=== PATIENT | female | born 1960 ===

== ENCOUNTER 2016-10-02 13:55 | Inpatient (IN) | payer MEDICARE, MEDICAID ==
[2016-10-02 13:55] VITALS: BMI 21.0
[2016-10-02 16:12] LABS: BASO % 1.1 % (0.0-2.0); EOS # 0.1 K/uL (0.0-0.7); EOS % 2.4 % (0.0-4.0); HEMATOCRIT 28.2 % (34.0-47.0); LYMPH # 0.8 K/uL (1.0-4.3); LYMPH % 18.8 % (20.0-40.0); MEAN CORPUSCULAR HEMOGLOBIN 31.6 pg (27.0-31.0); MEAN CORPUSCULAR HGB CONC 33.8 g/dL (33.0-37.0); MEAN PLATELET VOLUME 7.3 fL (7.2-11.7); MONO # 0.7 K/uL (0.0-0.8); RED CELL DISTRIBUTION WIDTH 16.8 % (11.5-14.5); WHITE BLOOD COUNT 4.3 K/uL (4.8-10.8)
[2016-10-02] MEDS ORDERED: Iodixanol 320 MG/ML 100 ML BOTTLE IV ONE (16:17)
[2016-10-02 16:21] LABS: MEAN CELL VOLUME 93.5 fL (81.0-99.0)
--- NOTE | 2016-10-02 16:23 | RAD ---
PROCEDURE: CHEST RADIOGRAPH, 1 VIEW HISTORY: SOB COMPARISON: 12/11/2015 FINDINGS: LUNGS: Hazy opacity in the bilateral lung bases. Scarring noted in both lung bases. Right paratracheal opacity appears more prominent than in the prior radiograph from 12/11/2015. PLEURA: Bilateral effusions. CARDIOVASCULAR: Normal. OSSEOUS STRUCTURES: The osseous structures demonstrate degenerative changes. VISUALIZED UPPER ABDOMEN: Upper abdomen is suboptimally evaluated. OTHER FINDINGS: Midline sternotomy wires noted. Vascular stent seen underneath the projection of the left clavicle. This was not there in the prior radiograph. Vascular calcifications in the left upper arm. IMPRESSION: Bilateral pleural effusions with associated compressive atelectasis and/ pneumonia. Additional pleural scarring noted in both lower lung bases.
[2016-10-02 16:24] LABS: CHLORIDE 95 mmol/L (98-107); POTASSIUM 4.3 mmol/L (3.6-5.2); SODIUM 142 mmol/L (132-148)
[2016-10-02 16:25] LABS: INR 1.5
[2016-10-02 16:26] LABS: GFR AFRICAN-AMERICAN 13
[2016-10-02 16:27] LABS: ALKALINE PHOSPHATASE 82 U/L (38-126); ALT/SGPT 21 U/L (9-52); AST/SGOT 16 U/L (14-36); BILIRUBIN,TOTAL 1.1 mg/dL (0.2-1.3); BLOOD UREA NITROGEN 21 mg/dL (7-17); CARBON DIOXIDE 34 mmol/L (22-30); GLUCOSE,RANDOM 76 mg/dL (65-105); TOTAL PROTEIN 8.1 g/dL (6.3-8.3)
[2016-10-02 16:28] LABS: CALCIUM 8.4 mg/dl (8.6-10.4)
--- NOTE | 2016-10-02 16:29 | C.PDOC ---
History Of Present Illness 56-year-old, PMHx includes Emphysema, Hypertension, double bypass surgery, valve replacement, ESRD on dialysis MWF s/p failed kidney transplants x2, presents to the emergency department with complaints of increasing shortness of breath for the past four days. States she had pneumonia in 06/03 and has not fully recovered since. Patient was seen by Dr Tran, who prescribed a Zpack that she has been taking with no relief, resulting in her coming to the ED for evaluation. Patient is on O2 va NC at home 08/02. Time Seen by Provider: 10/02/16 14:51 Chief Complaint (Nursing): Shortness Of Breath History Per: Patient, Family History/Exam Limitations: no limitations Onset/Duration Of Symptoms: Days Current Symptoms Are (Timing): Still Present Past Medical History Reviewed: Historical Data, Nursing Documentation, Vital Signs Vital Signs: Last Vital Signs Temp 97.4 F L 10/03/16 17:10 Pulse 85 10/03/16 17:10 Resp 20 10/03/16 17:10 BP 152/80 H 10/03/16 17:10 Pulse Ox 97 10/03/16 17:10 - Medical History PMH: CAD (double bypass, replacement valve), HTN, Hypercholesterolemia, Hypothyroidism (thyroid), End Stage Renal Disease - [facility] CORONAR ARTERIOGR-2 CATH (02/20/04) HEMODIALYSIS (07/13/13) INCIS W REM OF FORIEGN BODY OR DEV FROM SKIN & SUBCUT TISSUE (12/24/12) LEFT HEART CARDIAC CATH (02/20/04) LT HEART ANGIOCARDIOGRAM (02/20/04) Family History: States: Unknown Family Hx - Social History Hx Tobacco Use: No Hx Alcohol Use: No Hx Substance Use: No - Immunization History Hx Influenza Vaccination: Yes Review Of Systems Except As Marked, All Systems Reviewed And Found Negative. Constitutional: Positive for: Fever, Chills Cardiovascular: Negative for: Chest Pain, Palpitations Respiratory: Positive for: Shortness of Breath Gastrointestinal: Negative for: Vomiting Genitourinary: Negative for: Dysuria, Frequency Musculoskeletal: Positive for: Back Pain Skin: Negative for: Rash Neurological: Negative for: Weakness, Numbness, Headache, Dizziness Physical Exam - Physical Exam Appears: Non-toxic, No Acute Distress Skin: Warm, No Rash Neck: Normal ROM Chest: Symmetrical, Other (MID LINE SURGICAL SCAR, OLD, HEALED. ) Cardiovascular: Rhythm Regular, Murmur (holosys 3/6) Respiratory: Decreased Breath Sounds, No Rhonchi, No Wheezing, Other (POOR AIR MOVEMENT. ) Gastrointestinal/Abdominal: Soft, No Tenderness Extremity: Pedal Edema, Other (AV FISTULA IN LUE WITH PALPABLE THRILL) Neurological/Psych: Oriented x3, Normal Speech, Normal Cognition ED Course And Treatment - Laboratory Results Result Diagrams: 10/02/16 16:05 10/02/16 16:10 ECG: Interpreted By Al ECG Rhythm: Sinus Rhythm ECG Interpretation: No Acute Changes Rate From EC O2 Sat by Pulse Oximetry: 100 - Radiology CXR: Interpreted by Al CXR Interpretation: Yes: Infiltrates, Other (small bilateral plural effusions) Medical Decision Making Medical Decision Making: Pt remained stable in the ED Pt has been treated for the past several wks with abx and apparently not improving she will need admission for further evaluation and treatment Case discussed with and pt seen by dr Joe in the Ed She arranged for pt to be admitted by dr Pulliam Disposition - Disposition Disposition: HOSPITALIZED Disposition Time: 17:00 Condition: FAIR - Clinical Impression Clinical Impression: ESRD (end stage renal disease) on dialysis, Pneumonia, Dyspnea, Pleural effusion - Scribe Statement The provider has reviewed the documentation as recorded by the Scribe Decision To Admit - Pt Status Changed To: Hospital Disposition Of: Inpatient - Admit Certification Admit to Inpatient:: After my assessment, the patient will require hospitalization for at least two midnights. This is because of the severity of symptoms shown, intensity of services needed, and/or the medical risk in this patient being treated as an outpatient. - InPatient: Physician Admission Certification: I certify that this patient requires 2 or more midnights of care for the following reason:: see note - . Bed Request Type: Regular Admitting Physician: López Millard Patient Diagnosis: ESRD (end stage renal disease) on dialysis, Pneumonia, Dyspnea, Pleural effusion
[2016-10-02] MEDS ORDERED: Albuterol-Ipratrop 3 mg / 0.5 (3 ml) UD ONE (17:28)
[2016-10-02] MEDS: Albuterol-Ipratrop 3 mg / 0.5 (3 ml) UD IH SCH (17:39)
[2016-10-02] MEDS ORDERED: Oxycodone/Acetaminophen 5/325 mg Tab ONE (20:58)
[2016-10-02] MEDS ORDERED: Azithromycin 500mg/250ML NS 250 ML IVPB ONE (22:08)
[2016-10-02] MEDS: Azithromycin 500 MG in Sodium Chloride 0.9% 250 ML IVPB SCH (22:10)
[2016-10-03] MEDS: Albuterol-Ipratrop 3 mg / 0.5 (3 ml) UD INH SCH ×4 (01:48→19:11)
[2016-10-03] MEDS: Levothyroxine 125 MCG TAB PO SCH (05:34)
[2016-10-03] MEDS: Oxycodone/Acetaminophen 5/325 mg Tab PO PRN ×2 (05:34→20:29)
--- NOTE | 2016-10-03 10:52 | CP.PCM.CON ---
History of Present Illness - History of Present Illness History of Present Illness: 56-year-old, PMHx includes Emphysema, Hypertension, double bypass surgery, valve replacement, ESRD on dialysis MWF s/p failed kidney transplants x2, presents to the emergency department with complaints of increasing shortness of breath for the past four days. States she had pneumonia in 06/03 and has not fully recovered since. Patient was seen by Dr Tran, who prescribed a Zpack that she has been taking with no relief, resulting in her coming to the ED for evaluation. Patient is on O2 va NC at home 08/02. Known history of esrd on HD at [facility], received hd m,w,f. Last treatment 10/02, patient reports decresed fluid removal due to muscle cramps CXR notable for effusions and infiltrates Review of Systems - Constitutional Constitutional: Fatigue, Headache, Malaise, Weakness. absent: Chills, Fever - EENT Eyes: absent: Change in Vision, Itchy Eyes Ears: absent: Decreased Hearing, Disequilibrium, Dizziness Nose/Mouth/Throat: absent: Nasal Congestion, Dry Mouth, Dysphagia - Cardiovascular Cardiovascular: Dyspnea, Dyspnea on Exertion. absent: Chest Pain, Chest Pain at Rest, Edema - Respiratory Respiratory: Cough, Dyspnea. absent: Wheezing, Pain on Inspiration, Chest Congestion - Gastrointestinal Gastrointestinal: absent: Abdominal Pain, Constipation, Hematemesis, Nausea - Genitourinary Genitourinary: absent: Hematuria, Pyuria - Musculoskeletal Musculoskeletal: Arthralgias, Muscle Cramps. absent: Joint Swelling, Stiffness - Integumentary Integumentary: absent: Change in Hair, Dry Skin, Skin Ulcer, Sores - Neurological Neurological: absent: Dizziness, Memory Loss, Syncope, Tingling, Tremor - Psychiatric Psychiatric: Depression. absent: Confusion, Memory Loss - Endocrine Endocrine: absent: Cold Intolorance, Heat Intolorance, Polydipsia, Polyphagia - Hematologic/Lymphatic Hematologic: absent: Easy Bleeding, Easy Bruising Past Patient History - Past Medical History & Family History Past Medical History?: Yes - Past Social History Smoking Status: Current Some Days Smoker - CARDIAC Hx Hypercholesterolemia: Yes Hx Hypertension: Yes - PULMONARY Hx Respiratory Disorders: No - NEUROLOGICAL Hx Neurological Disorder: No - HEENT Hx HEENT Problems: No - RENAL Hx Dialysis: Yes Type of Dialysis Access: LORETTA AV fistula Date of Last Dialysis Treatment: 10/02/16 Hx Renal Failure: Yes (Dialysis (M-W-F)) - ENDOCRINE/METABOLIC Hx Hypothyroidism: Yes (thyroidectomy) - HEMATOLOGICAL/ONCOLOGICAL Hx Anemia: Yes Hx Blood Transfusions: Yes Hx Hepatitis C: Yes (inconclusive) - INTEGUMENTARY Hx Dermatological Problems: No - MUSCULOSKELETAL/RHEUMATOLOGICAL Hx Back Pain: Yes Hx Falls: No - GASTROINTESTINAL Hx Gastrointestinal Disorders: Yes Other/Comment: Hiatal Hernia - GENITOURINARY/GYNECOLOGICAL Hx Genitourinary Disorders: No - PSYCHIATRIC Hx Psychophysiologic Disorder: No Hx Substance Use: No - SURGICAL HISTORY Hx Kidney Transplant: Yes (2) Hx Thyroidectomy: Yes (2014) Hx Valve Replacement: Yes (2010) - ANESTHESIA Hx Anesthesia: Yes Hx Anesthesia Reactions: No Hx Malignant Hyperthermia: No Meds Allergies/Adverse Reactions: Allergies Allergy/AdvReac Type Severity Reaction Status Date / Time No Known Allergies Allergy Verified 12/24/12 18:23 - Medications Medications: Current Medications Acetaminophen (Tylenol 325mg Tab) 650 mg PO Q6 PRN PRN Reason: Fever >100.4 F Albuterol/Ipratropium (Duoneb 3 Mg/0.5 Mg (3 Ml) Ud) 3 ml INH RQ6 [facility] Last Admin: 10/03/16 08:53 Dose: 3 ml Aspirin (Aspirin Chewable) 81 mg PO TTS [facility] Last Admin: 10/03/16 10:27 Dose: 81 mg Calcium Acetate (Phoslo) 667 mg PO TIDCC [facility] Last Admin: 10/03/16 09:15 Dose: 667 mg Carvedilol (Coreg) 3.125 mg PO BID [facility] Last Admin: 10/03/16 10:15 Dose: 3.125 mg Heparin Sodium (Porcine) (Heparin) 5,000 units SC Q12 [facility] Last Admin: 10/03/16 10:28 Dose: 5,000 units Azithromycin 500 mg/ Sodium (Chloride) 250 mls @ 250 mls/hr IVPB Q24H [facility] Last Admin: 10/02/16 22:10 Dose: 250 mls/hr Levothyroxine Sodium (Synthroid) 125 mcg PO DAILY@0630 [facility] Last Admin: 10/03/16 05:34 Dose: 125 mcg Oxycodone/Acetaminophen (Percocet 5/325 Mg Tab) 1 tab PO Q8 PRN PRN Reason: Pain, moderate (4-7) Stop: 10/05/16 22:01 Last Admin: 10/03/16 05:34 Dose: 1 tab Pantoprazole Sodium (Protonix Inj) 40 mg IVP DAILY [facility] Last Admin: 10/03/16 10:28 Dose: 40 mg Rosuvastatin Calcium (Crestor) 5 mg PO HS [facility] Last Admin: 10/02/16 23:30 Dose: Not Given Fluticasone/Salmeterol (Advair Diskus 250/50) 1 puff INH RQ12 [facility] Physical Exam - Constitutional Appears: Unkempt, Older Than Stated Age, Chronically Ill - Head Exam Head Exam: ATRAUMATIC, NORMAL INSPECTION - Eye Exam Eye Exam: EOMI, PERRL - ENT Exam ENT Exam: Mucous Membranes Moist, Normal Oropharynx - Neck Exam Neck exam: Negative for: Lymphadenopathy, Thyromegaly - Respiratory Exam Respiratory Exam: Rhonchi, Wheezes, NORMAL BREATHING PATTERN - Cardiovascular Exam Cardiovascular Exam: JVD, +S1, +S2, Systolic Murmur - GI/Abdominal Exam GI & Abdominal Exam: Normal Bowel Sounds, Soft. absent: Tenderness - Extremities Exam Extremities exam: Negative for: joint swelling, pedal edema, tenderness - Back Exam Back exam: absent: muscle spasm, paraspinal tenderness - Neurological Exam Neurological exam: Alert, Oriented x3 - Psychiatric Exam Psychiatric exam: Depressed - Skin Skin Exam: Dry, Intact Results - Vital Signs Recent Vital Signs: Last Vital Signs Temp 98 F 10/03/16 00:00 Pulse 80 10/03/16 00:00 Resp 20 10/03/16 00:00 BP 131/77 10/03/16 00:00 Pulse Ox 96 10/03/16 00:00 - Labs Result Diagrams: 10/02/16 16:05 10/02/16 16:10 Assessment & Plan (1) Pneumonia Status: Acute (2) ESRD (end stage renal disease) on dialysis Status: Acute (3) Dependence on renal dialysis Status: Acute (4) Anemia Status: Acute (5) Pleural effusion Status: Acute (6) Hypertension Status: Acute (7) Failed kidney transplant Status: Acute - Assessment and Plan (Free Text) Plan: Dyspnea likely multifactorial Pleural effusions and infiiltrates - immunocompromised state Conside bronchoscopy for further evaluation, patient recently treated with oral abx without improvement and prior admission for pneumonia Schedule dialysis today for fluid removal ?thoracentesis Continue hmoe bp meds - reduce for hypotension on hd
[2016-10-03] MEDS: Fluticasone-Salmeterol 250-50mcg Diskus INH SCH ×2 (14:10→21:59)
--- NOTE | 2016-10-03 16:50 | CP.PCM.CON ---
History of Present Illness - History of Present Illness History of Present Illness: CHART REVIEWED, PT SEEN AND EXAMINED, 10/02/16-- UNABLE TO ACCESS EHR. 56 YO HISP FEMALE WITH A HX COPD, CHRONIC RESP FAILURE ON HOMEMO2 AT 4L, S/P [place]PSIS [place] [facility] [place], [place], S/P FAILED KIDNEY TRANSPLANT X 2, S/P CABG, AVR AT [facility] IN 2010, HTN, ADVISED TO GO TO ER FROM MY OFFICE YESTERDAY FOR INCREASED SEVERE SOB WITH MIN EXERTION X 1 WK., NO COUGH , +LOW GRADE FEVERS, GENERALIZED MALAISE., POOR APPETITE. NO RELIEF WITH HOME NEB., IN OFFICE O2 SAT 85% ON 3L O2., . NO CP. PT RECENTLY NOTIFIED BY [facility] OF POSSIBLE ATYPICAL MYCOBACTERIAL EXPOSURE RELATED TO PRIOR CARDIAC SURGERY. STARTED ON TRIAL ZMAX OUTPT LAST MONTH. FOB DONE FEW MONTHS AGO NEG FOR [employer]. Review of Systems - Review of Systems Systems not reviewed;Unavailable: Respiratory Distress All systems: reviewed and no additional remarkable complaints except - Constitutional Constitutional: Fatigue, Fever, Malaise - EENT Eyes: Change in Vision, Other Visual Disturbances Nose/Mouth/Throat: Sore Throat. absent: Nasal Congestion - Cardiovascular Cardiovascular: Dyspnea, Dyspnea on Exertion. absent: Chest Pain, Edema - Respiratory Respiratory: Dyspnea, Dyspnea on Exertion. absent: Cough, Chest Congestion, Excessive Mucous Production - Gastrointestinal Gastrointestinal: absent: Abdominal Pain, Nausea, Vomiting - Genitourinary Genitourinary: absent: Dysuria - Musculoskeletal Musculoskeletal: Back Pain - Integumentary Integumentary: absent: Lesions, Jaundice - Neurological Neurological: absent: Confusion, Dizziness, Focal Weakness, Syncope - Psychiatric Psychiatric: absent: Anxiety - Hematologic/Lymphatic Hematologic: absent: Easy Bruising Past Patient History - Past Medical History & Family History Past Medical History?: Yes Past Family History: Reviewed and not pertinent - Past Social History Smoking Status: Current Some Days Smoker Chewing Tobacco Use: No Cigar Use: No Alcohol: None Drugs: Denies - CARDIAC Hx Cardiac Disorders: Yes Hx Hypercholesterolemia: Yes Hx Hypertension: Yes - PULMONARY Hx Respiratory Disorders: Yes Hx Chronic Obstructive Pulmonary Disease (COPD): Yes Hx Pneumonia: Yes Hx Respiratory Tract Infection: Yes Hx Tuberculosis: No - NEUROLOGICAL Hx Neurological Disorder: No - HEENT Hx HEENT Problems: Yes - RENAL Hx Chronic Kidney Disease: Yes Hx Dialysis: Yes Type of Dialysis Access: LORETTA AV fistula Date of Last Dialysis Treatment: 10/02/16 Hx Renal Failure: Yes (Dialysis (M-W-F)) - ENDOCRINE/METABOLIC Hx Endocrine Disorders: Yes Hx Hypothyroidism: Yes (thyroidectomy) - HEMATOLOGICAL/ONCOLOGICAL Hx Anemia: Yes Hx Blood Transfusions: Yes Hx Hepatitis C: Yes (inconclusive) - INTEGUMENTARY Hx Dermatological Problems: No - MUSCULOSKELETAL/RHEUMATOLOGICAL Hx Back Pain: Yes Hx Falls: No - GASTROINTESTINAL Hx Gastrointestinal Disorders: Yes Other/Comment: Hiatal Hernia - GENITOURINARY/GYNECOLOGICAL Hx Genitourinary Disorders: Yes Other/Comment: S/P KIDNEY TRANSPLANT. S/P TRANSPLANT REMOVAL - PSYCHIATRIC Hx Psychophysiologic Disorder: No Hx Substance Use: No - SURGICAL HISTORY Hx Surgeries: Yes Hx Cardiac Catheterization: Yes Hx Coronary Artery Bypass Graft: (S/P AVR) Hx Kidney Transplant: Yes (2) Hx Thyroidectomy: Yes (2014) Hx Valve Replacement: Yes (2010) - ANESTHESIA Hx Anesthesia: Yes Hx Anesthesia Reactions: No Hx Malignant Hyperthermia: No Meds Allergies/Adverse Reactions: Allergies Allergy/AdvReac Type Severity Reaction Status Date / Time No Known Allergies Allergy Verified 12/24/12 18:23 - Medications Medications: Current Medications Acetaminophen (Tylenol 325mg Tab) 650 mg PO Q6 PRN PRN Reason: Fever >100.4 F Albuterol/Ipratropium (Duoneb 3 Mg/0.5 Mg (3 Ml) Ud) 3 ml INH RQ6 [facility] Last Admin: 10/03/16 14:15 Dose: 3 ml Aspirin (Aspirin Chewable) 81 mg PO TTS [facility] Last Admin: 10/03/16 10:27 Dose: 81 mg Calcium Acetate (Phoslo) 667 mg PO TIDCC [facility] Last Admin: 10/03/16 12:37 Dose: 667 mg Carvedilol (Coreg) 3.125 mg PO BID [facility] Last Admin: 10/03/16 10:15 Dose: 3.125 mg Heparin Sodium (Porcine) (Heparin) 5,000 units SC Q12 [facility] Last Admin: 10/03/16 10:28 Dose: 5,000 units Azithromycin 500 mg/ Sodium (Chloride) 250 mls @ 250 mls/hr IVPB Q24H [facility] Last Admin: 10/02/16 22:10 Dose: 250 mls/hr Ceftriaxone Sodium (Rocephin Iv 1 Gm Duplex) 50 mls @ 50 mls/30 min IVPB DAILY@ 1800 [facility] Levothyroxine Sodium (Synthroid) 125 mcg PO DAILY@0630 [facility] Last Admin: 10/03/16 05:34 Dose: 125 mcg Oxycodone/Acetaminophen (Percocet 5/325 Mg Tab) 1 tab PO Q8 PRN PRN Reason: Pain, moderate (4-7) Stop: 10/05/16 22:01 Last Admin: 10/03/16 05:34 Dose: 1 tab Pantoprazole Sodium (Protonix Inj) 40 mg IVP DAILY [facility] Last Admin: 10/03/16 10:28 Dose: 40 mg Rosuvastatin Calcium (Crestor) 5 mg PO HS [facility] Last Admin: 10/02/16 23:30 Dose: Not Given Fluticasone/Salmeterol (Advair Diskus 250/50) 1 puff INH RQ12 [facility] Last Admin: 10/03/16 14:10 Dose: Not Given Physical Exam - Constitutional Appears: Chronically Ill - Head Exam Head Exam: ATRAUMATIC, NORMOCEPHALIC - Eye Exam Eye Exam: EOMI, Normal appearance. absent: Scleral icterus - ENT Exam ENT Exam: Mucous Membranes Dry - Neck Exam Neck exam: Negative for: Tenderness - Respiratory Exam Respiratory Exam: Decreased Breath Sounds, Rhonchi - Cardiovascular Exam Cardiovascular Exam: RRR, +S1, +S2 - GI/Abdominal Exam GI & Abdominal Exam: Soft. absent: Tenderness - Rectal Exam Rectal Exam: Deferred - Extremities Exam Extremities exam: Negative for: calf tenderness, pedal edema - Back Exam Back exam: absent: CVA tenderness (L), CVA tenderness (R) - Neurological Exam Neurological exam: Alert, CN II-XII Intact, Oriented x3 - Psychiatric Exam Psychiatric exam: Normal Affect - Skin Skin Exam: Intact, Rash Results - Vital Signs Recent Vital Signs: Last Vital Signs Temp 98.4 F 10/03/16 14:05 Pulse 72 10/03/16 14:05 Resp 20 10/03/16 14:05 BP 166/84 H 10/03/16 15:35 Pulse Ox 90 L 10/03/16 08:00 - Labs Result Diagrams: 10/02/16 16:05 10/02/16 16:10 Assessment & Plan (1) Dependence on renal dialysis Status: Acute (2) ESRD (end stage renal disease) on dialysis Status: Acute (3) Failed kidney transplant Status: Acute (4) Hypertension Status: Acute (5) Acute respiratory failure with hypoxia Status: Acute (6) Chronic respiratory failure with hypoxia Status: Acute (7) COPD exacerbation Status: Acute - Assessment and Plan (Free Text) Assessment: 56 YO FEMALE WITH A HX MULT MED PROBS, ADM WITH ACUTE ON CHRONIC RESP FAILURE/ COPD EXAC/ R/O SEPSIS. CXR REVIEWED.. FOR HD PER RENAL., CONT NEB BD/. MONITOR O2 SAT,. DVT PROPHYAXIS. EMPIRIC AB, CONT ON ZMAX FOR POSS ATYPICAL MYCOBACTERIA. DISCUSSED WITH ER STAFF AND DR FOY. PROG GUARDED.
--- NOTE | 2016-10-03 17:12 | CP.PCM.PN ---
Subjective - Date & Time of Evaluation Date of Evaluation: 10/03/16 Time of Evaluation: 17:10 - Subjective Subjective: PT ALERT, STILL WEAK., ON HD. ROS: OTHERWISE NEG. Objective - Vital Signs/Intake and Output Vital Signs (last 24 hours): Temp Pulse Resp BP Pulse Ox 98.4 F 72 20 166/84 H 90 L 10/03/16 14:05 10/03/16 14:05 10/03/16 14:05 10/03/16 15:35 10/03/16 08:00 Intake and Output: 10/03/16 10/03/16 06:59 18:59 Intake Total 450 Balance 450 - Medications Medications: Current Medications Acetaminophen (Tylenol 325mg Tab) 650 mg PO Q6 PRN PRN Reason: Fever >100.4 F Albuterol/Ipratropium (Duoneb 3 Mg/0.5 Mg (3 Ml) Ud) 3 ml INH RQ6 [facility] Last Admin: 10/03/16 14:15 Dose: 3 ml Aspirin (Aspirin Chewable) 81 mg PO TTS [facility] Last Admin: 10/03/16 10:27 Dose: 81 mg Calcium Acetate (Phoslo) 667 mg PO TIDCC [facility] Last Admin: 10/03/16 12:37 Dose: 667 mg Carvedilol (Coreg) 3.125 mg PO BID [facility] Last Admin: 10/03/16 10:15 Dose: 3.125 mg Heparin Sodium (Porcine) (Heparin) 5,000 units SC Q12 [facility] Last Admin: 10/03/16 10:28 Dose: 5,000 units Azithromycin 500 mg/ Sodium (Chloride) 250 mls @ 250 mls/hr IVPB Q24H [facility] Last Admin: 10/02/16 22:10 Dose: 250 mls/hr Ceftriaxone Sodium (Rocephin Iv 1 Gm Duplex) 50 mls @ 50 mls/30 min IVPB DAILY@ 1800 [facility] Levothyroxine Sodium (Synthroid) 125 mcg PO DAILY@0630 [facility] Last Admin: 10/03/16 05:34 Dose: 125 mcg Oxycodone/Acetaminophen (Percocet 5/325 Mg Tab) 1 tab PO Q8 PRN PRN Reason: Pain, moderate (4-7) Stop: 10/05/16 22:01 Last Admin: 10/03/16 05:34 Dose: 1 tab Pantoprazole Sodium (Protonix Inj) 40 mg IVP DAILY [facility] Last Admin: 10/03/16 10:28 Dose: 40 mg Rosuvastatin Calcium (Crestor) 5 mg PO HS [facility] Last Admin: 10/02/16 23:30 Dose: Not Given Fluticasone/Salmeterol (Advair Diskus 250/50) 1 puff INH RQ12 [facility] Last Admin: 10/03/16 14:10 Dose: Not Given - Labs Labs: PT 17.5 SECONDS (9.7-12.2) H 10/02/16 16:05 INR 1.5 10/02/16 16:05 APTT 29 SECONDS (21-34) 10/02/16 16:05 - Constitutional Appears: Chronically Ill - Head Exam Head Exam: ATRAUMATIC, NORMOCEPHALIC - Eye Exam Eye Exam: EOMI, Normal appearance - ENT Exam ENT Exam: Mucous Membranes Moist - Neck Exam Neck Exam: absent: Tenderness - Respiratory Exam Respiratory Exam: Decreased Breath Sounds. absent: Wheezes - Cardiovascular Exam Cardiovascular Exam: RRR, +S1, +S2 - GI/Abdominal Exam GI & Abdominal Exam: Soft. absent: Tenderness - Rectal Exam Rectal Exam: Deferred - Extremities Exam Extremities Exam: absent: Calf Tenderness - Back Exam Back Exam: absent: CVA tenderness (L), CVA tenderness (R) - Neurological Exam Neurological Exam: Alert, Awake, CN II-XII Intact, Oriented x3 - Psychiatric Exam Psychiatric exam: Normal Affect - Skin Skin Exam: absent: Rash Assessment and Plan (1) Dependence on renal dialysis Status: Acute (2) ESRD (end stage renal disease) on dialysis Status: Acute (3) Failed kidney transplant Status: Acute (4) Hypertension Status: Acute (5) Acute respiratory failure with hypoxia Status: Acute (6) Chronic respiratory failure with hypoxia Status: Acute (7) COPD exacerbation Status: Acute - Assessment and Plan (Free Text) Assessment: RESP STATUS NO SIG CHANGE., FOR ADDITIONAL HD PER RENAL. CONT EMPIRIC AB., CONT NEB BD., MONITOR O2 SAT. CXR REVIEWED., DISCUSSED WITH STAFF AT LENGTH.
[2016-10-03] MEDS: cefTRIAXone IV 1 gm in Dextros 50 ML IVPB SCH (18:41)
[2016-10-03] MEDS: Azithromycin 500 MG in Sodium Chloride 0.9% 250 ML IVPB SCH (20:26)
[2016-10-04] MEDS: Albuterol-Ipratrop 3 mg / 0.5 (3 ml) UD INH SCH ×4 (01:30→19:31)
[2016-10-04] MEDS: Levothyroxine 125 MCG TAB PO SCH (05:55)
[2016-10-04] MEDS: Oxycodone/Acetaminophen 5/325 mg Tab PO PRN ×2 (05:57→18:58)
[2016-10-04 07:54] LABS: BASO % 0.7 % (0.0-2.0); EOS # 0.1 K/uL (0.0-0.7); EOS % 1.8 % (0.0-4.0); HEMATOCRIT 28.6 % (34.0-47.0); LYMPH # 0.7 K/uL (1.0-4.3); LYMPH % 14.4 % (20.0-40.0); MEAN CELL VOLUME 94.8 fL (81.0-99.0); MEAN CORPUSCULAR HEMOGLOBIN 31.1 pg (27.0-31.0); MEAN CORPUSCULAR HGB CONC 32.8 g/dL (33.0-37.0); MONO # 0.7 K/uL (0.0-0.8); MONO % 14.3 % (0.0-10.0); NRBC % 0.1 % (0.0-2.0); RED CELL DISTRIBUTION WIDTH 16.7 % (11.5-14.5); WHITE BLOOD COUNT 4.7 K/uL (4.8-10.8)
[2016-10-04] MEDS: Fluticasone-Salmeterol 250-50mcg Diskus INH SCH ×2 (08:13→19:31)
--- NOTE | 2016-10-04 08:59 | CP.PCM.PN ---
Subjective - Date & Time of Evaluation Date of Evaluation: 10/04/16 Time of Evaluation: 08:57 - Subjective Subjective: PT ALERT, STILL SOB., SLEPT A LITTLE. ROS; OTHERWISE NEG Objective - Vital Signs/Intake and Output Vital Signs (last 24 hours): Temp Pulse Resp BP Pulse Ox 98.7 F 83 20 115/73 94 L 10/04/16 00:00 10/04/16 00:00 10/04/16 00:00 10/04/16 00:00 10/04/16 00:00 - Medications Medications: Current Medications Acetaminophen (Tylenol 325mg Tab) 650 mg PO Q6 PRN PRN Reason: Fever >100.4 F Last Admin: 10/04/16 03:54 Dose: 650 mg Albuterol/Ipratropium (Duoneb 3 Mg/0.5 Mg (3 Ml) Ud) 3 ml INH RQ6 [facility] Last Admin: 10/04/16 08:13 Dose: 3 ml Aspirin (Aspirin Chewable) 81 mg PO TTS [facility] Last Admin: 10/03/16 10:27 Dose: 81 mg Calcium Acetate (Phoslo) 667 mg PO TIDCC [facility] Last Admin: 10/04/16 08:26 Dose: 667 mg Carvedilol (Coreg) 3.125 mg PO BID [facility] Last Admin: 10/03/16 17:25 Dose: 3.125 mg Heparin Sodium (Porcine) (Heparin) 5,000 units SC Q12 [facility] Last Admin: 10/03/16 21:26 Dose: Not Given Azithromycin 500 mg/ Sodium (Chloride) 250 mls @ 250 mls/hr IVPB Q24H [facility] Last Admin: 10/03/16 20:26 Dose: 250 mls/hr Ceftriaxone Sodium (Rocephin Iv 1 Gm Duplex) 50 mls @ 50 mls/30 min IVPB DAILY@ 1800 [facility] Last Admin: 10/03/16 18:41 Dose: 50 mls/30 min Levothyroxine Sodium (Synthroid) 125 mcg PO DAILY@0630 [facility] Last Admin: 10/04/16 05:55 Dose: 125 mcg Oxycodone/Acetaminophen (Percocet 5/325 Mg Tab) 1 tab PO Q8 PRN PRN Reason: Pain, moderate (4-7) Stop: 10/05/16 22:01 Last Admin: 10/04/16 05:57 Dose: 1 tab Pantoprazole Sodium (Protonix Inj) 40 mg IVP DAILY [facility] Last Admin: 10/03/16 10:28 Dose: 40 mg Rosuvastatin Calcium (Crestor) 5 mg PO HS [facility] Last Admin: 10/03/16 21:59 Dose: 5 mg Fluticasone/Salmeterol (Advair Diskus 250/50) 1 puff INH RQ12 [facility] Last Admin: 10/04/16 08:13 Dose: 1 puff - Labs Labs: 10/04/16 07:46 PT 17.5 SECONDS (9.7-12.2) H 10/02/16 16:05 INR 1.5 10/02/16 16:05 APTT 29 SECONDS (21-34) 10/02/16 16:05 - Constitutional Appears: Chronically Ill - Head Exam Head Exam: ATRAUMATIC, NORMOCEPHALIC - Eye Exam Eye Exam: EOMI, Normal appearance - ENT Exam ENT Exam: Mucous Membranes Moist - Neck Exam Neck Exam: absent: Tenderness - Respiratory Exam Respiratory Exam: Decreased Breath Sounds, Rhonchi. absent: Accessory Muscle Use - Cardiovascular Exam Cardiovascular Exam: RRR, +S1, +S2 - GI/Abdominal Exam GI & Abdominal Exam: Soft. absent: Tenderness - Rectal Exam Rectal Exam: Deferred - Extremities Exam Extremities Exam: absent: Calf Tenderness - Back Exam Back Exam: absent: CVA tenderness (L), CVA tenderness (R) - Neurological Exam Neurological Exam: Alert, Awake, CN II-XII Intact, Oriented x3 - Psychiatric Exam Psychiatric exam: Normal Affect - Skin Skin Exam: absent: Rash Assessment and Plan (1) Dependence on renal dialysis Status: Acute (2) ESRD (end stage renal disease) on dialysis Status: Acute (3) Failed kidney transplant Status: Acute (4) Hypertension Status: Acute (5) Acute respiratory failure with hypoxia Status: Acute (6) Chronic respiratory failure with hypoxia Status: Acute (7) COPD exacerbation Status: Acute - Assessment and Plan (Free Text) Assessment: RESP STATUS MORE COMFORTABLE., O2 SAT 94% ON 4L NOW., CONT NEB BD., ADVAIR., CONT EMPIRIC AB. S/P ADDITIONAL HD YESTERDAY. CXR REVIEWED., DISCUSSED WITH STAFF.
[2016-10-04 09:19] LABS: THYROID STIMULATING HORMONE 11.8 mIU/L (0.46-4.68)
--- NOTE | 2016-10-04 13:19 | RAD ---
HISTORY: pneumonia Pleural efusion COMPARISON: No prior. TECHNIQUE: Chest PA and lateral FINDINGS: LUNGS: Pulmonary vascular congestion with bilateral patchy atelectasis and or infiltrate changes and bilateral effusions left larger than right. PLEURA: No significant pleural effusion identified. No pneumothorax apparent. CARDIOVASCULAR: Sternotomy wires prostatic valve again noted. Cardiomegaly. . OSSEOUS STRUCTURES: No significant abnormalities. VISUALIZED UPPER ABDOMEN: Normal. OTHER FINDINGS: In situ left subclavian metallic mesh vascular stent IMPRESSION: Pulmonary vascular congestion with bilateral lower lobe patchy atelectasis and or infiltrate changes and bilateral effusions. Lower lobe
--- NOTE | 2016-10-04 15:22 | PN ---
DATE: 10/04/2016 SUBJECTIVE: Today, the patient is more alert and awake, well rested, complaining of some generalized weakness and shortness of breath on exertion and congestive cough. No abdominal pain. PHYSICAL EXAMINATION: VITAL SIGNS: The patient has blood pressure of 124/68, pulse 78, respirations 20, temperature 98. NECK: Supple. Positive JVD. LUNGS: There are some rales bilaterally. HEART: Regular rate and rhythm, but there is a murmur, II/ systolic murmur. No S3 asystole. ABDOMEN: Soft and nontender. No palpable mass. EXTREMITIES: There is no edema. There is an AV fistula in the left arm. LABORATORY DATA: Show WBC is 4.7, hemoglobin 9.4, hematocrit 28.6 and platelets 141. PLAN: We are going to continue the respiratory treatments. Also patient's TSH is 11.8. The patient is on Levoxyl. It is questionable if patient was taking this medication at home. We are going to ch kalyan also the free T4. López Millard MD cc: [id number] TT: 10/04/2016 15:21:56 Confirmation # [id number] Dictation # [id number] nehal
[2016-10-04] MEDS: cefTRIAXone IV 1 gm in Dextros 50 ML IVPB SCH (17:42)
[2016-10-04] MEDS: Azithromycin 500 MG in Sodium Chloride 0.9% 250 ML IVPB SCH (18:59)
--- NOTE | 2016-10-04 23:45 | CARD ---
APPROVED REPORT EKG Measurement Heart [id number] <Conclusion> Normal sinus rhythm Prolonged QT Abnormal ECG
[2016-10-05] MEDS: Albuterol-Ipratrop 3 mg / 0.5 (3 ml) UD INH SCH ×4 (01:01→19:23)
[2016-10-05] MEDS: Levothyroxine 125 MCG TAB PO SCH (05:53)
[2016-10-05 07:11] LABS: POTASSIUM 4.2 mmol/L (3.6-5.2)
[2016-10-05 07:13] LABS: BILIRUBIN,TOTAL 0.9 mg/dL (0.2-1.3); TOTAL PROTEIN 7.6 g/dL (6.3-8.3)
[2016-10-05 07:14] LABS: CALCIUM 8.4 mg/dl (8.6-10.4)
[2016-10-05 07:32] LABS: BASO % 0.6 % (0.0-2.0); EOS # 0.1 K/uL (0.0-0.7); EOS % 2.9 % (0.0-4.0); HEMATOCRIT 28.3 % (34.0-47.0); LYMPH # 0.7 K/uL (1.0-4.3); LYMPH % 12.8 % (20.0-40.0); MEAN CELL VOLUME 95.7 fL (81.0-99.0); MEAN CORPUSCULAR HEMOGLOBIN 31.3 pg (27.0-31.0); MEAN CORPUSCULAR HGB CONC 32.7 g/dL (33.0-37.0); MEAN PLATELET VOLUME 7.9 fL (7.2-11.7); MONO # 0.6 K/uL (0.0-0.8); MONO % 11.2 % (0.0-10.0); WHITE BLOOD COUNT 5.2 K/uL (4.8-10.8)
--- NOTE | 2016-10-05 07:34 | HP ---
The patient is a 56-year-old female with pacing wire, hypertension, and double bypass surgery, valve replacement, ESRD disease. The patient has also failed kidney transplant x2. Presented to the Emergency Room complaining of shortness of breath for the past 4 days, and also a productive cough, and having pneumonia, but feels is not fully recovered, and so the patient was evaluated and a dmitted. ALLERGIES: The patient denied any allergy. PAST MEDICAL HISTORY: CAD, and valve replacement, hypertension, hyperlipidemia, hypothyroidism, end- stage renal disease. SOCIAL HISTORY: No smoking or alcohol abuse. FAMILY HISTORY: No inherited disease. REVIEW OF SYSTEMS: RESPIRATORY SYSTEM: Shortness of breath on exertion, and productive cough. CARDIOVASCULAR: The patient denied any chest pain and palpitation. GASTROINTESTINAL: No nausea or vomiting. GENITOURINARY: No dysuria. EXTREMITIES: and some back pain. The patient is . The patient is weak. PHYSICAL EXAMINATION: The patient is alert and awake. As the patient is on dialysis at this present time, the blood pressure was 127/74 earlier, pulse is 8 8, respirations 20, temperature 98.7. HEAD: Normocephalic. NECK: Supple. LUNGS: There are some rales bilaterally and decreased breath sounds at the bases. HEART: Regular rate and rhythm. There is a large adenoma mostly on the left side of the sternum and the upper right side . ABDOMEN: Soft, nontender. EXTREMITIES: There is on the left arm. The patient had some tests done. WBC 4.3, hemoglobin 9.5, hematocrit 28.2, and platelets 135. Chemi stry: Sodium 142, potassium 4.3, chloride 95, bicarb 34, BUN 21, creatinine 4.4. AST 16, ALT 31. T he troponin is less than 0.012. Albumin is 4. Coagulation: PT is 17.5, INR 1.5, and PTT is 29. The patient also had a chest x-ray. The chest x-ray showed bilateral pleural effusions and also hazy opacity to the bilaterally lung base, and right paratracheal opacity, at least more prominent than i n the prior radiograph performed 12/11/2015. So, the patient is admitted with the diagnoses of: 1. Pneumonia. 2. End-stage renal disease. 3. Pleural effusion. 4. Coronary artery disease. 5. Hypertension. 6. ICD placement. So, the patient has a consult with Dr. Harper, renal, and also with Dr. Joe, pulmonary. The case wa s also reviewed with Taniya Westbrook, nurse practitioner. López Millard MD cc: [id number] TT: 10/03/2016 17:35:10 jn 10/05/2016 06:32:55
[2016-10-05] MEDS: Fluticasone-Salmeterol 250-50mcg Diskus INH SCH ×2 (08:14→19:23)
[2016-10-05] MEDS: Oxycodone/Acetaminophen 5/325 mg Tab PO PRN (08:28)
[2016-10-05] MEDS ORDERED: HYDROmorphone 0.5 mg/0.5 ml ISec IVP ONE (10:32)
--- NOTE | 2016-10-05 10:36 | CP.PCM.PN ---
Subjective - Date & Time of Evaluation Date of Evaluation: 10/05/16 Time of Evaluation: 10:34 - Subjective Subjective: PT WITH BACK PAINS, LESS SOB, ON HD NOW., ROS ; OHTERWISE NEG Objective - Vital Signs/Intake and Output Vital Signs (last 24 hours): Temp Pulse Resp BP Pulse Ox 98.3 F 93 H 20 158/86 H 99 10/05/16 08:00 10/05/16 08:00 10/05/16 08:00 10/05/16 08:00 10/05/16 08:00 Intake and Output: 10/05/16 10/05/16 06:59 18:59 Intake Total 500 Balance 500 - Medications Medications: Current Medications Acetaminophen (Tylenol 325mg Tab) 650 mg PO Q6 PRN PRN Reason: Fever >100.4 F Last Admin: 10/04/16 03:54 Dose: 650 mg Albuterol/Ipratropium (Duoneb 3 Mg/0.5 Mg (3 Ml) Ud) 3 ml INH RQ6 [facility] Last Admin: 10/05/16 08:14 Dose: 3 ml Aspirin (Aspirin Chewable) 81 mg PO TTS [facility] Last Admin: 10/03/16 10:27 Dose: 81 mg Calcium Acetate (Phoslo) 667 mg PO TIDCC [facility] Last Admin: 10/04/16 17:41 Dose: 667 mg Carvedilol (Coreg) 3.125 mg PO BID [facility] Last Admin: 10/04/16 17:41 Dose: 3.125 mg Heparin Sodium (Porcine) (Heparin) 5,000 units SC Q12 [facility] Last Admin: 10/04/16 21:09 Dose: Not Given Hydromorphone HCl (Dilaudid) 0.5 mg IVP STAT STA Stop: 10/05/16 10:33 Azithromycin 500 mg/ Sodium (Chloride) 250 mls @ 250 mls/hr IVPB Q24H [facility] Last Admin: 10/04/16 18:59 Dose: 250 mls/hr Ceftriaxone Sodium (Rocephin Iv 1 Gm Duplex) 50 mls @ 50 mls/30 min IVPB DAILY@ 1800 [facility] Last Admin: 10/04/16 17:42 Dose: 50 mls/30 min Levothyroxine Sodium (Synthroid) 125 mcg PO DAILY@0630 [facility] Last Admin: 10/05/16 05:53 Dose: 125 mcg Oxycodone/Acetaminophen (Percocet 5/325 Mg Tab) 1 tab PO Q8 PRN PRN Reason: Pain, moderate (4-7) Stop: 10/05/16 22:01 Last Admin: 10/05/16 08:28 Dose: 1 tab Pantoprazole Sodium (Protonix Inj) 40 mg IVP DAILY [facility] Last Admin: 10/04/16 09:41 Dose: 40 mg Rosuvastatin Calcium (Crestor) 5 mg PO HS [facility] Last Admin: 10/04/16 21:13 Dose: 5 mg Fluticasone/Salmeterol (Advair Diskus 250/50) 1 puff INH RQ12 [facility] Last Admin: 10/05/16 08:14 Dose: 1 puff - Labs Labs: 10/05/16 06:54 10/05/16 06:54 PT 17.5 SECONDS (9.7-12.2) H 10/02/16 16:05 INR 1.5 10/02/16 16:05 APTT 29 SECONDS (21-34) 10/02/16 16:05 - Constitutional Appears: Chronically Ill - Head Exam Head Exam: ATRAUMATIC, NORMOCEPHALIC - Eye Exam Eye Exam: EOMI, Normal appearance. absent: Scleral icterus - ENT Exam ENT Exam: Mucous Membranes Moist - Neck Exam Neck Exam: absent: Lymphadenopathy, Tenderness - Respiratory Exam Respiratory Exam: Decreased Breath Sounds, Rales. absent: Accessory Muscle Use , Wheezes - Cardiovascular Exam Cardiovascular Exam: RRR, +S1, +S2 - GI/Abdominal Exam GI & Abdominal Exam: Soft. absent: Tenderness - Rectal Exam Rectal Exam: Deferred - Extremities Exam Extremities Exam: absent: Calf Tenderness - Back Exam Back Exam: absent: CVA tenderness (L), CVA tenderness (R) - Neurological Exam Neurological Exam: Alert, Awake, CN II-XII Intact, Oriented x3 - Psychiatric Exam Psychiatric exam: Depressed - Skin Skin Exam: absent: Rash Assessment and Plan (1) Dependence on renal dialysis Status: Acute (2) ESRD (end stage renal disease) on dialysis Status: Acute (3) Failed kidney transplant Status: Acute (4) Hypertension Status: Acute (5) Acute respiratory failure with hypoxia Status: Acute (6) Chronic respiratory failure with hypoxia Status: Acute (7) COPD exacerbation Status: Acute - Assessment and Plan (Free Text) Assessment: RESP STATUS LESS DYSPNEIC AT REST. CONT EMPIRIC AB., CONT NEB BD., ADVAIR. MONITOR O2 SAT. CXR REVIEWED., FOR INCREASED FLUID REMOVAL PER RENAL. ANALGESIA. PT EVAL. DISCUSSED WITH STAFF.
[2016-10-05] MEDS: Oxycodone/Acetaminophen 5/325 mg Tab PO SCH ×2 (11:29→18:06)
--- NOTE | 2016-10-05 12:15 | CP.PCM.PN ---
Subjective - Date & Time of Evaluation Date of Evaluation: 10/05/16 Time of Evaluation: 12:13 - Subjective Subjective: 56-year-old, PMHx includes Emphysema, Hypertension, double bypass surgery, valve replacement, ESRD on dialysis MWF s/p failed kidney transplants x2, presents to the emergency department with complaints of increasing shortness of breath for the past four days. States she had pneumonia in 06/03 and has not fully recovered since. Patient was seen by Dr Tran, who prescribed a Zpack that she has been taking with no relief, resulting in her coming to the ED for evaluation. Patient is on O2 va [place] at home 08/02. Known history of esrd on HD at [facility], received hd m,w,. Last treatment 10/02, patient reports decresed fluid removal due to muscle cramps CXR notable for effusions and infiltrates On dialysis now; will try to remove 3000ml fluid. patient complaining about cramps CXR has shown CHF Will add EPO for anemia Objective - Vital Signs/Intake and Output Vital Signs (last 24 hours): Temp Pulse Resp BP Pulse Ox 98.1 F 80 18 169/93 H 91 L 10/05/16 10:00 10/05/16 10:00 10/05/16 10:00 10/05/16 11:30 10/05/16 10:00 Intake and Output: 10/05/16 10/05/16 06:59 18:59 Intake Total 500 Balance 500 - Medications Medications: Current Medications Acetaminophen (Tylenol 325mg Tab) 650 mg PO Q6 PRN PRN Reason: Fever >100.4 F Last Admin: 10/04/16 03:54 Dose: 650 mg Albuterol/Ipratropium (Duoneb 3 Mg/0.5 Mg (3 Ml) Ud) 3 ml INH RQ6 [facility] Last Admin: 10/05/16 08:14 Dose: 3 ml Aspirin (Aspirin Chewable) 81 mg PO TTS [facility] Last Admin: 10/03/16 10:27 Dose: 81 mg Calcium Acetate (Phoslo) 667 mg PO TIDCC [facility] Last Admin: 10/04/16 17:41 Dose: 667 mg Carvedilol (Coreg) 3.125 mg PO BID [facility] Last Admin: 10/05/16 12:12 Dose: Not Given Heparin Sodium (Porcine) (Heparin) 5,000 units SC Q12 [facility] Last Admin: 10/05/16 12:12 Dose: Not Given Azithromycin 500 mg/ Sodium (Chloride) 250 mls @ 250 mls/hr IVPB Q24H [facility] Last Admin: 10/04/16 18:59 Dose: 250 mls/hr Ceftriaxone Sodium (Rocephin Iv 1 Gm Duplex) 50 mls @ 50 mls/30 min IVPB DAILY@ 1800 [facility] Last Admin: 10/04/16 17:42 Dose: 50 mls/30 min Levothyroxine Sodium (Levothroid) 137 mcg PO DAILY@0630 [facility] Oxycodone/Acetaminophen (Percocet 5/325 Mg Tab) 1 tab PO Q6 [facility] Stop: 10/08/16 12:01 Last Admin: 10/05/16 11:29 Dose: 1 tab Pantoprazole Sodium (Protonix Inj) 40 mg IVP DAILY [facility] Last Admin: 10/04/16 09:41 Dose: 40 mg Rosuvastatin Calcium (Crestor) 5 mg PO HS [facility] Last Admin: 10/04/16 21:13 Dose: 5 mg Fluticasone/Salmeterol (Advair Diskus 250/50) 1 puff INH RQ12 [facility] Last Admin: 10/05/16 08:14 Dose: 1 puff - Labs Labs: 10/05/16 06:54 10/05/16 06:54 PT 17.5 SECONDS (9.7-12.2) H 10/02/16 16:05 INR 1.5 10/02/16 16:05 APTT 29 SECONDS (21-34) 10/02/16 16:05
[2016-10-05] MEDS: cefTRIAXone IV 1 gm in Dextros 50 ML IVPB SCH (18:43)
--- NOTE | 2016-10-05 19:53 | PN ---
DATE: 10/05/2016 SUBJECTIVE: Today, the patient is alert and awake, but complaining of shortness of breath on exertio n. No chest pain. The patient is weak. PHYSICAL EXAMINATION: VITAL SIGNS: Blood pressure 148/74, pulse is 94, respirations 18, temperature 98.4. NECK: Supple. No JVD. LUNGS: There are some rales at the bases. HEART: Irregular rate and rhythm. ABDOMEN: Soft and nontender. Positive bowel sounds. EXTREMITIES: There is no edema. PLAN: We are going to continue the current medications. Dr. Joe's note appreciated. López Millard MD cc: [phone] TT: 10/05/2016 19:52:59 Confirmation # [id number] Dictation # [id number] nehal
[2016-10-05] MEDS: Azithromycin 500 MG in Sodium Chloride 0.9% 250 ML IVPB SCH (21:31)
[2016-10-06] MEDS: Oxycodone/Acetaminophen 5/325 mg Tab PO SCH ×4 (00:10→17:49)
[2016-10-06] MEDS: Albuterol-Ipratrop 3 mg / 0.5 (3 ml) UD INH SCH ×4 (01:13→19:58)
[2016-10-06 08:02] LABS: BILIRUBIN,TOTAL 0.9 mg/dL (0.2-1.3); PHOSPHOROUS 3.3 mg/dL (2.5-4.5); TOTAL PROTEIN 7.7 g/dL (6.3-8.3)
[2016-10-06 08:03] LABS: CALCIUM 8.4 mg/dl (8.6-10.4)
[2016-10-06] MEDS: Fluticasone-Salmeterol 250-50mcg Diskus INH SCH (08:17)
--- NOTE | 2016-10-06 11:19 | CP.PCM.PN ---
Subjective - Date & Time of Evaluation Date of Evaluation: 10/06/16 Time of Evaluation: 11:24 - Subjective Subjective: PT ALERT, FEELS BETTER,. STILL ++RENTERIA., ROS; OTHERWISE NEG Objective - Vital Signs/Intake and Output Vital Signs (last 24 hours): Temp Pulse Resp BP Pulse Ox 98.5 F 75 20 138/76 100 10/06/16 08:55 10/06/16 11:05 10/06/16 08:55 10/06/16 08:55 10/06/16 08:55 Intake and Output: 10/06/16 10/06/16 06:59 18:59 Intake Total 200 300 Balance 200 300 - Medications Medications: Current Medications Acetaminophen (Tylenol 325mg Tab) 650 mg PO Q6 PRN PRN Reason: Fever >100.4 F Last Admin: 10/04/16 03:54 Dose: 650 mg Albuterol/Ipratropium (Duoneb 3 Mg/0.5 Mg (3 Ml) Ud) 3 ml INH RQ6 [facility] Last Admin: 10/06/16 08:18 Dose: 3 ml Aspirin (Aspirin Chewable) 81 mg PO TTS [facility] Last Admin: 10/06/16 09:20 Dose: 81 mg Calcium Acetate (Phoslo) 667 mg PO TIDCC [facility] Last Admin: 10/06/16 09:20 Dose: 667 mg Carvedilol (Coreg) 3.125 mg PO BID [facility] Last Admin: 10/06/16 09:20 Dose: 3.125 mg Epoetin Ramesh (Procrit) 10,000 unit IV MWF [facility] Heparin Sodium (Porcine) (Heparin) 5,000 units SC Q12 [facility] Last Admin: 10/06/16 09:21 Dose: 5,000 units Azithromycin 500 mg/ Sodium (Chloride) 250 mls @ 250 mls/hr IVPB Q24H [facility] Last Admin: 10/05/16 21:31 Dose: 250 mls/hr Ceftriaxone Sodium (Rocephin Iv 1 Gm Duplex) 50 mls @ 50 mls/30 min IVPB DAILY@ 1800 [facility] Last Admin: 10/05/16 18:43 Dose: 50 mls/30 min Levothyroxine Sodium (Levothroid) 137 mcg PO DAILY@0630 [facility] Last Admin: 10/06/16 05:45 Dose: 137 mcg Oxycodone/Acetaminophen (Percocet 5/325 Mg Tab) 1 tab PO Q6 [facility] Stop: 10/08/16 12:01 Last Admin: 10/06/16 05:40 Dose: 1 tab Pantoprazole Sodium (Protonix Inj) 40 mg IVP DAILY [facility] Last Admin: 10/06/16 09:20 Dose: 40 mg Rosuvastatin Calcium (Crestor) 5 mg PO HS [facility] Last Admin: 10/05/16 21:30 Dose: 5 mg Fluticasone/Salmeterol (Advair Diskus 250/50) 1 puff INH RQ12 [facility] Last Admin: 10/06/16 08:17 Dose: 1 puff - Labs Labs: 10/05/16 06:54 10/06/16 07:04 PT 17.5 SECONDS (9.7-12.2) H 10/02/16 16:05 INR 1.5 10/02/16 16:05 APTT 29 SECONDS (21-34) 10/02/16 16:05 - Constitutional Appears: No Acute Distress, Chronically Ill - Head Exam Head Exam: ATRAUMATIC, NORMOCEPHALIC - Eye Exam Eye Exam: EOMI, Normal appearance. absent: Scleral icterus - ENT Exam ENT Exam: Mucous Membranes Moist - Neck Exam Neck Exam: absent: Tenderness - Respiratory Exam Respiratory Exam: Decreased Breath Sounds, Rales, Rhonchi. absent: Accessory Muscle Use, Wheezes - Cardiovascular Exam Cardiovascular Exam: RRR, +S1, +S2 - GI/Abdominal Exam GI & Abdominal Exam: Soft. absent: Tenderness - Rectal Exam Rectal Exam: Deferred - Extremities Exam Extremities Exam: absent: Calf Tenderness - Back Exam Back Exam: absent: CVA tenderness (L), CVA tenderness (R) - Neurological Exam Neurological Exam: Alert, Awake, CN II-XII Intact, Oriented x3 - Psychiatric Exam Psychiatric exam: Normal Affect - Skin Skin Exam: absent: Rash Assessment and Plan (1) Dependence on renal dialysis Status: Acute (2) ESRD (end stage renal disease) on dialysis Status: Acute (3) Failed kidney transplant Status: Acute (4) Hypertension Status: Acute (5) Acute respiratory failure with hypoxia Status: Acute (6) Chronic respiratory failure with hypoxia Status: Acute (7) COPD exacerbation Status: Acute - Assessment and Plan (Free Text) Assessment: RESP STATUS IMPROVING, S/P INCREASED FLUID REMOVAL YESTERDAY. AFEBRILE ON AB., CONT NEB BD. BETTER OXYGENATION, MONITOR O2 SAT. CXR REVIEWED., FOR HD IN AM., PROG GUARDED., DISCUSSED WITH STAFF AND RENAL AND DR FOY.
--- NOTE | 2016-10-06 11:58 | CP.PCM.PN ---
Subjective - Date & Time of Evaluation Date of Evaluation: 10/06/16 Time of Evaluation: 11:56 - Subjective Subjective: improved breathing walking in hallway w/ pt on home o2 4L/day hd yesterdy 3L removed w/o any cramping Objective - Vital Signs/Intake and Output Vital Signs (last 24 hours): Temp Pulse Resp BP Pulse Ox 98.5 F 75 20 138/76 100 10/06/16 08:55 10/06/16 11:05 10/06/16 08:55 10/06/16 08:55 10/06/16 08:55 Intake and Output: 10/06/16 10/06/16 06:59 18:59 Intake Total 200 300 Balance 200 300 - Medications Medications: Current Medications Acetaminophen (Tylenol 325mg Tab) 650 mg PO Q6 PRN PRN Reason: Fever >100.4 F Last Admin: 10/04/16 03:54 Dose: 650 mg Albuterol/Ipratropium (Duoneb 3 Mg/0.5 Mg (3 Ml) Ud) 3 ml INH RQ6 [facility] Last Admin: 10/06/16 08:18 Dose: 3 ml Aspirin (Aspirin Chewable) 81 mg PO TTS [facility] Last Admin: 10/06/16 09:20 Dose: 81 mg Calcium Acetate (Phoslo) 667 mg PO TIDCC [facility] Last Admin: 10/06/16 09:20 Dose: 667 mg Carvedilol (Coreg) 3.125 mg PO BID [facility] Last Admin: 10/06/16 09:20 Dose: 3.125 mg Epoetin Ramesh (Procrit) 10,000 unit IV MWF [facility] Heparin Sodium (Porcine) (Heparin) 5,000 units SC Q12 [facility] Last Admin: 10/06/16 09:21 Dose: 5,000 units Azithromycin 500 mg/ Sodium (Chloride) 250 mls @ 250 mls/hr IVPB Q24H [facility] Last Admin: 10/05/16 21:31 Dose: 250 mls/hr Ceftriaxone Sodium (Rocephin Iv 1 Gm Duplex) 50 mls @ 50 mls/30 min IVPB DAILY@ 1800 [facility] Last Admin: 10/05/16 18:43 Dose: 50 mls/30 min Levothyroxine Sodium (Levothroid) 137 mcg PO DAILY@0630 [facility] Last Admin: 10/06/16 05:45 Dose: 137 mcg Oxycodone/Acetaminophen (Percocet 5/325 Mg Tab) 1 tab PO Q6 [facility] Stop: 10/08/16 12:01 Last Admin: 10/06/16 05:40 Dose: 1 tab Pantoprazole Sodium (Protonix Inj) 40 mg IVP DAILY [facility] Last Admin: 10/06/16 09:20 Dose: 40 mg Rosuvastatin Calcium (Crestor) 5 mg PO HS [facility] Last Admin: 10/05/16 21:30 Dose: 5 mg Fluticasone/Salmeterol (Advair Diskus 250/50) 1 puff INH RQ12 [facility] Last Admin: 10/06/16 08:17 Dose: 1 puff - Labs Labs: 10/05/16 06:54 10/06/16 07:04 PT 17.5 SECONDS (9.7-12.2) H 10/02/16 16:05 INR 1.5 10/02/16 16:05 APTT 29 SECONDS (21-34) 10/02/16 16:05 - Constitutional Appears: No Acute Distress, Older Than Stated Age, Cachectic, Chronically Ill - Head Exam Head Exam: NORMAL INSPECTION - Eye Exam Eye Exam: Normal appearance - ENT Exam ENT Exam: Mucous Membranes Moist, Normal Exam - Neck Exam Neck Exam: Normal Inspection - Respiratory Exam Respiratory Exam: Decreased Breath Sounds, Rhonchi, NORMAL BREATHING PATTERN - Cardiovascular Exam Cardiovascular Exam: REGULAR RHYTHM, RRR - GI/Abdominal Exam GI & Abdominal Exam: Soft, Normal Bowel Sounds - Extremities Exam Extremities Exam: Normal Inspection (lue avf) Assessment and Plan (1) Acute respiratory failure with hypoxia Status: Acute (2) Anemia Status: Acute (3) COPD exacerbation Status: Acute (4) Chronic respiratory failure with hypoxia Status: Acute (5) Dependence on renal dialysis Status: Acute (6) Failed kidney transplant Status: Acute - Assessment and Plan (Free Text) Assessment: -improved w/ aggressive uf -change dry weight in hd center, increase fluid removal if tolerated by pt -dietary fluid restriction advised
[2016-10-06] MEDS: cefTRIAXone IV 1 gm in Dextros 50 ML IVPB SCH (17:51)
--- NOTE | 2016-10-06 19:47 | PN ---
DATE: 10/06/2016 The patient today is a 56-year-old. The patient is complaining of shortness of breath with mild effo rt ____ and also complaining of some cough. The patient has no chest pain or palpitations. PHYSICAL EXAMINATION: VITAL SIGNS: The patient has a blood pressure of 145/77, the pulse is 79, respirations 20, temperatu re is 98.1. HEENT: Head is normocephalic. NECK: Supple. No JVD. LUNGS: Some rales at the bases and also some wheezing. HEART: Regular rate and rhythm. ABDOMEN: Soft and nontender. EXTREMITIES: There is no edema. LABORATORY DATA: The patient had some tests done on 10/05, showed WBC 6.2, hemoglobin 9.2, hematocrit 28.3 and platelet is 145. PLAN: We are going to continue antibiotic therapy. Continue nebulizer treatment and ____. The case was discussed ____ Dr. Joe, pulmonary, and also with ____ . López Millard MD cc: [id number] TT: 10/06/2016 19:46:32 Confirmation # [id number] Dictation # [id number]
[2016-10-06] MEDS: Azithromycin 500 MG in Sodium Chloride 0.9% 250 ML IVPB SCH (19:50)
[2016-10-07] MEDS: Oxycodone/Acetaminophen 5/325 mg Tab PO SCH ×4 (00:15→17:19)
[2016-10-07] MEDS: Albuterol-Ipratrop 3 mg / 0.5 (3 ml) UD INH SCH ×3 (01:29→13:31)
[2016-10-07 07:45] LABS: BASO % 0.7 % (0.0-2.0); EOS # 0.2 K/uL (0.0-0.7); HEMATOCRIT 27.4 % (34.0-47.0); LYMPH # 0.8 K/uL (1.0-4.3); LYMPH % 19.7 % (20.0-40.0); MEAN CELL VOLUME 94.9 fL (81.0-99.0); MEAN CORPUSCULAR HEMOGLOBIN 31.3 pg (27.0-31.0); MEAN PLATELET VOLUME 7.7 fL (7.2-11.7); MONO # 0.7 K/uL (0.0-0.8); MONO % 15.5 % (0.0-10.0); RED CELL DISTRIBUTION WIDTH 17.2 % (11.5-14.5); WHITE BLOOD COUNT 4.2 K/uL (4.8-10.8)
[2016-10-07] MEDS: Fluticasone-Salmeterol 250-50mcg Diskus INH SCH (07:58)
--- NOTE | 2016-10-07 10:02 | CP.PCM.PN ---
Subjective - Date & Time of Evaluation Date of Evaluation: 10/07/16 Time of Evaluation: 09:57 - Subjective Subjective: PT ALERT, REGAINED 3KG SINCE LAST HD, ++RENTERIA. NO COUGH. ROS;OTHERWISE NEG Objective - Vital Signs/Intake and Output Vital Signs (last 24 hours): Temp Pulse Resp BP Pulse Ox 98.4 F 80 20 144/81 97 10/07/16 07:46 10/07/16 07:46 10/07/16 07:46 10/07/16 07:46 10/07/16 07:46 Intake and Output: 10/07/16 10/07/16 06:59 18:59 Intake Total 120 Balance 120 - Medications Medications: Current Medications Acetaminophen (Tylenol 325mg Tab) 650 mg PO Q6 PRN PRN Reason: Fever >100.4 F Last Admin: 10/04/16 03:54 Dose: 650 mg Albuterol/Ipratropium (Duoneb 3 Mg/0.5 Mg (3 Ml) Ud) 3 ml INH RQ6 [facility] Last Admin: 10/07/16 07:58 Dose: 3 ml Aspirin (Aspirin Chewable) 81 mg PO TTS [facility] Last Admin: 10/06/16 09:20 Dose: 81 mg Calcium Acetate (Phoslo) 667 mg PO TIDCC [facility] Last Admin: 10/07/16 08:57 Dose: 667 mg Carvedilol (Coreg) 3.125 mg PO BID [facility] Last Admin: 10/06/16 17:51 Dose: 3.125 mg Epoetin Ramesh (Procrit) 10,000 unit IV MWF [facility] Heparin Sodium (Porcine) (Heparin) 5,000 units SC Q12 [facility] Last Admin: 10/06/16 21:36 Dose: Not Given Azithromycin 500 mg/ Sodium (Chloride) 250 mls @ 250 mls/hr IVPB Q24H [facility] Last Admin: 10/06/16 19:50 Dose: 250 mls/hr Ceftriaxone Sodium (Rocephin Iv 1 Gm Duplex) 50 mls @ 50 mls/30 min IVPB DAILY@ 1800 [facility] Last Admin: 10/06/16 17:51 Dose: 50 mls/30 min Levothyroxine Sodium (Levothroid) 137 mcg PO DAILY@0630 [facility] Last Admin: 10/07/16 06:24 Dose: 137 mcg Oxycodone/Acetaminophen (Percocet 5/325 Mg Tab) 1 tab PO Q6 [facility] Stop: 10/08/16 12:01 Last Admin: 10/07/16 06:24 Dose: 1 tab Pantoprazole Sodium (Protonix Inj) 40 mg IVP DAILY [facility] Last Admin: 10/06/16 09:20 Dose: 40 mg Rosuvastatin Calcium (Crestor) 5 mg PO HS [facility] Last Admin: 10/06/16 21:37 Dose: 5 mg Fluticasone/Salmeterol (Advair Diskus 250/50) 1 puff INH RQ12 [facility] Last Admin: 10/07/16 07:58 Dose: 1 puff - Labs Labs: 10/07/16 07:10 10/06/16 07:04 PT 17.5 SECONDS (9.7-12.2) H 10/02/16 16:05 INR 1.5 10/02/16 16:05 APTT 29 SECONDS (21-34) 10/02/16 16:05 - Constitutional Appears: Chronically Ill - Head Exam Head Exam: ATRAUMATIC, NORMOCEPHALIC - Eye Exam Eye Exam: EOMI, Normal appearance - ENT Exam ENT Exam: Mucous Membranes Moist - Neck Exam Neck Exam: absent: Tenderness - Respiratory Exam Respiratory Exam: Decreased Breath Sounds, Rales, Rhonchi. absent: Wheezes - Cardiovascular Exam Cardiovascular Exam: RRR, +S1, +S2 - GI/Abdominal Exam GI & Abdominal Exam: Soft. absent: Tenderness - Rectal Exam Rectal Exam: Deferred - Extremities Exam Extremities Exam: absent: Calf Tenderness, Pedal Edema - Back Exam Back Exam: absent: CVA tenderness (L), CVA tenderness (R) - Neurological Exam Neurological Exam: Alert, Awake, CN II-XII Intact, Oriented x3 - Psychiatric Exam Psychiatric exam: Normal Affect - Skin Skin Exam: absent: Rash Assessment and Plan (1) Dependence on renal dialysis Status: Acute (2) ESRD (end stage renal disease) on dialysis Status: Acute (3) Failed kidney transplant Status: Acute (4) Hypertension Status: Acute (5) Acute respiratory failure with hypoxia Status: Acute (6) Chronic respiratory failure with hypoxia Status: Acute (7) COPD exacerbation Status: Acute - Assessment and Plan (Free Text) Assessment: RESP STATUS REMAINS DYSPNEIC, HD IN PROGRESS NOW. STILL FLUID OVERLOADED, CHANGE ZMAX TO PO., CXR REVIEWED. CHECK ECHO TO EVAL CARDIAC STATUS. CONT NEB BD , ADVAIR., MONITOR O2 SAT. PROG GUARDED. DISCUSSED WTIH STAFF.
[2016-10-07] MEDS: Epoetin Alfa 10,000 unit/ml Dialysis IV SCH (10:35)
--- NOTE | 2016-10-07 13:36 | CP.PCM.PN ---
Subjective - Date & Time of Evaluation Date of Evaluation: 10/07/16 Time of Evaluation: 13:34 - Subjective Subjective: s/p dialysis now UF 3000ml Feels better overall- still rather dyspneic with exertion On EPO for anemia Presently with O2; receives respiratory treatments Objective - Vital Signs/Intake and Output Vital Signs (last 24 hours): Temp Pulse Resp BP Pulse Ox 97.4 F L 76 18 133/82 97 10/07/16 09:15 10/07/16 09:15 10/07/16 09:15 10/07/16 09:15 10/07/16 07:46 Intake and Output: 10/07/16 10/07/16 06:59 18:59 Intake Total 120 Balance 120 - Medications Medications: Current Medications Acetaminophen (Tylenol 325mg Tab) 650 mg PO Q6 PRN PRN Reason: Fever >100.4 F Last Admin: 10/04/16 03:54 Dose: 650 mg Albuterol/Ipratropium (Duoneb 3 Mg/0.5 Mg (3 Ml) Ud) 3 ml INH RQ6 [facility] Last Admin: 10/07/16 13:31 Dose: 3 ml Aspirin (Aspirin Chewable) 81 mg PO TTS [facility] Last Admin: 10/06/16 09:20 Dose: 81 mg Calcium Acetate (Phoslo) 667 mg PO TIDCC [facility] Last Admin: 10/07/16 08:57 Dose: 667 mg Carvedilol (Coreg) 3.125 mg PO BID [facility] Last Admin: 10/07/16 10:58 Dose: Not Given Epoetin Ramesh (Procrit) 10,000 unit IV MWF [facility] Last Admin: 10/07/16 10:35 Dose: 10,000 unit Heparin Sodium (Porcine) (Heparin) 5,000 units SC Q12 [facility] Last Admin: 10/07/16 10:59 Dose: Not Given Azithromycin 500 mg/ Sodium (Chloride) 250 mls @ 250 mls/hr IVPB Q24H [facility] Last Admin: 10/06/16 19:50 Dose: 250 mls/hr Ceftriaxone Sodium (Rocephin Iv 1 Gm Duplex) 50 mls @ 50 mls/30 min IVPB DAILY@ 1800 [facility] Last Admin: 10/06/16 17:51 Dose: 50 mls/30 min Levothyroxine Sodium (Levothroid) 137 mcg PO DAILY@0630 [facility] Last Admin: 10/07/16 06:24 Dose: 137 mcg Oxycodone/Acetaminophen (Percocet 5/325 Mg Tab) 1 tab PO Q6 [facility] Stop: 10/08/16 12:01 Last Admin: 10/07/16 06:24 Dose: 1 tab Pantoprazole Sodium (Protonix Inj) 40 mg IVP DAILY [facility] Last Admin: 10/07/16 10:59 Dose: Not Given Rosuvastatin Calcium (Crestor) 5 mg PO HS [facility] Last Admin: 10/06/16 21:37 Dose: 5 mg Fluticasone/Salmeterol (Advair Diskus 250/50) 1 puff INH RQ12 [facility] Last Admin: 10/07/16 07:58 Dose: 1 puff - Labs Labs: 10/07/16 07:10 10/06/16 07:04 PT 17.5 SECONDS (9.7-12.2) H 10/02/16 16:05 INR 1.5 10/02/16 16:05 APTT 29 SECONDS (21-34) 10/02/16 16:05 - Constitutional Appears: Cachectic, Chronically Ill - Head Exam Head Exam: ATRAUMATIC, NORMAL INSPECTION - Eye Exam Eye Exam: EOMI, Normal appearance - Neck Exam Neck Exam: Tenderness. absent: Normal Inspection - Respiratory Exam Respiratory Exam: Rhonchi, Respiratory Distress - Cardiovascular Exam Cardiovascular Exam: REGULAR RHYTHM, +S1 - GI/Abdominal Exam GI & Abdominal Exam: Soft. absent: Tenderness - Extremities Exam Extremities Exam: Normal Inspection, Tenderness - Neurological Exam Neurological Exam: Awake, CN II-XII Intact - Skin Skin Exam: Dry, Warm Assessment and Plan (1) Acute respiratory failure with hypoxia Status: Acute (2) COPD exacerbation Status: Acute (3) ESRD (end stage renal disease) on dialysis Status: Acute (4) Failed kidney transplant Status: Acute (5) Hypertension Status: Acute (6) Pulmonary HTN Status: Acute - Assessment and Plan (Free Text) Plan: Dialysis MWF Needs adequate UF If necessary will repeat HD in AM Meds per pulmonary
[2016-10-07 16:42] VITALS: RESP 20
[2016-10-07] MEDS: cefTRIAXone IV 1 gm in Dextros 50 ML IVPB SCH (17:20)
[2016-10-07] MEDS: Azithromycin 500 MG in Sodium Chloride 0.9% 250 ML IVPB SCH (19:03)
--- NOTE | 2016-10-07 21:01 | PN ---
DATE: 10/07/2016 Today, the patient is getting hemodialysis. The patient denies any chest pain, but has been having s ome shortness of breath with minor effort and persistent congestive cough. The patient also feels ve ry weak. PHYSICAL EXAMINATION: VITAL SIGNS: The blood pressure is 122/70, pulse is 90, respirations 20, temperature 98.2. NECK: Supple. LUNGS: There are some rhonchi noted and some rales at the bases. HEART: Regular rate and rhythm. Positive extrasystole and positive murmur. ABDOMEN: Soft and nontender. No palpable mass. EXTREMITIES: There is no edema noted. LABORATORY DATA: The patient had blood tests show that the WBC is 4.2, hemoglobin 9, hematocrit 27. 4, and platelet is 154. Coagulation is PT 17.5, INR 1.5. Chemistry: Sodium 141, potassium is 4, bi carbonate is 30, BUN 20, creatinine is 5.2. PLAN: We are going to continue the patient on steroid and also continue nebulizer treatment. We are going to ____ put this patient on ____ nasal cannula for a trial in order to consider discharge whe n patient is able to tolerate it well ____ nasal oxygen at ____ nasal cannula. The case was discusse d with Taniya Westbrook, the nurse practitioner. López Millard MD cc: [id number] TT: 10/07/2016 21:01:02 Confirmation # [id number] Dictation # [id number] mn
[2016-10-08] MEDS: Oxycodone/Acetaminophen 5/325 mg Tab PO SCH ×3 (00:30→12:22)
[2016-10-08] MEDS: Albuterol-Ipratrop 3 mg / 0.5 (3 ml) UD INH SCH ×4 (01:13→19:39)
[2016-10-08] MEDS: Fluticasone-Salmeterol 250-50mcg Diskus INH SCH ×2 (07:55→19:40)
--- NOTE | 2016-10-08 10:14 | CP.PCM.PN ---
Subjective - Date & Time of Evaluation Date of Evaluation: 10/08/16 Time of Evaluation: 10:12 - Subjective Subjective: Alert; much less dyspneic overall Dialysis done 10/07 with adequate UF Hg stable at 9.0- with EPO BP stable Afebrile; no n,v, diarrhea,CPs, HAs Objective - Vital Signs/Intake and Output Vital Signs (last 24 hours): Temp Pulse Resp BP Pulse Ox 98.1 F 83 20 148/85 94 L 10/08/16 08:13 10/08/16 08:13 10/08/16 08:13 10/08/16 08:13 10/08/16 08:13 Intake and Output: 10/08/16 10/08/16 06:59 18:59 Intake Total 600 200 Balance 600 200 - Medications Medications: Current Medications Acetaminophen (Tylenol 325mg Tab) 650 mg PO Q6 PRN PRN Reason: Fever >100.4 F Last Admin: 10/04/16 03:54 Dose: 650 mg Albuterol/Ipratropium (Duoneb 3 Mg/0.5 Mg (3 Ml) Ud) 3 ml INH RQ6 [facility] Last Admin: 10/08/16 01:13 Dose: 3 ml Aspirin (Aspirin Chewable) 81 mg PO TTS [facility] Last Admin: 10/06/16 09:20 Dose: 81 mg Calcium Acetate (Phoslo) 667 mg PO TIDCC [facility] Last Admin: 10/08/16 08:37 Dose: 667 mg Carvedilol (Coreg) 3.125 mg PO BID [facility] Last Admin: 10/07/16 17:18 Dose: 3.125 mg Epoetin Ramesh (Procrit) 10,000 unit IV MWF [facility] Last Admin: 10/07/16 10:35 Dose: 10,000 unit Heparin Sodium (Porcine) (Heparin) 5,000 units SC Q12 [facility] Last Admin: 10/07/16 21:33 Dose: Not Given Azithromycin 500 mg/ Sodium (Chloride) 250 mls @ 250 mls/hr IVPB Q24H [facility] Last Admin: 10/07/16 19:03 Dose: 250 mls/hr Ceftriaxone Sodium (Rocephin Iv 1 Gm Duplex) 50 mls @ 50 mls/30 min IVPB DAILY@ 1800 [facility] Last Admin: 10/07/16 17:20 Dose: 50 mls/30 min Levothyroxine Sodium (Levothroid) 137 mcg PO DAILY@0630 [facility] Last Admin: 10/08/16 06:04 Dose: 137 mcg Oxycodone/Acetaminophen (Percocet 5/325 Mg Tab) 1 tab PO Q6 [facility] Stop: 10/08/16 12:01 Last Admin: 10/08/16 06:04 Dose: 1 tab Pantoprazole Sodium (Protonix Inj) 40 mg IVP DAILY [facility] Last Admin: 10/07/16 14:14 Dose: 40 mg Rosuvastatin Calcium (Crestor) 5 mg PO HS [facility] Last Admin: 10/07/16 21:33 Dose: 5 mg Fluticasone/Salmeterol (Advair Diskus 250/50) 1 puff INH RQ12 [facility] Last Admin: 10/07/16 07:58 Dose: 1 puff - Labs Labs: 10/07/16 07:10 10/06/16 07:04 PT 17.5 SECONDS (9.7-12.2) H 10/02/16 16:05 INR 1.5 10/02/16 16:05 APTT 29 SECONDS (21-34) 10/02/16 16:05 - Constitutional Appears: No Acute Distress, Older Than Stated Age, Chronically Ill - Head Exam Head Exam: ATRAUMATIC, NORMAL INSPECTION - Eye Exam Eye Exam: EOMI, Normal appearance - Neck Exam Neck Exam: Normal Inspection. absent: Tenderness - Respiratory Exam Respiratory Exam: Rhonchi, NORMAL BREATHING PATTERN - Cardiovascular Exam Cardiovascular Exam: REGULAR RHYTHM, Murmur - GI/Abdominal Exam GI & Abdominal Exam: Soft. absent: Tenderness - Extremities Exam Extremities Exam: Normal Inspection, Tenderness - Neurological Exam Neurological Exam: Alert, CN II-XII Intact - Skin Skin Exam: Dry, Warm Assessment and Plan (1) Acute respiratory failure with hypoxia Status: Chronic (2) COPD exacerbation Status: Acute (3) ESRD (end stage renal disease) on dialysis Status: Acute (4) Failed kidney transplant Status: Chronic (5) Hypertension Status: Acute (6) Pulmonary HTN Status: Acute - Assessment and Plan (Free Text) Plan: Continue aggressive UF with HD- MWF f/u Hg; continue ESAs pulmonary meds as per pulmonary monitor BP
--- NOTE | 2016-10-08 10:25 | CP.PCM.PN ---
Subjective - Date & Time of Evaluation Date of Evaluation: 10/08/16 Time of Evaluation: 10:22 - Subjective Subjective: PT ALERT, LESS SOB AT REST., STILL ++RENTERIA. ROS ; OTHERWISE NEG. Objective - Vital Signs/Intake and Output Vital Signs (last 24 hours): Temp Pulse Resp BP Pulse Ox 98.1 F 83 20 148/85 94 L 10/08/16 08:13 10/08/16 08:13 10/08/16 08:13 10/08/16 08:13 10/08/16 08:13 Intake and Output: 10/08/16 10/08/16 06:59 18:59 Intake Total 600 200 Balance 600 200 - Medications Medications: Current Medications Acetaminophen (Tylenol 325mg Tab) 650 mg PO Q6 PRN PRN Reason: Fever >100.4 F Last Admin: 10/04/16 03:54 Dose: 650 mg Albuterol/Ipratropium (Duoneb 3 Mg/0.5 Mg (3 Ml) Ud) 3 ml INH RQ6 [facility] Last Admin: 10/08/16 01:13 Dose: 3 ml Aspirin (Aspirin Chewable) 81 mg PO TTS [facility] Last Admin: 10/06/16 09:20 Dose: 81 mg Calcium Acetate (Phoslo) 667 mg PO TIDCC [facility] Last Admin: 10/08/16 08:37 Dose: 667 mg Carvedilol (Coreg) 3.125 mg PO BID [facility] Last Admin: 10/07/16 17:18 Dose: 3.125 mg Epoetin Ramesh (Procrit) 10,000 unit IV MWF [facility] Last Admin: 10/07/16 10:35 Dose: 10,000 unit Heparin Sodium (Porcine) (Heparin) 5,000 units SC Q12 [facility] Last Admin: 10/07/16 21:33 Dose: Not Given Azithromycin 500 mg/ Sodium (Chloride) 250 mls @ 250 mls/hr IVPB Q24H [facility] Last Admin: 10/07/16 19:03 Dose: 250 mls/hr Ceftriaxone Sodium (Rocephin Iv 1 Gm Duplex) 50 mls @ 50 mls/30 min IVPB DAILY@ 1800 [facility] Last Admin: 10/07/16 17:20 Dose: 50 mls/30 min Levothyroxine Sodium (Levothroid) 137 mcg PO DAILY@0630 [facility] Last Admin: 10/08/16 06:04 Dose: 137 mcg Oxycodone/Acetaminophen (Percocet 5/325 Mg Tab) 1 tab PO Q6 [facility] Stop: 10/08/16 12:01 Last Admin: 10/08/16 06:04 Dose: 1 tab Pantoprazole Sodium (Protonix Inj) 40 mg IVP DAILY [facility] Last Admin: 10/07/16 14:14 Dose: 40 mg Rosuvastatin Calcium (Crestor) 5 mg PO HS [facility] Last Admin: 10/07/16 21:33 Dose: 5 mg Fluticasone/Salmeterol (Advair Diskus 250/50) 1 puff INH RQ12 [facility] Last Admin: 10/07/16 07:58 Dose: 1 puff - Labs Labs: 10/07/16 07:10 10/06/16 07:04 PT 17.5 SECONDS (9.7-12.2) H 10/02/16 16:05 INR 1.5 10/02/16 16:05 APTT 29 SECONDS (21-34) 10/02/16 16:05 - Constitutional Appears: Chronically Ill - Head Exam Head Exam: ATRAUMATIC, NORMOCEPHALIC - Eye Exam Eye Exam: EOMI, Normal appearance - ENT Exam ENT Exam: Mucous Membranes Moist - Neck Exam Neck Exam: absent: Tenderness - Respiratory Exam Respiratory Exam: Decreased Breath Sounds, Prolonged Expiratory Phase, Rhonchi - Cardiovascular Exam Cardiovascular Exam: RRR, +S1, +S2 - GI/Abdominal Exam GI & Abdominal Exam: Soft. absent: Tenderness - Rectal Exam Rectal Exam: Deferred - Extremities Exam Extremities Exam: absent: Calf Tenderness, Pedal Edema - Back Exam Back Exam: absent: CVA tenderness (L), CVA tenderness (R) - Neurological Exam Neurological Exam: Alert, Awake, CN II-XII Intact, Oriented x3 - Psychiatric Exam Psychiatric exam: Normal Affect - Skin Skin Exam: absent: Rash Assessment and Plan (1) Dependence on renal dialysis Status: Acute (2) ESRD (end stage renal disease) on dialysis Status: Acute (3) Failed kidney transplant Status: Chronic (4) Hypertension Status: Acute (5) Acute respiratory failure with hypoxia Status: Chronic (6) Chronic respiratory failure with hypoxia Status: Acute (7) COPD exacerbation Status: Acute - Assessment and Plan (Free Text) Assessment: RESP STATUS SL. LESS DYSPNEIC NOW., FOR POSS ADDITIONAL HD PER RENAL. CONT NEB BD., ADVAIR. ,CXR REVIEWED. F/U ECHO . PROG GUARDED. DISCUSSED WITH STAFF.
--- NOTE | 2016-10-08 15:57 | CARD ---
APPROVED REPORT EXAM: Two-dimensional and M-mode echocardiogram with Doppler and color Doppler. Other Information Quality : GoodRhythm : NSR INDICATION Aortic Valve Disease Dyspnea COPD Surgery/Intervention Status/Post Aortic Valve Replacement: RISK FACTORS Hypertension 2D DIMENSIONS LVOT Diameter1.3 (1.8-2.4cm) M-Mode DIMENSIONS RVDd2.07 (2.1-3.2cm)Left Atrium (MM)3.08 (2.5-4.0cm) IVSd1.21 (0.7-1.1cm)Aortic Root2.42 (2.2-3.7cm) LVDd4.88 (4.0-5.6cm)PWd1.29 (0.7-1.1cm) FS (%) 26 %LVDs3.63 (2.0-3.8cm) LVEF (%)50 (>50%) Aortic Valve AoV Peak Jphgkenr474.6cm/sAoV VTI73.2cmAO Peak GR.57mmHg LVOT Peak Vokvqwrg970.1cm/sLVOT VTI26.93cmAO Mean GR.31mmHg JOSE (VMAX)0.38dn2VPR (VTI)0.49cm2 Mitral Valve MV E Rpkamlsn306.9cm/sMV A Ruyequwy03.6cm/sE/A ratio1.4 TDI E/Lateral E'0.0E/Medial E'0.0 Tricuspid Valve TR Peak Wedrxhpa948vj/sTR Peak Gr.[id number] LEFT VENTRICLE The left ventricle is normal size. There is borderline concentric left ventricular hypertrophy. Left ventricle systolic function is normal. The Ejection Fraction is 60-65%. Septal motion consistent with post-operative state. The left ventricular diastolic function is normal. There is no ventricular septal defect visualized. RIGHT VENTRICLE The right ventricle is normal size. The right ventricular systolic function is normal. ATRIA The left atrium is mildly dilated. The right atrium size is normal. AORTIC VALVE No prostatic Bryson the aortic position, cusps are not well visualized. The above appear to be stable in place with sclerosis No aortic regurgitation is present. There is severe valvular aortic stenosis. Calculated aortic valve area is 0.5 cm2 with maximum pressure gradient of 60 mmHg MITRAL VALVE Mitral annular calcification is borderline. There is no evidence of mitral valve prolapse. Mitral regurgitation is trace. TRICUSPID VALVE The tricuspid valve is normal in structure. There is mild to moderate tricuspid regurgitation. Right ventricular systolic pressure is estimated at greater than 60 mmHg. There is severe pulmonary hypertension. PULMONIC VALVE The pulmonic valve is not well visualized. There is mild to moderate pulmonic valvular regurgitation. GREAT VESSELS The IVC is dilated. PERICARDIAL EFFUSION There is no pericardial effusion. <Conclusion> There is borderline concentric left ventricular hypertrophy. Left ventricle systolic function is normal. The Ejection Fraction is 60-65%. The left ventricular diastolic function is normal. There is severe valvular aortic stenosis. There is severe pulmonary hypertension.
[2016-10-08] MEDS: Oxycodone/Acetaminophen 5/325 mg Tab PO PRN (17:57)
[2016-10-08] MEDS: cefTRIAXone IV 1 gm in Dextros 50 ML IVPB SCH (17:59)
[2016-10-08] MEDS: Azithromycin 500 MG in Sodium Chloride 0.9% 250 ML IVPB SCH (19:00)
--- NOTE | 2016-10-08 21:34 | PN ---
DATE: 10/08/2016 The patient is today is more alert and awake. No shortness of breath, but feels a little weak, and n o dizziness. PHYSICAL EXAMINATION: VITAL SIGNS: The patient has a blood pressure of 111/70, pulse 80, respiration 20, temperature 98.8 and O2 saturation 97% on 2 liters nasal cannula. NECK: Supple. LUNGS: There are some rales bilaterally. HEART: Regular rate and rhythm. Positive murmur. ABDOMEN: Soft. EXTREMITIES: There is no edema. There is an AV fistula on the left arm. LABORATORY DATA: WBC 4.2, hemoglobin 9, hematocrit 27.4 and platelet is 154. PLAN: We are going to continue the current medications. The patient will have evaluation in the [facility] ____ and we are going to continue current medications. López Millard MD cc: [id number] TT: 10/08/2016 21:33:31 Confirmation # [id number] Dictation # [id number]
[2016-10-09] MEDS: Oxycodone/Acetaminophen 5/325 mg Tab PO PRN ×2 (00:20→17:49)
[2016-10-09] MEDS: Fluticasone-Salmeterol 250-50mcg Diskus INH SCH (08:01)
[2016-10-09] MEDS: Albuterol-Ipratrop 3 mg / 0.5 (3 ml) UD INH SCH ×2 (08:01→13:59)
[2016-10-09] MEDS: Epoetin Alfa 10,000 unit/ml Dialysis IV SCH (10:00)
--- NOTE | 2016-10-09 13:59 | CP.PCM.PN ---
Subjective - Date & Time of Evaluation Date of Evaluation: 10/09/16 Time of Evaluation: 13:56 - Subjective Subjective: Finishing dialysis now- c/o severe leg cramps UF around 3000ml BP stable with HD Labs reviewed- acceptable Much less dyspneic No CPs, n, v, chill, HAs, dizziness Objective - Vital Signs/Intake and Output Vital Signs (last 24 hours): Temp Pulse Resp BP Pulse Ox 98 F 77 20 144/75 99 10/09/16 09:40 10/09/16 09:35 10/09/16 09:40 10/09/16 12:50 10/09/16 09:40 Intake and Output: 10/09/16 10/09/16 06:59 18:59 Intake Total 850 300 Balance 850 300 - Medications Medications: Current Medications Acetaminophen (Tylenol 325mg Tab) 650 mg PO Q6 PRN PRN Reason: Fever >100.4 F Last Admin: 10/04/16 03:54 Dose: 650 mg Albuterol/Ipratropium (Duoneb 3 Mg/0.5 Mg (3 Ml) Ud) 3 ml INH RQ6 [facility] Last Admin: 10/09/16 08:01 Dose: 3 ml Aspirin (Aspirin Chewable) 81 mg PO TTS [facility] Last Admin: 10/08/16 10:50 Dose: 81 mg Calcium Acetate (Phoslo) 667 mg PO TIDCC [facility] Last Admin: 10/09/16 08:46 Dose: 667 mg Carvedilol (Coreg) 3.125 mg PO BID [facility] Last Admin: 10/09/16 10:41 Dose: Not Given Epoetin Ramesh (Procrit) 10,000 unit IV MWF [facility] Last Admin: 10/09/16 10:00 Dose: 10,000 unit Azithromycin 500 mg/ Sodium (Chloride) 250 mls @ 250 mls/hr IVPB Q24H [facility] Last Admin: 10/08/16 19:00 Dose: 250 mls/hr Ceftriaxone Sodium (Rocephin Iv 1 Gm Duplex) 50 mls @ 50 mls/30 min IVPB DAILY@ 1800 [facility] Last Admin: 10/08/16 17:59 Dose: 50 mls/30 min Levothyroxine Sodium (Levothroid) 137 mcg PO DAILY@0630 [facility] Last Admin: 10/09/16 05:31 Dose: 137 mcg Oxycodone/Acetaminophen (Percocet 5/325 Mg Tab) 1 tab PO Q6H PRN PRN Reason: Pain, severe (8-10) Stop: 10/11/16 17:30 Last Admin: 10/09/16 00:20 Dose: 1 tab Pantoprazole Sodium (Protonix Inj) 40 mg IVP DAILY [facility] Last Admin: 10/08/16 10:50 Dose: 40 mg Rosuvastatin Calcium (Crestor) 5 mg PO HS [facility] Last Admin: 10/08/16 21:36 Dose: 5 mg Fluticasone/Salmeterol (Advair Diskus 250/50) 1 puff INH RQ12 [facility] Last Admin: 10/09/16 08:01 Dose: 1 puff - Labs Labs: 10/07/16 07:10 10/06/16 07:04 PT 17.5 SECONDS (9.7-12.2) H 10/02/16 16:05 INR 1.5 10/02/16 16:05 APTT 29 SECONDS (21-34) 10/02/16 16:05 - Constitutional Appears: No Acute Distress, Chronically Ill - Head Exam Head Exam: ATRAUMATIC, NORMAL INSPECTION - Eye Exam Eye Exam: EOMI, Normal appearance - Neck Exam Neck Exam: Normal Inspection. absent: Tenderness - Respiratory Exam Respiratory Exam: Rhonchi, NORMAL BREATHING PATTERN - Cardiovascular Exam Cardiovascular Exam: REGULAR RHYTHM, +S1 - GI/Abdominal Exam GI & Abdominal Exam: Soft. absent: Tenderness - Extremities Exam Extremities Exam: Normal Inspection. absent: Tenderness - Neurological Exam Neurological Exam: Alert, CN II-XII Intact - Skin Skin Exam: Dry, Warm Assessment and Plan (1) Acute respiratory failure with hypoxia Status: Chronic (2) COPD exacerbation Status: Acute (3) ESRD (end stage renal disease) on dialysis Status: Acute (4) Failed kidney transplant Status: Chronic (5) Hypertension Status: Acute (6) Pulmonary HTN Status: Acute - Assessment and Plan (Free Text) Plan: Same aggressive dialysis measures - adequate UF, renal meds Same pulmonary treatments Upon discharge will need to set lower dry weight at outpatient dialysis unit
--- NOTE | 2016-10-09 14:49 | CP.PCM.PN ---
Subjective - Date & Time of Evaluation Date of Evaluation: 10/09/16 Time of Evaluation: 14:30 - Subjective Subjective: [employer] TECHNICAL DEVELOPER at 1430 House resident paged for [employer]ACLE TECHNICAL DEVELOPER at 1430. [employer]LE TECHNICAL DEVELOPER called due to blood loss after HD today. Patient reports she has bleed before like this after HD. Denies SOB, CP , palpitations, dizziness, headache, N/V/F/C. Objective - Vital Signs/Intake and Output Vital Signs (last 24 hours): Temp Pulse Resp BP Pulse Ox 98 F 77 20 144/75 99 10/09/16 09:40 10/09/16 09:35 10/09/16 09:40 10/09/16 12:50 10/09/16 09:40 Intake and Output: 10/09/16 10/09/16 06:59 18:59 Intake Total 850 300 Balance 850 300 - Medications Medications: Current Medications Acetaminophen (Tylenol 325mg Tab) 650 mg PO Q6 PRN PRN Reason: Fever >100.4 F Last Admin: 10/04/16 03:54 Dose: 650 mg Albuterol/Ipratropium (Duoneb 3 Mg/0.5 Mg (3 Ml) Ud) 3 ml INH RQ6 [facility] Last Admin: 10/09/16 13:59 Dose: Not Given Aspirin (Aspirin Chewable) 81 mg PO TTS [facility] Last Admin: 10/08/16 10:50 Dose: 81 mg Calcium Acetate (Phoslo) 667 mg PO TIDCC [facility] Last Admin: 10/09/16 08:46 Dose: 667 mg Carvedilol (Coreg) 3.125 mg PO BID [facility] Last Admin: 10/09/16 10:41 Dose: Not Given Epoetin Ramesh (Procrit) 10,000 unit IV MWF [facility] Last Admin: 10/09/16 10:00 Dose: 10,000 unit Azithromycin 500 mg/ Sodium (Chloride) 250 mls @ 250 mls/hr IVPB Q24H [facility] Last Admin: 10/08/16 19:00 Dose: 250 mls/hr Ceftriaxone Sodium (Rocephin Iv 1 Gm Duplex) 50 mls @ 50 mls/30 min IVPB DAILY@ 1800 [facility] Last Admin: 10/08/16 17:59 Dose: 50 mls/30 min Levothyroxine Sodium (Levothroid) 137 mcg PO DAILY@0630 [facility] Last Admin: 10/09/16 05:31 Dose: 137 mcg Oxycodone/Acetaminophen (Percocet 5/325 Mg Tab) 1 tab PO Q6H PRN PRN Reason: Pain, severe (8-10) Stop: 10/11/16 17:30 Last Admin: 10/09/16 00:20 Dose: 1 tab Pantoprazole Sodium (Protonix Inj) 40 mg IVP DAILY [facility] Last Admin: 10/08/16 10:50 Dose: 40 mg Rosuvastatin Calcium (Crestor) 5 mg PO HS [facility] Last Admin: 10/08/16 21:36 Dose: 5 mg Fluticasone/Salmeterol (Advair Diskus 250/50) 1 puff INH RQ12 [facility] Last Admin: 10/09/16 08:01 Dose: 1 puff - Labs Labs: 10/07/16 07:10 10/06/16 07:04 PT 17.5 SECONDS (9.7-12.2) H 10/02/16 16:05 INR 1.5 10/02/16 16:05 APTT 29 SECONDS (21-34) 10/02/16 16:05 - Constitutional Appears: Non-toxic, No Acute Distress - Head Exam Head Exam: ATRAUMATIC, NORMAL INSPECTION, NORMOCEPHALIC - Eye Exam Eye Exam: EOMI, Normal appearance - ENT Exam ENT Exam: Mucous Membranes Moist, Normal Exam - Neck Exam Neck Exam: Full ROM, Normal Inspection - Respiratory Exam Respiratory Exam: Clear to Ausculation Bilateral, NORMAL BREATHING PATTERN. absent: Rales, Rhonchi, Wheezes - Cardiovascular Exam Cardiovascular Exam: Murmur - GI/Abdominal Exam GI & Abdominal Exam: Soft, Normal Bowel Sounds. absent: Tenderness - Extremities Exam Additional comments: Left upper extremity with large, pronounced vasculature at HD sites, palpable thrill, HD dressing w/antonia sanguinous saturation, some continued sanguinous output from HD sites. Pressure applied - Back Exam Back Exam: Full ROM, NORMAL INSPECTION - Neurological Exam Neurological Exam: Alert, Awake, CN II-XII Intact, Oriented x3 - Psychiatric Exam Psychiatric exam: Normal Affect, Normal Mood - Skin Skin Exam: Dry, Intact, Normal Color, Warm. absent: Pallor Assessment and Plan - Assessment and Plan (Free Text) Assessment: Minimal blood loss s/p HD BP 155/72 HD sites dressings w/antonia sanguinous saturation Dressing changed by HD nurse Pressure applied to HD sites x 10 minutes HD sites re-assessed for hemostasis No longer bleeding Dressing changed Pt stable.
--- NOTE | 2016-10-09 14:51 | CP.PCM.PN ---
Subjective - Date & Time of Evaluation Date of Evaluation: 10/09/16 Time of Evaluation: 14:48 - Subjective Subjective: PT FEELS BETTER, NO COUGH. ROS;OTHERWISE NEG Objective - Vital Signs/Intake and Output Vital Signs (last 24 hours): Temp Pulse Resp BP Pulse Ox 98 F 77 20 144/75 99 10/09/16 09:40 10/09/16 09:35 10/09/16 09:40 10/09/16 12:50 10/09/16 09:40 Intake and Output: 10/09/16 10/09/16 06:59 18:59 Intake Total 850 300 Balance 850 300 - Medications Medications: Current Medications Acetaminophen (Tylenol 325mg Tab) 650 mg PO Q6 PRN PRN Reason: Fever >100.4 F Last Admin: 10/04/16 03:54 Dose: 650 mg Albuterol/Ipratropium (Duoneb 3 Mg/0.5 Mg (3 Ml) Ud) 3 ml INH RQ6 [facility] Last Admin: 10/09/16 13:59 Dose: Not Given Aspirin (Aspirin Chewable) 81 mg PO TTS [facility] Last Admin: 10/08/16 10:50 Dose: 81 mg Calcium Acetate (Phoslo) 667 mg PO TIDCC [facility] Last Admin: 10/09/16 08:46 Dose: 667 mg Carvedilol (Coreg) 3.125 mg PO BID [facility] Last Admin: 10/09/16 10:41 Dose: Not Given Epoetin Ramesh (Procrit) 10,000 unit IV MWF [facility] Last Admin: 10/09/16 10:00 Dose: 10,000 unit Azithromycin 500 mg/ Sodium (Chloride) 250 mls @ 250 mls/hr IVPB Q24H [facility] Last Admin: 10/08/16 19:00 Dose: 250 mls/hr Ceftriaxone Sodium (Rocephin Iv 1 Gm Duplex) 50 mls @ 50 mls/30 min IVPB DAILY@ 1800 [facility] Last Admin: 10/08/16 17:59 Dose: 50 mls/30 min Levothyroxine Sodium (Levothroid) 137 mcg PO DAILY@0630 [facility] Last Admin: 10/09/16 05:31 Dose: 137 mcg Oxycodone/Acetaminophen (Percocet 5/325 Mg Tab) 1 tab PO Q6H PRN PRN Reason: Pain, severe (8-10) Stop: 10/11/16 17:30 Last Admin: 10/09/16 00:20 Dose: 1 tab Pantoprazole Sodium (Protonix Inj) 40 mg IVP DAILY [facility] Last Admin: 10/08/16 10:50 Dose: 40 mg Rosuvastatin Calcium (Crestor) 5 mg PO HS [facility] Last Admin: 10/08/16 21:36 Dose: 5 mg Fluticasone/Salmeterol (Advair Diskus 250/50) 1 puff INH RQ12 [facility] Last Admin: 10/09/16 08:01 Dose: 1 puff - Labs Labs: 10/07/16 07:10 10/06/16 07:04 PT 17.5 SECONDS (9.7-12.2) H 10/02/16 16:05 INR 1.5 10/02/16 16:05 APTT 29 SECONDS (21-34) 10/02/16 16:05 - Constitutional Appears: Chronically Ill - Head Exam Head Exam: ATRAUMATIC, NORMOCEPHALIC - Eye Exam Eye Exam: EOMI, Normal appearance - ENT Exam ENT Exam: Mucous Membranes Moist - Neck Exam Neck Exam: absent: Tenderness - Respiratory Exam Respiratory Exam: Decreased Breath Sounds, Rhonchi Additional comments: BETTER AIR MOVEMENT - Cardiovascular Exam Cardiovascular Exam: RRR, +S1, +S2 - GI/Abdominal Exam GI & Abdominal Exam: Soft. absent: Tenderness - Rectal Exam Rectal Exam: Deferred - Extremities Exam Extremities Exam: absent: Calf Tenderness, Pedal Edema - Back Exam Back Exam: absent: CVA tenderness (L), CVA tenderness (R) - Neurological Exam Neurological Exam: Alert, Awake, CN II-XII Intact, Oriented x3 - Psychiatric Exam Psychiatric exam: Normal Affect, Normal Mood - Skin Skin Exam: Dry. absent: Rash Assessment and Plan (1) Dependence on renal dialysis Status: Acute (2) ESRD (end stage renal disease) on dialysis Status: Acute (3) Failed kidney transplant Status: Chronic (4) Hypertension Status: Acute (5) Acute respiratory failure with hypoxia Status: Chronic (6) Chronic respiratory failure with hypoxia Status: Acute (7) COPD exacerbation Status: Acute - Assessment and Plan (Free Text) Assessment: RESP STATUS IMPROVED., CONT NEB BD., ADVAIR., AFEBRILE ON AB. CXR REVIEWED. HD IN PROGRESS. CONT HOME O2 4L. DISCUSSED WITH STAFF.
[2016-10-09 16:57] VITALS: BP 121/70; PULSE 86; TEMP 98.8; O2SAT 93
--- NOTE | 2016-10-09 17:10 | CP.PCM.PN ---
Subjective - Date & Time of Evaluation Date of Evaluation: 10/09/16 Time of Evaluation: 10:20 - Subjective Subjective: Pt seen today with Davie Broderick SOB, CP, palpitations, dizziness, headache, N/V/F/C. Objective - Vital Signs/Intake and Output Vital Signs (last 24 hours): Temp Pulse Resp BP Pulse Ox 98.8 F 86 20 121/70 93 L 10/09/16 15:00 10/09/16 15:00 10/09/16 15:00 10/09/16 15:00 10/09/16 15:00 Intake and Output: 10/09/16 10/09/16 06:59 18:59 Intake Total 850 300 Balance 850 300 - Medications Medications: Current Medications Acetaminophen (Tylenol 325mg Tab) 650 mg PO Q6 PRN PRN Reason: Fever >100.4 F Last Admin: 10/04/16 03:54 Dose: 650 mg Albuterol/Ipratropium (Duoneb 3 Mg/0.5 Mg (3 Ml) Ud) 3 ml INH RQ6 [facility] Last Admin: 10/09/16 13:59 Dose: Not Given Aspirin (Aspirin Chewable) 81 mg PO TTS [facility] Last Admin: 10/08/16 10:50 Dose: 81 mg Calcium Acetate (Phoslo) 667 mg PO TIDCC [facility] Last Admin: 10/09/16 14:56 Dose: 667 mg Carvedilol (Coreg) 3.125 mg PO BID [facility] Last Admin: 10/09/16 10:41 Dose: Not Given Epoetin Ramesh (Procrit) 10,000 unit IV MWF [facility] Last Admin: 10/09/16 10:00 Dose: 10,000 unit Azithromycin 500 mg/ Sodium (Chloride) 250 mls @ 250 mls/hr IVPB Q24H [facility] Last Admin: 10/08/16 19:00 Dose: 250 mls/hr Ceftriaxone Sodium (Rocephin Iv 1 Gm Duplex) 50 mls @ 50 mls/30 min IVPB DAILY@ 1800 [facility] Last Admin: 10/08/16 17:59 Dose: 50 mls/30 min Levothyroxine Sodium (Levothroid) 137 mcg PO DAILY@0630 [facility] Last Admin: 10/09/16 05:31 Dose: 137 mcg Oxycodone/Acetaminophen (Percocet 5/325 Mg Tab) 1 tab PO Q6H PRN PRN Reason: Pain, severe (8-10) Stop: 10/11/16 17:30 Last Admin: 10/09/16 00:20 Dose: 1 tab Pantoprazole Sodium (Protonix Inj) 40 mg IVP DAILY [facility] Last Admin: 10/09/16 14:56 Dose: 40 mg Rosuvastatin Calcium (Crestor) 5 mg PO HS [facility] Last Admin: 10/08/16 21:36 Dose: 5 mg Fluticasone/Salmeterol (Advair Diskus 250/50) 1 puff INH RQ12 [facility] Last Admin: 10/09/16 08:01 Dose: 1 puff - Labs Labs: 10/07/16 07:10 10/06/16 07:04 PT 17.5 SECONDS (9.7-12.2) H 10/02/16 16:05 INR 1.5 10/02/16 16:05 APTT 29 SECONDS (21-34) 10/02/16 16:05 Assessment and Plan - Assessment and Plan (Free Text) Assessment: A/P 56 yr old female admitted for pneumonia pt improved after antibiotics s/p BINDER CHAINSTITCH fro bleeding from the fistula site , no furtehr bleeding noted seen by Dr. Acuna, cleared for discharge home today an df/u with her office on next wednesday
--- NOTE | 2016-10-09 17:45 | PN ---
DATE: 10/09/2016 Today the patient is much alert and awake. Must less shortness of breath on exertion. No chest pain or palpitation. The patient still feels some weakness. PHYSICAL EXAMINATION: VITAL SIGNS: The patient has a blood pressure of 121/70, pulse rate is 86, respirations 20, and temp erature 98.8. NECK: Supple. No JVD. LUNGS: There are some rales at the bases. HEART: Regular rate and rhythm. Positive murmur. Positive extrasystole. ABDOMEN: Soft, nontender. No palpable mass. EXTREMITIES: There is no edema. PLAN: The patient today had diuresis done. Now the plan is that we are going to discontinue the Yudi u-Medrol and give the patient prednisone p.o., and consider discharging the patient today. The case is discussed with Taniya Westbrook. López Millard MD cc: [id number] TT: 10/09/2016 17:45:12 Confirmation # [id number] Dictation # [id number] mn
== END 2016-10-09 19:05 | disposition home or self-care (01) | DRG 193 ==
LOC: C.ER 13:55 → C.9E 17:19 → C.3T 21:41
PROVIDERS: ADMIT Specialist; ATTEND Specialist
DX: J18.9 Pneumonia, unspecified organism (principal); N18.6 End stage renal disease; J96.21 Acute and chronic respiratory failure with hypoxia; T86.12 Kidney transplant failure; I12.0 Hypertensive chronic kidney disease with stage 5 chronic kidney disease or end stage renal disease; J44.0 Chronic obstructive pulmonary disease with (acute) lower respiratory infection; I27.2 Other secondary pulmonary hypertension; J44.1 Chronic obstructive pulmonary disease with (acute) exacerbation; I50.9 Heart failure, unspecified; I25.10 Atherosclerotic heart disease of native coronary artery without angina pectoris; E78.5 Hyperlipidemia, unspecified; E89.0 Postprocedural hypothyroidism; B19.20 Unspecified viral hepatitis C without hepatic coma; Y83.0 Surgical operation with transplant of whole organ as the cause of abnormal reaction of the patient, or of later complication, without mention of misadventure at the time of the procedure; D63.1 Anemia in chronic kidney disease; R25.2 Cramp and spasm; Z87.01 Personal history of pneumonia (recurrent); Z99.2 Dependence on renal dialysis; Z95.2 Presence of prosthetic heart valve; Z79.01 Long term (current) use of anticoagulants; Z95.1 Presence of aortocoronary bypass graft; Z99.81 Dependence on supplemental oxygen

== ENCOUNTER 2018-07-08 17:23 | Inpatient (IN) | payer MEDICARE, MEDICAID ==
[2018-07-08 17:23] VITALS: BMI 21.0
--- NOTE | 2018-07-08 17:44 | C.PDOC ---
History Of Present Illness 57 y/o F c PMHx ESRD on HD, last session today, CHF p/w shortness of breath which became acutely worse today. Patient also noticed engorged neck veins. She reports feeling more short of breath laying down. States her abdomen also feels distended and she feels a pressure like sensation from the abdomen up to her neck. Denies fever, vomiting, chills. Time Seen by Provider: 07/08/18 17:34 Past Medical History - Medical History PMH: Anemia, CAD (double bypass, replacement valve), COPD, HTN, Hypercholesterolemia, Hypothyroidism (thyroidectomy), Pneumonia, End Stage Renal Disease, Chronic Kidney Disease Denies: Sleep Apnea Surgical History: CABG (S/P AVR) - [facility] Procedures CORONAR ARTERIOGR-2 CATH (02/20/04) HEMODIALYSIS (07/13/13) INCIS W REM OF FORIEGN BODY OR DEV FROM SKIN & SUBCUT TISSUE (12/24/12) LEFT HEART CARDIAC CATH (02/20/04) LT HEART ANGIOCARDIOGRAM (02/20/04) Family History: States: Unknown Family Hx - Social History Hx Tobacco Use: No Hx Alcohol Use: No Hx Substance Use: No - Immunization History Hx Tetanus Toxoid Vaccination: No Hx Influenza Vaccination: Yes Hx Pneumococcal Vaccination: No Review Of Systems Except As Marked, All Systems Reviewed And Found Negative. Constitutional: Negative for: Fever Cardiovascular: Negative for: Chest Pain Physical Exam - Physical Exam Additional Physical Exam Comments: Gen: Appears short of breath Head: NC Eyes: PERRL ENT: MMM Neck: +JVD Chest: No tenderness CV: Regular rate. +Murmur Lungs: Crackles bilaterally. Hypoxic. Abd: Distended, nontender Extremities: FROM x 4 Skin: No rash Neuro: Alert, no focal deficit ED Course And Treatment - Laboratory Results Result Diagrams: 07/08/18 17:56 07/08/18 17:56 Medical Decision Making Medical Decision Making: Placed on oxygen via NC 3L, O2 sat now 99%. Patient will require further dialysis, does not make any urine. Dr. Brian Lyn recommends patient admission to his service. CXR Results Date of service: 07/08/2018 HISTORY: dyspnea COMPARISON: Comparison made with prior chest radiograph 10/04/2016. FINDINGS: LUNGS: Chronic pleural thickening is both lung bases left greater than right. Concomitant small effusions may be present as well. Patchy lower lobe atelect asis and/or infiltrates bilaterally with increased pulmonary vascularity consistent with mild chronic compensated pulmonary edema/CHF. PLEURA: No significant pleural effusion identified, no pneumothorax apparent. CARDIOVASCULAR: Heart is enlarged. Mild of aortic atherosclerotic calcification present. OSSEOUS STRUCTURES: No significant abnormalities. VISUALIZED UPPER ABDOMEN: Normal. OTHER FINDINGS: None. IMPRESSION: Chronic pleural thickening is both lung bases left greater than right. Con comitant small effusions may be present as well. Patchy lower lobe atelectasis and/or infiltrates bilaterally with increased pulmonary vascularity consistent with mild chronic compensated pulmonary edema/CHF. Disposition Discussed With : Brian Lyn Doctor Will See Patient In The: Hospital - Disposition Disposition: HOSPITALIZED Disposition Time: 18:53 Condition: GUARDED - Clinical Impression Clinical Impression: CHF exacerbation
[2018-07-08 17:59] LABS: BASO % 1.3 % (0.0-2.0); EOS # 0.1 K/uL (0.0-0.7); EOS % 2.6 % (0.0-4.0); LYMPH # 0.7 K/uL (1.0-4.3); LYMPH % 19.3 % (20.0-40.0); MEAN CORPUSCULAR HEMOGLOBIN 33.6 pg (27.0-31.0); MEAN CORPUSCULAR HGB CONC 32.9 g/dL (33.0-37.0); MEAN PLATELET VOLUME 8.8 fL (7.2-11.7); MONO # 0.5 K/uL (0.0-0.8); MONO % 14.2 % (0.0-10.0); NEUT # 2.3 K/uL (1.8-7.0); NEUT % 62.6 % (50.0-75.0); NRBC % 0.4 % (0.0-2.0); RBC 3.35 Mil/uL (3.80-5.20); RED CELL DISTRIBUTION WIDTH 15.2 % (11.5-14.5); WHITE BLOOD COUNT 3.6 K/uL (4.8-10.8)
[2018-07-08 18:03] LABS: HEMOGLOBIN 11.3 g/dL (11.0-16.0); MEAN CELL VOLUME 102.3 fL (81.0-99.0)
[2018-07-08 18:11] LABS: INR 1.3; PROTHROMBIN TIME 14.5 SECONDS (9.7-12.2)
[2018-07-08 18:16] LABS: BLOOD UREA NITROGEN 13 mg/dL (7-17); CALCIUM 8.4 mg/dl (8.6-10.4); GFR NON-AFRICAN AMERICAN 12
--- NOTE | 2018-07-08 18:20 | RAD ---
Date of service: 07/08/2018 HISTORY: dyspnea COMPARISON: Comparison made with prior chest radiograph 10/04/2016. FINDINGS: LUNGS: Chronic pleural thickening is both lung bases left greater than right. Concomitant small effusions may be present as well. Patchy lower lobe atelectasis and/or infiltrates bilaterally with increased pulmonary vascularity consistent with mild chronic compensated pulmonary edema/CHF. PLEURA: No significant pleural effusion identified, no pneumothorax apparent. CARDIOVASCULAR: Heart is enlarged. Mild of aortic atherosclerotic calcification present. OSSEOUS STRUCTURES: No significant abnormalities. VISUALIZED UPPER ABDOMEN: Normal. OTHER FINDINGS: None. IMPRESSION: Chronic pleural thickening is both lung bases left greater than right. Concomitant small effusions may be present as well. Patchy lower lobe atelectasis and/or infiltrates bilaterally with increased pulmonary vascularity consistent with mild chronic compensated pulmonary edema/CHF.
[2018-07-08 18:21] LABS: ALB/GLOB RATIO 1.3 (1.0-2.1); ALBUMIN 4.4 g/dL (3.5-5.0); ALT/SGPT < 6 U/L (9-52); AST/SGOT 36 U/L (14-36)
[2018-07-08 18:50] LABS: B-TYPE NATRIURETIC PEPTIDE 80100 pg/mL (0-900)
[2018-07-08] MEDS ORDERED: Albuterol HFA 90 mcg/actuation (8 g) IH PRN (21:02)
[2018-07-09] MEDS: Albuterol-Ipratrop 3 mg / 0.5 (3 ml) UD INH SCH ×4 (01:00→19:12)
--- NOTE | 2018-07-09 04:55 | HP ---
HISTORY OF PRESENT ILLNESS: This is a 57-year-old female with a history of known CAD, hypertension, CKD, on hemodialysis for past many years, previous renal transplant, CABG and aortic valve replacement, came into the office with shortness of breath, increasing ascites, increasing neck vein distention, and shortness of breath. She was found to be in congestive heart failure. She was sent to the emergency room and was subsequently admitted. She sleeps on one pillow, but has PND. She is able to walk few steps with shortness of breath. Mild edema, she has noticed. PERSONAL HISTORY: Does not smoke. Does not drink. REVIEW OF SYSTEMS: CONSTITUTIONAL: Marked weakness, but no fever, no chills. Leg fatigue. EYES: She wears glasses, but otherwise unremarkable. EARS: Negative for hearing loss. NECK: No swollen glands. No neck pain. Neck vein distention is noted. PULMONARY: Shortness of breath, but no wheeze, no hemoptysis. CARDIAC: Positive for orthopnea, PND, increasing edema, increasing ascites, dizziness, able to walk less than a block, edema, hypertension, occasional palpitations. Denies any chest pains. GASTROINTESTINAL: Negative for hematemesis or melena. NEUROLOGICAL: Occasional headaches. No syncope. No TIAs. MUSCULOSKELETAL: Back pains and knees. GENITOURINARY: On hemodialysis three times a week. 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 Previous renal transplant. PSYCHIATRIC: She is mildly depressed. EXTREMITIES: Positive for mild edema. PAST MEDICAL HISTORY: History of CABG on 07/07/2018, aortic valve replacement in . Repeat cardiac cath done two years ago by Dr. Gilmore, had shown patent EDWARDS and normal aortic valve. Her echocardiogram had shown normal LV systolic function, dilated LV diastolic dysfunction, mild pulmonary hypertension, and mild MR. Admitted in the past for mild CHF, and subsequently, had a cardiac cath done, renal transplant, CKD on renal dialysis. CURRENT MEDICATIONS: At home include: Calcium acetate; Coreg 6.25 twice a day, but she has been off that, vitamin B6; multivitamin; Nexium; Renvela; and Synthroid 125 mcg one a day. ALLERGIES: DENIED. FAMILY HISTORY: Negative. PHYSICAL EXAMINATION: GENERAL: Shows middle-aged female, appears chronically sick, in mild respiratory distress. VITAL SIGNS: She is 5 feet and weighs 119 pounds. Blood pressure is 122/70, heart rate of 66, pulse rate of 96 and regular, respiratory rate of 24, and temperature of 97.4. HEENT: Shows upper dentures. NECK: No thyroid enlargement. Neck veins are distended up to 10 cm above the clavicle. Bilateral soft carotid bruits are noted. RESPIRATORY: Bibasilar rales are noted. CARDIAC: PMI is normal. S1, S2 are normal. Prominent JVD. Heart sounds appears normal. Systolic ejection murmur grade 3/6 in the aortic area. ABDOMEN: Soft and nontender. EXTREMITIES: No cyanosis or clubbing. Trace edema is noted. MUSCULOSKELETAL: Arthritis in the knees. NEUROLOGICAL: Awake, alert, and oriented x3. SKIN: Scar of CABG, renal transplant in the abdomen, shunt in the left arm, and scar of thyroid surgery in the neck. LABORATORY DATA: EKG done in the office showed sinus tachycardia and nonspecific ST changes. ASSESSMENT: A 57-year-old female with history of hypertension, chronic kidney disease, hypothyroidism, with the worsening of the congestive heart failure. PLAN: To obtain echocardiogram, bed rest, oxygen, and may need intensive dialysis. Nephrology consultation. Care of plan was explained to the patient and her sister who is at the bedside. Brian Lyn MD
[2018-07-09] MEDS: Levothyroxine 125 MCG TAB PO SCH (05:53)
--- NOTE | 2018-07-09 09:58 | CP.PCM.CON ---
History of Present Illness - History of Present Illness History of Present Illness: 57 y/o F c PMHx ESRD on HD, last session 07/08,chronic CHF p/w shortness of breath which became acutely worse today. Patient also noticed engorged neck veins. She reports feeling more short of breath laying down. States her abdomen also feels distended and she feels a pressure like sensation from the abdomen up to her neck. Denies fever, vomiting, chills. Admitted for treatment, evaluation CHF Past Medical History - Medical History PMH: Anemia, CAD (double bypass,aortic replacement valve),severe pulmonary HTN, COPD, HTN, Hypercholesterolemia, Secondary hyperparathyroidism, Pneumonia, End Stage Renal Disease, failed renal transplant, hypothyroidism Denies: Sleep Apnea Surgical History: CABG (S/P AVR), lap choley, AV graft placement, rernal transpalnt 1991- lasted about 15 years - [facility] Procedures CORONAR ARTERIOGR-2 CATH (02/20/04) HEMODIALYSIS (07/13/13) INCIS W REM OF FORIEGN BODY OR DEV FROM SKIN & SUBCUT TISSUE (12/24/12) LEFT HEART CARDIAC CATH (02/20/04) LT HEART ANGIOCARDIOGRAM (02/20/04) FH- sister with CKD Review of Systems - Constitutional Constitutional: Fatigue, Weakness - EENT Eyes: absent: As Per HPI, Blind Spots, Blurred Vision, Change in Vision, Decreased Night Vision, Diplopia, Discharge, Dry Eye, Exophthalmos, Floaters, Irritation, Itchy Eyes, Loss of Peripheral Vision, Pain, Photophobia, Requires Corrective Lenses, Sees Flashes, Spots in Vision, Tunnel Vision, Other Visual Disturbances, Loss of Vision, Other Ears: absent: As Per HPI, Decreased Hearing, Ear Discharge, Ear Pain, Tinnitus, Abnormal Hearing, Disequilibrium, Dizziness, Other Nose/Mouth/Throat: absent: As Per HPI, Epistaxis, Nasal Congestion, Nasal Discharge, Nasal Obstruction, Nasal Trauma, Nose Pain, Post Nasal Drip, Sinus Pain, Sinus Pressure, Bleeding Gums, Change in Voice, Dental Pain, Dry Mouth, Dysphagia, Halitosis, Hoarsness, Lip Swelling, Mouth Lesions, Mouth Pain, Odynophagia, Sore Throat, Throat Swelling, Tongue Swelling, Facial Pain, Neck Pain, Neck Mass, Other - Cardiovascular Cardiovascular: Dyspnea on Exertion, Lightheadedness, Palpitations - Respiratory Respiratory: Cough, Dyspnea on Exertion - Gastrointestinal Gastrointestinal: Constipation - Genitourinary Genitourinary: As Per HPI - Musculoskeletal Musculoskeletal: Muscle Cramps, Muscle Weakness, Myalgias Past Patient History - Past Medical History & Family History Past Medical History?: Yes Past Family History: Reviewed and not pertinent - Past Social History Smoking Status: Former Smoker Chewing Tobacco Use: No Cigar Use: No Alcohol: None Drugs: Denies Home Situation {Lives}: Alone - CARDIAC Hx Cardiac Disorders: Yes Hx Hypercholesterolemia: Yes Hx Hypertension: Yes - PULMONARY Hx Respiratory Disorders: Yes Hx Chronic Obstructive Pulmonary Disease (COPD): Yes Hx Pneumonia: Yes - NEUROLOGICAL Hx Neurological Disorder: No - HEENT Hx HEENT Problems: Yes - RENAL Hx Chronic Kidney Disease: Yes Date of Last Dialysis Treatment: 07/08/18 - ENDOCRINE/METABOLIC Hx Endocrine Disorders: Yes Hx Hypothyroidism: Yes (thyroidectomy) - HEMATOLOGICAL/ONCOLOGICAL Hx Blood Disorders: Yes Hx Anemia: Yes - INTEGUMENTARY Hx Dermatological Problems: No - MUSCULOSKELETAL/RHEUMATOLOGICAL Hx Musculoskeletal Disorders: Yes Hx Back Pain: Yes Hx Falls: Yes (years ago) - GASTROINTESTINAL Hx Gastrointestinal Disorders: Yes Other/Comment: Hiatal Hernia - GENITOURINARY/GYNECOLOGICAL Hx Genitourinary Disorders: Yes Other/Comment: S/P KIDNEY TRANSPLANT. S/P TRANSPLANT REMOVAL - PSYCHIATRIC Hx Psychophysiologic Disorder: No Hx Substance Use: No - SURGICAL HISTORY Hx Surgeries: Yes Hx Coronary Artery Bypass Graft: Yes (S/P AVR) - ANESTHESIA Hx Anesthesia: Yes Hx Anesthesia Reactions: No Hx Malignant Hyperthermia: No Has any member of the family had a problem w/ anesthesia?: No Meds Allergies/Adverse Reactions: Allergies Allergy/AdvReac Type Severity Reaction Status Date / Time No Known Allergies Allergy Verified 07/08/18 17:53 - Medications Medications: Current Medications Albuterol (Ventolin Hfa 90 Mcg/Actuation (8 G)) 1 puff IH Q6 PRN PRN Reason: Shortness of Breath Albuterol/Ipratropium (Duoneb 3 Mg/0.5 Mg (3 Ml) Ud) 3 ml INH RQ6 [facility] Last Admin: 07/09/18 07:14 Dose: Not Given Amitriptyline HCl (Elavil) 25 mg PO HS [facility] Last Admin: 07/08/18 21:41 Dose: 25 mg Aspirin (Aspirin Chewable) 81 mg PO TTS [facility] Calcium Acetate (Phoslo) 667 mg PO TID [facility] Heparin Sodium (Porcine) (Heparin) 5,000 units SC Q12H [facility] Last Admin: 07/08/18 21:42 Dose: Not Given Levothyroxine Sodium (Synthroid) 125 mcg PO DAILY@0630 [facility] Last Admin: 07/09/18 05:53 Dose: 125 mcg Pantoprazole Sodium (Protonix Ec Tab) 40 mg PO DAILY [facility] Rosuvastatin Calcium (Crestor) 5 mg PO HS [facility] Last Admin: 07/08/18 21:41 Dose: 5 mg Sevelamer Carbonate (Renvela) 2,400 mg PO TID [facility] Sucralfate (Carafate Tab) 1 gm PO Q6 [facility] Last Admin: 07/09/18 05:53 Dose: 1 gm Physical Exam - Constitutional Appears: Non-toxic, No Acute Distress, Chronically Ill - Head Exam Head Exam: ATRAUMATIC, NORMAL INSPECTION - Eye Exam Eye Exam: EOMI, Normal appearance - Neck Exam Neck exam: Positive for: Normal Inspection. Negative for: Tenderness - Respiratory Exam Respiratory Exam: Rhonchi, Respiratory Distress - Cardiovascular Exam Cardiovascular Exam: REGULAR RHYTHM, +S1 - GI/Abdominal Exam GI & Abdominal Exam: Firm. absent: Soft - Extremities Exam Extremities exam: Positive for: normal inspection. Negative for: tenderness - Neurological Exam Neurological exam: CN II-XII Intact, Oriented x3 - Skin Skin Exam: Dry, Warm Results - Vital Signs Recent Vital Signs: Last Vital Signs Temp 98.2 F 07/09/18 08:22 Pulse 81 07/09/18 08:22 Resp 18 07/09/18 08:22 BP 131/82 07/09/18 08:22 Pulse Ox 95 07/09/18 08:22 - Labs Result Diagrams: 07/08/18 17:56 07/08/18 17:56 Labs: Laboratory Results - last 24 hr 07/08/18 07/08/18 07/08/18 17:56 17:56 17:56 WBC 3.6 L RBC 3.35 L Hgb 11.3 D Hct 34.3 MCV 102.3 H D MCH 33.6 H MCHC 32.9 L RDW 15.2 H Plt Count 179 MPV 8.8 Neut % (Auto) 62.6 Lymph % (Auto) 19.3 L [place] % (Auto) 14.2 H Eos % (Auto) 2.6 Baso % (Auto) 1.3 Neut # (Auto) 2.3 Lymph # (Auto) 0.7 L [place] # (Auto) 0.5 Eos # (Auto) 0.1 Baso # (Auto) 0.0 PT 14.5 H INR 1.3 APTT 27 Sodium 136 Potassium 4.3 Chloride 95 L Carbon Dioxide 32 H Anion Gap 14 BUN 13 Creatinine 3.8 H Est GFR ( Amer) 15 Est GFR (Non-Af Amer) 12 Random Glucose 94 Calcium 8.4 L Total Bilirubin 1.5 H AST 36 ALT < 6 L Alkaline Phosphatase 83 Troponin I 0.0500 NT-Pro-B Natriuret Pep 10002 H Total Protein 7.8 Albumin 4.4 Globulin 3.4 Albumin/Globulin Ratio 1.3 Assessment & Plan (1) CAD (coronary artery disease) Status: Acute (2) Secondary hyperparathyroidism Status: Acute (3) COPD (chronic obstructive pulmonary disease) Status: Acute (4) CHF exacerbation Status: Acute (5) ESRD (end stage renal disease) on dialysis Status: Acute (6) Pulmonary HTN Status: Acute (7) Failed kidney transplant Status: Chronic - Assessment and Plan (Free Text) Plan: Dialysis now then MWF Cardiac workup including echo this AM
[2018-07-09] MEDS: Pantoprazole 40 mg EC Tab PO SCH (10:40)
--- NOTE | 2018-07-09 14:16 | CP.PCM.PN ---
Subjective - Date & Time of Evaluation Date of Evaluation: 07/09/18 Time of Evaluation: 14:14 - Subjective Subjective: weak,sob +.echo done.seen by dr santos. Objective - Vital Signs/Intake and Output Vital Signs (last 24 hours): Temp Pulse Resp BP Pulse Ox 97.9 F 80 20 121/83 97 07/09/18 13:00 07/09/18 13:00 07/09/18 13:00 07/09/18 13:15 07/09/18 13:00 Intake and Output: 07/09/18 07/09/18 06:59 18:59 Intake Total 240 Balance 240 - Medications Medications: Current Medications Albuterol (Ventolin Hfa 90 Mcg/Actuation (8 G)) 1 puff IH Q6 PRN PRN Reason: Shortness of Breath Albuterol/Ipratropium (Duoneb 3 Mg/0.5 Mg (3 Ml) Ud) 3 ml INH RQ6 [facility] Last Admin: 07/09/18 13:33 Dose: Not Given Amitriptyline HCl (Elavil) 25 mg PO HS [facility] Last Admin: 07/08/18 21:41 Dose: 25 mg Aspirin (Aspirin Chewable) 81 mg PO TTS [facility] Last Admin: 07/09/18 10:43 Dose: Not Given Calcium Acetate (Phoslo) 667 mg PO TID [facility] Last Admin: 07/09/18 13:10 Dose: Not Given Heparin Sodium (Porcine) (Heparin) 5,000 units SC Q12H [facility] Last Admin: 07/09/18 10:43 Dose: Not Given Levothyroxine Sodium (Synthroid) 125 mcg PO DAILY@0630 [facility] Last Admin: 07/09/18 05:53 Dose: 125 mcg Pantoprazole Sodium (Protonix Ec Tab) 40 mg PO DAILY [facility] Last Admin: 07/09/18 10:40 Dose: 40 mg Rosuvastatin Calcium (Crestor) 5 mg PO HS [facility] Last Admin: 07/08/18 21:41 Dose: 5 mg Sevelamer Carbonate (Renvela) 2,400 mg PO TID [facility] Last Admin: 07/09/18 13:10 Dose: Not Given Sucralfate (Carafate Tab) 1 gm PO Q6 [facility] Last Admin: 07/09/18 12:06 Dose: 1 gm - Labs Labs: 07/08/18 17:56 07/08/18 17:56 PT 14.5 SECONDS (9.7-12.2) H 07/08/18 17:56 INR 1.3 07/08/18 17:56 APTT 27 SECONDS (21-34) 07/08/18 17:56 - Constitutional Appears: No Acute Distress, Chronically Ill - Head Exam Head Exam: NORMOCEPHALIC - Eye Exam Eye Exam: Normal appearance - Respiratory Exam Respiratory Exam: Rales - Cardiovascular Exam Cardiovascular Exam: REGULAR RHYTHM, Murmur - GI/Abdominal Exam GI & Abdominal Exam: Distended, Soft - Extremities Exam Extremities Exam: absent: Pedal Edema - Neurological Exam Neurological Exam: Alert, Oriented x3 Assessment and Plan - Assessment and Plan (Free Text) Plan: chf,check echo,probably diastolic,?restritive.ct hemo dialysis.
[2018-07-10] MEDS: Albuterol-Ipratrop 3 mg / 0.5 (3 ml) UD INH SCH ×4 (01:24→20:12)
[2018-07-10] MEDS: Levothyroxine 125 MCG TAB PO SCH (05:54)
[2018-07-10] MEDS: Pantoprazole 40 mg EC Tab PO SCH (10:02)
[2018-07-11] MEDS: Albuterol-Ipratrop 3 mg / 0.5 (3 ml) UD INH SCH ×4 (01:05→19:41)
[2018-07-11] MEDS: Levothyroxine 125 MCG TAB PO SCH (05:43)
[2018-07-11] MEDS: Pantoprazole 40 mg EC Tab PO SCH (09:08)
--- NOTE | 2018-07-11 09:24 | CARD ---
APPROVED REPORT Date of service: 07/09/2018 EXAM: Two-dimensional and M-mode echocardiogram with Doppler and color Doppler. INDICATION Pericardial Effusion Dyspnea Pulmonary Hypertention Congestive Heart Failure Surgery/Intervention CABD DIMENSIONS IVSd0.8 (0.7-1.1cm)Aortic Root (2D)2.8 (2.0-3.7cm) LVDd4.3 (3.9-5.9cm)LVOT Diameter1.8 (1.8-2.4cm) PWd1.2 (0.7-1.1cm)LA Ecrppq46 (18-58mL) LVDs2.8 (2.5-4.0cm)FS (%) 35.3 % LVEF (%)65.0 (>50%)LVEF (Zacarias's)65.20 % M-Mode DIMENSIONS RVDd2.21 (2.1-3.2cm)Left Atrium (MM)4.57 (2.5-4.0cm) IVSd0.78 (0.7-1.1cm)Aortic Root2.69 (2.2-3.7cm) LVDd4.82 (4.0-5.6cm)Aortic Cusp Exc.1.02 (1.5-2.0cm) PWd0.75 (0.7-1.1cm)FS (%) 32 % LVDs3.25 (2.0-3.8cm)TAPSE9.96 cm LVEF (%)61 (>50%) Aortic Valve AoV Peak Snjjugpo129.1cm/sAoV VTI68.1cmAO Peak GR.39mmHg LVOT Peak Leuaafwo424.5cm/sLVOT VTI53.15cmAO Mean GR.19mmHg JOSE (VMAX)2.02op6NFF (VTI)2.01cm2 Mitral Valve MV E Gxbsjeca804.1cm/sMV A Nzcwjcyf49.0cm/sE/A ratio1.3 TDI Lateral E' Peak V13.19cm/sMedial E' Peak V11.77cm/sE/Lateral E'8.7 E/Medial E'9.7 Tricuspid Valve TR Peak Irgrjuzr279jk/sTR Peak Gr.02szSeHSNP39jlVz <Conclusion> Left ventricle: thickness: normal; size: normal; overall ejection fraction: 55%: diastolic filling pressures: normal Mitral valve: annulus: normal: leaflets: normal: excursion: normal; no significant trans-mitral gradient:ild to moderate incompetence: left atrium: dilated Aortic valve: suboptimally visualized; leaflets:calcific thickening: excursion: indeterminate; indeterminate trans-aortic gradient: No significant incompetence: aortic root: normal Right sided Structures: Pulmonary valve: normal; no significant incompetence; Tricuspid valve: normal;moderate incompetence: Decreased TAPSE Intra-cardiac hemodynamics: pulmonary systolic pressures:70mmHg; central venous pressures: normal Trace pericardial effusion Suggest LEEANN for aortic and subaortic hemodynamics
--- NOTE | 2018-07-11 09:30 | CARD ---
APPROVED REPORT Date of service: 07/08/2018 EKG Measurement Heart [id number] <Conclusion> Sinus rhythm with occasional premature ventricular complexes Nonspecific T wave abnormality Abnormal ECG
--- NOTE | 2018-07-11 12:02 | CP.PCM.PN ---
Subjective - Date & Time of Evaluation Date of Evaluation: 07/11/18 Time of Evaluation: 12:00 - Subjective Subjective: s/p dialysis 07/09 Feels sl better; less dyspneic, no cough echo done for maintenance HD today Objective - Vital Signs/Intake and Output Vital Signs (last 24 hours): Temp Pulse Resp BP Pulse Ox 98.0 F 84 18 146/91 H 95 07/11/18 07:30 07/11/18 08:05 07/11/18 07:30 07/11/18 07:30 07/11/18 07:30 Intake and Output: 07/11/18 07/11/18 06:59 18:59 Intake Total 500 Balance 500 - Medications Medications: Current Medications Albuterol (Ventolin Hfa 90 Mcg/Actuation (8 G)) 1 puff IH Q6 PRN PRN Reason: Shortness of Breath Albuterol/Ipratropium (Duoneb 3 Mg/0.5 Mg (3 Ml) Ud) 3 ml INH RQ6 [facility] Last Admin: 07/11/18 08:05 Dose: 3 ml Amitriptyline HCl (Elavil) 25 mg PO HS [facility] Last Admin: 07/10/18 22:05 Dose: 25 mg Aspirin (Aspirin Chewable) 81 mg PO TTS [facility] Last Admin: 07/09/18 10:43 Dose: Not Given Calcium Acetate (Phoslo) 667 mg PO TID [facility] Last Admin: 07/11/18 09:08 Dose: 667 mg Heparin Sodium (Porcine) (Heparin) 5,000 units SC Q12H [facility] Last Admin: 07/11/18 09:14 Dose: Not Given Levothyroxine Sodium (Synthroid) 125 mcg PO DAILY@0630 [facility] Last Admin: 07/11/18 05:43 Dose: 125 mcg Pantoprazole Sodium (Protonix Ec Tab) 40 mg PO DAILY [facility] Last Admin: 07/11/18 09:08 Dose: 40 mg Rosuvastatin Calcium (Crestor) 5 mg PO HS [facility] Last Admin: 07/10/18 22:05 Dose: 5 mg Sevelamer Carbonate (Renvela) 2,400 mg PO TID [facility] Last Admin: 07/11/18 09:08 Dose: 2,400 mg Sucralfate (Carafate Tab) 1 gm PO Q6 [facility] Last Admin: 07/11/18 11:52 Dose: 1 gm - Labs Labs: 07/08/18 17:56 07/08/18 17:56 PT 14.5 SECONDS (9.7-12.2) H 07/08/18 17:56 INR 1.3 07/08/18 17:56 APTT 27 SECONDS (21-34) 07/08/18 17:56 - Constitutional Appears: No Acute Distress, Chronically Ill - Head Exam Head Exam: ATRAUMATIC, NORMAL INSPECTION - Eye Exam Eye Exam: EOMI, Normal appearance - Neck Exam Neck Exam: Normal Inspection. absent: Tenderness - Respiratory Exam Respiratory Exam: Clear to Ausculation Bilateral, NORMAL BREATHING PATTERN - Cardiovascular Exam Cardiovascular Exam: REGULAR RHYTHM, +S1 - GI/Abdominal Exam GI & Abdominal Exam: Soft. absent: Tenderness - Extremities Exam Extremities Exam: Normal Inspection. absent: Tenderness - Neurological Exam Neurological Exam: Awake, CN II-XII Intact - Skin Skin Exam: Dry, Warm Assessment and Plan (1) CAD (coronary artery disease) Status: Acute (2) Secondary hyperparathyroidism Status: Acute (3) COPD (chronic obstructive pulmonary disease) Status: Acute (4) CHF exacerbation Status: Acute (5) ESRD (end stage renal disease) on dialysis Status: Acute (6) Pulmonary HTN Status: Acute (7) Failed kidney transplant Status: Chronic - Assessment and Plan (Free Text) Plan: Dialysis now, MWF Might need extra dialysis weekly check echo, cardiac workup monitor BP
--- NOTE | 2018-07-11 14:14 | CP.PCM.PN ---
Subjective - Date & Time of Evaluation Date of Evaluation: 07/11/18 Time of Evaluation: 14:12 - Subjective Subjective: sob is less.jvd ++.echo noted. Objective - Vital Signs/Intake and Output Vital Signs (last 24 hours): Temp Pulse Resp BP Pulse Ox 98.0 F 84 18 146/91 H 95 07/11/18 07:30 07/11/18 08:05 07/11/18 07:30 07/11/18 07:30 07/11/18 07:30 Intake and Output: 07/11/18 07/11/18 06:59 18:59 Intake Total 500 Balance 500 - Medications Medications: Current Medications Albuterol (Ventolin Hfa 90 Mcg/Actuation (8 G)) 1 puff IH Q6 PRN PRN Reason: Shortness of Breath Albuterol/Ipratropium (Duoneb 3 Mg/0.5 Mg (3 Ml) Ud) 3 ml INH RQ6 [facility] Last Admin: 07/11/18 13:39 Dose: Not Given Amitriptyline HCl (Elavil) 25 mg PO HS [facility] Last Admin: 07/10/18 22:05 Dose: 25 mg Aspirin (Aspirin Chewable) 81 mg PO TTS [facility] Last Admin: 07/09/18 10:43 Dose: Not Given Calcium Acetate (Phoslo) 667 mg PO TID [facility] Last Admin: 07/11/18 13:35 Dose: Not Given Heparin Sodium (Porcine) (Heparin) 5,000 units SC Q12H [facility] Last Admin: 07/11/18 09:14 Dose: Not Given Levothyroxine Sodium (Synthroid) 125 mcg PO DAILY@0630 [facility] Last Admin: 07/11/18 05:43 Dose: 125 mcg Pantoprazole Sodium (Protonix Ec Tab) 40 mg PO DAILY [facility] Last Admin: 07/11/18 09:08 Dose: 40 mg Rosuvastatin Calcium (Crestor) 5 mg PO HS [facility] Last Admin: 07/10/18 22:05 Dose: 5 mg Sevelamer Carbonate (Renvela) 2,400 mg PO TID [facility] Last Admin: 07/11/18 13:35 Dose: Not Given Sucralfate (Carafate Tab) 1 gm PO Q6 [facility] Last Admin: 07/11/18 11:52 Dose: 1 gm - Labs Labs: 07/08/18 17:56 07/08/18 17:56 PT 14.5 SECONDS (9.7-12.2) H 07/08/18 17:56 INR 1.3 07/08/18 17:56 APTT 27 SECONDS (21-34) 07/08/18 17:56 - Constitutional Appears: No Acute Distress, Chronically Ill - Eye Exam Eye Exam: Normal appearance - Respiratory Exam Respiratory Exam: Rhonchi - Cardiovascular Exam Cardiovascular Exam: REGULAR RHYTHM, Murmur - GI/Abdominal Exam GI & Abdominal Exam: Soft - Extremities Exam Extremities Exam: absent: Pedal Edema - Neurological Exam Neurological Exam: Alert, Oriented x3 Assessment and Plan - Assessment and Plan (Free Text) Plan: chf,better,more rt sided.severe pul htn.mr,tr.recent cath & nino showed normal av funcitoin,bioprosthetic.no need for nino.cpm.
[2018-07-11 20:02] LABS: CALCIUM 8.6 mg/dl (8.6-10.4)
[2018-07-11] MEDS ORDERED: Potassium Chloride 20 mEq ER Tab PO ONE (21:00)
[2018-07-12] MEDS: Albuterol-Ipratrop 3 mg / 0.5 (3 ml) UD INH SCH ×2 (01:10→20:00)
[2018-07-12] MEDS: Levothyroxine 125 MCG TAB PO SCH (05:59)
--- NOTE | 2018-07-12 09:29 | CP.PCM.PN ---
Subjective - Date & Time of Evaluation Date of Evaluation: 07/12/18 Time of Evaluation: 09:26 - Subjective Subjective: feels better s/p dialysis 07/11- tolerated well K repleted 07/11 echo consistent with severe pulm HTN, right sided CHF HTN controlled Objective - Vital Signs/Intake and Output Vital Signs (last 24 hours): Temp Pulse Resp BP Pulse Ox 98 F 105 H 20 133/80 95 07/12/18 00:00 07/12/18 08:47 07/12/18 00:00 07/12/18 00:00 07/12/18 00:00 - Medications Medications: Current Medications Albuterol (Ventolin Hfa 90 Mcg/Actuation (8 G)) 1 puff IH Q6 PRN PRN Reason: Shortness of Breath Albuterol/Ipratropium (Duoneb 3 Mg/0.5 Mg (3 Ml) Ud) 3 ml INH RQ6 [facility] Last Admin: 07/12/18 01:10 Dose: 3 ml Amitriptyline HCl (Elavil) 25 mg PO HS [facility] Last Admin: 07/11/18 21:28 Dose: 25 mg Aspirin (Aspirin Chewable) 81 mg PO TTS [facility] Last Admin: 07/09/18 10:43 Dose: Not Given Calcium Acetate (Phoslo) 667 mg PO TID [facility] Last Admin: 07/11/18 17:25 Dose: 667 mg Heparin Sodium (Porcine) (Heparin) 5,000 units SC Q12H [facility] Last Admin: 07/11/18 21:08 Dose: Not Given Levothyroxine Sodium (Synthroid) 125 mcg PO DAILY@0630 [facility] Last Admin: 07/12/18 05:59 Dose: 125 mcg Pantoprazole Sodium (Protonix Ec Tab) 40 mg PO DAILY [facility] Last Admin: 07/11/18 09:08 Dose: 40 mg Rosuvastatin Calcium (Crestor) 5 mg PO HS [facility] Last Admin: 07/11/18 21:05 Dose: 5 mg Sevelamer Carbonate (Renvela) 2,400 mg PO TID [facility] Last Admin: 07/11/18 17:24 Dose: 2,400 mg Sucralfate (Carafate Tab) 1 gm PO Q6 [facility] Last Admin: 07/12/18 05:59 Dose: 1 gm - Labs Labs: 07/08/18 17:56 07/11/18 19:33 PT 14.5 SECONDS (9.7-12.2) H 07/08/18 17:56 INR 1.3 07/08/18 17:56 APTT 27 SECONDS (21-34) 07/08/18 17:56 - Constitutional Appears: No Acute Distress, Chronically Ill - Head Exam Head Exam: ATRAUMATIC, NORMAL INSPECTION - Eye Exam Eye Exam: EOMI, Normal appearance - Neck Exam Neck Exam: Normal Inspection. absent: Tenderness - Respiratory Exam Respiratory Exam: Clear to Ausculation Bilateral, NORMAL BREATHING PATTERN - Cardiovascular Exam Cardiovascular Exam: REGULAR RHYTHM, +S1 - GI/Abdominal Exam GI & Abdominal Exam: Soft. absent: Tenderness - Extremities Exam Extremities Exam: Normal Inspection. absent: Tenderness - Neurological Exam Neurological Exam: Awake, CN II-XII Intact - Skin Skin Exam: Warm Assessment and Plan (1) CAD (coronary artery disease) Status: Acute (2) Secondary hyperparathyroidism Status: Acute (3) COPD (chronic obstructive pulmonary disease) Status: Acute (4) CHF exacerbation Status: Acute (5) ESRD (end stage renal disease) on dialysis Status: Acute (6) Pulmonary HTN Status: Acute (7) Failed kidney transplant Status: Chronic - Assessment and Plan (Free Text) Plan: Same meds Dialysis MWF use 3K bath
[2018-07-12] MEDS: Pantoprazole 40 mg EC Tab PO SCH (09:56)
[2018-07-13] MEDS: Albuterol-Ipratrop 3 mg / 0.5 (3 ml) UD INH SCH ×4 (01:35→19:49)
[2018-07-13] MEDS: Levothyroxine 125 MCG TAB PO SCH (06:42)
--- NOTE | 2018-07-13 11:00 | CP.PCM.PN ---
Subjective - Date & Time of Evaluation Date of Evaluation: 07/13/18 Time of Evaluation: 10:58 - Subjective Subjective: weak.on hd. Objective - Vital Signs/Intake and Output Vital Signs (last 24 hours): Temp Pulse Resp BP Pulse Ox 97.9 F 96 H 16 137/85 100 07/13/18 10:15 07/13/18 10:15 07/13/18 10:15 07/13/18 10:30 07/13/18 10:15 Intake and Output: 07/13/18 07/13/18 06:59 18:59 Intake Total 240 Balance 240 - Medications Medications: Current Medications Albuterol (Ventolin Hfa 90 Mcg/Actuation (8 G)) 1 puff IH Q6 PRN PRN Reason: Shortness of Breath Albuterol/Ipratropium (Duoneb 3 Mg/0.5 Mg (3 Ml) Ud) 3 ml INH RQ6 [facility] Last Admin: 07/13/18 07:45 Dose: 3 ml Amitriptyline HCl (Elavil) 25 mg PO HS [facility] Last Admin: 07/12/18 21:32 Dose: 25 mg Aspirin (Aspirin Chewable) 81 mg PO TTS [facility] Last Admin: 07/12/18 09:56 Dose: 81 mg Calcium Acetate (Phoslo) 667 mg PO TID [facility] Last Admin: 07/12/18 17:33 Dose: 667 mg Heparin Sodium (Porcine) (Heparin) 5,000 units SC Q12H [facility] Last Admin: 07/12/18 21:32 Dose: Not Given Levothyroxine Sodium (Synthroid) 125 mcg PO DAILY@0630 [facility] Last Admin: 07/13/18 06:42 Dose: 125 mcg Pantoprazole Sodium (Protonix Ec Tab) 40 mg PO DAILY [facility] Last Admin: 07/12/18 09:56 Dose: 40 mg Rosuvastatin Calcium (Crestor) 5 mg PO HS [facility] Last Admin: 07/12/18 21:32 Dose: 5 mg Sevelamer Carbonate (Renvela) 2,400 mg PO TID [facility] Last Admin: 07/12/18 17:33 Dose: 2,400 mg Sucralfate (Carafate Tab) 1 gm PO Q6 [facility] Last Admin: 07/13/18 06:42 Dose: 1 gm - Labs Labs: 07/08/18 17:56 07/11/18 19:33 PT 14.5 SECONDS (9.7-12.2) H 07/08/18 17:56 INR 1.3 07/08/18 17:56 APTT 27 SECONDS (21-34) 07/08/18 17:56 - Constitutional Appears: No Acute Distress, Chronically Ill - Head Exam Head Exam: NORMOCEPHALIC - Respiratory Exam Respiratory Exam: Clear to Ausculation Bilateral - GI/Abdominal Exam GI & Abdominal Exam: Distended, Soft - Extremities Exam Extremities Exam: absent: Pedal Edema - Neurological Exam Neurological Exam: Alert, Oriented x3 Assessment and Plan - Assessment and Plan (Free Text) Plan: chf,getting better.neck veins still up.check labs & x ray.
--- NOTE | 2018-07-13 13:23 | CP.PCM.PN ---
Subjective - Date & Time of Evaluation Date of Evaluation: 07/13/18 Time of Evaluation: 13:21 - Subjective Subjective: Seen at dialysis To UF 2000ml Feels better; less dyspnea Low K likely due to obtaining labs post HD HTN well controlled Objective - Vital Signs/Intake and Output Vital Signs (last 24 hours): Temp Pulse Resp BP Pulse Ox 97.9 F 96 H 16 126/78 100 07/13/18 10:15 07/13/18 10:15 07/13/18 10:15 07/13/18 11:35 07/13/18 10:15 Intake and Output: 07/13/18 07/13/18 06:59 18:59 Intake Total 240 Balance 240 - Medications Medications: Current Medications Albuterol (Ventolin Hfa 90 Mcg/Actuation (8 G)) 1 puff IH Q6 PRN PRN Reason: Shortness of Breath Albuterol/Ipratropium (Duoneb 3 Mg/0.5 Mg (3 Ml) Ud) 3 ml INH RQ6 [facility] Last Admin: 07/13/18 13:12 Dose: Not Given Amitriptyline HCl (Elavil) 25 mg PO HS [facility] Last Admin: 07/12/18 21:32 Dose: 25 mg Aspirin (Aspirin Chewable) 81 mg PO TTS [facility] Last Admin: 07/12/18 09:56 Dose: 81 mg Calcium Acetate (Phoslo) 667 mg PO TID [facility] Last Admin: 07/12/18 17:33 Dose: 667 mg Heparin Sodium (Porcine) (Heparin) 5,000 units SC Q12H [facility] Last Admin: 07/12/18 21:32 Dose: Not Given Levothyroxine Sodium (Synthroid) 125 mcg PO DAILY@0630 [facility] Last Admin: 07/13/18 06:42 Dose: 125 mcg Pantoprazole Sodium (Protonix Ec Tab) 40 mg PO DAILY [facility] Last Admin: 07/12/18 09:56 Dose: 40 mg Rosuvastatin Calcium (Crestor) 5 mg PO HS [facility] Last Admin: 07/12/18 21:32 Dose: 5 mg Sevelamer Carbonate (Renvela) 2,400 mg PO TID [facility] Last Admin: 07/12/18 17:33 Dose: 2,400 mg Sucralfate (Carafate Tab) 1 gm PO Q6 [facility] Last Admin: 07/13/18 06:42 Dose: 1 gm - Labs Labs: 07/08/18 17:56 07/11/18 19:33 PT 14.5 SECONDS (9.7-12.2) H 07/08/18 17:56 INR 1.3 07/08/18 17:56 APTT 27 SECONDS (21-34) 07/08/18 17:56 - Constitutional Appears: No Acute Distress, Chronically Ill - Head Exam Head Exam: ATRAUMATIC, NORMAL INSPECTION - Eye Exam Eye Exam: EOMI, Normal appearance - Neck Exam Neck Exam: Normal Inspection. absent: Tenderness - Respiratory Exam Respiratory Exam: Clear to Ausculation Bilateral, NORMAL BREATHING PATTERN - Cardiovascular Exam Cardiovascular Exam: REGULAR RHYTHM, +S1 - GI/Abdominal Exam GI & Abdominal Exam: Soft. absent: Tenderness - Extremities Exam Extremities Exam: Normal Inspection. absent: Tenderness - Neurological Exam Neurological Exam: Awake, CN II-XII Intact - Skin Skin Exam: Dry, Warm Assessment and Plan (1) CAD (coronary artery disease) Status: Acute (2) Secondary hyperparathyroidism Status: Acute (3) COPD (chronic obstructive pulmonary disease) Status: Acute (4) CHF exacerbation Status: Acute (5) ESRD (end stage renal disease) on dialysis Status: Acute (6) Pulmonary HTN Status: Acute (7) Failed kidney transplant Status: Chronic - Assessment and Plan (Free Text) Plan: Same aggressive UF goals Cardiology follow up p[lans Same meds for now
[2018-07-13 13:43] LABS: BASO % 0.9 % (0.0-2.0); EOS # 0.1 K/uL (0.0-0.7); EOS % 3.4 % (0.0-4.0); HEMOGLOBIN 10.9 g/dL (11.0-16.0); LYMPH # 0.6 K/uL (1.0-4.3); MEAN CELL VOLUME 101.2 fL (81.0-99.0); MEAN CORPUSCULAR HEMOGLOBIN 33.7 pg (27.0-31.0); MEAN CORPUSCULAR HGB CONC 33.3 g/dL (33.0-37.0); MEAN PLATELET VOLUME 7.7 fL (7.2-11.7); MONO # 0.5 K/uL (0.0-0.8); MONO % 11.8 % (0.0-10.0); NEUT # 2.8 K/uL (1.8-7.0); NEUT % 69.9 % (50.0-75.0); RBC 3.22 Mil/uL (3.80-5.20); RED CELL DISTRIBUTION WIDTH 14.7 % (11.5-14.5)
[2018-07-13] MEDS: Pantoprazole 40 mg EC Tab PO SCH (14:32)
[2018-07-14] MEDS: Albuterol-Ipratrop 3 mg / 0.5 (3 ml) UD INH SCH (01:28)
[2018-07-14] MEDS: Levothyroxine 125 MCG TAB PO SCH (05:39)
[2018-07-14 07:59] LABS: ALB/GLOB RATIO 1.4 (1.0-2.1); CALCIUM 8.5 mg/dl (8.6-10.4)
--- NOTE | 2018-07-14 08:42 | CP.PCM.PN ---
Subjective - Date & Time of Evaluation Date of Evaluation: 07/14/18 Time of Evaluation: 08:40 - Subjective Subjective: Stable dialysis 07/13 Less dyspneic Abdomen distended- likely ascites Labs acceptable no new complaint Objective - Vital Signs/Intake and Output Vital Signs (last 24 hours): Temp Pulse Resp BP Pulse Ox 97.9 F 78 20 115/74 99 07/14/18 07:16 07/14/18 07:16 07/14/18 07:16 07/14/18 07:16 07/14/18 07:16 Intake and Output: 07/14/18 07/14/18 06:59 18:59 Intake Total 300 Balance 300 - Medications Medications: Current Medications Albuterol (Ventolin Hfa 90 Mcg/Actuation (8 G)) 1 puff IH Q6 PRN PRN Reason: Shortness of Breath Amitriptyline HCl (Elavil) 25 mg PO HS [facility] Last Admin: 07/13/18 22:07 Dose: 25 mg Aspirin (Aspirin Chewable) 81 mg PO TTS [facility] Last Admin: 07/12/18 09:56 Dose: 81 mg Calcium Acetate (Phoslo) 667 mg PO TID [facility] Last Admin: 07/13/18 17:08 Dose: 667 mg Docusate Sodium (Colace) 100 mg PO TID [facility] Last Admin: 07/13/18 17:09 Dose: 100 mg Heparin Sodium (Porcine) (Heparin) 5,000 units SC Q12H [facility] Last Admin: 07/14/18 08:06 Dose: Not Given Levothyroxine Sodium (Synthroid) 125 mcg PO DAILY@0630 [facility] Last Admin: 07/14/18 05:39 Dose: 125 mcg Pantoprazole Sodium (Protonix Ec Tab) 40 mg PO DAILY [facility] Last Admin: 07/13/18 14:32 Dose: 40 mg Rosuvastatin Calcium (Crestor) 5 mg PO HS [facility] Last Admin: 07/13/18 22:07 Dose: 5 mg Sevelamer Carbonate (Renvela) 2,400 mg PO TID [facility] Last Admin: 07/13/18 17:09 Dose: 2,400 mg Sucralfate (Carafate Tab) 1 gm PO Q6 [facility] Last Admin: 07/14/18 05:38 Dose: 1 gm - Labs Labs: 07/13/18 13:39 07/14/18 07:25 PT 14.5 SECONDS (9.7-12.2) H 07/08/18 17:56 INR 1.3 07/08/18 17:56 APTT 27 SECONDS (21-34) 07/08/18 17:56 - Constitutional Appears: No Acute Distress, Chronically Ill - Head Exam Head Exam: ATRAUMATIC, NORMAL INSPECTION - Eye Exam Eye Exam: EOMI, Normal appearance - Neck Exam Neck Exam: Normal Inspection. absent: Tenderness - Respiratory Exam Respiratory Exam: Clear to Ausculation Bilateral, NORMAL BREATHING PATTERN - Cardiovascular Exam Cardiovascular Exam: REGULAR RHYTHM, +S1, Murmur - GI/Abdominal Exam GI & Abdominal Exam: Distended, Soft. absent: Tenderness - Extremities Exam Extremities Exam: Normal Inspection. absent: Tenderness - Neurological Exam Neurological Exam: Awake, CN II-XII Intact Assessment and Plan (1) CAD (coronary artery disease) Status: Acute (2) Secondary hyperparathyroidism Status: Acute (3) COPD (chronic obstructive pulmonary disease) Status: Acute (4) CHF exacerbation Status: Acute (5) ESRD (end stage renal disease) on dialysis Status: Acute (6) Pulmonary HTN Status: Acute (7) Failed kidney transplant Status: Chronic - Assessment and Plan (Free Text) Plan: Dialysis MWF UF as tolerated If worsens will increase HD to 4X weekly
--- NOTE | 2018-07-14 08:49 | RAD ---
Date of service: 07/13/2018 HISTORY: chf COMPARISON: 07/08/2018 and 12/11/2015 TECHNIQUE: Chest PA and lateral FINDINGS: LUNGS: Bilateral hyperaeration-similar Bibasilar chronic appearing linear fibrotic strands bases and blending bilateral inferolateral pleural thickening reaction. Concomitant chronic appearing small bilateral pleural effusions not excluded. No interval worsening consolidation seen. Right infrahilar nodular opacity-similar with 2016 study. PLEURA: Pleural changes as above chronic a both bases. No pneumothorax seen CARDIOVASCULAR: There is presence of aortic atherosclerotic calcification on x-ray. Mild cardiomegaly-similar. Overall interstitial lung markings appear slightly increased-this is not a new finding-an element of concomitant minimal pulmonary venous congestion cannot be excluded. No worrisome changes regarding this appearance with prior studies appreciated. Left subclavian vascular stent similar to 07/08/2018 Midline sternotomy and valvular prosthesis in place OSSEOUS STRUCTURES: No significant abnormalities. VISUALIZED UPPER ABDOMEN: Surgical changes OTHER FINDINGS: None. IMPRESSION: No interval pathology appreciated. Chronic changes are listed below Chronic changes: Bilateral hyperaeration. Bibasilar linear fibrotic changes. Bilateral inferolateral pleural thickening without without chronic appearing small pleural effusions No interval consolidation seen. Mild cardiomegaly. Chronic appearing abnormally prominent interstitial lung markings as discussed above.
[2018-07-14] MEDS: Pantoprazole 40 mg EC Tab PO SCH (09:39)
--- NOTE | 2018-07-14 12:51 | CP.PCM.PN ---
Subjective - Date & Time of Evaluation Date of Evaluation: 07/14/18 Time of Evaluation: 12:50 - Subjective Subjective: sob is better Objective - Vital Signs/Intake and Output Vital Signs (last 24 hours): Temp Pulse Resp BP Pulse Ox 97.9 F 78 20 115/74 99 07/14/18 07:16 07/14/18 07:16 07/14/18 07:16 07/14/18 07:16 07/14/18 07:16 Intake and Output: 07/14/18 07/14/18 06:59 18:59 Intake Total 300 Balance 300 - Medications Medications: Current Medications Albuterol (Ventolin Hfa 90 Mcg/Actuation (8 G)) 1 puff IH Q6 PRN PRN Reason: Shortness of Breath Amitriptyline HCl (Elavil) 25 mg PO HS [facility] Last Admin: 07/13/18 22:07 Dose: 25 mg Aspirin (Aspirin Chewable) 81 mg PO TTS [facility] Last Admin: 07/14/18 09:39 Dose: 81 mg Calcium Acetate (Phoslo) 667 mg PO TID [facility] Last Admin: 07/14/18 09:39 Dose: 667 mg Docusate Sodium (Colace) 100 mg PO TID [facility] Last Admin: 07/14/18 09:39 Dose: 100 mg Heparin Sodium (Porcine) (Heparin) 5,000 units SC Q12H [facility] Last Admin: 07/14/18 08:06 Dose: Not Given Levothyroxine Sodium (Synthroid) 125 mcg PO DAILY@0630 [facility] Last Admin: 07/14/18 05:39 Dose: 125 mcg Pantoprazole Sodium (Protonix Ec Tab) 40 mg PO DAILY [facility] Last Admin: 07/14/18 09:39 Dose: 40 mg Rosuvastatin Calcium (Crestor) 5 mg PO HS [facility] Last Admin: 07/13/18 22:07 Dose: 5 mg Sevelamer Carbonate (Renvela) 2,400 mg PO TID [facility] Last Admin: 07/14/18 09:39 Dose: 2,400 mg Sucralfate (Carafate Tab) 1 gm PO Q6 [facility] Last Admin: 07/14/18 12:26 Dose: 1 gm - Labs Labs: 07/13/18 13:39 07/14/18 07:25 PT 14.5 SECONDS (9.7-12.2) H 07/08/18 17:56 INR 1.3 07/08/18 17:56 APTT 27 SECONDS (21-34) 07/08/18 17:56 - Constitutional Appears: No Acute Distress, Chronically Ill - Head Exam Head Exam: NORMOCEPHALIC - Respiratory Exam Respiratory Exam: Clear to Ausculation Bilateral - Cardiovascular Exam Cardiovascular Exam: REGULAR RHYTHM, Murmur - GI/Abdominal Exam GI & Abdominal Exam: Soft - Extremities Exam Extremities Exam: absent: Pedal Edema - Neurological Exam Neurological Exam: Alert, Oriented x3 Assessment and Plan - Assessment and Plan (Free Text) Plan: cpm.will d/c home after dialysis tomorrow.labs noted.
[2018-07-15] MEDS: Levothyroxine 125 MCG TAB PO SCH (05:54)
[2018-07-15] MEDS: Pantoprazole 40 mg EC Tab PO SCH (09:34)
--- NOTE | 2018-07-15 14:25 | CP.PCM.PN ---
Subjective - Date & Time of Evaluation Date of Evaluation: 07/15/18 Time of Evaluation: 14:25 - Subjective Subjective: PATIENT SEEN AND EXAMINED AT THE BEDSIDE Objective - Vital Signs/Intake and Output Vital Signs (last 24 hours): Temp Pulse Resp BP Pulse Ox 98.2 F 95 H 20 100/67 96 07/15/18 13:45 07/15/18 13:45 07/15/18 13:45 07/15/18 13:45 07/15/18 13:45 Intake and Output: 07/15/18 07/15/18 06:59 18:59 Intake Total 350 Balance 350 - Medications Medications: Current Medications Albuterol (Ventolin Hfa 90 Mcg/Actuation (8 G)) 1 puff IH Q6 PRN PRN Reason: Shortness of Breath Amitriptyline HCl (Elavil) 25 mg PO HS [facility] Last Admin: 07/14/18 21:03 Dose: 25 mg Aspirin (Aspirin Chewable) 81 mg PO TTS [facility] Last Admin: 07/14/18 09:39 Dose: 81 mg Calcium Acetate (Phoslo) 667 mg PO TID [facility] Last Admin: 07/15/18 14:20 Dose: 667 mg Docusate Sodium (Colace) 100 mg PO TID [facility] Last Admin: 07/15/18 14:20 Dose: 100 mg Heparin Sodium (Porcine) (Heparin) 5,000 units SC Q12H [facility] Last Admin: 07/15/18 07:46 Dose: Not Given Levothyroxine Sodium (Synthroid) 125 mcg PO DAILY@0630 [facility] Last Admin: 07/15/18 05:54 Dose: 125 mcg Pantoprazole Sodium (Protonix Ec Tab) 40 mg PO DAILY [facility] Last Admin: 07/15/18 09:34 Dose: Not Given Rosuvastatin Calcium (Crestor) 5 mg PO HS [facility] Last Admin: 07/14/18 21:03 Dose: 5 mg Sevelamer Carbonate (Renvela) 2,400 mg PO TID [facility] Last Admin: 07/15/18 14:20 Dose: 2,400 mg Sucralfate (Carafate Tab) 1 gm PO Q6 [facility] Last Admin: 07/15/18 12:00 Dose: Not Given - Labs Labs: 07/13/18 13:39 07/14/18 07:25 PT 14.5 SECONDS (9.7-12.2) H 07/08/18 17:56 INR 1.3 07/08/18 17:56 APTT 27 SECONDS (21-34) 07/08/18 17:56 Assessment and Plan - Assessment and Plan (Free Text) Assessment: FOLLOW UP WITH DR MARTE IN HIS OFFICE ------CALL FOR APPOINTMENT FOLLOW UP WITH DR ORTIZ IN HIS OFFICE -----CALL FOR APPOINTMENT CONTINUE HOME MEDICATION PRESCRIBE CONTINUE HEMODIALYSIS ORDER ACTIVITY TOLERATED CALL DR MARTE OR DR ORTIZ OR GO TO THE EMERGENCY ROOM IF SYMPTOM RETURN OR WORSENING
--- NOTE | 2018-07-15 14:34 | CP.PCM.PN ---
Subjective - Date & Time of Evaluation Date of Evaluation: 07/15/18 Time of Evaluation: 14:31 - Subjective Subjective: Stable dialysis now- UF 2700ml Weight decreased to 47.5kg Cardiac status optimized Likely discharge soon Objective - Vital Signs/Intake and Output Vital Signs (last 24 hours): Temp Pulse Resp BP Pulse Ox 98.2 F 95 H 20 100/67 96 07/15/18 13:45 07/15/18 13:45 07/15/18 13:45 07/15/18 13:45 07/15/18 13:45 Intake and Output: 07/15/18 07/15/18 06:59 18:59 Intake Total 350 Balance 350 - Medications Medications: Current Medications Albuterol (Ventolin Hfa 90 Mcg/Actuation (8 G)) 1 puff IH Q6 PRN PRN Reason: Shortness of Breath Amitriptyline HCl (Elavil) 25 mg PO HS [facility] Last Admin: 07/14/18 21:03 Dose: 25 mg Aspirin (Aspirin Chewable) 81 mg PO TTS [facility] Last Admin: 07/14/18 09:39 Dose: 81 mg Calcium Acetate (Phoslo) 667 mg PO TID [facility] Last Admin: 07/15/18 14:20 Dose: 667 mg Docusate Sodium (Colace) 100 mg PO TID [facility] Last Admin: 07/15/18 14:20 Dose: 100 mg Heparin Sodium (Porcine) (Heparin) 5,000 units SC Q12H [facility] Last Admin: 07/15/18 07:46 Dose: Not Given Levothyroxine Sodium (Synthroid) 125 mcg PO DAILY@0630 [facility] Last Admin: 07/15/18 05:54 Dose: 125 mcg Pantoprazole Sodium (Protonix Ec Tab) 40 mg PO DAILY [facility] Last Admin: 07/15/18 09:34 Dose: Not Given Rosuvastatin Calcium (Crestor) 5 mg PO HS [facility] Last Admin: 07/14/18 21:03 Dose: 5 mg Sevelamer Carbonate (Renvela) 2,400 mg PO TID [facility] Last Admin: 07/15/18 14:20 Dose: 2,400 mg Sucralfate (Carafate Tab) 1 gm PO Q6 [facility] Last Admin: 07/15/18 12:00 Dose: Not Given - Labs Labs: 07/13/18 13:39 07/14/18 07:25 PT 14.5 SECONDS (9.7-12.2) H 07/08/18 17:56 INR 1.3 07/08/18 17:56 APTT 27 SECONDS (21-34) 07/08/18 17:56 - Constitutional Appears: No Acute Distress, Chronically Ill - Head Exam Head Exam: ATRAUMATIC, NORMAL INSPECTION - Eye Exam Eye Exam: EOMI, Normal appearance - Neck Exam Neck Exam: Normal Inspection. absent: Tenderness - Respiratory Exam Respiratory Exam: Clear to Ausculation Bilateral, NORMAL BREATHING PATTERN - Cardiovascular Exam Cardiovascular Exam: REGULAR RHYTHM, +S1 - GI/Abdominal Exam GI & Abdominal Exam: Soft. absent: Tenderness - Extremities Exam Extremities Exam: Normal Inspection. absent: Tenderness - Neurological Exam Neurological Exam: Awake, CN II-XII Intact - Skin Skin Exam: Dry, Warm Assessment and Plan (1) CAD (coronary artery disease) Status: Acute (2) Secondary hyperparathyroidism Status: Acute (3) COPD (chronic obstructive pulmonary disease) Status: Acute (4) CHF exacerbation Status: Acute (5) ESRD (end stage renal disease) on dialysis Status: Acute (6) Pulmonary HTN Status: Acute (7) Failed kidney transplant Status: Chronic - Assessment and Plan (Free Text) Plan: Same dialysis schedule possible discharge soon new EDW- 47.5 kg
[2018-07-15 15:31] VITALS: BP 120/75; PULSE 99; RESP 18; TEMP 98.4; O2SAT 97
--- NOTE | 2018-07-16 03:35 | DS ---
HISTORY OF PRESENT ILLNESS: A 57-year-old female with history of previous bioprosthetic aortic valve replacement, CABG with EDWARDS to LAD, chronic kidney disease, on hemodialysis, being followed by Dr. Harper who was brought in with increasing neck vein distention, ascites, shortness of breath. She was found to be fluid overload. Echocardiogram confirmed severe pulmonary hypertension with a pulmonary artery systolic pressure in the range of 70s, normal LV systolic function overall, RV systolic dysfunction and moderate degree of MR. Aortic valve was not visualized but there was no significant aortic stenosis by gradient. Dialysis was intensified. The patient has done well. She ____ at this point. She recently had a cardiac cath done also about a year ago and a LEEANN in the past, and there is no need to repeat one. She will be discharged to be followed up as an outpatient by Dr. Harper and continue hemodialysis. She will continue with all her medications at home which includes baby aspirin one a day, Carafate, Colace, Crestor 5 mg, Protonix, Renvela, Synthroid 125 mcg. I will see her back in two weeks time. FINAL DIAGNOSES: Acute on chronic worsening of the biventricular congestive heart failure, systolic and diastolic; history of hypertension; status post aortic valve replacement; status post coronary artery bypass graft; chronic kidney disease, on hemodialysis. Brian Lyn MD
== END 2018-07-15 16:06 | disposition home or self-care (01) | DRG 291 ==
LOC: C.ER 17:23 → C.5S 18:52
PROVIDERS: ADMIT Internal Medicine Cardiovascular Disease; ATTEND Internal Medicine Cardiovascular Disease
PROC: 5A1D70Z Performance of Urinary Filtration, Intermittent, Less than 6 Hours Per Day (ICD-10-PCS; principal; 2018-07-13)
DX: I13.2 Hypertensive heart and chronic kidney disease with heart failure and with stage 5 chronic kidney disease, or end stage renal disease (principal); N18.6 End stage renal disease; I50.43 Acute on chronic combined systolic (congestive) and diastolic (congestive) heart failure; N25.81 Secondary hyperparathyroidism of renal origin; T86.12 Kidney transplant failure; R18.8 Other ascites; I27.20 Pulmonary hypertension, unspecified; J44.9 Chronic obstructive pulmonary disease, unspecified; E78.00 Pure hypercholesterolemia, unspecified; I25.10 Atherosclerotic heart disease of native coronary artery without angina pectoris; Y83.0 Surgical operation with transplant of whole organ as the cause of abnormal reaction of the patient, or of later complication, without mention of misadventure at the time of the procedure; Z99.2 Dependence on renal dialysis; Z95.1 Presence of aortocoronary bypass graft; Z95.2 Presence of prosthetic heart valve; Z87.891 Personal history of nicotine dependence; E03.9 Hypothyroidism, unspecified; I87.8 Other specified disorders of veins

== ENCOUNTER 2018-09-01 17:30 | Inpatient (IN) | payer MEDICARE, MEDICAID ==
[2018-09-01 17:49] VITALS: BMI 20.9
[2018-09-01] MEDS ORDERED: MethylPREDNISolone 40 mg Vial IVP STA (18:04)
[2018-09-01] MEDS ORDERED: Albuterol-Ipratrop 3 mg / 0.5 (3 ml) UD IH SCH (18:15)
--- NOTE | 2018-09-01 18:19 | C.PDOC ---
History Of Present Illness 57 y/o F c PMHx COPD on home O2 3L p/w cough x 4 days. Productive of yellow sputum. Reports body aches as well. Reports headache and thoracic pain worse when coughing. Denies recent travel or sick contacts. Reports temperatures at ho me of 99 or 100. Denies vomiting, dysuria. Time Seen by Provider: 09/01/18 17:51 Chief Complaint (Nursing): Cough, Cold, Congestion Past Medical History Vital Signs: Last Vital Signs Temp 99.6 F 09/01/18 17:39 Pulse 115 H 09/01/18 17:39 Resp 22 09/01/18 17:39 BP 132/87 09/01/18 17:39 Pulse Ox 93 L 09/01/18 17:39 - Medical History PMH: Anemia, CAD (double bypass, replacement valve), CHF, COPD, HTN, Hypercholesterolemia, Hypothyroidism (thyroidectomy), Pneumonia, End Stage Renal Disease, Chronic Kidney Disease Denies: Sleep Apnea Surgical History: CABG (S/P AVR) - [facility] (07/08/18) CORONAR ARTERIOGR-2 CATH (02/20/04) HEMODIALYSIS (07/13/13) INCIS W REM OF FORIEGN BODY OR DEV FROM SKIN & SUBCUT TISSUE (12/24/12) LEFT HEART CARDIAC CATH (02/20/04) LT HEART ANGIOCARDIOGRAM (02/20/04) Family History: States: Unknown Family Hx - Social History Hx Tobacco Use: No Hx Alcohol Use: No Hx Substance Use: No - Immunization History Hx Tetanus Toxoid Vaccination: Yes Hx Influenza Vaccination: Yes Hx Pneumococcal Vaccination: Yes Review Of Systems Except As Marked, All Systems Reviewed And Found Negative. Gastrointestinal: Negative for: Vomiting Genitourinary: Negative for: Dysuria Physical Exam - Physical Exam Additional Physical Exam Comments: Constitutional: No acute distress. Head: Normocephalic. Atraumatic. Eyes: PERRL. ENT: Moist mucous membranes. Neck: Supple. Cardiovascular: Regular rate. Radial pulse 2+ bilaterally. Chest: No tenderness. Respiratory: Diffuse wheezing. GI: Soft. Nontender. Nondistended. Back: No CVA tenderness. Musculoskeletal: No tenderness or swelling of extremities. Skin: No rash. Neurologic: Alert, no focal deficit. ED Course And Treatment - Laboratory Results Result Diagrams: 09/01/18 18:09/01/18 18:24 O2 Sat by Pulse Oximetry: 93 Medical Decision Making Medical Decision Making: EKG: Sinus rhythm [address]/T wave changes. Disposition - Disposition Disposition: HOSPITALIZED Disposition Time: 20:30 Condition: FAIR - Clinical Impression Clinical Impression: COPD exacerbation
[2018-09-01] MEDS ORDERED: Albuterol-Ipratrop 3 mg / 0.5 (3 ml) UD ONE (18:29)
[2018-09-01 18:30] LABS: BASO # 0.1 K/uL (0.0-0.2); BASO % 1.3 % (0.0-2.0); EOS % 0.5 % (0.0-4.0); HEMOGLOBIN 11.8 g/dL (11.0-16.0); LYMPH # 0.6 K/uL (1.0-4.3); LYMPH % 10.6 % (20.0-40.0); MEAN CELL VOLUME 99.9 fL (81.0-99.0); MEAN PLATELET VOLUME 7.5 fL (7.2-11.7); MONO # 0.8 K/uL (0.0-0.8); MONO % 14.6 % (0.0-10.0); NRBC % 0.1 % (0.0-2.0); RBC 3.69 Mil/uL (3.80-5.20); RED CELL DISTRIBUTION WIDTH 15.9 % (11.5-14.5); WHITE BLOOD COUNT 5.4 K/uL (4.8-10.8)
[2018-09-01 18:56] LABS: ALB/GLOB RATIO 1.3 (1.0-2.1); ALBUMIN 4.4 g/dL (3.5-5.0); CALCIUM 8.1 mg/dl (8.6-10.4)
[2018-09-02] MEDS: Levothyroxine 125 MCG TAB PO SCH (07:01)
[2018-09-02] MEDS: Fluticasone-Vilanterol 200/25mcg Diskus INH SCH (08:48)
[2018-09-02] MEDS: Albuterol-Ipratrop 3 mg / 0.5 (3 ml) UD INH SCH ×3 (08:48→21:07)
--- NOTE | 2018-09-02 09:43 | RAD ---
HISTORY: r/o PNA COMPARISON: Chest x-ray performed 07/13/18 TECHNIQUE: Chest, one view. FINDINGS: LUNGS: Mild to moderate pulmonary venous congestion. Small bilateral pleural effusions. Bibasilar atelectasis/infiltrates. Right hilar prominence. No definite pneumothorax. Please note that chest x-ray has limited sensitivity for the detection of pulmonary masses. CARDIOVASCULAR: Median sternotomy wires. Cardiomegaly. Atherosclerotic calcifications of the aorta. OSSEOUS STRUCTURES: Osseous demineralization. Degenerative changes. Left subclavian vascular stent re-identified. VISUALIZED UPPER ABDOMEN: Unremarkable. OTHER FINDINGS: None. IMPRESSION: Mild to moderate pulmonary venous congestion. Small bilateral pleural effusions. Bibasilar atelectasis/infiltrates. Right hilar prominence. Cardiomegaly. Left subclavian vascular stent re-identified.
--- NOTE | 2018-09-02 11:04 | CARD ---
APPROVED REPORT Date of service: 09/01/2018 EKG Measurement Heart [id number] <Conclusion> Sinus tachycardia Otherwise normal ECG
--- NOTE | 2018-09-02 14:23 | CP.PCM.CON ---
History of Present Illness - History of Present Illness History of Present Illness: CHART REVIEWED. PT SEEN AND EXAMINED. 57 YO HISP FEMALE WITH A HX COPD, CHRONIC RESP FAILURE ON HOME O2 2L., ESRD ON HD, S/P FAILED KIDNEY TRANSPLANT X 2, S/P AVR., ADM WTIH INCREASING MOD SOB AT REST X 1 WK. +COUGH +YELLOW SPUTUM., NO FEVER. NO RELIEF WITH HOME NEB ., NO CHANGE APPETITE. NO N/V NO DIARRHEA. Review of Systems - Review of Systems All systems: reviewed and no additional remarkable complaints except - Constitutional Constitutional: Weakness. absent: Chills, Fever - EENT Eyes: absent: Change in Vision Ears: absent: Decreased Hearing Nose/Mouth/Throat: absent: Nasal Congestion - Cardiovascular Cardiovascular: absent: Chest Pain - Respiratory Respiratory: Cough, Dyspnea, Dyspnea on Exertion, Wheezing, Excessive Mucous Production. absent: Hemoptysis - Gastrointestinal Gastrointestinal: absent: Nausea, Vomiting - Genitourinary Genitourinary: absent: Dysuria - Musculoskeletal Musculoskeletal: absent: Limited Range of Motion - Integumentary Integumentary: absent: New Lesions - Neurological Neurological: absent: Confusion, Focal Weakness - Psychiatric Psychiatric: absent: Change in Appetite - Endocrine Endocrine: absent: Change in Body Appearance - Hematologic/Lymphatic Hematologic: absent: Easy Bruising Past Patient History - Past Medical History & Family History Past Medical History?: Yes Past Family History: Reviewed and not pertinent - Past Social History Smoking Status: Former Smoker Chewing Tobacco Use: No Cigar Use: No Alcohol: None - CARDIAC Hx Congestive Heart Failure: Yes Hx Hypercholesterolemia: Yes Hx Hypertension: Yes - PULMONARY Hx Chronic Obstructive Pulmonary Disease (COPD): Yes Hx Pneumonia: Yes Hx Sleep Apnea: No - NEUROLOGICAL Hx Neurological Disorder: No - HEENT Hx HEENT Problems: No - RENAL Hx Chronic Kidney Disease: Yes Hx Dialysis: Yes Hx Renal Failure: Yes - ENDOCRINE/METABOLIC Hx Hypothyroidism: Yes (thyroidectomy) - HEMATOLOGICAL/ONCOLOGICAL Hx Anemia: Yes - INTEGUMENTARY Hx Dermatological Problems: No - MUSCULOSKELETAL/RHEUMATOLOGICAL Hx Musculoskeletal Disorders: Yes Hx Back Pain: Yes Hx Falls: Yes (years ago) - GASTROINTESTINAL Hx Gastrointestinal Disorders: Yes Other/Comment: Hiatal Hernia - GENITOURINARY/GYNECOLOGICAL Hx Genitourinary Disorders: Yes Other/Comment: S/P KIDNEY TRANSPLANT. S/P TRANSPLANT REMOVAL - PSYCHIATRIC Hx Psychophysiologic Disorder: No Hx Substance Use: No - SURGICAL HISTORY Hx Surgeries: Yes Hx Coronary Artery Bypass Graft: Yes (S/P AVR) Hx Kidney Transplant: Yes (X2) Hx Valve Replacement: Yes - ANESTHESIA Hx Anesthesia: Yes Hx Anesthesia Reactions: No Hx Malignant Hyperthermia: No Meds Allergies/Adverse Reactions: Allergies Allergy/AdvReac Type Severity Reaction Status Date / Time No Known Allergies Allergy Verified 09/01/18 17:49 - Medications Medications: Current Medications Albuterol/Ipratropium (Duoneb 3 Mg/0.5 Mg (3 Ml) Ud) 3 ml IH Q15MIN [facility] Stop: 09/03/18 18:16 Albuterol/Ipratropium (Duoneb 3 Mg/0.5 Mg (3 Ml) Ud) 3 ml INH RQ6 [facility] Last Admin: 09/02/18 08:48 Dose: 3 ml Amitriptyline HCl (Elavil) 25 mg PO DAILY [facility] Aspirin (Aspirin Chewable) 81 mg PO DAILY [facility] Last Admin: 09/02/18 10:55 Dose: Not Given Calcium Acetate (Phoslo) 667 mg PO BIDCC [facility] Last Admin: 09/02/18 09:34 Dose: 667 mg Fluticasone/Vilanterol (Breo Ellipta 200-25 Mcg Inh) 1 puff INH RQD [facility] Last Admin: 09/02/18 08:48 Dose: Not Given Heparin Sodium (Porcine) (Heparin) 5,000 units SC Q12 [facility] Last Admin: 09/02/18 10:55 Dose: Not Given Ceftriaxone Sodium 1 gm/ (Sodium Chloride) 100 mls @ 100 mls/hr IVPB DAILY [facility]; Protocol Last Admin: 09/02/18 10:21 Dose: 100 mls/hr Levothyroxine Sodium (Synthroid) 125 mcg PO DAILY@0630 [facility] Last Admin: 09/02/18 07:01 Dose: 125 mcg Sevelamer Carbonate (Renvela) 800 mg PO TIDCC [facility] Last Admin: 09/02/18 12:51 Dose: 800 mg Sucralfate (Carafate Tab) 1 gm PO Q6 [facility] Last Admin: 09/02/18 12:47 Dose: 1 gm Physical Exam - Constitutional Appears: Chronically Ill - Head Exam Head Exam: ATRAUMATIC, NORMOCEPHALIC - Eye Exam Eye Exam: EOMI, Normal appearance - ENT Exam ENT Exam: Mucous Membranes Moist - Neck Exam Neck exam: Positive for: Normal Inspection - Respiratory Exam Respiratory Exam: Wheezes. absent: Accessory Muscle Use - Cardiovascular Exam Cardiovascular Exam: RRR, +S1, +S2 - GI/Abdominal Exam GI & Abdominal Exam: Soft. absent: Tenderness - Rectal Exam Rectal Exam: Deferred - Extremities Exam Extremities exam: Negative for: calf tenderness, pedal edema - Back Exam Back exam: absent: CVA tenderness (L), CVA tenderness (R) - Neurological Exam Neurological exam: Alert, CN II-XII Intact, Oriented x3 - Psychiatric Exam Psychiatric exam: Normal Mood Results - Vital Signs Recent Vital Signs: Last Vital Signs Temp 97.7 F 09/02/18 07:47 Pulse 83 09/02/18 08:48 Resp 20 09/02/18 07:47 BP 94/76 L 09/02/18 07:47 Pulse Ox 97 09/02/18 07:47 - Labs Result Diagrams: 09/01/18 18:24 09/01/18 18:24 Labs: Laboratory Results - last 24 hr 09/01/18 09/01/18 09/01/18 18:24 18:24 18:24 WBC 5.4 RBC 3.69 L Hgb 11.8 Hct 36.8 MCV 99.9 H MCH 32.0 H MCHC 32.0 L RDW 15.9 H Plt Count 131 MPV 7.5 Neut % (Auto) 73.0 Lymph % (Auto) 10.6 L Stafford % (Auto) 14.6 H Eos % (Auto) 0.5 Baso % (Auto) 1.3 Neut # (Auto) 4.0 Lymph # (Auto) 0.6 L Stafford # (Auto) 0.8 Eos # (Auto) 0.0 Baso # (Auto) 0.1 Sodium 136 Potassium 4.8 Chloride 95 L Carbon Dioxide 27 Anion Gap 19 BUN 36 H Creatinine 7.8 H* D Est GFR ( Amer) 6 Est GFR (Non-Af Amer) 5 Random Glucose 97 Calcium 8.1 L Phosphorus 4.8 H Magnesium 2.2 Total Bilirubin 0.7 AST 15 ALT 8 L D Alkaline Phosphatase 108 Total Protein 7.8 Albumin 4.4 Globulin 3.4 Albumin/Globulin Ratio 1.3 Influenza Typ A,B (EIA) Negative for flu a/b Assessment & Plan (1) COPD exacerbation Status: Acute (2) Anemia Status: Acute (3) CAD (coronary artery disease) Status: Acute (4) CHF exacerbation Status: Acute (5) Chronic respiratory failure with hypoxia Status: Acute (6) ESRD (end stage renal disease) on dialysis Status: Acute (7) Hypertension Status: Acute (8) Pleural effusion Status: Acute (9) Pneumonia Status: Acute (10) Failed kidney transplant Status: Chronic - Assessment and Plan (Free Text) Assessment: 57 YO FEMALE WITH A HX MULT MED PROBS ADM WITH ACUTE EXAC COPD +BIBASILAR INFILT +PVC NOTED ON CXR. CONT EMPIRIC AB. CONT IV STEROIDS, NEB BD., ADVAIR AND SINGULAIR. MONITOR O2 SAT ON 2L. CXR REVIEWED. FOR HD PER RENAL. GI/ DVT PROPHYLAXIS. PROG GUARDED. DISCUSSED WITH STAFF AT LENGTH.
--- NOTE | 2018-09-02 15:04 | CP.PCM.CON ---
History of Present Illness - History of Present Illness History of Present Illness: 57 y/o F c PMHx COPD on home O2 3L p/w cough x 4 days. Productive of yellow sputum. Reports body aches as well. Reports headache and thoracic pain worse when coughing. Denies recent travel or sick contacts. Reports temperatures at home of 99 or 100. Denies vomiting, dysuria. other medical history include ESRD on HD, CAD, failed kidney transplant , DL usual HD days are MWF, last HD was yesterday, EDW 48.5 PMHx- CAD,CHF, ESRD on HD, COPD, Failed kidney transplant, DL PSHx- av fistula, open heart surgery Social- ex smoker, no recent smoking, alcohol or drug use Family- no family history of kidney disease Review of Systems - Constitutional Constitutional: Chills, Fever, Malaise, Weakness - EENT Eyes: absent: Blurred Vision, Change in Vision Ears: absent: Decreased Hearing, Ear Discharge - Cardiovascular Cardiovascular: Chest Pain, Dyspnea on Exertion. absent: Edema - Respiratory Respiratory: Cough, Wheezing. absent: Dyspnea, Hemoptysis - Gastrointestinal Gastrointestinal: absent: Abdominal Pain, Vomiting - Musculoskeletal Musculoskeletal: Myalgias. absent: Muscle Weakness - Integumentary Integumentary: absent: Pruritus, Rash - Neurological Neurological: Headaches. absent: Dizziness - Psychiatric Psychiatric: As Per HPI Past Patient History - Past Medical History & Family History Past Medical History?: Yes Past Family History: Reviewed and not pertinent - Past Social History Smoking Status: Former Smoker Chewing Tobacco Use: No Cigar Use: No Alcohol: None - CARDIAC Hx Congestive Heart Failure: Yes Hx Hypercholesterolemia: Yes Hx Hypertension: Yes - PULMONARY Hx Chronic Obstructive Pulmonary Disease (COPD): Yes Hx Pneumonia: Yes Hx Sleep Apnea: No - NEUROLOGICAL Hx Neurological Disorder: No - HEENT Hx HEENT Problems: No - RENAL Hx Chronic Kidney Disease: Yes Hx Dialysis: Yes Hx Renal Failure: Yes - ENDOCRINE/METABOLIC Hx Hypothyroidism: Yes (thyroidectomy) - HEMATOLOGICAL/ONCOLOGICAL Hx Anemia: Yes - INTEGUMENTARY Hx Dermatological Problems: No - MUSCULOSKELETAL/RHEUMATOLOGICAL Hx Musculoskeletal Disorders: Yes Hx Back Pain: Yes Hx Falls: Yes (years ago) - GASTROINTESTINAL Hx Gastrointestinal Disorders: Yes Other/Comment: Hiatal Hernia - GENITOURINARY/GYNECOLOGICAL Hx Genitourinary Disorders: Yes Other/Comment: S/P KIDNEY TRANSPLANT. S/P TRANSPLANT REMOVAL - PSYCHIATRIC Hx Psychophysiologic Disorder: No Hx Substance Use: No - SURGICAL HISTORY Hx Surgeries: Yes Hx Coronary Artery Bypass Graft: Yes (S/P AVR) Hx Kidney Transplant: Yes (X2) Hx Valve Replacement: Yes - ANESTHESIA Hx Anesthesia: Yes Hx Anesthesia Reactions: No Hx Malignant Hyperthermia: No Meds Allergies/Adverse Reactions: Allergies Allergy/AdvReac Type Severity Reaction Status Date / Time No Known Allergies Allergy Verified 09/01/18 17:49 - Medications Medications: Current Medications Albuterol/Ipratropium (Duoneb 3 Mg/0.5 Mg (3 Ml) Ud) 3 ml IH Q15MIN [facility] Stop: 09/03/18 18:16 Albuterol/Ipratropium (Duoneb 3 Mg/0.5 Mg (3 Ml) Ud) 3 ml INH RQ6 [facility] Last Admin: 09/02/18 14:44 Dose: 3 ml Amitriptyline HCl (Elavil) 25 mg PO DAILY [facility] Aspirin (Aspirin Chewable) 81 mg PO DAILY [facility] Last Admin: 09/02/18 10:55 Dose: Not Given Calcium Acetate (Phoslo) 667 mg PO BIDCC [facility] Last Admin: 09/02/18 09:34 Dose: 667 mg Fluticasone/Vilanterol (Breo Ellipta 200-25 Mcg Inh) 1 puff INH RQD [facility] Last Admin: 09/02/18 08:48 Dose: Not Given Heparin Sodium (Porcine) (Heparin) 5,000 units SC Q12 [facility] Last Admin: 09/02/18 10:55 Dose: Not Given Ceftriaxone Sodium 1 gm/ (Sodium Chloride) 100 mls @ 100 mls/hr IVPB DAILY [facility]; Protocol Last Admin: 09/02/18 10:21 Dose: 100 mls/hr Levothyroxine Sodium (Synthroid) 125 mcg PO DAILY@0630 [facility] Last Admin: 09/02/18 07:01 Dose: 125 mcg Methylprednisolone (Solu-Medrol) 40 mg IVP Q6H [facility] Montelukast Sodium (Singulair) 10 mg PO HS [facility] Sevelamer Carbonate (Renvela) 800 mg PO TIDCC [facility] Last Admin: 09/02/18 12:51 Dose: 800 mg Sucralfate (Carafate Tab) 1 gm PO Q6 [facility] Last Admin: 09/02/18 12:47 Dose: 1 gm Physical Exam - Constitutional Appears: Non-toxic, No Acute Distress - Head Exam Head Exam: ATRAUMATIC, NORMOCEPHALIC - Eye Exam Eye Exam: EOMI, PERRL - ENT Exam ENT Exam: Mucous Membranes Moist - Neck Exam Neck exam: Negative for: Lymphadenopathy - Respiratory Exam Respiratory Exam: Rhonchi, Wheezes - Cardiovascular Exam Cardiovascular Exam: REGULAR RHYTHM, +S1, +S2 - GI/Abdominal Exam GI & Abdominal Exam: Normal Bowel Sounds, Soft. absent: Tenderness - Extremities Exam Extremities exam: Positive for: full ROM. Negative for: pedal edema - Neurological Exam Neurological exam: Alert, Oriented x3 - Psychiatric Exam Psychiatric exam: Normal Affect, Normal Mood - Skin Skin Exam: Dry, Intact, Normal Color Results - Vital Signs Recent Vital Signs: Last Vital Signs Temp 97.7 F 09/02/18 07:47 Pulse 83 09/02/18 08:48 Resp 20 09/02/18 07:47 BP 94/76 L 09/02/18 07:47 Pulse Ox 97 09/02/18 07:47 - Labs Result Diagrams: 09/01/18 18:24 09/01/18 18:24 Labs: Laboratory Results - last 24 hr 09/01/18 09/01/18 09/01/18 18:24 18:24 18:24 WBC 5.4 RBC 3.69 L Hgb 11.8 Hct 36.8 MCV 99.9 H MCH 32.0 H MCHC 32.0 L RDW 15.9 H Plt Count 131 MPV 7.5 Neut % (Auto) 73.0 Lymph % (Auto) 10.6 L Power % (Auto) 14.6 H Eos % (Auto) 0.5 Baso % (Auto) 1.3 Neut # (Auto) 4.0 Lymph # (Auto) 0.6 L Power # (Auto) 0.8 Eos # (Auto) 0.0 Baso # (Auto) 0.1 Sodium 136 Potassium 4.8 Chloride 95 L Carbon Dioxide 27 Anion Gap 19 BUN 36 H Creatinine 7.8 H* D Est GFR ( Amer) 6 Est GFR (Non-Af Amer) 5 Random Glucose 97 Calcium 8.1 L Phosphorus 4.8 H Magnesium 2.2 Total Bilirubin 0.7 AST 15 ALT 8 L D Alkaline Phosphatase 108 Total Protein 7.8 Albumin 4.4 Globulin 3.4 Albumin/Globulin Ratio 1.3 Influenza Typ A,B (EIA) Negative for flu a/b Assessment & Plan (1) COPD exacerbation Status: Acute (2) Anemia Status: Acute (3) CAD (coronary artery disease) Status: Acute (4) Dependence on renal dialysis Status: Acute (5) Hypertension Status: Acute (6) Failed kidney transplant Status: Chronic - Assessment and Plan (Free Text) Plan: maintain HD MWF, HD today bronchodilators/ nebulizers ? need for systemic steroids- as per pulmonary resume home BP meds
[2018-09-02] MEDS: MethylPREDNISolone 40 mg Vial IVP SCH ×2 (16:25→21:09)
[2018-09-03] MEDS: Albuterol-Ipratrop 3 mg / 0.5 (3 ml) UD INH SCH ×4 (01:52→19:26)
[2018-09-03] MEDS: MethylPREDNISolone 40 mg Vial IVP SCH ×5 (02:55→21:30)
[2018-09-03] MEDS: Levothyroxine 125 MCG TAB PO SCH (05:38)
[2018-09-03] MEDS: Fluticasone-Vilanterol 200/25mcg Diskus INH SCH (07:37)
--- NOTE | 2018-09-03 08:14 | CP.PCM.PN ---
Subjective - Date & Time of Evaluation Date of Evaluation: 09/03/18 Time of Evaluation: 08:12 - Subjective Subjective: feels a lot better still with cough some abdominal pain with coughing no fevers had HD yesterday ROS- as per HPI, other than that 10 point ROS negative Objective - Vital Signs/Intake and Output Vital Signs (last 24 hours): Temp Pulse Resp BP Pulse Ox 97.8 F 84 18 113/75 97 09/03/18 07:00 09/03/18 07:00 09/03/18 07:00 09/03/18 07:00 09/03/18 07:00 - Medications Medications: Current Medications Albuterol/Ipratropium (Duoneb 3 Mg/0.5 Mg (3 Ml) Ud) 3 ml IH Q15MIN [facility] Stop: 09/03/18 18:16 Albuterol/Ipratropium (Duoneb 3 Mg/0.5 Mg (3 Ml) Ud) 3 ml INH RQ6 [facility] Last Admin: 09/03/18 01:52 Dose: 3 ml Amitriptyline HCl (Elavil) 25 mg PO DAILY [facility] Last Admin: 09/02/18 11:00 Dose: Not Given Aspirin (Aspirin Chewable) 81 mg PO DAILY [facility] Last Admin: 09/02/18 10:55 Dose: Not Given Calcium Acetate (Phoslo) 667 mg PO BIDCC [facility] Last Admin: 09/03/18 08:06 Dose: 667 mg Fluticasone/Vilanterol (Breo Ellipta 200-25 Mcg Inh) 1 puff INH RQD [facility] Last Admin: 09/02/18 08:48 Dose: Not Given Heparin Sodium (Porcine) (Heparin) 5,000 units SC Q12 [facility] Last Admin: 09/02/18 21:09 Dose: Not Given Ceftriaxone Sodium 1 gm/ (Sodium Chloride) 100 mls @ 100 mls/hr IVPB DAILY [facility]; Protocol Last Admin: 09/02/18 10:21 Dose: 100 mls/hr Levothyroxine Sodium (Synthroid) 125 mcg PO DAILY@0630 [facility] Last Admin: 09/03/18 05:38 Dose: 125 mcg Methylprednisolone (Solu-Medrol) 40 mg IVP Q6H [facility] Last Admin: 09/03/18 02:55 Dose: 40 mg Montelukast Sodium (Singulair) 10 mg PO HS [facility] Last Admin: 09/02/18 21:11 Dose: 10 mg Sevelamer Carbonate (Renvela) 800 mg PO TIDCC [facility] Last Admin: 09/03/18 08:05 Dose: 800 mg Sucralfate (Carafate Tab) 1 gm PO Q6 [facility] Last Admin: 09/03/18 05:37 Dose: 1 gm - Labs Labs: 09/01/18 18:24 09/01/18 18:24 - Constitutional Appears: Well, Non-toxic - Head Exam Head Exam: ATRAUMATIC, NORMOCEPHALIC - Eye Exam Eye Exam: EOMI, PERRL Pupil Exam: NORMAL ACCOMODATION - ENT Exam ENT Exam: Mucous Membranes Moist - Neck Exam Neck Exam: Full ROM - Respiratory Exam Respiratory Exam: Rhonchi. absent: Rales, Wheezes - Cardiovascular Exam Cardiovascular Exam: REGULAR RHYTHM, +S1, +S2 - GI/Abdominal Exam GI & Abdominal Exam: Soft. absent: Distended, Tenderness - Extremities Exam Extremities Exam: Full ROM. absent: Pedal Edema - Neurological Exam Neurological Exam: Alert, Awake, Oriented x3 - Psychiatric Exam Psychiatric exam: Normal Affect, Normal Mood - Skin Skin Exam: Normal Color, Warm Assessment and Plan (1) COPD exacerbation Status: Acute (2) Anemia Status: Acute (3) CAD (coronary artery disease) Status: Acute (4) Dependence on renal dialysis Status: Acute (5) Hypertension Status: Acute (6) Failed kidney transplant Status: Chronic - Assessment and Plan (Free Text) Plan: clinically improving maintain HD MWF chronic hypotension continue Abx and bronchodilators for COPD next HD wednesday
--- NOTE | 2018-09-03 10:20 | CP.PCM.PN ---
Subjective - Date & Time of Evaluation Date of Evaluation: 09/03/18 Time of Evaluation: 10:19 - Subjective Subjective: cough,better Objective - Vital Signs/Intake and Output Vital Signs (last 24 hours): Temp Pulse Resp BP Pulse Ox 97.8 F 84 18 113/75 97 09/03/18 07:00 09/03/18 07:00 09/03/18 07:00 09/03/18 07:00 09/03/18 07:00 - Medications Medications: Current Medications Acetaminophen (Tylenol 325mg Tab) 650 mg PO Q6 PRN PRN Reason: Pain, moderate (4-7) Albuterol/Ipratropium (Duoneb 3 Mg/0.5 Mg (3 Ml) Ud) 3 ml IH Q15MIN [facility] Stop: 09/03/18 18:16 Albuterol/Ipratropium (Duoneb 3 Mg/0.5 Mg (3 Ml) Ud) 3 ml INH RQ6 [facility] Last Admin: 09/03/18 01:52 Dose: 3 ml Amitriptyline HCl (Elavil) 25 mg PO DAILY [facility] Last Admin: 09/02/18 11:00 Dose: Not Given Aspirin (Aspirin Chewable) 81 mg PO DAILY [facility] Last Admin: 09/03/18 09:14 Dose: 81 mg Calcium Acetate (Phoslo) 667 mg PO BIDCC [facility] Last Admin: 09/03/18 08:06 Dose: 667 mg Fluticasone/Vilanterol (Breo Ellipta 200-25 Mcg Inh) 1 puff INH RQD [facility] Last Admin: 09/02/18 08:48 Dose: Not Given Heparin Sodium (Porcine) (Heparin) 5,000 units SC Q12 [facility] Last Admin: 09/03/18 09:17 Dose: Not Given Levothyroxine Sodium (Synthroid) 125 mcg PO DAILY@0630 [facility] Last Admin: 09/03/18 05:38 Dose: 125 mcg Methylprednisolone (Solu-Medrol) 40 mg IVP Q6H [facility] Last Admin: 09/03/18 09:14 Dose: 40 mg Montelukast Sodium (Singulair) 10 mg PO HS [facility] Last Admin: 09/02/18 21:11 Dose: 10 mg Sevelamer Carbonate (Renvela) 800 mg PO TIDCC [facility] Last Admin: 09/03/18 08:05 Dose: 800 mg Sucralfate (Carafate Tab) 1 gm PO Q6 [facility] Last Admin: 09/03/18 05:37 Dose: 1 gm - Labs Labs: 09/01/18 18:24 09/01/18 18:24 - Constitutional Appears: No Acute Distress - Head Exam Head Exam: NORMOCEPHALIC - Neck Exam Neck Exam: Normal Inspection - Respiratory Exam Respiratory Exam: Rhonchi - Cardiovascular Exam Cardiovascular Exam: REGULAR RHYTHM, Murmur - GI/Abdominal Exam GI & Abdominal Exam: Soft - Extremities Exam Extremities Exam: absent: Pedal Edema - Neurological Exam Neurological Exam: Alert, Oriented x3 Assessment and Plan - Assessment and Plan (Free Text) Plan: copd,s/p avr.better.
--- NOTE | 2018-09-03 16:04 | CP.PCM.PN ---
Subjective - Date & Time of Evaluation Date of Evaluation: 09/03/18 Time of Evaluation: 16:01 - Subjective Subjective: PT ALERT, FEELS BETTER., LESS SOB., LESS COUGH.,WANTS TO WALK. ROS; OTHERWISE NEG Objective - Vital Signs/Intake and Output Vital Signs (last 24 hours): Temp Pulse Resp BP Pulse Ox 97.8 F 84 18 113/75 97 09/03/18 07:00 09/03/18 07:00 09/03/18 07:00 09/03/18 07:00 09/03/18 07:00 Intake and Output: 09/03/18 09/03/18 06:59 18:59 Intake Total 480 Balance 480 - Medications Medications: Current Medications Acetaminophen (Tylenol 325mg Tab) 650 mg PO Q6 PRN PRN Reason: Pain, moderate (4-7) Last Admin: 09/03/18 10:25 Dose: 650 mg Albuterol/Ipratropium (Duoneb 3 Mg/0.5 Mg (3 Ml) Ud) 3 ml IH Q15MIN [facility] Stop: 09/03/18 18:16 Albuterol/Ipratropium (Duoneb 3 Mg/0.5 Mg (3 Ml) Ud) 3 ml INH RQ6 [facility] Last Admin: 09/03/18 13:36 Dose: Not Given Amitriptyline HCl (Elavil) 25 mg PO DAILY [facility] Last Admin: 09/03/18 10:49 Dose: 25 mg Aspirin (Aspirin Chewable) 81 mg PO DAILY [facility] Last Admin: 09/03/18 09:14 Dose: 81 mg Calcium Acetate (Phoslo) 667 mg PO BIDCC [facility] Last Admin: 09/03/18 08:06 Dose: 667 mg Docusate Sodium (Colace) 100 mg PO TID [facility] Fluticasone/Vilanterol (Breo Ellipta 200-25 Mcg Inh) 1 puff INH RQD [facility] Last Admin: 09/03/18 07:37 Dose: Not Given Heparin Sodium (Porcine) (Heparin) 5,000 units SC Q12 [facility] Last Admin: 09/03/18 09:17 Dose: Not Given Levothyroxine Sodium (Synthroid) 125 mcg PO DAILY@0630 [facility] Last Admin: 09/03/18 05:38 Dose: 125 mcg Methylprednisolone (Solu-Medrol) 40 mg IVP Q6H [facility] Last Admin: 09/03/18 14:06 Dose: 40 mg Montelukast Sodium (Singulair) 10 mg PO HS [facility] Last Admin: 09/02/18 21:11 Dose: 10 mg Sevelamer Carbonate (Renvela) 800 mg PO TIDCC [facility] Last Admin: 09/03/18 11:56 Dose: 800 mg Sucralfate (Carafate Tab) 1 gm PO Q6 [facility] Last Admin: 09/03/18 11:56 Dose: 1 gm - Labs Labs: 09/01/18 18:24 09/01/18 18:24 - Constitutional Appears: No Acute Distress, Chronically Ill - Head Exam Head Exam: ATRAUMATIC, NORMOCEPHALIC - Eye Exam Eye Exam: EOMI, Normal appearance - ENT Exam ENT Exam: Mucous Membranes Moist - Respiratory Exam Respiratory Exam: Decreased Breath Sounds, Rhonchi. absent: Accessory Muscle Use, Respiratory Distress - Cardiovascular Exam Cardiovascular Exam: RRR, +S1, +S2 - GI/Abdominal Exam GI & Abdominal Exam: Soft. absent: Tenderness - Rectal Exam Rectal Exam: Deferred - Extremities Exam Extremities Exam: absent: Calf Tenderness, Pedal Edema - Back Exam Back Exam: absent: CVA tenderness (L), CVA tenderness (R) - Neurological Exam Neurological Exam: Alert, Awake, CN II-XII Intact, Normal Gait, Oriented x3 - Psychiatric Exam Psychiatric exam: Normal Mood - Skin Skin Exam: absent: Rash Assessment and Plan (1) COPD exacerbation Status: Acute (2) Anemia Status: Acute (3) CAD (coronary artery disease) Status: Acute (4) CHF exacerbation Status: Acute (5) Chronic respiratory failure with hypoxia Status: Acute (6) ESRD (end stage renal disease) on dialysis Status: Acute (7) Hypertension Status: Acute (8) Pleural effusion Status: Acute (9) Pneumonia Status: Acute (10) Failed kidney transplant Status: Chronic - Assessment and Plan (Free Text) Assessment: RESP STATUS LESS DYSPNEIC., CONT NEB BD., TAPER STEROIDS., MONITOR O2 SAT. ON 2L NOW. AFEBRILE ON AB. HD PER RENAL. CXR REVIEWED. DISCUSSED WITH STAFF AT LENGTH.
[2018-09-04] MEDS: MethylPREDNISolone 40 mg Vial IVP SCH ×3 (06:13→21:46)
[2018-09-04] MEDS: Levothyroxine 125 MCG TAB PO SCH (06:14)
[2018-09-04] MEDS: Fluticasone-Vilanterol 200/25mcg Diskus INH SCH (07:32)
[2018-09-04] MEDS: Albuterol-Ipratrop 3 mg / 0.5 (3 ml) UD INH SCH ×3 (08:35→19:25)
--- NOTE | 2018-09-04 12:50 | CP.PCM.PN ---
Subjective - Date & Time of Evaluation Date of Evaluation: 09/04/18 Time of Evaluation: 12:47 - Subjective Subjective: PT ALERT, EATING WELL. STILL ++COUGH ROS; OTHERWISE NEG Objective - Vital Signs/Intake and Output Vital Signs (last 24 hours): Temp Pulse Resp BP Pulse Ox 98.1 F 92 H 20 125/72 97 09/04/18 07:30 09/04/18 07:32 09/04/18 07:30 09/04/18 07:30 09/04/18 07:30 - Medications Medications: Current Medications Acetaminophen (Tylenol 325mg Tab) 650 mg PO Q6 PRN PRN Reason: Pain, moderate (4-7) Last Admin: 09/03/18 21:40 Dose: 650 mg Albuterol/Ipratropium (Duoneb 3 Mg/0.5 Mg (3 Ml) Ud) 3 ml INH RQ6 [facility] Last Admin: 09/03/18 19:26 Dose: 3 ml Amitriptyline HCl (Elavil) 25 mg PO DAILY [facility] Last Admin: 09/04/18 09:52 Dose: 25 mg Aspirin (Aspirin Chewable) 81 mg PO DAILY [facility] Last Admin: 09/04/18 09:52 Dose: 81 mg Calcium Acetate (Phoslo) 667 mg PO BIDCC [facility] Last Admin: 09/04/18 08:30 Dose: 667 mg Docusate Sodium (Colace) 100 mg PO TID [facility] Last Admin: 09/04/18 09:52 Dose: 100 mg Fluticasone/Vilanterol (Breo Ellipta 200-25 Mcg Inh) 1 puff INH RQD [facility] Last Admin: 09/03/18 07:37 Dose: Not Given Heparin Sodium (Porcine) (Heparin) 5,000 units SC Q12 [facility] Last Admin: 09/04/18 09:53 Dose: Not Given Levothyroxine Sodium (Synthroid) 125 mcg PO DAILY@0630 [facility] Last Admin: 09/04/18 06:14 Dose: 125 mcg Methylprednisolone (Solu-Medrol) 40 mg IVP Q8 [facility] Last Admin: 09/04/18 06:13 Dose: 40 mg Montelukast Sodium (Singulair) 10 mg PO HS [facility] Last Admin: 09/03/18 21:31 Dose: 10 mg Sevelamer Carbonate (Renvela) 800 mg PO TIDCC [facility] Last Admin: 09/04/18 08:30 Dose: 800 mg Sucralfate (Carafate Tab) 1 gm PO Q6 [facility] Last Admin: 09/04/18 06:13 Dose: 1 gm - Labs Labs: 09/01/18 18:24 09/01/18 18:24 - Constitutional Appears: No Acute Distress, Chronically Ill - Head Exam Head Exam: ATRAUMATIC, NORMOCEPHALIC - Eye Exam Eye Exam: EOMI, Normal appearance - ENT Exam ENT Exam: Mucous Membranes Moist - Neck Exam Neck Exam: Normal Inspection - Respiratory Exam Respiratory Exam: Decreased Breath Sounds, Rhonchi. absent: Accessory Muscle Use, Respiratory Distress - Cardiovascular Exam Cardiovascular Exam: RRR, +S1, +S2 - GI/Abdominal Exam GI & Abdominal Exam: Soft. absent: Tenderness - Rectal Exam Rectal Exam: Deferred - Extremities Exam Extremities Exam: absent: Calf Tenderness, Pedal Edema - Back Exam Back Exam: absent: CVA tenderness (L), CVA tenderness (R) - Neurological Exam Neurological Exam: Alert, Awake, CN II-XII Intact, Normal Gait, Oriented x3 - Psychiatric Exam Psychiatric exam: Normal Mood - Skin Skin Exam: absent: Rash Assessment and Plan (1) COPD exacerbation Status: Acute (2) Anemia Status: Acute (3) CAD (coronary artery disease) Status: Acute (4) CHF exacerbation Status: Acute (5) Chronic respiratory failure with hypoxia Status: Acute (6) ESRD (end stage renal disease) on dialysis Status: Acute (7) Hypertension Status: Acute (8) Pleural effusion Status: Acute (9) Pneumonia Status: Acute (10) Failed kidney transplant Status: Chronic - Assessment and Plan (Free Text) Assessment: RESP STATUS IMPROVING., CONT STEROIDS, ON TAPER TOLERATED. CONT NEB BD. TOLERATING O2 AT 2L. CONT BREO AND SINGULAIR. CXR REVIEWED. CONT AB. ADD PHENERGAN WITH CODEINE. FOR HD IN AM. DISCUSSED WITH STAFF AND FAMILY AT BEDSIDE.
[2018-09-04] MEDS: Promethazine/Cod 6.25mg-10mg/5ml Syr UD PO PRN (13:45)
[2018-09-05] MEDS: Albuterol-Ipratrop 3 mg / 0.5 (3 ml) UD INH SCH ×4 (01:54→19:56)
[2018-09-05] MEDS: MethylPREDNISolone 40 mg Vial IVP SCH ×3 (05:43→21:02)
[2018-09-05] MEDS: Levothyroxine 125 MCG TAB PO SCH (05:44)
--- NOTE | 2018-09-05 07:26 | HP ---
HISTORY OF PRESENT ILLNESS: The patient is a 57-year-old female with a history of COPD, on home oxygen; history of CAD; previous CABG with EDWARDS to LAD; status post aortic valve replacement, bioprosthetic; chronic kidney disease, on hemodialysis; was brought in with a fever and cough with yellowish phlegm going on for three days. She was given nebulizer treatment and supportive care, however, did not better and subsequently was admitted with exacerbation of COPD. She has been under care of Dr. Joe and Dr. Harper. Echocardiogram has been done in the past had shown normal LV systolic function and normal function of the aortic valve. She also had a repeat CAT at [place] to my recollection, which again confirmed the same findings. PERSONAL HISTORY: Does not smoke, does not drink. ALLERGIES: DENIED. PAST MEDICAL HISTORY: Admitted on the multiple occasions for COPD, also had a CABG in 2007 and aortic valve replacement in 2007 probably. Repeat CAT done by Dr. Gilmore had shown patent EDWARDS and normal prosthetic valve. She has a history of mild pulmonary hypertension and CHF in the past. She had a renal transplant, which failed and currently on hemodialysis. COPD, under the care of Dr. Joe. MEDICATIONS AT HOME: Include calcium acetate, Coreg, multivitamins, Nexium, Renvela, and Synthroid 125 mcg. FAMILY HISTORY: Negative. SOCIAL HISTORY: She lives with her sister. REVIEW OF SYSTEMS: CONSTITUTIONAL: Generalized weakness is noted. Recently admitted with mild CHF, subsequently got better after hemodialysis and an infusing edema all over body had gotten better. Fever for the last couple of days. HEENT: Eyes, no pallor and no icterus. Ears, negative for hearing loss. NECK: No swollen glands. PULMONARY: Cough, shortness of breath, yellowish phlegm. CARDIOPULMONARY: Sleeps on two pillows, edema at times. Able to walk about a block. History of hypertension. No palpitations. GASTROINTESTINAL: Negative for hematemesis or melena. Poor appetite for the last couple of days, otherwise unremarkable. NEUROLOGICALLY: No TIAs. No CVAs. MUSCULOSKELETAL: Osteoarthritis of the knees and back pains. GENITOURINARY: On hemodialysis three times a week. Previous kidney transplant. PSYCHIATRIC: Mild depression. EXTREMITIES: Arthritis and edema. PHYSICAL EXAMINATION: GENERAL: Shows a middle-aged female, chronically sick looking, but in no acute distress. VITAL SIGNS: Her blood pressure is 132/87, heart rate of 106 and regular, respiratory rate of 24, temperature of 99.6, O2 sat was 96%. HEENT: Head is normocephalic. Eyes, no pallor and no icterus. Mouth shows upper dentures. NECK: Supple. Enlarged veins. RESPIRATORY: Mild inspiratory and expiratory wheeze. CARDIAC: PMI is normal. S1 and S2 is normal, grade 3/6 systolic ejection murmur in aortic area. There are no gallops. ABDOMEN: Soft, nontender. EXTREMITIES: No cyanosis, clubbing, or edema. MUSCULOSKELETAL: Myositis. NEUROLOGICALLY: Awake, alert and oriented x3. SKIN: Scar of CABG, renal transplant, shunt in the left arm, scar of thyroid surgery in the neck. LABORATORY DATA: Hemoglobin of 11.8, platelets counts are normal, creatinine is 7.8, potassium is 4.8. Chest x-ray, chronic changes. EKG, sinus rhythm and nonspecific ST-T changes as per ER. ASSESSMENT: The patient is a 57-year-old female with a history of hypertension, chronic kidney disease, coronary artery disease, previous aortic valve replacement, has presented with worsening of the chronic obstructive pulmonary disease related to upper respiratory infection. PLAN: IV antibiotic and nebulizer treatment. Pulmonary followup with Dr. Joe. Care of plan was explain to the patient. Brian Lyn MD
[2018-09-05] MEDS: Fluticasone-Vilanterol 200/25mcg Diskus INH SCH (08:13)
--- NOTE | 2018-09-05 08:40 | CP.PCM.PN ---
Subjective - Date & Time of Evaluation Date of Evaluation: 09/05/18 Time of Evaluation: 08:38 - Subjective Subjective: PT ALERT, SL BETTER, STILL +COUGH. ROS; OTHERWISE NEG Objective - Vital Signs/Intake and Output Vital Signs (last 24 hours): Temp Pulse Resp BP Pulse Ox 97.2 F L 99 H 20 110/69 98 09/04/18 23:25 09/05/18 07:01 09/04/18 23:25 09/04/18 23:25 09/04/18 23:25 - Medications Medications: Current Medications Acetaminophen (Tylenol 325mg Tab) 650 mg PO Q6 PRN PRN Reason: Pain, moderate (4-7) Last Admin: 09/04/18 23:34 Dose: 650 mg Albuterol/Ipratropium (Duoneb 3 Mg/0.5 Mg (3 Ml) Ud) 3 ml INH RQ6 [facility] Last Admin: 09/05/18 01:54 Dose: Not Given Amitriptyline HCl (Elavil) 25 mg PO DAILY [facility] Last Admin: 09/04/18 09:52 Dose: 25 mg Aspirin (Aspirin Chewable) 81 mg PO DAILY [facility] Last Admin: 09/04/18 09:52 Dose: 81 mg Calcium Acetate (Phoslo) 667 mg PO BIDCC [facility] Last Admin: 09/05/18 08:01 Dose: 667 mg Docusate Sodium (Colace) 100 mg PO TID [facility] Last Admin: 09/04/18 17:18 Dose: 100 mg Fluticasone/Vilanterol (Breo Ellipta 200-25 Mcg Inh) 1 puff INH RQD [facility] Last Admin: 09/04/18 07:32 Dose: Not Given Heparin Sodium (Porcine) (Heparin) 5,000 units SC Q12 [facility] Last Admin: 09/04/18 21:47 Dose: Not Given Levothyroxine Sodium (Synthroid) 125 mcg PO DAILY@0630 [facility] Last Admin: 09/05/18 05:44 Dose: 125 mcg Methylprednisolone (Solu-Medrol) 40 mg IVP Q8 [facility] Last Admin: 09/05/18 05:43 Dose: 40 mg Montelukast Sodium (Singulair) 10 mg PO HS [facility] Last Admin: 09/04/18 21:46 Dose: 10 mg Promethazine HCl/Codeine (Phenergan/Codeine Oral Syrup) 5 ml PO Q4 PRN PRN Reason: Cough Last Admin: 09/04/18 13:45 Dose: 5 ml Sevelamer Carbonate (Renvela) 800 mg PO TIDCC [facility] Last Admin: 09/05/18 08:01 Dose: 800 mg Sucralfate (Carafate Tab) 1 gm PO Q6 [facility] Last Admin: 09/05/18 05:43 Dose: 1 gm - Labs Labs: 09/01/18 18:24 09/01/18 18:24 - Constitutional Appears: Chronically Ill - Head Exam Head Exam: ATRAUMATIC, NORMOCEPHALIC - Eye Exam Eye Exam: EOMI, Normal appearance - ENT Exam ENT Exam: Mucous Membranes Moist - Neck Exam Neck Exam: Normal Inspection - Respiratory Exam Respiratory Exam: Decreased Breath Sounds, Rhonchi Additional comments: BETTER AIR MOVEMENT. - Cardiovascular Exam Cardiovascular Exam: RRR, +S1, +S2 - GI/Abdominal Exam GI & Abdominal Exam: Soft. absent: Tenderness - Rectal Exam Rectal Exam: Deferred - Extremities Exam Extremities Exam: absent: Calf Tenderness, Pedal Edema - Back Exam Back Exam: absent: CVA tenderness (L), CVA tenderness (R) - Neurological Exam Neurological Exam: Alert, Awake, CN II-XII Intact, Normal Gait, Oriented x3 - Psychiatric Exam Psychiatric exam: Normal Mood - Skin Skin Exam: absent: Rash Assessment and Plan (1) COPD exacerbation Status: Acute (2) Anemia Status: Acute (3) CAD (coronary artery disease) Status: Acute (4) CHF exacerbation Status: Acute (5) Chronic respiratory failure with hypoxia Status: Acute (6) ESRD (end stage renal disease) on dialysis Status: Acute (7) Hypertension Status: Acute (8) Pleural effusion Status: Acute (9) Pneumonia Status: Acute (10) Failed kidney transplant Status: Chronic - Assessment and Plan (Free Text) Assessment: RESP STATUS SLOW IMPROVEMENT., CONT NEB BD., ADVAIR, SINGULAIR. MONITOR O2 SAT. AFEBRILE ON AB. CXR REVIEWED. FOR HD TODAY. DISCUSSED WITH STAFF AT LENGTH.
[2018-09-05] MEDS: Promethazine/Cod 6.25mg-10mg/5ml Syr UD PO PRN ×2 (09:18→19:39)
[2018-09-05] MEDS ORDERED: Heparin 0 ML IV ONE (09:23)
[2018-09-05] MEDS ORDERED: Iodixanol 320 MG/ML 100 ML BOTTLE IV ONE (09:23)
[2018-09-05] MEDS ORDERED: Midazolam 2 MG/2 ML VIAL ONE (09:23)
--- NOTE | 2018-09-05 10:00 | CP.PCM.PN ---
Subjective - Date & Time of Evaluation Date of Evaluation: 09/05/18 Time of Evaluation: 09:57 - Subjective Subjective: pt seen and examined feels a lot better no SOB cough persist some abdominal pain with cough no fevers ROS- as per HPI, other than that 10 point ROS negative Objective - Vital Signs/Intake and Output Vital Signs (last 24 hours): Temp Pulse Resp BP Pulse Ox 97.2 F L 99 H 20 110/69 98 09/04/18 23:25 09/05/18 07:01 09/04/18 23:25 09/04/18 23:25 09/04/18 23:25 - Medications Medications: Current Medications Acetaminophen (Tylenol 325mg Tab) 650 mg PO Q6 PRN PRN Reason: Pain, moderate (4-7) Last Admin: 09/04/18 23:34 Dose: 650 mg Albuterol/Ipratropium (Duoneb 3 Mg/0.5 Mg (3 Ml) Ud) 3 ml INH RQ6 [facility] Last Admin: 09/05/18 01:54 Dose: Not Given Amitriptyline HCl (Elavil) 25 mg PO DAILY [facility] Last Admin: 09/04/18 09:52 Dose: 25 mg Aspirin (Aspirin Chewable) 81 mg PO DAILY [facility] Last Admin: 09/04/18 09:52 Dose: 81 mg Calcium Acetate (Phoslo) 667 mg PO BIDCC [facility] Last Admin: 09/05/18 08:01 Dose: 667 mg Docusate Sodium (Colace) 100 mg PO TID [facility] Last Admin: 09/04/18 17:18 Dose: 100 mg Fluticasone/Vilanterol (Breo Ellipta 200-25 Mcg Inh) 1 puff INH RQD [facility] Last Admin: 09/04/18 07:32 Dose: Not Given Heparin Sodium (Porcine) (Heparin) 5,000 units SC Q12 [facility] Last Admin: 09/04/18 21:47 Dose: Not Given Levothyroxine Sodium (Synthroid) 125 mcg PO DAILY@0630 [facility] Last Admin: 09/05/18 05:44 Dose: 125 mcg Methylprednisolone (Solu-Medrol) 40 mg IVP Q8 [facility] Last Admin: 09/05/18 05:43 Dose: 40 mg Montelukast Sodium (Singulair) 10 mg PO HS [facility] Last Admin: 09/04/18 21:46 Dose: 10 mg Promethazine HCl/Codeine (Phenergan/Codeine Oral Syrup) 5 ml PO Q4 PRN PRN Reason: Cough Last Admin: 09/05/18 09:18 Dose: 5 ml Sevelamer Carbonate (Renvela) 800 mg PO TIDCC [facility] Last Admin: 09/05/18 08:01 Dose: 800 mg Sucralfate (Carafate Tab) 1 gm PO Q6 [facility] Last Admin: 09/05/18 05:43 Dose: 1 gm - Labs Labs: 09/01/18 18:24 09/01/18 18:24 - Constitutional Appears: Non-toxic, No Acute Distress - Head Exam Head Exam: ATRAUMATIC, NORMOCEPHALIC - Eye Exam Eye Exam: EOMI, PERRL - ENT Exam ENT Exam: Mucous Membranes Moist - Neck Exam Neck Exam: Full ROM - Respiratory Exam Respiratory Exam: Rhonchi. absent: Rales, Wheezes - Cardiovascular Exam Cardiovascular Exam: REGULAR RHYTHM, +S1, +S2 - GI/Abdominal Exam GI & Abdominal Exam: Soft. absent: Distended, Tenderness - Extremities Exam Extremities Exam: Full ROM. absent: Pedal Edema - Neurological Exam Neurological Exam: Alert, Awake, CN II-XII Intact, Oriented x3 - Psychiatric Exam Psychiatric exam: Normal Affect, Normal Mood - Skin Skin Exam: Normal Color, Warm Assessment and Plan (1) COPD exacerbation Status: Acute (2) Anemia Status: Acute (3) CAD (coronary artery disease) Status: Acute (4) Dependence on renal dialysis Status: Acute (5) Hypertension Status: Acute (6) Failed kidney transplant Status: Chronic - Assessment and Plan (Free Text) Plan: HD today clinically improving on iv steroids and bronchodilators BP stable on Abx for COPD exacerbation analgesics for abdominal pain
--- NOTE | 2018-09-05 10:30 | CP.PCM.PN ---
Subjective - Date & Time of Evaluation Date of Evaluation: 09/05/18 Time of Evaluation: 10:29 - Subjective Subjective: cough better.still wheeze.x ray congestion.constipation. Objective - Vital Signs/Intake and Output Vital Signs (last 24 hours): Temp Pulse Resp BP Pulse Ox 97.2 F L 99 H 20 110/69 98 09/04/18 23:25 09/05/18 07:01 09/04/18 23:25 09/04/18 23:25 09/04/18 23:25 - Medications Medications: Current Medications Acetaminophen (Tylenol 325mg Tab) 650 mg PO Q6 PRN PRN Reason: Pain, moderate (4-7) Last Admin: 09/04/18 23:34 Dose: 650 mg Albuterol/Ipratropium (Duoneb 3 Mg/0.5 Mg (3 Ml) Ud) 3 ml INH RQ6 [facility] Last Admin: 09/05/18 08:14 Dose: 3 ml Amitriptyline HCl (Elavil) 25 mg PO DAILY [facility] Last Admin: 09/04/18 09:52 Dose: 25 mg Aspirin (Aspirin Chewable) 81 mg PO DAILY [facility] Last Admin: 09/04/18 09:52 Dose: 81 mg Calcium Acetate (Phoslo) 667 mg PO BIDCC [facility] Last Admin: 09/05/18 08:01 Dose: 667 mg Docusate Sodium (Colace) 100 mg PO TID [facility] Last Admin: 09/04/18 17:18 Dose: 100 mg Fluticasone/Vilanterol (Breo Ellipta 200-25 Mcg Inh) 1 puff INH RQD [facility] Last Admin: 09/05/18 08:13 Dose: 1 puff Levothyroxine Sodium (Synthroid) 125 mcg PO DAILY@0630 [facility] Last Admin: 09/05/18 05:44 Dose: 125 mcg Methylprednisolone (Solu-Medrol) 40 mg IVP Q8 [facility] Last Admin: 09/05/18 05:43 Dose: 40 mg Montelukast Sodium (Singulair) 10 mg PO HS [facility] Last Admin: 09/04/18 21:46 Dose: 10 mg Promethazine HCl/Codeine (Phenergan/Codeine Oral Syrup) 5 ml PO Q4 PRN PRN Reason: Cough Last Admin: 09/05/18 09:18 Dose: 5 ml Sevelamer Carbonate (Renvela) 800 mg PO TIDCC [facility] Last Admin: 09/05/18 08:01 Dose: 800 mg Sucralfate (Carafate Tab) 1 gm PO Q6 [facility] Last Admin: 09/05/18 05:43 Dose: 1 gm - Labs Labs: 09/01/18 18:24 09/01/18 18:24 - Constitutional Appears: No Acute Distress, Chronically Ill - Head Exam Head Exam: NORMOCEPHALIC - Respiratory Exam Respiratory Exam: Rhonchi, Wheezes - Cardiovascular Exam Cardiovascular Exam: REGULAR RHYTHM, Murmur - GI/Abdominal Exam GI & Abdominal Exam: Soft - Extremities Exam Extremities Exam: absent: Pedal Edema - Neurological Exam Neurological Exam: Alert, Oriented x3 Assessment and Plan - Assessment and Plan (Free Text) Plan: cpm.
[2018-09-05] MEDS ORDERED: Magnesium Hydroxide Susp 30 ml UD PO ONE (11:00)
[2018-09-06] MEDS: Albuterol-Ipratrop 3 mg / 0.5 (3 ml) UD INH SCH ×4 (01:40→20:43)
[2018-09-06] MEDS: Levothyroxine 125 MCG TAB PO SCH (05:49)
[2018-09-06] MEDS: MethylPREDNISolone 40 mg Vial IVP SCH ×3 (05:49→18:17)
[2018-09-06] MEDS: Promethazine/Cod 6.25mg-10mg/5ml Syr UD PO PRN ×3 (05:54→21:23)
--- NOTE | 2018-09-06 08:13 | CP.PCM.PN ---
Subjective - Date & Time of Evaluation Date of Evaluation: 09/06/18 Time of Evaluation: 08:10 - Subjective Subjective: Notes reviewed Comfortable sitting up in bed No new complaints + cough on fever or chills overnight No pain Tolerated dialysis schedule well ROS : 10 point ros negative other than stated above Objective - Vital Signs/Intake and Output Vital Signs (last 24 hours): Temp Pulse Resp BP Pulse Ox 97.9 F 84 20 108/70 98 09/06/18 07:00 09/06/18 07:00 09/06/18 07:00 09/06/18 07:00 09/06/18 07:00 Intake and Output: 09/06/18 09/06/18 06:59 18:59 Intake Total 200 Balance 200 - Medications Medications: Current Medications Acetaminophen (Tylenol 325mg Tab) 650 mg PO Q6 PRN PRN Reason: Pain, moderate (4-7) Last Admin: 09/04/18 23:34 Dose: 650 mg Albuterol/Ipratropium (Duoneb 3 Mg/0.5 Mg (3 Ml) Ud) 3 ml INH RQ6 [facility] Last Admin: 09/06/18 01:40 Dose: 3 ml Amitriptyline HCl (Elavil) 25 mg PO DAILY [facility] Last Admin: 09/05/18 11:17 Dose: Not Given Aspirin (Aspirin Chewable) 81 mg PO DAILY [facility] Last Admin: 09/05/18 11:14 Dose: Not Given Calcium Acetate (Phoslo) 667 mg PO BIDCC [facility] Last Admin: 09/06/18 07:47 Dose: 667 mg Docusate Sodium (Colace) 100 mg PO TID [facility] Last Admin: 09/05/18 19:34 Dose: 100 mg Fluticasone/Vilanterol (Breo Ellipta 200-25 Mcg Inh) 1 puff INH RQD [facility] Last Admin: 09/05/18 08:13 Dose: 1 puff Levothyroxine Sodium (Synthroid) 125 mcg PO DAILY@0630 [facility] Last Admin: 09/06/18 05:49 Dose: 125 mcg Methylprednisolone (Solu-Medrol) 40 mg IVP Q8 [facility] Last Admin: 09/06/18 05:49 Dose: 40 mg Montelukast Sodium (Singulair) 10 mg PO HS [facility] Last Admin: 09/05/18 21:02 Dose: 10 mg Promethazine HCl/Codeine (Phenergan/Codeine Oral Syrup) 5 ml PO Q4 PRN PRN Reason: Cough Last Admin: 09/06/18 05:54 Dose: 5 ml Sevelamer Carbonate (Renvela) 800 mg PO TIDCC [facility] Last Admin: 09/06/18 07:46 Dose: 800 mg Sucralfate (Carafate Tab) 1 gm PO Q6 [facility] Last Admin: 09/06/18 05:50 Dose: 1 gm Tramadol HCl (Ultram) 50 mg PO ONCE PRN PRN Reason: Pain, moderate (4-7) Last Admin: 09/05/18 19:35 Dose: 50 mg - Labs Labs: 09/01/18 18:24 09/01/18 18:24 - Constitutional Appears: Non-toxic, Chronically Ill - Head Exam Head Exam: ATRAUMATIC, NORMAL INSPECTION - Eye Exam Eye Exam: EOMI, Normal appearance - ENT Exam ENT Exam: Mucous Membranes Moist, Normal Oropharynx - Neck Exam Neck Exam: absent: Lymphadenopathy, Thyromegaly - Respiratory Exam Respiratory Exam: Rhonchi. absent: Rales - Cardiovascular Exam Cardiovascular Exam: +S1, +S2. absent: Rubs - GI/Abdominal Exam GI & Abdominal Exam: Soft, Normal Bowel Sounds - Extremities Exam Extremities Exam: absent: Pedal Edema, Tenderness - Neurological Exam Neurological Exam: Alert, Awake - Skin Skin Exam: Dry, Intact Assessment and Plan (1) COPD exacerbation Status: Acute (2) Anemia Status: Acute (3) CAD (coronary artery disease) Status: Acute (4) ESRD (end stage renal disease) on dialysis Status: Acute (5) Hypertension Status: Acute (6) Failed kidney transplant Status: Chronic - Assessment and Plan (Free Text) Assessment: HD 09/07 next clinically stable on iv steroids and bronchodilators BP acceptable on Abx for COPD exacerbation Encourage diet
--- NOTE | 2018-09-06 09:14 | CP.PCM.PN ---
Subjective - Date & Time of Evaluation Date of Evaluation: 09/06/18 Time of Evaluation: 09:11 - Subjective Subjective: PT ALERT, FEELS BETTER, SOME DECREASE IN COUGH., LESS SOB. ROS; OTHERWISE NEG Objective - Vital Signs/Intake and Output Vital Signs (last 24 hours): Temp Pulse Resp BP Pulse Ox 97.9 F 84 20 108/70 98 09/06/18 07:00 09/06/18 07:00 09/06/18 07:00 09/06/18 07:00 09/06/18 07:00 Intake and Output: 09/06/18 09/06/18 06:59 18:59 Intake Total 200 Balance 200 - Medications Medications: Current Medications Acetaminophen (Tylenol 325mg Tab) 650 mg PO Q6 PRN PRN Reason: Pain, moderate (4-7) Last Admin: 09/04/18 23:34 Dose: 650 mg Albuterol/Ipratropium (Duoneb 3 Mg/0.5 Mg (3 Ml) Ud) 3 ml INH RQ6 [facility] Last Admin: 09/06/18 01:40 Dose: 3 ml Amitriptyline HCl (Elavil) 25 mg PO DAILY [facility] Last Admin: 09/05/18 11:17 Dose: Not Given Aspirin (Aspirin Chewable) 81 mg PO DAILY [facility] Last Admin: 09/05/18 11:14 Dose: Not Given Calcium Acetate (Phoslo) 667 mg PO BIDCC [facility] Last Admin: 09/06/18 07:47 Dose: 667 mg Docusate Sodium (Colace) 100 mg PO TID [facility] Last Admin: 09/05/18 19:34 Dose: 100 mg Fluticasone/Vilanterol (Breo Ellipta 200-25 Mcg Inh) 1 puff INH RQD [facility] Last Admin: 09/05/18 08:13 Dose: 1 puff Levothyroxine Sodium (Synthroid) 125 mcg PO DAILY@0630 [facility] Last Admin: 09/06/18 05:49 Dose: 125 mcg Methylprednisolone (Solu-Medrol) 40 mg IVP Q8 [facility] Last Admin: 09/06/18 05:49 Dose: 40 mg Montelukast Sodium (Singulair) 10 mg PO HS [facility] Last Admin: 09/05/18 21:02 Dose: 10 mg Promethazine HCl/Codeine (Phenergan/Codeine Oral Syrup) 5 ml PO Q4 PRN PRN Reason: Cough Last Admin: 09/06/18 05:54 Dose: 5 ml Sevelamer Carbonate (Renvela) 800 mg PO TIDCC [facility] Last Admin: 09/06/18 07:46 Dose: 800 mg Sucralfate (Carafate Tab) 1 gm PO Q6 [facility] Last Admin: 09/06/18 05:50 Dose: 1 gm Tramadol HCl (Ultram) 50 mg PO ONCE PRN PRN Reason: Pain, moderate (4-7) Last Admin: 09/05/18 19:35 Dose: 50 mg - Labs Labs: 09/01/18 18:24 09/01/18 18:24 - Constitutional Appears: Chronically Ill - Head Exam Head Exam: ATRAUMATIC, NORMOCEPHALIC - Eye Exam Eye Exam: EOMI, Normal appearance - ENT Exam ENT Exam: Mucous Membranes Moist - Respiratory Exam Respiratory Exam: Decreased Breath Sounds, Rhonchi. absent: Accessory Muscle Use Additional comments: BETTER AIR MOVEMENT. - Cardiovascular Exam Cardiovascular Exam: RRR, +S1, +S2 - GI/Abdominal Exam GI & Abdominal Exam: Soft. absent: Tenderness - Rectal Exam Rectal Exam: Deferred - Extremities Exam Extremities Exam: absent: Calf Tenderness, Pedal Edema - Back Exam Back Exam: absent: CVA tenderness (L), CVA tenderness (R) - Neurological Exam Neurological Exam: Alert, Awake, CN II-XII Intact, Normal Gait, Oriented x3 - Psychiatric Exam Psychiatric exam: Normal Mood - Skin Skin Exam: absent: Rash Assessment and Plan (1) COPD exacerbation Status: Acute (2) Anemia Status: Acute (3) CAD (coronary artery disease) Status: Acute (4) CHF exacerbation Status: Acute (5) Chronic respiratory failure with hypoxia Status: Acute (6) ESRD (end stage renal disease) on dialysis Status: Acute (7) Hypertension Status: Acute (8) Pleural effusion Status: Acute (9) Pneumonia Status: Acute (10) Failed kidney transplant Status: Chronic - Assessment and Plan (Free Text) Assessment: RESP STATUS IMPROVING., TOLERATING STEROID TAPER, CONT NEB BD., ADVAIR AND SINGULAIR. CXR REVIEWED. AFEBRILE CONT ON AB. S/P HD YESTERDAY. INCREASE OOB. CONT O2 2L. DISCUSSED WITH STAFF AT LENGTH.
[2018-09-06] MEDS: Fluticasone-Vilanterol 200/25mcg Diskus INH SCH (09:19)
--- NOTE | 2018-09-06 13:17 | CP.PCM.PN ---
Subjective - Date & Time of Evaluation Date of Evaluation: 09/06/18 Time of Evaluation: 13:16 - Subjective Subjective: sob & wheeze + but better. Objective - Vital Signs/Intake and Output Vital Signs (last 24 hours): Temp Pulse Resp BP Pulse Ox 97.9 F 84 20 108/70 98 09/06/18 07:00 09/06/18 07:00 09/06/18 07:00 09/06/18 07:00 09/06/18 07:00 Intake and Output: 09/06/18 09/06/18 06:59 18:59 Intake Total 200 Balance 200 - Medications Medications: Current Medications Acetaminophen (Tylenol 325mg Tab) 650 mg PO Q6 PRN PRN Reason: Pain, moderate (4-7) Last Admin: 09/04/18 23:34 Dose: 650 mg Albuterol/Ipratropium (Duoneb 3 Mg/0.5 Mg (3 Ml) Ud) 3 ml INH RQ6 [facility] Last Admin: 09/06/18 09:19 Dose: 3 ml Amitriptyline HCl (Elavil) 25 mg PO DAILY [facility] Last Admin: 09/06/18 10:31 Dose: 25 mg Aspirin (Aspirin Chewable) 81 mg PO DAILY [facility] Last Admin: 09/06/18 10:31 Dose: 81 mg Azithromycin (Zithromax) 250 mg PO DAILY [facility]; Protocol Last Admin: 09/06/18 10:32 Dose: 250 mg Calcium Acetate (Phoslo) 667 mg PO BIDCC [facility] Last Admin: 09/06/18 07:47 Dose: 667 mg Docusate Sodium (Colace) 100 mg PO TID [facility] Last Admin: 09/06/18 13:14 Dose: 100 mg Fluticasone/Vilanterol (Breo Ellipta 200-25 Mcg Inh) 1 puff INH RQD [facility] Last Admin: 09/06/18 09:19 Dose: 1 puff Ceftriaxone Sodium 1 gm/ (Sodium Chloride) 100 mls @ 100 mls/hr IVPB DAILY [facility]; Protocol Last Admin: 09/06/18 11:09 Dose: 100 mls/hr Levothyroxine Sodium (Synthroid) 125 mcg PO DAILY@0630 [facility] Last Admin: 09/06/18 05:49 Dose: 125 mcg Methylprednisolone (Solu-Medrol) 30 mg IVP Q8H [facility] Last Admin: 09/06/18 10:32 Dose: 30 mg Montelukast Sodium (Singulair) 10 mg PO HS [facility] Last Admin: 09/05/18 21:02 Dose: 10 mg Promethazine HCl/Codeine (Phenergan/Codeine Oral Syrup) 5 ml PO Q4 PRN PRN Reason: Cough Last Admin: 09/06/18 10:31 Dose: 5 ml Sevelamer Carbonate (Renvela) 800 mg PO TIDCC [facility] Last Admin: 09/06/18 07:46 Dose: 800 mg Sucralfate (Carafate Tab) 1 gm PO Q6 [facility] Last Admin: 09/06/18 05:50 Dose: 1 gm Tramadol HCl (Ultram) 50 mg PO ONCE PRN PRN Reason: Pain, moderate (4-7) Last Admin: 09/05/18 19:35 Dose: 50 mg - Labs Labs: 09/01/18 18:24 09/01/18 18:24 - Constitutional Appears: No Acute Distress, Chronically Ill - Head Exam Head Exam: NORMOCEPHALIC - Respiratory Exam Respiratory Exam: Rhonchi, Wheezes - Cardiovascular Exam Cardiovascular Exam: REGULAR RHYTHM, Murmur - GI/Abdominal Exam GI & Abdominal Exam: Soft - Extremities Exam Extremities Exam: absent: Pedal Edema - Neurological Exam Neurological Exam: Alert, Oriented x3 Assessment and Plan - Assessment and Plan (Free Text) Plan: ct pul rx.extra dyalysis may help.
[2018-09-07] MEDS: Albuterol-Ipratrop 3 mg / 0.5 (3 ml) UD INH SCH ×4 (02:17→19:58)
[2018-09-07] MEDS: MethylPREDNISolone 40 mg Vial IVP SCH ×3 (02:49→17:31)
[2018-09-07] MEDS: Levothyroxine 125 MCG TAB PO SCH (05:44)
--- NOTE | 2018-09-07 07:13 | CP.PCM.PN ---
Subjective - Date & Time of Evaluation Date of Evaluation: 09/07/18 Time of Evaluation: 07:10 - Subjective Subjective: tolerated HD yesterday no acute complaints repeat HD today pain upon coughing chronic dyspnea +cough no n/v/diarrhea decreased u/o no rash no headache no joint pain no change in vision no sore throat Objective - Vital Signs/Intake and Output Vital Signs (last 24 hours): Temp Pulse Resp BP Pulse Ox 98 F 88 20 96/55 L 99 09/06/18 23:30 09/06/18 23:30 09/06/18 23:30 09/06/18 23:30 09/06/18 23:30 Intake and Output: 09/07/18 09/07/18 06:59 18:59 Intake Total 300 Balance 300 - Medications Medications: Current Medications Acetaminophen (Tylenol 325mg Tab) 650 mg PO Q6 PRN PRN Reason: Pain, moderate (4-7) Last Admin: 09/04/18 23:34 Dose: 650 mg Albuterol/Ipratropium (Duoneb 3 Mg/0.5 Mg (3 Ml) Ud) 3 ml INH RQ6 [facility] Last Admin: 09/07/18 02:17 Dose: Not Given Amitriptyline HCl (Elavil) 25 mg PO DAILY [facility] Last Admin: 09/06/18 10:31 Dose: 25 mg Aspirin (Aspirin Chewable) 81 mg PO DAILY [facility] Last Admin: 09/06/18 10:31 Dose: 81 mg Azithromycin (Zithromax) 250 mg PO DAILY [facility]; Protocol Last Admin: 09/06/18 10:32 Dose: 250 mg Calcium Acetate (Phoslo) 667 mg PO BIDCC [facility] Last Admin: 09/06/18 17:19 Dose: Not Given Docusate Sodium (Colace) 100 mg PO TID [facility] Last Admin: 09/06/18 18:17 Dose: 100 mg Fluticasone/Vilanterol (Breo Ellipta 200-25 Mcg Inh) 1 puff INH RQD [facility] Last Admin: 09/06/18 09:19 Dose: 1 puff Ceftriaxone Sodium 1 gm/ (Sodium Chloride) 100 mls @ 100 mls/hr IVPB DAILY [facility]; Protocol Last Admin: 09/06/18 11:09 Dose: 100 mls/hr Levothyroxine Sodium (Synthroid) 125 mcg PO DAILY@0630 [facility] Last Admin: 09/07/18 05:44 Dose: 125 mcg Methylprednisolone (Solu-Medrol) 30 mg IVP Q8H [facility] Last Admin: 09/07/18 02:49 Dose: 30 mg Montelukast Sodium (Singulair) 10 mg PO HS [facility] Last Admin: 09/06/18 21:22 Dose: 10 mg Oxycodone/Acetaminophen (Percocet 5/325 Mg Tab) 1 tab PO Q6H PRN PRN Reason: Pain, moderate (4-7) Stop: 09/10/18 07:10 Promethazine HCl/Codeine (Phenergan/Codeine Oral Syrup) 5 ml PO Q4 PRN PRN Reason: Cough Last Admin: 09/06/18 21:23 Dose: 5 ml Sevelamer Carbonate (Renvela) 800 mg PO TIDCC [facility] Last Admin: 09/06/18 17:19 Dose: Not Given Sucralfate (Carafate Tab) 1 gm PO Q6 [facility] Last Admin: 09/07/18 05:44 Dose: 1 gm Tramadol HCl (Ultram) 50 mg PO ONCE PRN PRN Reason: Pain, moderate (4-7) Last Admin: 09/05/18 19:35 Dose: 50 mg - Labs Labs: 09/01/18 18:24 09/01/18 18:24 - Constitutional Appears: No Acute Distress, Chronically Ill - Head Exam Head Exam: ATRAUMATIC, NORMAL INSPECTION - Eye Exam Eye Exam: EOMI, Normal appearance - ENT Exam ENT Exam: Mucous Membranes Moist - Neck Exam Neck Exam: Full ROM. absent: Lymphadenopathy - Respiratory Exam Respiratory Exam: Rhonchi, Wheezes - Cardiovascular Exam Cardiovascular Exam: REGULAR RHYTHM. absent: Rubs - GI/Abdominal Exam GI & Abdominal Exam: Distended, Soft. absent: Tenderness - Extremities Exam Extremities Exam: absent: Pedal Edema Assessment and Plan - Assessment and Plan (Free Text) Plan: copd exacerbation, on steroids HD with fluid overload, extra treatment yesterday percozet for musculoskeletal pain from coughing
--- NOTE | 2018-09-07 08:20 | CP.PCM.PN ---
Subjective - Date & Time of Evaluation Date of Evaluation: 09/07/18 Time of Evaluation: 08:17 - Subjective Subjective: PT ALERT, OOB, FEELS BETTER NOW. LESS COUGH., LESS SOB. ROS; OTHERWISE NEG. Objective - Vital Signs/Intake and Output Vital Signs (last 24 hours): Temp Pulse Resp BP Pulse Ox 98.0 F 83 20 120/75 97 09/07/18 07:00 09/07/18 07:00 09/07/18 07:00 09/07/18 07:00 09/07/18 07:00 Intake and Output: 09/07/18 09/07/18 06:59 18:59 Intake Total 300 Balance 300 - Medications Medications: Current Medications Acetaminophen (Tylenol 325mg Tab) 650 mg PO Q6 PRN PRN Reason: Pain, moderate (4-7) Last Admin: 09/04/18 23:34 Dose: 650 mg Albuterol/Ipratropium (Duoneb 3 Mg/0.5 Mg (3 Ml) Ud) 3 ml INH RQ6 [facility] Last Admin: 09/07/18 02:17 Dose: Not Given Amitriptyline HCl (Elavil) 25 mg PO DAILY [facility] Last Admin: 09/06/18 10:31 Dose: 25 mg Aspirin (Aspirin Chewable) 81 mg PO DAILY [facility] Last Admin: 09/06/18 10:31 Dose: 81 mg Azithromycin (Zithromax) 250 mg PO DAILY [facility]; Protocol Last Admin: 09/06/18 10:32 Dose: 250 mg Calcium Acetate (Phoslo) 667 mg PO BIDCC [facility] Last Admin: 09/07/18 08:02 Dose: 667 mg Docusate Sodium (Colace) 100 mg PO TID [facility] Last Admin: 09/06/18 18:17 Dose: 100 mg Fluticasone/Vilanterol (Breo Ellipta 200-25 Mcg Inh) 1 puff INH RQD [facility] Last Admin: 09/06/18 09:19 Dose: 1 puff Ceftriaxone Sodium 1 gm/ (Sodium Chloride) 100 mls @ 100 mls/hr IVPB DAILY [facility]; Protocol Last Admin: 09/06/18 11:09 Dose: 100 mls/hr Levothyroxine Sodium (Synthroid) 125 mcg PO DAILY@0630 [facility] Last Admin: 09/07/18 05:44 Dose: 125 mcg Methylprednisolone (Solu-Medrol) 30 mg IVP Q8H [facility] Last Admin: 09/07/18 02:49 Dose: 30 mg Montelukast Sodium (Singulair) 10 mg PO HS [facility] Last Admin: 09/06/18 21:22 Dose: 10 mg Oxycodone/Acetaminophen (Percocet 5/325 Mg Tab) 1 tab PO Q6H PRN PRN Reason: Pain, severe (8-10) Stop: 09/10/18 07:10 Promethazine HCl/Codeine (Phenergan/Codeine Oral Syrup) 5 ml PO Q4 PRN PRN Reason: Cough Last Admin: 09/06/18 21:23 Dose: 5 ml Sevelamer Carbonate (Renvela) 800 mg PO TIDCC [facility] Last Admin: 09/07/18 08:02 Dose: 800 mg Sucralfate (Carafate Tab) 1 gm PO Q6 [facility] Last Admin: 09/07/18 05:44 Dose: 1 gm Tramadol HCl (Ultram) 50 mg PO ONCE PRN PRN Reason: Pain, moderate (4-7) Last Admin: 09/05/18 19:35 Dose: 50 mg - Labs Labs: 09/01/18 18:24 09/01/18 18:24 - Constitutional Appears: Chronically Ill - Head Exam Head Exam: ATRAUMATIC, NORMOCEPHALIC - Eye Exam Eye Exam: EOMI, Normal appearance - ENT Exam ENT Exam: Mucous Membranes Moist - Neck Exam Neck Exam: Normal Inspection - Respiratory Exam Respiratory Exam: Decreased Breath Sounds Additional comments: FEW RHONCHI , BETTER AIR MOVEMENT. BILAT - Cardiovascular Exam Cardiovascular Exam: RRR, +S1, +S2 - GI/Abdominal Exam GI & Abdominal Exam: Soft. absent: Tenderness - Rectal Exam Rectal Exam: Deferred - Extremities Exam Extremities Exam: absent: Calf Tenderness, Pedal Edema - Back Exam Back Exam: absent: CVA tenderness (L), CVA tenderness (R) - Neurological Exam Neurological Exam: Alert, Awake, CN II-XII Intact, Normal Gait, Oriented x3 - Psychiatric Exam Psychiatric exam: Normal Mood - Skin Skin Exam: absent: Rash Assessment and Plan (1) COPD exacerbation Status: Acute (2) Anemia Status: Acute (3) CAD (coronary artery disease) Status: Acute (4) CHF exacerbation Status: Acute (5) Chronic respiratory failure with hypoxia Status: Acute (6) ESRD (end stage renal disease) on dialysis Status: Acute (7) Hypertension Status: Acute (8) Pleural effusion Status: Acute (9) Pneumonia Status: Acute (10) Failed kidney transplant Status: Chronic - Assessment and Plan (Free Text) Assessment: RESP STATUS IMPROVING., CONT NEB BD., JESSIKA NEWTONIR. ON STEROID TAPER., CXR REVIEWED. AFEBRILE ON AB. ADDITIONAL HD PER RENAL. MONITOR O2 SAT. DISCUSSED WITH STAFF AND RT AT LENGTH.
[2018-09-07] MEDS: Fluticasone-Vilanterol 200/25mcg Diskus INH SCH (08:31)
--- NOTE | 2018-09-07 11:38 | CP.PCM.PN ---
Subjective - Date & Time of Evaluation Date of Evaluation: 09/07/18 Time of Evaluation: 11:37 - Subjective Subjective: cough & sob is better. Objective - Vital Signs/Intake and Output Vital Signs (last 24 hours): Temp Pulse Resp BP Pulse Ox 97.4 F L 81 16 96/68 L 98 09/07/18 09:10 09/07/18 09:10 09/07/18 09:10 09/07/18 10:30 09/07/18 09:10 Intake and Output: 09/07/18 09/07/18 06:59 18:59 Intake Total 300 Balance 300 - Medications Medications: Current Medications Acetaminophen (Tylenol 325mg Tab) 650 mg PO Q6 PRN PRN Reason: Pain, moderate (4-7) Last Admin: 09/04/18 23:34 Dose: 650 mg Albuterol/Ipratropium (Duoneb 3 Mg/0.5 Mg (3 Ml) Ud) 3 ml INH RQ6 [facility] Last Admin: 09/07/18 08:30 Dose: 3 ml Amitriptyline HCl (Elavil) 25 mg PO DAILY [facility] Last Admin: 09/06/18 10:31 Dose: 25 mg Aspirin (Aspirin Chewable) 81 mg PO DAILY [facility] Last Admin: 09/06/18 10:31 Dose: 81 mg Azithromycin (Zithromax) 250 mg PO DAILY [facility]; Protocol Last Admin: 09/06/18 10:32 Dose: 250 mg Calcium Acetate (Phoslo) 667 mg PO BIDCC [facility] Last Admin: 09/07/18 08:02 Dose: 667 mg Docusate Sodium (Colace) 100 mg PO TID [facility] Last Admin: 09/06/18 18:17 Dose: 100 mg Fluticasone/Vilanterol (Breo Ellipta 200-25 Mcg Inh) 1 puff INH RQD [facility] Last Admin: 09/07/18 08:31 Dose: 1 puff Ceftriaxone Sodium 1 gm/ (Sodium Chloride) 100 mls @ 100 mls/hr IVPB DAILY [facility]; Protocol Last Admin: 09/06/18 11:09 Dose: 100 mls/hr Levothyroxine Sodium (Synthroid) 125 mcg PO DAILY@0630 [facility] Last Admin: 09/07/18 05:44 Dose: 125 mcg Methylprednisolone (Solu-Medrol) 30 mg IVP Q8H [facility] Last Admin: 09/07/18 02:49 Dose: 30 mg Montelukast Sodium (Singulair) 10 mg PO HS [facility] Last Admin: 09/06/18 21:22 Dose: 10 mg Oxycodone/Acetaminophen (Percocet 5/325 Mg Tab) 1 tab PO Q6H PRN PRN Reason: Pain, severe (8-10) Stop: 09/10/18 07:10 Promethazine HCl/Codeine (Phenergan/Codeine Oral Syrup) 5 ml PO Q4 PRN PRN Reason: Cough Last Admin: 09/06/18 21:23 Dose: 5 ml Sevelamer Carbonate (Renvela) 800 mg PO TIDCC [facility] Last Admin: 09/07/18 08:02 Dose: 800 mg Sucralfate (Carafate Tab) 1 gm PO Q6 [facility] Last Admin: 09/07/18 05:44 Dose: 1 gm Tramadol HCl (Ultram) 50 mg PO ONCE PRN PRN Reason: Pain, moderate (4-7) Last Admin: 09/05/18 19:35 Dose: 50 mg - Labs Labs: 09/01/18 18:24 09/01/18 18:24 - Constitutional Appears: No Acute Distress, Chronically Ill - Head Exam Head Exam: NORMOCEPHALIC - Respiratory Exam Respiratory Exam: Rhonchi - Cardiovascular Exam Cardiovascular Exam: REGULAR RHYTHM, Murmur - GI/Abdominal Exam GI & Abdominal Exam: Soft - Extremities Exam Extremities Exam: absent: Pedal Edema - Neurological Exam Neurological Exam: Alert, Oriented x3 Assessment and Plan - Assessment and Plan (Free Text) Plan: copd,chf.better.to gerson off steroids.,
[2018-09-07] MEDS: Promethazine/Cod 6.25mg-10mg/5ml Syr UD PO PRN ×2 (12:47→21:45)
--- NOTE | 2018-09-07 16:20 | RAD ---
Date of service: 09/07/2018 HISTORY: COPD, CHF COMPARISON: 09/01/2018. TECHNIQUE: Chest PA and lateral FINDINGS: LINES AND TUBES: None. LUNG AND PLEURA: The lungs are hyperinflated and there is peribronchial thickening with chronic changes in both lungs. There is moderate pulmonary venous congestion. There is multifocal subsegmental atelectasis in the lower lobes. Small effusions. No pneumothorax. HEART AND MEDIASTINUM: Mild cardiomegaly. Status post CABG. There are aortic atherosclerotic calcifications present. The hilar and mediastinal contours are within normal limits. SKELETAL STRUCTURES: The bony structures are within normal limits for the patient's age. VISUALIZED UPPER ABDOMEN: Normal. OTHER FINDINGS: None. IMPRESSION: Multifocal subsegmental atelectasis in the lower lobes. COPD. Mild congestive heart failure.
[2018-09-07] MEDS: Oxycodone/Acetaminophen 5/325 mg Tab PO PRN (21:44)
[2018-09-08] MEDS: Albuterol-Ipratrop 3 mg / 0.5 (3 ml) UD INH SCH ×4 (01:14→19:20)
[2018-09-08] MEDS: MethylPREDNISolone 40 mg Vial IVP SCH ×2 (01:27→13:05)
[2018-09-08] MEDS: Levothyroxine 125 MCG TAB PO SCH (06:01)
[2018-09-08] MEDS: Fluticasone-Vilanterol 200/25mcg Diskus INH SCH (07:41)
--- NOTE | 2018-09-08 08:19 | CP.PCM.PN ---
Subjective - Date & Time of Evaluation Date of Evaluation: 09/08/18 Time of Evaluation: 08:15 - Subjective Subjective: PT ALERT., STILL ++COUGH, NO SPUTUM., LESS SOB. ROS; OTHERWISE NEG Objective - Vital Signs/Intake and Output Vital Signs (last 24 hours): Temp Pulse Resp BP Pulse Ox 98.3 F 87 20 92/60 L 98 09/07/18 23:00 09/07/18 23:00 09/07/18 23:00 09/07/18 23:00 09/07/18 23:00 - Medications Medications: Current Medications Acetaminophen (Tylenol 325mg Tab) 650 mg PO Q6 PRN PRN Reason: Pain, moderate (4-7) Last Admin: 09/04/18 23:34 Dose: 650 mg Albuterol/Ipratropium (Duoneb 3 Mg/0.5 Mg (3 Ml) Ud) [address] [facility] Last Admin: 09/08/18 07:42 Dose: 3 ml Amitriptyline HCl (Elavil) [address] [facility] Last Admin: 09/07/18 11:00 Dose: Not Given Aspirin (Aspirin Chewable) [address] [facility] Last Admin: 09/07/18 12:45 Dose: 81 mg Azithromycin (Zithromax) [address] [facility]; Protocol Last Admin: 09/07/18 11:00 Dose: Not Given Calcium Acetate (Phoslo) [address] [facility] Last Admin: 09/07/18 17:30 Dose: 667 mg Docusate Sodium (Colace) [address] [facility] Last Admin: 09/07/18 17:33 Dose: 100 mg Fluticasone/Vilanterol (Breo Ellipta 200-25 Mcg Inh) [address] [facility] Last Admin: 09/08/18 07:41 Dose: 1 puff Ceftriaxone Sodium 1 gm/ (Sodium Chloride) 100 mls @ 100 mls/hr IVPB DAILY [facility]; Protocol Last Admin: 09/07/18 12:45 Dose: 100 mls/hr Levothyroxine Sodium (Synthroid) 125 mcg PO DAILY@0630 [facility] Last Admin: 09/08/18 06:01 Dose: 125 mcg Methylprednisolone (Solu-Medrol) [address] [facility] Last Admin: 09/08/18 01:27 Dose: 30 mg Montelukast Sodium (Singulair) [address] [facility] Last Admin: 09/07/18 21:41 Dose: 10 mg Oxycodone/Acetaminophen (Percocet 5/325 Mg Tab) 1 tab PO Q6H PRN PRN Reason: Pain, severe (8-10) Stop: 09/10/18 07:10 Last Admin: 09/07/18 21:44 Dose: 1 tab Promethazine HCl/Codeine (Phenergan/Codeine Oral Syrup) 5 ml PO Q4 PRN PRN Reason: Cough Last Admin: 09/07/18 21:45 Dose: 5 ml Sevelamer Carbonate (Renvela) [address] [facility] Last Admin: 09/07/18 17:30 Dose: 800 mg Sucralfate (Carafate Tab) [address] [facility] Last Admin: 09/08/18 06:01 Dose: 1 gm Tramadol HCl (Ultram) 50 mg PO ONCE PRN PRN Reason: Pain, moderate (4-7) Last Admin: 09/05/18 19:35 Dose: 50 mg - Labs Labs: 09/01/18 18:24 09/01/18 18:24 - Constitutional Appears: Chronically Ill - Head Exam Head Exam: ATRAUMATIC, NORMOCEPHALIC - Eye Exam Eye Exam: EOMI, Normal appearance - ENT Exam ENT Exam: Mucous Membranes Moist - Neck Exam Neck Exam: Normal Inspection - Respiratory Exam Respiratory Exam: Decreased Breath Sounds, Rhonchi. absent: Accessory Muscle Use - Cardiovascular Exam Cardiovascular Exam: RRR, +S1, +S2 - GI/Abdominal Exam GI & Abdominal Exam: Soft. absent: Tenderness - Rectal Exam Rectal Exam: Deferred - Extremities Exam Extremities Exam: absent: Calf Tenderness, Pedal Edema - Back Exam Back Exam: absent: CVA tenderness (L), CVA tenderness (R) - Neurological Exam Neurological Exam: Alert, Awake, CN II-XII Intact, Normal Gait, Oriented x3 - Psychiatric Exam Psychiatric exam: Normal Mood - Skin Skin Exam: absent: Rash Assessment and Plan (1) COPD exacerbation Status: Acute (2) Anemia Status: Acute (3) CAD (coronary artery disease) Status: Acute (4) CHF exacerbation Status: Acute (5) Chronic respiratory failure with hypoxia Status: Acute (6) ESRD (end stage renal disease) on dialysis Status: Acute (7) Hypertension Status: Acute (8) Pleural effusion Status: Acute (9) Pneumonia Status: Acute (10) Failed kidney transplant Status: Chronic - Assessment and Plan (Free Text) Assessment: RESP STATUS IMPROVING SLOWLY ON STEROID TAPER, ZEINA BD., MARICARMEN NEWTON. CONT AB. CXR REVIEWED, STILL +FLUID OVERLOAD. FOR HD PER RENAL. MONITOR O2 SAT. DISCUSSED WITH STAFF AND RT AT LENGTH.
--- NOTE | 2018-09-08 11:39 | CP.PCM.PN ---
Subjective - Date & Time of Evaluation Date of Evaluation: 09/08/18 Time of Evaluation: 11:37 - Subjective Subjective: sob & cough better. Objective - Vital Signs/Intake and Output Vital Signs (last 24 hours): Temp Pulse Resp BP Pulse Ox 98.3 F 76 20 108/68 20 L 09/08/18 07:30 09/08/18 07:30 09/08/18 07:30 09/08/18 07:30 09/08/18 07:30 - Medications Medications: Current Medications Acetaminophen (Tylenol 325mg Tab) 650 mg PO Q6 PRN PRN Reason: Pain, moderate (4-7) Last Admin: 09/04/18 23:34 Dose: 650 mg Albuterol/Ipratropium (Duoneb 3 Mg/0.5 Mg (3 Ml) Ud) 3 ml INH RQ6 [facility] Last Admin: 09/08/18 07:42 Dose: 3 ml Amitriptyline HCl (Elavil) 25 mg PO DAILY [facility] Last Admin: 09/08/18 09:53 Dose: 25 mg Aspirin (Aspirin Chewable) 81 mg PO DAILY [facility] Last Admin: 09/08/18 09:52 Dose: 81 mg Azithromycin (Zithromax) 250 mg PO DAILY [facility]; Protocol Last Admin: 09/07/18 11:00 Dose: Not Given Calcium Acetate (Phoslo) 667 mg PO BIDCC [facility] Last Admin: 09/08/18 08:19 Dose: 667 mg Docusate Sodium (Colace) 100 mg PO TID [facility] Last Admin: 09/08/18 09:52 Dose: 100 mg Fluticasone/Vilanterol (Breo Ellipta 200-25 Mcg Inh) 1 puff INH RQD [facility] Last Admin: 09/08/18 07:41 Dose: 1 puff Ceftriaxone Sodium 1 gm/ (Sodium Chloride) 100 mls @ 100 mls/hr IVPB DAILY [facility]; Protocol Last Admin: 09/08/18 11:12 Dose: 100 mls/hr Levothyroxine Sodium (Synthroid) 125 mcg PO DAILY@0630 [facility] Last Admin: 09/08/18 06:01 Dose: 125 mcg Methylprednisolone (Solu-Medrol) 30 mg IVP Q12H [facility] Montelukast Sodium (Singulair) 10 mg PO HS [facility] Last Admin: 09/07/18 21:41 Dose: 10 mg Oxycodone/Acetaminophen (Percocet 5/325 Mg Tab) 1 tab PO Q6H PRN PRN Reason: Pain, severe (8-10) Stop: 09/10/18 07:10 Last Admin: 09/07/18 21:44 Dose: 1 tab Promethazine HCl/Codeine (Phenergan/Codeine Oral Syrup) 5 ml PO Q4 PRN PRN Reason: Cough Last Admin: 09/07/18 21:45 Dose: 5 ml Sevelamer Carbonate (Renvela) 800 mg PO TIDCC [facility] Last Admin: 09/08/18 08:19 Dose: 800 mg Sucralfate (Carafate Tab) 1 gm PO Q6 [facility] Last Admin: 09/08/18 06:01 Dose: 1 gm Tramadol HCl (Ultram) 50 mg PO ONCE PRN PRN Reason: Pain, moderate (4-7) Last Admin: 09/05/18 19:35 Dose: 50 mg - Labs Labs: 09/01/18 18:24 09/01/18 18:24 - Constitutional Appears: No Acute Distress, Chronically Ill - Eye Exam Eye Exam: Normal appearance - Respiratory Exam Respiratory Exam: Rhonchi - Cardiovascular Exam Cardiovascular Exam: REGULAR RHYTHM, Murmur - GI/Abdominal Exam GI & Abdominal Exam: Soft - Neurological Exam Neurological Exam: Alert, Oriented x3 Assessment and Plan - Assessment and Plan (Free Text) Plan: copd.chf both bertter.will switch to po steroids & d/c home in am after dialysis.x ray is better.
--- NOTE | 2018-09-08 12:36 | CP.PCM.PN ---
Subjective - Date & Time of Evaluation Date of Evaluation: 09/08/18 Time of Evaluation: 12:33 - Subjective Subjective: pt seen and examined resting in bed afebrile SOB much better cough improved as well had HD yesterday no other complaints ROS- as per HPI, other than that 10 point ROS negative Objective - Vital Signs/Intake and Output Vital Signs (last 24 hours): Temp Pulse Resp BP Pulse Ox 98.3 F 76 20 108/68 20 L 09/08/18 07:30 09/08/18 07:30 09/08/18 07:30 09/08/18 07:30 09/08/18 07:30 - Medications Medications: Current Medications Acetaminophen (Tylenol 325mg Tab) 650 mg PO Q6 PRN PRN Reason: Pain, moderate (4-7) Last Admin: 09/04/18 23:34 Dose: 650 mg Albuterol/Ipratropium (Duoneb 3 Mg/0.5 Mg (3 Ml) Ud) 3 ml INH RQ6 [facility] Last Admin: 09/08/18 07:42 Dose: 3 ml Amitriptyline HCl (Elavil) 25 mg PO DAILY [facility] Last Admin: 09/08/18 09:53 Dose: 25 mg Aspirin (Aspirin Chewable) 81 mg PO DAILY [facility] Last Admin: 09/08/18 09:52 Dose: 81 mg Azithromycin (Zithromax) 250 mg PO DAILY [facility]; Protocol Last Admin: 09/07/18 11:00 Dose: Not Given Calcium Acetate (Phoslo) 667 mg PO BIDCC [facility] Last Admin: 09/08/18 08:19 Dose: 667 mg Docusate Sodium (Colace) 100 mg PO TID [facility] Last Admin: 09/08/18 09:52 Dose: 100 mg Fluticasone/Vilanterol (Breo Ellipta 200-25 Mcg Inh) 1 puff INH RQD [facility] Last Admin: 09/08/18 07:41 Dose: 1 puff Ceftriaxone Sodium 1 gm/ (Sodium Chloride) 100 mls @ 100 mls/hr IVPB DAILY [facility]; Protocol Last Admin: 09/08/18 11:12 Dose: 100 mls/hr Levothyroxine Sodium (Synthroid) 125 mcg PO DAILY@0630 [facility] Last Admin: 09/08/18 06:01 Dose: 125 mcg Methylprednisolone (Solu-Medrol) 30 mg IVP Q12H [facility] Montelukast Sodium (Singulair) 10 mg PO HS [facility] Last Admin: 09/07/18 21:41 Dose: 10 mg Oxycodone/Acetaminophen (Percocet 5/325 Mg Tab) 1 tab PO Q6H PRN PRN Reason: Pain, severe (8-10) Stop: 09/10/18 07:10 Last Admin: 09/07/18 21:44 Dose: 1 tab Promethazine HCl/Codeine (Phenergan/Codeine Oral Syrup) 5 ml PO Q4 PRN PRN Reason: Cough Last Admin: 09/07/18 21:45 Dose: 5 ml Sevelamer Carbonate (Renvela) 800 mg PO TIDCC [facility] Last Admin: 09/08/18 08:19 Dose: 800 mg Sucralfate (Carafate Tab) 1 gm PO Q6 [facility] Last Admin: 09/08/18 06:01 Dose: 1 gm Tramadol HCl (Ultram) 50 mg PO ONCE PRN PRN Reason: Pain, moderate (4-7) Last Admin: 09/05/18 19:35 Dose: 50 mg - Labs Labs: 09/01/18 18:24 09/01/18 18:24 - Constitutional Appears: Well, Non-toxic - Head Exam Head Exam: ATRAUMATIC, NORMOCEPHALIC - Eye Exam Eye Exam: EOMI, PERRL - ENT Exam ENT Exam: Mucous Membranes Moist - Neck Exam Neck Exam: Full ROM - Respiratory Exam Respiratory Exam: Clear to Ausculation Bilateral. absent: Rhonchi, Wheezes - Cardiovascular Exam Cardiovascular Exam: REGULAR RHYTHM, +S1, +S2, Murmur - GI/Abdominal Exam GI & Abdominal Exam: Soft. absent: Distended, Tenderness - Extremities Exam Extremities Exam: Full ROM. absent: Pedal Edema - Neurological Exam Neurological Exam: Alert, Awake, Oriented x3 - Psychiatric Exam Psychiatric exam: Normal Affect, Normal Mood - Skin Skin Exam: Normal Color, Warm Assessment and Plan (1) COPD exacerbation Status: Acute (2) Anemia Status: Acute (3) CAD (coronary artery disease) Status: Acute (4) Dependence on renal dialysis Status: Acute (5) Hypertension Status: Acute (6) Failed kidney transplant Status: Chronic - Assessment and Plan (Free Text) Plan: clinically much improved SOB and cough better HD in am EDW lowered to 47.5 BP stable
[2018-09-08] MEDS: Oxycodone/Acetaminophen 5/325 mg Tab PO PRN ×2 (16:12→21:17)
[2018-09-08] MEDS: Promethazine/Cod 6.25mg-10mg/5ml Syr UD PO PRN (21:16)
[2018-09-09] MEDS: Albuterol-Ipratrop 3 mg / 0.5 (3 ml) UD INH SCH ×3 (01:22→14:31)
[2018-09-09] MEDS: MethylPREDNISolone 40 mg Vial IVP SCH ×2 (02:26→14:27)
[2018-09-09] MEDS: Levothyroxine 125 MCG TAB PO SCH (06:06)
[2018-09-09] MEDS: Fluticasone-Vilanterol 200/25mcg Diskus INH SCH (08:37)
[2018-09-09 11:52] VITALS: BP 77/54; PULSE 83; RESP 16; TEMP 97.8; O2SAT 98
[2018-09-09] MEDS: Promethazine/Cod 6.25mg-10mg/5ml Syr UD PO PRN (12:06)
--- NOTE | 2018-09-09 13:35 | CP.PCM.PN ---
Subjective - Date & Time of Evaluation Date of Evaluation: 09/09/18 Time of Evaluation: 13:33 - Subjective Subjective: Had HD earlier no cramps No SOB or wheezing afebrile no chest pain Rest 10 point ROS negative Objective - Vital Signs/Intake and Output Vital Signs (last 24 hours): Temp Pulse Resp BP Pulse Ox 97.8 F 83 16 77/54 L 98 09/09/18 11:35 09/09/18 11:35 09/09/18 11:35 09/09/18 11:35 09/09/18 11:35 Intake and Output: 09/09/18 09/09/18 06:59 18:59 Intake Total 480 Balance 480 - Medications Medications: Current Medications Acetaminophen (Tylenol 325mg Tab) 650 mg PO Q6 PRN PRN Reason: Pain, moderate (4-7) Last Admin: 09/04/18 23:34 Dose: 650 mg Albuterol/Ipratropium (Duoneb 3 Mg/0.5 Mg (3 Ml) Ud) 3 ml INH RQ6 [facility] Last Admin: 09/09/18 08:37 Dose: 3 ml Amitriptyline HCl (Elavil) 25 mg PO DAILY [facility] Last Admin: 09/09/18 12:11 Dose: Not Given Aspirin (Aspirin Chewable) 81 mg PO DAILY [facility] Last Admin: 09/09/18 12:06 Dose: 81 mg Azithromycin (Zithromax) 250 mg PO DAILY [facility] [place]; Protocol Last Admin: 09/09/18 12:06 Dose: 250 mg Calcium Acetate (Phoslo) 667 mg PO BIDCC [facility] [place] Last Admin: 09/09/18 07:51 Dose: 667 mg Docusate Sodium (Colace) 100 mg PO TID [facility] [place] Last Admin: 09/09/18 09:02 Dose: Not Given Fluticasone/Vilanterol (Breo Ellipta 200-25 Mcg Inh) 1 puff INH RQD [facility] [place] Last Admin: 09/09/18 08:37 Dose: 1 puff Ceftriaxone Sodium 1 gm/ (Sodium Chloride) 100 mls @ 100 mls/hr IVPB DAILY [facility]; Protocol Last Admin: 09/09/18 12:06 Dose: 100 mls/hr Levothyroxine Sodium (Synthroid) 125 mcg PO DAILY@0630 [facility] [place] Last Admin: 09/09/18 06:06 Dose: 125 mcg Methylprednisolone (Solu-Medrol) 30 mg IVP Q12H [facility] [place] Last Admin: 09/09/18 02:26 Dose: 30 mg Montelukast Sodium (Singulair) 10 mg PO HS [facility] Last Admin: 09/08/18 21:16 Dose: 10 mg Oxycodone/Acetaminophen (Percocet 5/325 Mg Tab) 1 tab PO Q6H PRN PRN Reason: Pain, severe (8-10) Stop: 09/10/18 07:10 Last Admin: 09/08/18 21:17 Dose: 1 tab Promethazine HCl/Codeine (Phenergan/Codeine Oral Syrup) 5 ml PO Q4 PRN PRN Reason: Cough Last Admin: 09/09/18 12:06 Dose: 5 ml Sevelamer Carbonate (Renvela) 800 mg PO TIDCC [facility] [place] Last Admin: 09/09/18 12:10 Dose: 800 mg Sucralfate (Carafate Tab) 1 gm PO Q6 [facility] Last Admin: 09/09/18 12:06 Dose: 1 gm Tramadol HCl (Ultram) 50 mg PO ONCE PRN PRN Reason: Pain, moderate (4-7) Last Admin: 09/05/18 19:35 Dose: 50 mg - Labs Labs: 09/01/18 18:24 09/01/18 18:24 - Constitutional Appears: Well, Non-toxic - Head Exam Head Exam: ATRAUMATIC, NORMOCEPHALIC - Eye Exam Eye Exam: EOMI, PERRL - ENT Exam ENT Exam: Mucous Membranes Moist - Neck Exam Neck Exam: Full ROM - Respiratory Exam Respiratory Exam: Clear to Ausculation Bilateral. absent: Rhonchi, Wheezes - Cardiovascular Exam Cardiovascular Exam: REGULAR RHYTHM, +S1, +S2, Murmur - GI/Abdominal Exam GI & Abdominal Exam: Soft, Normal Bowel Sounds. absent: Tenderness - Extremities Exam Extremities Exam: Full ROM. absent: Pedal Edema - Neurological Exam Neurological Exam: Alert, Awake, Oriented x3 - Psychiatric Exam Psychiatric exam: Normal Affect, Normal Mood - Skin Skin Exam: Normal Color, Warm Assessment and Plan (1) COPD exacerbation Status: Acute (2) Anemia Status: Acute (3) CAD (coronary artery disease) Status: Acute (4) Dependence on renal dialysis Status: Acute (5) Hypertension Status: Acute (6) Failed kidney transplant Status: Chronic - Assessment and Plan (Free Text) Plan: HD today Clinically better COPD better fluid status much improved stable renal yates for discharge
--- NOTE | 2018-09-09 15:06 | CP.PCM.PN ---
Subjective - Date & Time of Evaluation Date of Evaluation: 09/09/18 Time of Evaluation: 15:03 - Subjective Subjective: PT ALERT, FEELS BETTER. LESS SOB, LESS COUGH ROS; OTHERWISE NEG. Objective - Vital Signs/Intake and Output Vital Signs (last 24 hours): Temp Pulse Resp BP Pulse Ox 97.8 F 83 16 77/54 L 98 09/09/18 11:35 09/09/18 11:35 09/09/18 11:35 09/09/18 11:35 09/09/18 11:35 Intake and Output: 09/09/18 09/09/18 06:59 18:59 Intake Total 480 250 Balance 480 250 - Medications Medications: Current Medications Acetaminophen (Tylenol 325mg Tab) 650 mg PO Q6 PRN PRN Reason: Pain, moderate (4-7) Last Admin: 09/04/18 23:34 Dose: 650 mg Albuterol/Ipratropium (Duoneb 3 Mg/0.5 Mg (3 Ml) Ud) 3 ml INH RQ6 [facility] Last Admin: 09/09/18 14:31 Dose: 3 ml Amitriptyline HCl (Elavil) 25 mg PO DAILY [facility] Last Admin: 09/09/18 12:11 Dose: Not Given Aspirin (Aspirin Chewable) 81 mg PO DAILY [facility] Last Admin: 09/09/18 12:06 Dose: 81 mg Azithromycin (Zithromax) 250 mg PO DAILY [facility]; Protocol Last Admin: 09/09/18 12:06 Dose: 250 mg Calcium Acetate (Phoslo) 667 mg PO BIDCC [facility] Last Admin: 09/09/18 07:51 Dose: 667 mg Docusate Sodium (Colace) 100 mg PO TID [facility] Last Admin: 09/09/18 14:27 Dose: 100 mg Fluticasone/Vilanterol (Breo Ellipta 200-25 Mcg Inh) 1 puff INH RQD [facility] Last Admin: 09/09/18 08:37 Dose: 1 puff Ceftriaxone Sodium 1 gm/ (Sodium Chloride) 100 mls @ 100 mls/hr IVPB DAILY [facility]; Protocol Last Admin: 09/09/18 12:06 Dose: 100 mls/hr Levothyroxine Sodium (Synthroid) 125 mcg PO DAILY@0630 [facility] Last Admin: 09/09/18 06:06 Dose: 125 mcg Methylprednisolone (Solu-Medrol) 30 mg IVP Q12H [facility] Last Admin: 09/09/18 14:27 Dose: 30 mg Montelukast Sodium (Singulair) 10 mg PO HS [facility] Last Admin: 09/08/18 21:16 Dose: 10 mg Oxycodone/Acetaminophen (Percocet 5/325 Mg Tab) 1 tab PO Q6H PRN PRN Reason: Pain, severe (8-10) Stop: 09/10/18 07:10 Last Admin: 09/08/18 21:17 Dose: 1 tab Promethazine HCl/Codeine (Phenergan/Codeine Oral Syrup) 5 ml PO Q4 PRN PRN Reason: Cough Last Admin: 09/09/18 12:06 Dose: 5 ml Sevelamer Carbonate (Renvela) 800 mg PO TIDCC [facility] Last Admin: 09/09/18 12:10 Dose: 800 mg Sucralfate (Carafate Tab) 1 gm PO Q6 [facility] Last Admin: 09/09/18 12:06 Dose: 1 gm Tramadol HCl (Ultram) 50 mg PO ONCE PRN PRN Reason: Pain, moderate (4-7) Last Admin: 09/05/18 19:35 Dose: 50 mg - Labs Labs: 09/01/18 18:24 09/01/18 18:24 - Constitutional Appears: No Acute Distress, Chronically Ill - Head Exam Head Exam: ATRAUMATIC, NORMOCEPHALIC - Eye Exam Eye Exam: EOMI, Normal appearance - ENT Exam ENT Exam: Mucous Membranes Moist - Neck Exam Neck Exam: Normal Inspection - Respiratory Exam Respiratory Exam: absent: Accessory Muscle Use, Wheezes, Respiratory Distress - Cardiovascular Exam Cardiovascular Exam: RRR, +S1, +S2 - GI/Abdominal Exam GI & Abdominal Exam: Soft. absent: Tenderness - Rectal Exam Rectal Exam: Deferred - Extremities Exam Extremities Exam: absent: Calf Tenderness, Pedal Edema - Back Exam Back Exam: absent: CVA tenderness (L), CVA tenderness (R) - Neurological Exam Neurological Exam: Alert, Awake, CN II-XII Intact, Normal Gait, Oriented x3 - Psychiatric Exam Psychiatric exam: Normal Mood - Skin Skin Exam: absent: Rash Assessment and Plan (1) COPD exacerbation Status: Acute (2) Anemia Status: Acute (3) CAD (coronary artery disease) Status: Acute (4) CHF exacerbation Status: Acute (5) Chronic respiratory failure with hypoxia Status: Acute (6) ESRD (end stage renal disease) on dialysis Status: Acute (7) Hypertension Status: Acute (8) Pleural effusion Status: Acute (9) Pneumonia Status: Acute (10) Failed kidney transplant Status: Chronic - Assessment and Plan (Free Text) Assessment: RESP STATUS COMFORTABLE AT REST. TOLERATING STEROID TAPER, CHANGE PO PRED. CONT NEB BD, ADVAIR AND SINGULAIR., CXR REVIEWED. AFEBRILE ON AB. HD TODAY. DISCUSSED WITH STAFF AT LENGTH.
--- NOTE | 2018-09-10 05:03 | DS ---
HOSPITAL COURSE: A 57-year-old female with a history of previous aortic valve replacement, CABG, chronic kidney disease on hemodialysis, previous renal transplant failure, COPD, was brought in with exacerbation of COPD and mild CHF. She had more intensive dialysis done. IV antibiotics given. Nebulizer treatment and antibiotic. During hospitalization, she was followed up closely by Dr. Harper and Dr. Joe. She has improved now. She is stable. Chest x-ray shows improvement in congestion. Lungs are clear. At this point, she will be discharged to be followed as an outpatient with Dr. Joe. The patient's echocardiogram had shown normal LV systolic function and normal functioning aortic valve. No further intervention cardiac yates is needed. She will follow up with Dr. Joe. Continue with the nebulizer treatment at home. FINAL DIAGNOSES: 1. Exacerbation of chronic obstructive pulmonary disease. 2. Mild congestive heart failure, status post aortic valve replacement. 3. Hypertension. 4. Chronic kidney disease. Brian Lyn MD
--- NOTE | 2018-09-10 10:14 | PCM.HF ---
Heart Failure Core Measure - Heart Failure Ejection Fraction: 40 % or Greater CHEN Inhibitor Prescribed: No Contraindication/Reason for not providing: EF>45 Beta-Derian Prescribed: None Contraindication/Reason for not providing: copd Angiotensin II Receptor Derian Prescribed: No Contraindication/Reason for not providing: ef>45 AnticoagulationTherapy for Atrial Fibrillation/Atrialflutter: No Contraindication/Reason for not providing: no hx of a fib Aldosterone Antagonist Prescribed: No Contraindication/Reason for not providing: ef>45 Hydralazine Nitrate Prescribed: No Contraindication/Reason for not providing: ef>45 Implantable Cardioverter Defibrillator Therapy: No Contraindication/Reason for not providing: EFA.45 Cardiac Resynchronization Therapy Prescribed: No Contraindication/Reason for not providing: EF>45 - Follow up Will be discharged to: Home Follow Up Date (must be within 7 days from discharge): 09/12/18 Follow Up Time: 16:00
== END 2018-09-09 16:20 | disposition home or self-care (01) | DRG 190 ==
LOC: C.ER 17:30 → C.9E 20:30 → C.6T 21:43 → OBSVTOIN 09-02 18:05
PROVIDERS: ADMIT Internal Medicine Cardiovascular Disease; ATTEND Internal Medicine Cardiovascular Disease
PROC: 5A1D70Z Performance of Urinary Filtration, Intermittent, Less than 6 Hours Per Day (ICD-10-PCS; principal; 2018-09-02)
PROC: 5A1D70Z Performance of Urinary Filtration, Intermittent, Less than 6 Hours Per Day (ICD-10-PCS; 2018-09-05)
PROC: 5A1D70Z Performance of Urinary Filtration, Intermittent, Less than 6 Hours Per Day (ICD-10-PCS; 2018-09-06)
PROC: 5A1D70Z Performance of Urinary Filtration, Intermittent, Less than 6 Hours Per Day (ICD-10-PCS; 2018-09-09)
DX: J44.1 Chronic obstructive pulmonary disease with (acute) exacerbation (principal); J44.0 Chronic obstructive pulmonary disease with (acute) lower respiratory infection; J18.9 Pneumonia, unspecified organism; N18.6 End stage renal disease; J96.11 Chronic respiratory failure with hypoxia; I13.2 Hypertensive heart and chronic kidney disease with heart failure and with stage 5 chronic kidney disease, or end stage renal disease; T86.12 Kidney transplant failure; J90 Pleural effusion, not elsewhere classified; I50.9 Heart failure, unspecified; D64.9 Anemia, unspecified; I25.10 Atherosclerotic heart disease of native coronary artery without angina pectoris; I27.20 Pulmonary hypertension, unspecified; E89.0 Postprocedural hypothyroidism; E78.00 Pure hypercholesterolemia, unspecified; J06.9 Acute upper respiratory infection, unspecified; K59.00 Constipation, unspecified; Y83.0 Surgical operation with transplant of whole organ as the cause of abnormal reaction of the patient, or of later complication, without mention of misadventure at the time of the procedure; Z95.1 Presence of aortocoronary bypass graft; Z95.3 Presence of xenogenic heart valve; Z99.81 Dependence on supplemental oxygen; Z99.2 Dependence on renal dialysis; Z87.891 Personal history of nicotine dependence; Z87.01 Personal history of pneumonia (recurrent)

== ENCOUNTER 2018-09-11 15:05 | Inpatient (IN) | payer MEDICARE, MEDICAID ==
[2018-09-11 15:05] VITALS: BMI 20.9
[2018-09-11] MEDS ORDERED: Albuterol-Ipratrop 3 mg / 0.5 (3 ml) UD INH STA ×3 (15:44→15:45)
[2018-09-11] MEDS ORDERED: Albuterol-Ipratrop 3 mg / 0.5 (3 ml) UD ONE ×2 (16:00→16:05)
[2018-09-11] MEDS ORDERED: Magnesium Sulfate 1 gm in D5W 2 GM/200 ML BAG IVPB ONE (16:00)
[2018-09-11 16:07] LABS: BASO % 0.3 % (0.0-2.0); EOS # 0.1 K/uL (0.0-0.7); EOS % 1.1 % (0.0-4.0); HEMOGLOBIN 13.7 g/dL (11.0-16.0); LYMPH # 0.5 K/uL (1.0-4.3); LYMPH % 6.2 % (20.0-40.0); MEAN CORPUSCULAR HEMOGLOBIN 33.4 pg (27.0-31.0); MEAN CORPUSCULAR HGB CONC 33.4 g/dL (33.0-37.0); MEAN PLATELET VOLUME 7.7 fL (7.2-11.7); MONO # 0.8 K/uL (0.0-0.8); MONO % 11.4 % (0.0-10.0); NEUT # 5.9 K/uL (1.8-7.0); PLATELET COUNT 189 K/uL (130-400); RED CELL DISTRIBUTION WIDTH 15.5 % (11.5-14.5); WHITE BLOOD COUNT 7.3 K/uL (4.8-10.8)
[2018-09-11] MEDS: Magnesium Sulfate 1 gm in D5W 1 GM/100 ML BAG IVPB SCH ×2 (16:10→16:30)
[2018-09-11 17:34] LABS: ALB/GLOB RATIO 1.5 (1.0-2.1); ALBUMIN 4.2 g/dL (3.5-5.0); CALCIUM 8.6 mg/dl (8.6-10.4)
[2018-09-11 17:57] LABS: LYMPHOCYTE 7 % (20-40); MONOCYTE 6 % (0-10); NEUTROPHIL 87 % (50-75); PLATELET ESTIMATE NORMAL (NORMAL); TOTAL CELLS COUNTED 100
[2018-09-11 18:05] LABS: TROPONIN I 0.066 ng/mL (0.00-0.120)
[2018-09-11] MEDS ORDERED: cefTRIAXone IV 1 gm in Dextros 50 ML IVPB STA (18:16)
--- NOTE | 2018-09-11 18:19 | C.PDOC ---
History Of Present Illness 57 year old female presents to ED with complaint of persistent productive cough, congestion, and fever. Patient had a fever of 101 at home. Patient was recently discharged from hospital for similar symptoms and her symptoms have gotten worse since being discharged. Patient has a PMHx of ESRD. Patient went to dialysis 2 days ago and received full treatment with no complications. Her next dialysis treatment is tomorrow. Patient denies chest pain and abdominal pain. Chief Complaint (Nursing): Cough, Cold, Congestion History Per: Patient History/Exam Limitations: no limitations Onset/Duration Of Symptoms: Persistent Current Symptoms Are (Timing): Still Present Associated Symptoms: Fever, Cough, Sputum, Nasal Congestion Past Medical History Reviewed: Historical Data, Nursing Documentation, Vital Signs Vital Signs: Last Vital Signs Temp 98.7 F 09/11/18 16:30 Pulse 112 H 09/11/18 16:30 Resp 18 09/11/18 16:30 BP 111/66 09/11/18 16:30 Pulse Ox 92 L 09/11/18 16:30 - Medical History PMH: Anemia, CAD (double bypass, replacement valve), CHF, COPD, HTN, Hypercholesterolemia, Hypothyroidism (thyroidectomy), Pneumonia, End Stage Renal Disease, Chronic Kidney Disease Denies: Sleep Apnea Surgical History: CABG (S/P AVR) - [facility] (07/08/18) CORONAR ARTERIOGR-2 CATH (02/20/04) HEMODIALYSIS (07/13/13) INCIS W REM OF FORIEGN BODY OR DEV FROM SKIN & SUBCUT TISSUE (12/24/12) LEFT HEART CARDIAC CATH (02/20/04) LT HEART ANGIOCARDIOGRAM (02/20/04) Family History: States: Unknown Family Hx - Social History Hx Tobacco Use: No Hx Alcohol Use: No Hx Substance Use: No - Immunization History Hx Tetanus Toxoid Vaccination: Yes Hx Influenza Vaccination: Yes Hx Pneumococcal Vaccination: Yes Review Of Systems Constitutional: Positive for: Fever. Negative for: Chills, Weakness ENT: Positive for: Nose Congestion Cardiovascular: Negative for: Chest Pain Respiratory: Positive for: Cough, Sputum Gastrointestinal: Negative for: Nausea, Vomiting, Abdominal Pain, Diarrhea Neurological: Negative for: Weakness, Numbness, Headache, Dizziness Physical Exam - Physical Exam Appears: Other (mild distress) Skin: Normal Color, Warm, Dry Head: Atraumatic, Normacephalic Neck: Normal ROM, Supple Chest: Symmetrical, No Deformity Cardiovascular: Murmur (systolic ) Respiratory: Rhonchi (bilaterally), Wheezing (expiratory) Gastrointestinal/Abdominal: Soft, No Tenderness Extremity: Normal ROM, No Other (peripheral edema) Neurological/Psych: Oriented x3, Normal Speech, Normal Cognition ED Course And Treatment - Laboratory Results Result Diagrams: 09/11/18 15:58 09/11/18 16:57 Lab Results: Troponin I 0.0660 ng/mL (0.00-0.120) 09/11/18 17:42 NT-Pro-B Natriuret Pep 78352 pg/mL (0-900) H 09/11/18 17:42 Total Bilirubin 0.6 mg/dL (0.2-1.3) 09/11/18 16:57 AST 25 U/L (14-36) 09/11/18 16:57 ALT 29 U/L (9-52) 09/11/18 16:57 Alkaline Phosphatase 109 U/L (38-126) 09/11/18 16:57 Total Protein 7.1 g/dL (6.3-8.3) 09/11/18 16:57 Albumin 4.2 g/dL (3.5-5.0) 09/11/18 16:57 Globulin 2.9 gm/dL (2.2-3.9) 09/11/18 16:57 Albumin/Globulin Ratio 1.5 (1.0-2.1) 09/11/18 16:57 ECG: Interpreted By Me, Viewed By Me ECG Rhythm: Sinus Tachycardia, PVC Rate From EC O2 Sat by Pulse Oximetry: 92 (RA) Medical Decision Making Medical Decision Making: Impression: 57 year old with cough, congestion, and fever Plan: EKG and CXR ordered for patient Labs ordered with blood culture and flu a/b Patient given Duoneb INH, Magnesium sulfate IVPB, Tamiflu PO, solu-medrol IVP, Tylenol PO, and Rociphin IVPB Disposition - Disposition Disposition Time: 18:00 Condition: FAIR - Clinical Impression Clinical Impression: COPD exacerbation, ESRD (end stage renal disease) on dialysis, Influenza A - Scribe Statement The provider has reviewed the documentation as recorded by the Scribe (Nithya Verduzco) All medical record entries made by the Scribe were at my direction and personally dictated by me. I have reviewed the chart and agree that the record accurately reflects my personal performance of the history, physical exam, medical decision making, and the department course for this patient. I have also personally directed, reviewed, and agree with the discharge instructions and disposition.
--- NOTE | 2018-09-11 18:22 | RAD ---
Date of service: 09/11/2018 PROCEDURE: CHEST RADIOGRAPH, 1 VIEW HISTORY: cough r/o infiltrate COMPARISON: 09/07/2018 FINDINGS: LUNGS: Patchy opacity at right base. Possible pneumonia versus atelectasis. Linear scar/atelectasis at left base. PLEURA: Minimal blunting of both costophrenic angles. Possible small pleural effusions. No pneumothorax. CARDIOVASCULAR: Atherosclerotic calcification noted at the aortic arch. There is a left subclavian/axillary vascular stent. No congestive change. OSSEOUS STRUCTURES: No significant abnormalities. VISUALIZED UPPER ABDOMEN: Normal. OTHER FINDINGS: None. IMPRESSION: Possible small bilateral pleural effusion. Patchy opacity at right base may reflect infiltrate or atelectasis.
[2018-09-11] MEDS ORDERED: [UNRECOGNIZED DRUG - OTHER] INH PRN (20:00)
[2018-09-11] MEDS ORDERED: Levothyroxine 125 MCG TAB PO SCH (20:00)
[2018-09-11] MEDS ORDERED: UMECLIDINIUM INH PRN (20:00)
[2018-09-11] MEDS ORDERED: Lactulose 10 gm/15 ml (Rectal Use) PR PRN ×2 (20:00→21:00)
[2018-09-11] MEDS ORDERED: VILANTEROL INH PRN (20:00)
[2018-09-11] MEDS: MethylPREDNISolone 40 mg Vial IVP SCH (21:12)
[2018-09-12] MEDS: MethylPREDNISolone 40 mg Vial IVP SCH ×3 (05:16→21:25)
[2018-09-12] MEDS: Levothyroxine 125 MCG TAB PO SCH (06:12)
[2018-09-12] MEDS: Fluticasone-Vilanterol 100/25mcg Diskus INH SCH (09:09)
[2018-09-12] MEDS: Albuterol-Ipratrop 3 mg / 0.5 (3 ml) UD INH SCH ×4 (09:09→19:14)
[2018-09-12] MEDS: Pantoprazole 40 mg EC Tab PO SCH (09:30)
--- NOTE | 2018-09-12 11:29 | CARD ---
APPROVED REPORT Date of service: 09/11/2018 EKG Measurement Heart [id number] <Conclusion> Sinus tachycardia with frequent premature ventricular complexes Possible Left atrial enlargement Borderline ECG
--- NOTE | 2018-09-13 00:26 | HP ---
HISTORY OF PRESENT ILLNESS: This is a 57-year-old female with a history of COPD, on home oxygen, CAD, previous CABG, and bioprosthetic aortic valve, status post renal transplant failed, currently on hemodialysis, being followed by Dr. Harper. Pulmonary yates, she has been seen by Dr. Joe, and followed by her. She was recently admitted with exacerbation of COPD and mild CHF. Got better after IV antibiotic, nebulizer treatment, pulmonary toilet, and intensive dialysis. Since discharge for past 2 days, she again spiked temperature, came to the ER because of the severe body pain and then she was positive for flu being admitted. Chest x-ray again showed some chronic changes, nothing acute. PERSONAL HISTORY: Does not smoke. Does not drink. ALLERGIES: DENIED. PAST MEDICAL HISTORY: Admitted on multiple occasions for COPD, CABG in 2007 with valve replacement, repeat catheterization done about a year ago had showed normal functioning valve and a patent EDWARDS. MEDICATIONS AT HOME: Include calcium acetate, Coreg, multivitamins, Renvela, Nexium, and Synthroid 125 mcg. FAMILY HISTORY: Negative for premature coronary artery disease. REVIEW OF SYSTEMS: Generalized weakness, more so in the past couple of days. Fever. Productive cough, greenish phlegm. Denies any chest pains except when she cough, shortness of breath even at rest. No hematemesis. No melena. No hemoptysis. Musculoskeletal pain all over. Cardiacwise, denies any palpitations. Sleeps on two pillows. Recently admitted about couple of months ago with worsening of the CHF, got better with intensive dialysis. Walks around with a walker at times. Neurologically, no TIAs, no CVAs. : On hemodialysis. Psych: History of mild depression. MS arthritis involving multiple joints of the knees and the back. PHYSICAL EXAMINATION: GENERAL: Shows middle-aged female, chronically sick looking, and also acutely sick looking, in no acute distress. VITAL SIGNS: Blood pressure is 138/80, heart rate of 106, sinus on the telemetry, respiratory rate of 30, temperature of 102.1. HEENT: Head is normocephalic. Eyes: No pallor, no icterus. No exudates. Upper dentures. NECK: Supple. LUNGS: Shows diffuse thrill and expiratory wheeze. HEART: Sounds are distant and no definite gallops. Grade 2/6 to 3/6 systolic ejection murmur in aortic area. ABDOMEN: Soft. EXTREMITIES: No cyanosis, clubbing, or edema. Distal pulses are intact. NEUROLOGIC: Awake, alert, oriented x3. SKIN: Scar of previous CABG, shunt in the left thumb, thyroid surgery in the neck. LABORATORY DATA: Labs are pending. EKG showed sinus rhythm, occasional PVCs. Chest x-ray as mentioned, chronic congestion. ASSESSMENT: This is a 57-year-old female with a history of chronic obstructive pulmonary disease with acute exacerbation, flu, possible superficial bacterial infection. PLAN: IV antibiotics, Tamiflu, IV steroids, nebulizer treatment. Pulmonary followup with Dr. Joe and nephro followup with Dr. Harper. Prognosis is guarded. Brian Lyn MD
[2018-09-13] MEDS: MethylPREDNISolone 40 mg Vial IVP SCH ×3 (05:44→22:43)
[2018-09-13] MEDS: Levothyroxine 125 MCG TAB PO SCH (05:44)
[2018-09-13] MEDS: Fluticasone-Vilanterol 100/25mcg Diskus INH SCH (08:32)
[2018-09-13] MEDS: Albuterol-Ipratrop 3 mg / 0.5 (3 ml) UD INH SCH ×4 (08:32→19:09)
[2018-09-13 09:10] LABS: BASO % 0.1 % (0.0-2.0); HEMOGLOBIN 12.8 g/dL (11.0-16.0); LYMPH # 0.2 K/uL (1.0-4.3); LYMPH % 2.3 % (20.0-40.0); MEAN CELL VOLUME 100.6 fL (81.0-99.0); MEAN CORPUSCULAR HEMOGLOBIN 33.6 pg (27.0-31.0); MEAN CORPUSCULAR HGB CONC 33.4 g/dL (33.0-37.0); MONO # 0.6 K/uL (0.0-0.8); NEUT # 8.9 K/uL (1.8-7.0); NEUT % 91.6 % (50.0-75.0); PLATELET COUNT 182 K/uL (130-400); RED CELL DISTRIBUTION WIDTH 15.4 % (11.5-14.5); WHITE BLOOD COUNT 9.7 K/uL (4.8-10.8)
[2018-09-13] MEDS: Pantoprazole 40 mg EC Tab PO SCH (09:16)
[2018-09-13 09:22] LABS: ALB/GLOB RATIO 1.4 (1.0-2.1); ALBUMIN 4.3 g/dL (3.5-5.0); CALCIUM 8.9 mg/dl (8.6-10.4)
[2018-09-13 09:49] LABS: BANDS 1 % (0-2); BASOPHIL 1 % (0-2); LYMPHOCYTE 2 % (20-40); MONOCYTE 2 % (0-10); NEUTROPHIL 94 % (50-75); PLATELET ESTIMATE NORMAL (NORMAL); TOTAL CELLS COUNTED 100
--- NOTE | 2018-09-13 18:13 | CON ---
DATE: 09/13/2018 ATTENDING PHYSICIAN: Brian Lyn MD HISTORY OF PRESENT ILLNESS: Ms. Kruger is a 58-year-old lady who is being seen for management of dialysis-dependent renal failure. Ms. Kruger has a history of end-stage renal disease, status post kidney transplant x2, both failed, the last one was removed. She was recently admitted to [facility] and has had a persistent cough with no hemoptysis. She had a fever of 101, came to the emergency room and was admitted. On the , her white count was 7300 and hematocrit was 13.7. Her sodium 135, potassium 4.4, chloride 96, CO2 of 21, BUN 108, and creatinine 9.7, and calcium 8.6. Troponin of 0.06. BNP 17,400. Albumin of 2.9 and her influenza antigen was positive. Chest x-ray showed possible small bilateral pleural effusions and patchy opacity at the right base, which could represent an infiltrate or atelectasis. PAST HISTORY: Please see the above. She has a history of coronary artery disease post bypass and replacement of a valve, congestive heart failure, COPD, hypertension, had a thyroidectomy, an aortic valve. She has been admitted multiple times at [facility]. FAMILY HISTORY: She has a cousin on dialysis, hypertension and diabetes. SOCIAL HISTORY: Negative for alcohol or drug abuse. She does not smoke. REVIEW OF SYSTEMS: Please see the above. She denies chest pain without cough, shortness of breath is unchanged. There is no abdominal pain, nausea, vomiting or diarrhea, and she is anuric. She had chills last evening. ALLERGIES: SHE HAS NO ALLERGIES. MEDICATIONS: Include albuterol, Elavil, aspirin, PhosLo, , Levoxyl, methylprednisolone, Tamiflu, Protonix, Crestor, Renvela, Carafate, Tessalon Perles. PHYSICAL EXAMINATION: GENERAL: She was awake and alert in no acute distress with paroxysms of cough. VITAL SIGNS: Her pulse was 85. Her blood pressure was 112/69. Her temperature was 98.1. NECK: There was no jugular venous distention from below at 30 degrees. LUNGS: Clear with prolonged inspiration and expiration. HEART: Rhythm was regular with a grade 2 to 3/6 systolic ejection murmur throughout. ABDOMEN: Soft, nontender, and distended. There was no definite hepatomegaly. There was no CVA tenderness or presacral edema. EXTREMITIES: Her fistula was patent in the arm and she moved all her extremities. IMPRESSION: End-stage renal disease, dialysis dependent, failed kidney transplant x2, chronic obstructive pulmonary disease, pneumonia, flu, history of coronary artery disease, aortic valve replacement , and congestive heart failure. We would recommend agree with antibiotics and Tamiflu. We will schedule dialysis on 09/14 with mild ultrafiltration, await further pulmonary treatment and evaluation. Thank you for your kind referral. We will continue to follow with you. Sincerely, Jonathan Natarajan MD
--- NOTE | 2018-09-13 20:52 | CP.PCM.PN ---
Subjective - Date & Time of Evaluation Date of Evaluation: 09/13/18 Time of Evaluation: 20:51 - Subjective Subjective: same.sob & cough ++. Objective - Vital Signs/Intake and Output Vital Signs (last 24 hours): Temp Pulse Resp BP Pulse Ox 98.3 F 83 20 98/55 L 97 09/13/18 15:00 09/13/18 15:00 09/13/18 15:00 09/13/18 15:00 09/13/18 15:00 - Medications Medications: Current Medications Albuterol/Ipratropium (Duoneb 3 Mg/0.5 Mg (3 Ml) Ud) 3 ml INH RQID [facility] Last Admin: 09/13/18 19:09 Dose: 3 ml Amitriptyline HCl (Elavil) 25 mg PO HS [facility] Last Admin: 09/13/18 01:01 Dose: Not Given Aspirin (Aspirin Chewable) 81 mg PO TTS [facility] Last Admin: 09/13/18 09:16 Dose: 81 mg Calcium Acetate (Phoslo) 667 mg PO TIDCC [facility] Last Admin: 09/13/18 17:51 Dose: 667 mg Fluticasone/Vilanterol (Breo Ellipta 100-25 Mcg Inh) 1 puff INH RQD [facility] Last Admin: 09/13/18 08:32 Dose: Not Given Ceftriaxone Sodium 1 gm/ (Sodium Chloride) 100 mls @ 100 mls/hr IVPB DAILY [facility]; Protocol Last Admin: 09/13/18 09:16 Dose: 100 mls/hr Lactulose (Generlac) 200 gm SD DAILY PRN PRN Reason: Constipation Levothyroxine Sodium (Synthroid) 125 mcg PO DAILY@0630 [facility] Last Admin: 09/13/18 05:44 Dose: 125 mcg Methylprednisolone (Solu-Medrol) 40 mg IVP Q8 [facility] Last Admin: 09/13/18 13:11 Dose: 40 mg Oseltamivir Phosphate (Tamiflu Susp) 30 mg PO DAILY [facility]; Protocol Stop: 09/16/18 10:01 Pantoprazole Sodium (Protonix Ec Tab) 40 mg PO DAILY [facility] Last Admin: 09/13/18 09:16 Dose: 40 mg Rosuvastatin Calcium (Crestor) 5 mg PO HS [facility] Last Admin: 09/12/18 21:24 Dose: 5 mg Sevelamer Carbonate (Renvela) 800 mg PO TIDCC [facility] Last Admin: 09/13/18 17:51 Dose: 800 mg Sucralfate (Carafate Tab) 1 gm PO Q6 [facility] Last Admin: 09/13/18 17:50 Dose: 1 gm - Labs Labs: 09/13/18 08:16 09/13/18 08:16 - Constitutional Appears: No Acute Distress, Chronically Ill - Head Exam Head Exam: NORMOCEPHALIC - Respiratory Exam Respiratory Exam: Rhonchi, Wheezes - Cardiovascular Exam Cardiovascular Exam: REGULAR RHYTHM, Murmur - GI/Abdominal Exam GI & Abdominal Exam: Soft - Neurological Exam Neurological Exam: Alert, Oriented x3 Assessment and Plan - Assessment and Plan (Free Text) Plan: copd,flu.await pulmonary input.recalled.
[2018-09-14] MEDS: MethylPREDNISolone 40 mg Vial IVP SCH ×3 (06:20→22:46)
[2018-09-14] MEDS: Levothyroxine 125 MCG TAB PO SCH (06:21)
[2018-09-14] MEDS: Albuterol-Ipratrop 3 mg / 0.5 (3 ml) UD INH SCH ×4 (07:44→20:19)
[2018-09-14] MEDS: Fluticasone-Vilanterol 100/25mcg Diskus INH SCH (07:44)
--- NOTE | 2018-09-14 08:19 | CP.PCM.PN ---
Subjective - Date & Time of Evaluation Date of Evaluation: 09/14/18 Time of Evaluation: 08:16 - Subjective Subjective: still with congestion can't cough it up pain in right lower quandrant of abdome no palpitations no nausea no vomiting no rash no headache no fever no paresthesias Objective - Vital Signs/Intake and Output Vital Signs (last 24 hours): Temp Pulse Resp BP Pulse Ox 98.3 F 79 20 98/55 L 97 09/13/18 15:00 09/14/18 07:42 09/13/18 15:00 09/13/18 15:00 09/13/18 15:00 - Medications Medications: Current Medications Albuterol/Ipratropium (Duoneb 3 Mg/0.5 Mg (3 Ml) Ud) 3 ml INH RQID [facility] Last Admin: 09/14/18 07:44 Dose: 3 ml Amitriptyline HCl (Elavil) 25 mg PO HS [facility] Last Admin: 09/13/18 22:42 Dose: 25 mg Aspirin (Aspirin Chewable) 81 mg PO TTS [facility] Last Admin: 09/13/18 09:16 Dose: 81 mg Calcium Acetate (Phoslo) 667 mg PO TIDCC [facility] Last Admin: 09/13/18 17:51 Dose: 667 mg Fluticasone/Vilanterol (Breo Ellipta 100-25 Mcg Inh) 1 puff INH RQD [facility] Last Admin: 09/14/18 07:44 Dose: Not Given Ceftriaxone Sodium 1 gm/ (Sodium Chloride) 100 mls @ 100 mls/hr IVPB DAILY [facility]; Protocol Last Admin: 09/13/18 09:16 Dose: 100 mls/hr Lactulose (Generlac) 200 gm [place] DAILY PRN PRN Reason: Constipation Levothyroxine Sodium (Synthroid) 125 mcg PO DAILY@0630 [facility] Last Admin: 09/14/18 06:21 Dose: 125 mcg Methylprednisolone (Solu-Medrol) 40 mg IVP Q8 [facility] Last Admin: 09/14/18 06:20 Dose: 40 mg Oseltamivir Phosphate (Tamiflu Susp) 30 mg PO DAILY [facility]; Protocol Stop: 09/16/18 10:01 Pantoprazole Sodium (Protonix Ec Tab) 40 mg PO DAILY [facility] Last Admin: 09/13/18 09:16 Dose: 40 mg Rosuvastatin Calcium (Crestor) 5 mg PO HS [facility] Last Admin: 09/13/18 22:42 Dose: 5 mg Sevelamer Carbonate (Renvela) 800 mg PO TIDCC [facility] Last Admin: 09/13/18 17:51 Dose: 800 mg Sucralfate (Carafate Tab) 1 gm PO Q6 [facility] Last Admin: 09/14/18 06:21 Dose: 1 gm - Labs Labs: 09/13/18 08:16 09/13/18 08:16 - Constitutional Appears: In Acute Distress, Chronically Ill - Head Exam Head Exam: ATRAUMATIC, NORMAL INSPECTION - Eye Exam Eye Exam: EOMI, Normal appearance - ENT Exam ENT Exam: Mucous Membranes Moist - Neck Exam Neck Exam: Full ROM. absent: Lymphadenopathy - Respiratory Exam Respiratory Exam: Decreased Breath Sounds, Rhonchi Additional comments: poor inspiratory effort - Cardiovascular Exam Cardiovascular Exam: REGULAR RHYTHM. absent: Rubs - GI/Abdominal Exam GI & Abdominal Exam: Soft, Tenderness. absent: Guarding, Rebound - Neurological Exam Neurological Exam: Alert, Awake Assessment and Plan - Assessment and Plan (Free Text) Plan: HD today AB for pneumonia Pulmonary w/u US of abdomen,probable MS pain
--- NOTE | 2018-09-14 09:11 | CP.PCM.CON ---
History of Present Illness - History of Present Illness History of Present Illness: CHART REVIEWED, PT SEEN AND EXAMINED. 57 YO HISP FEMALE WITH A HX COPD, CHRONIC RESP FAILURE ON HOME O2 2L., CAD, S/P AVR, HTN, HYPOTH,ESRD ON HD, S/P FAILED KIDNEY TRANSPLANT X2, ADM WITH INCREASED MOD SOB AT REST X 1 DAY., +COUGH, NO SPUTUM +WHEEZE, +FEVER. NO N/V. S/P RECENT D/C 3 DAYS AGO ON PO PRED TAPER. HAD FLU VACCINE. Review of Systems - Review of Systems All systems: reviewed and no additional remarkable complaints except - Constitutional Constitutional: Chills, Fever, Weakness - EENT Eyes: absent: Change in Vision Ears: absent: Dizziness Nose/Mouth/Throat: absent: Nasal Congestion - Cardiovascular Cardiovascular: absent: Chest Pain - Respiratory Respiratory: Cough, Dyspnea, Dyspnea on Exertion, Wheezing - Gastrointestinal Gastrointestinal: absent: Diarrhea, Nausea, Vomiting - Genitourinary Genitourinary: absent: Dysuria - Musculoskeletal Musculoskeletal: absent: Limited Range of Motion - Integumentary Integumentary: absent: Rash - Neurological Neurological: absent: Confusion, Focal Weakness - Psychiatric Psychiatric: absent: Change in Appetite - Endocrine Endocrine: absent: Change in Body Appearance - Hematologic/Lymphatic Hematologic: absent: Easy Bruising Past Patient History - Past Medical History & Family History Past Medical History?: Yes Past Family History: Reviewed and not pertinent - Past Social History Smoking Status: Former Smoker Chewing Tobacco Use: No Cigar Use: No Alcohol: None Drugs: Denies - CARDIAC Hx Congestive Heart Failure: Yes Hx Hypercholesterolemia: Yes Hx Hypertension: Yes - PULMONARY Hx Respiratory Disorders: Yes Hx Chronic Obstructive Pulmonary Disease (COPD): Yes Hx Pneumonia: Yes Hx Respiratory Tract Infection: Yes - NEUROLOGICAL Hx Neurological Disorder: No - HEENT Hx HEENT Problems: No - RENAL Hx Chronic Kidney Disease: Yes Hx Dialysis: Yes Date of Last Dialysis Treatment: 09/09/18 - ENDOCRINE/METABOLIC Hx Hypothyroidism: Yes - HEMATOLOGICAL/ONCOLOGICAL Hx Anemia: Yes - INTEGUMENTARY Hx Dermatological Problems: No - MUSCULOSKELETAL/RHEUMATOLOGICAL Hx Musculoskeletal Disorders: Yes Hx Back Pain: Yes Hx Falls: Yes (yrs ago) - GASTROINTESTINAL Hx Gastrointestinal Disorders: Yes Other/Comment: Hiatal Hernia - GENITOURINARY/GYNECOLOGICAL Hx Genitourinary Disorders: Yes Other/Comment: S/P KIDNEY TRANSPLANT. S/P TRANSPLANT REMOVAL - PSYCHIATRIC Hx Psychophysiologic Disorder: No Hx Substance Use: No - SURGICAL HISTORY Hx Surgeries: Yes Hx Coronary Artery Bypass Graft: Yes (S/P AVR) Hx Kidney Transplant: Yes Hx Open Heart Surgery: Yes - ANESTHESIA Hx Anesthesia: Yes Hx Anesthesia Reactions: No Hx Malignant Hyperthermia: No Meds Allergies/Adverse Reactions: Allergies Allergy/AdvReac Type Severity Reaction Status Date / Time No Known Allergies Allergy Verified 09/11/18 15:18 - Medications Medications: Current Medications Albuterol/Ipratropium (Duoneb 3 Mg/0.5 Mg (3 Ml) Ud) 3 ml INH RQID [facility] Last Admin: 09/14/18 07:44 Dose: 3 ml Amitriptyline HCl (Elavil) 25 mg PO HS [facility] Last Admin: 09/13/18 22:42 Dose: 25 mg Aspirin (Aspirin Chewable) 81 mg PO TTS [facility] Last Admin: 09/13/18 09:16 Dose: 81 mg Calcium Acetate (Phoslo) 667 mg PO TIDCC [facility] Last Admin: 09/14/18 08:58 Dose: Not Given Fluticasone/Vilanterol (Breo Ellipta 100-25 Mcg Inh) 1 puff INH RQD [facility] Last Admin: 09/14/18 07:44 Dose: Not Given Guaifenesin (Mucinex La) 600 mg PO BID [facility] Ceftriaxone Sodium 1 gm/ (Sodium Chloride) 100 mls @ 100 mls/hr IVPB DAILY [facility]; Protocol Last Admin: 09/13/18 09:16 Dose: 100 mls/hr Lactulose (Generlac) 200 gm [place] DAILY PRN PRN Reason: Constipation Levothyroxine Sodium (Synthroid) 125 mcg PO DAILY@0630 [facility] Last Admin: 09/14/18 06:21 Dose: 125 mcg Methylprednisolone (Solu-Medrol) 40 mg IVP Q8 [facility] Last Admin: 09/14/18 06:20 Dose: 40 mg Oseltamivir Phosphate (Tamiflu Susp) 30 mg PO DAILY [facility]; Protocol Stop: 09/16/18 10:01 Pantoprazole Sodium (Protonix Ec Tab) 40 mg PO DAILY [facility] Last Admin: 09/13/18 09:16 Dose: 40 mg Rosuvastatin Calcium (Crestor) 5 mg PO HS [facility] Last Admin: 09/13/18 22:42 Dose: 5 mg Sevelamer Carbonate (Renvela) 800 mg PO TIDCC [facility] Last Admin: 09/14/18 08:58 Dose: Not Given Sucralfate (Carafate Tab) 1 gm PO Q6 [facility] Last Admin: 09/14/18 06:21 Dose: 1 gm Physical Exam - Constitutional Appears: Chronically Ill - Head Exam Head Exam: ATRAUMATIC, NORMOCEPHALIC - Eye Exam Eye Exam: EOMI, Normal appearance - ENT Exam ENT Exam: Mucous Membranes Moist - Neck Exam Neck exam: Positive for: Normal Inspection - Respiratory Exam Respiratory Exam: Prolonged Expiratory Phase, Wheezes. absent: Accessory Muscle Use - Cardiovascular Exam Cardiovascular Exam: RRR, +S1, +S2 - GI/Abdominal Exam GI & Abdominal Exam: Soft. absent: Tenderness - Rectal Exam Rectal Exam: Deferred - Extremities Exam Extremities exam: Negative for: calf tenderness, pedal edema - Back Exam Back exam: absent: CVA tenderness (L), CVA tenderness (R) - Neurological Exam Neurological exam: Alert, CN II-XII Intact, Oriented x3 - Psychiatric Exam Psychiatric exam: Normal Mood Results - Vital Signs Recent Vital Signs: Last Vital Signs Temp 97.7 F 09/14/18 08:44 Pulse 79 09/14/18 08:44 Resp 20 09/14/18 08:44 BP 103/66 09/14/18 08:44 Pulse Ox 95 09/14/18 08:44 - Labs Result Diagrams: 09/13/18 08:16 09/13/18 08:16 Labs: Laboratory Results - last 24 hr 09/13/18 09/13/18 08:16 08:16 WBC 9.7 RBC 3.80 Hgb 12.8 Hct 38.2 MCV 100.6 H MCH 33.6 H MCHC 33.4 RDW 15.4 H Plt Count 182 MPV 8.0 Neut % (Auto) 91.6 H Lymph % (Auto) 2.3 L Rankin % (Auto) 6.0 Eos % (Auto) 0.0 Baso % (Auto) 0.1 Neut # (Auto) 8.9 H Lymph # (Auto) 0.2 L Rankin # (Auto) 0.6 Eos # (Auto) 0.0 Baso # (Auto) 0.0 Neutrophils % (Manual) 94 H Band Neutrophils % 1 Lymphocytes % (Manual) 2 L Monocytes % (Manual) 2 Basophils % (Manual) 1 Platelet Estimate Normal Sodium 137 Potassium 4.0 Chloride 97 L Carbon Dioxide 26 Anion Gap 19 BUN 77 H Creatinine 7.7 H* D Est GFR ( Amer) 7 Est GFR (Non-Af Amer) 5 Random Glucose 111 H D Calcium 8.9 Total Bilirubin 0.5 AST 40 H D ALT 24 Alkaline Phosphatase 110 Total Protein 7.4 Albumin 4.3 Globulin 3.1 Albumin/Globulin Ratio 1.4 Assessment & Plan (1) Hypothyroid Status: Acute (2) COPD exacerbation Status: Acute (3) ESRD (end stage renal disease) on dialysis Status: Acute (4) Influenza A Status: Acute (5) Anemia Status: Acute (6) Chronic respiratory failure with hypoxia Status: Acute (7) Hypertension Status: Acute (8) Pneumonia Status: Acute (9) Failed kidney transplant Status: Chronic - Assessment and Plan (Free Text) Assessment: 57 YO FEMALE WITH A HX MULT MED PROBS, ADM WITH EXAC COPD, CHRONIC RESP FAILURE +FLU NOTED., ?RLL PNA. CONT AB AND TAMIFLU. FOR ID EVAL. CONT STEROIDS, NEB BD., ADVAIR, SINGULAIR. MONITOR O2 SAT. CXR REVIEWED. FOR HD PER RENAL. GI/DVT PROPHYLAXIS. DISCUSSED WITH STAFF AT LENGTH.
[2018-09-14] MEDS: Oseltamivir 6 MG/ML PO SCH ×2 (09:17→11:04)
[2018-09-14] MEDS: guaiFENesin 600 mg ER Tab PO SCH ×3 (09:17→19:34)
[2018-09-14] MEDS: Pantoprazole 40 mg EC Tab PO SCH (09:18)
--- NOTE | 2018-09-14 12:10 | US ---
Date of service: 09/14/2018 HISTORY: Abdominal pain COMPARISON: None. TECHNIQUE: Grayscale imaging was performed. FINDINGS: LIVER: Measures 13.8 cm. There is diffuse increased echogenicity of the liver parenchyma. No mass. No intrahepatic bile duct dilatation. GALLBLADDER: Surgically absent. COMMON BILE DUCT: Measures 6.0 mm. No stones. Mild diffuse dilatation likely related to post cholecystectomy status. PANCREAS: Unremarkable as visualized. No mass. No ductal dilatation. RIGHT KIDNEY: Measures 4.1cm. Small atrophic kidney with increased cortical echogenicity. LEFT KIDNEY: Measures 4.3cm. Small atrophic kidney with increased cortical echogenicity. SPLEEN: Normal in size and contour. No mass. AORTA: No aneurysmal dilatation. IVC: Unremarkable. OTHER FINDINGS: There is a right lower quadrant transplant kidney which measures 4.7 x 2.2 x 2.1 cm. There are multiple coarse calcifications in the transplant kidney. IMPRESSION: 1. Small atrophic [place]ik kidneys. 2. Small right lower quadrant transplant kidney which demonstrates multiple coarse calcifications. 3. Fatty liver.
--- NOTE | 2018-09-14 13:30 | CP.PCM.PN ---
Subjective - Date & Time of Evaluation Date of Evaluation: 09/14/18 Time of Evaluation: 13:29 - Subjective Subjective: sob + ,cough++.seen by pul Objective - Vital Signs/Intake and Output Vital Signs (last 24 hours): Temp Pulse Resp BP Pulse Ox 97.7 F 84 20 103/66 95 09/14/18 08:44 09/14/18 11:47 09/14/18 08:44 09/14/18 08:44 09/14/18 08:44 - Medications Medications: Current Medications Albuterol/Ipratropium (Duoneb 3 Mg/0.5 Mg (3 Ml) Ud) 3 ml INH RQID [facility] Last Admin: 09/14/18 12:58 Dose: 3 ml Amitriptyline HCl (Elavil) 25 mg PO HS [facility] Last Admin: 09/13/18 22:42 Dose: 25 mg Aspirin (Aspirin Chewable) 81 mg PO TTS [facility] Last Admin: 09/13/18 09:16 Dose: 81 mg Calcium Acetate (Phoslo) 667 mg PO TIDCC [facility] Last Admin: 09/14/18 12:34 Dose: 667 mg Fluticasone/Vilanterol (Breo Ellipta 100-25 Mcg Inh) 1 puff INH RQD [facility] Last Admin: 09/14/18 07:44 Dose: Not Given Guaifenesin (Mucinex La) 600 mg PO BID [facility] Last Admin: 09/14/18 11:04 Dose: 600 mg Heparin Sodium (Porcine) (Heparin) 5,000 units SC Q12 [facility] Last Admin: 09/14/18 10:21 Dose: Not Given Ceftriaxone Sodium 1 gm/ (Sodium Chloride) 100 mls @ 100 mls/hr IVPB DAILY [facility]; Protocol Last Admin: 09/14/18 09:27 Dose: 100 mls/hr Lactulose (Generlac) 200 gm [place] DAILY PRN PRN Reason: Constipation Levothyroxine Sodium (Synthroid) 125 mcg PO DAILY@0630 [facility] Last Admin: 09/14/18 06:21 Dose: 125 mcg Methylprednisolone (Solu-Medrol) 40 mg IVP Q8 [facility] Last Admin: 09/14/18 13:09 Dose: 40 mg Oseltamivir Phosphate (Tamiflu Susp) 30 mg PO DAILY [facility]; Protocol Stop: 09/16/18 10:01 Last Admin: 09/14/18 11:04 Dose: 30 mg Oxycodone/Acetaminophen (Percocet 5/325 Mg Tab) 1 tab PO Q4H PRN PRN Reason: Pain, moderate (4-7) Stop: 09/17/18 12:56 Pantoprazole Sodium (Protonix Ec Tab) 40 mg PO DAILY [facility] Last Admin: 09/14/18 09:18 Dose: Not Given Rosuvastatin Calcium (Crestor) 5 mg PO HS [facility] Last Admin: 09/13/18 22:42 Dose: 5 mg Sevelamer Carbonate (Renvela) 800 mg PO TIDCC [facility] Last Admin: 09/14/18 12:34 Dose: 800 mg Sucralfate (Carafate Tab) 1 gm PO Q6 [facility] Last Admin: 09/14/18 12:34 Dose: 1 gm - Labs Labs: 09/13/18 08:16 09/13/18 08:16 - Constitutional Appears: Chronically Ill - Head Exam Head Exam: NORMOCEPHALIC - Respiratory Exam Respiratory Exam: Rhonchi, Wheezes - Cardiovascular Exam Cardiovascular Exam: REGULAR RHYTHM, Murmur - GI/Abdominal Exam GI & Abdominal Exam: Soft - Extremities Exam Extremities Exam: absent: Pedal Edema - Neurological Exam Neurological Exam: Alert, Oriented x3 Assessment and Plan - Assessment and Plan (Free Text) Plan: flu,poss pneumonia.copd.
--- NOTE | 2018-09-14 16:38 | CP.PCM.CON ---
History of Present Illness - History of Present Illness History of Present Illness: 57 year old female presents to ED with complaint of persistent productive cough, congestion, and fever. Patient had a fever of 101 at home. Patient was recently discharged from hospital for similar symptoms and her symptoms have gotten worse since being discharged. Patient has a PMHx of ESRD. Patient went to dialysis 2 days ago and received full treatment with no complications. Her next dialysis treatment is tomorrow. Patient denies chest pain and abdominal pain. Found to have INfluenza IV and PO rx started PMHx- CAD,CHF, ESRD on HD, COPD, Failed kidney transplant, DL PSHx- av fistula, open heart surgery Social- ex smoker, no recent smoking, alcohol or drug use Family- no family history of kidney disease Review of Systems - Constitutional Constitutional: Chills, Fever, Malaise, Weakness - EENT Eyes: absent: Blurred Vision, Change in Vision Ears: absent: Decreased Hearing, Ear Discharge - Cardiovascular Cardiovascular: Chest Pain, Dyspnea on Exertion. absent: Edema - Respiratory Respiratory: Cough, Wheezing. absent: Dyspnea, Hemoptysis - Gastrointestinal Gastrointestinal: absent: Abdominal Pain, Vomiting - Musculoskeletal Musculoskeletal: Myalgias. absent: Muscle Weakness - Integumentary Integumentary: absent: Pruritus, Rash - Neurological Neurological: Headaches. absent: Dizziness - Psychiatric Psychiatric: As Per HPI Past Patient History - Past Medical History & Family History Past Medical History?: Yes Past Family History: Reviewed and not pertinent - Past Social History Smoking Status: Former Smoker Chewing Tobacco Use: No Cigar Use: No Alcohol: None Drugs: Denies - CARDIAC Hx Congestive Heart Failure: Yes Hx Hypercholesterolemia: Yes Hx Hypertension: Yes - PULMONARY Hx Respiratory Disorders: Yes Hx Chronic Obstructive Pulmonary Disease (COPD): Yes Hx Pneumonia: Yes Hx Respiratory Tract Infection: Yes - NEUROLOGICAL Hx Neurological Disorder: No - HEENT Hx HEENT Problems: No - RENAL Hx Chronic Kidney Disease: Yes Hx Dialysis: Yes Date of Last Dialysis Treatment: 09/09/18 - ENDOCRINE/METABOLIC Hx Hypothyroidism: Yes - HEMATOLOGICAL/ONCOLOGICAL Hx Anemia: Yes - INTEGUMENTARY Hx Dermatological Problems: No - MUSCULOSKELETAL/RHEUMATOLOGICAL Hx Musculoskeletal Disorders: Yes Hx Back Pain: Yes Hx Falls: Yes (yrs ago) - GASTROINTESTINAL Hx Gastrointestinal Disorders: Yes Other/Comment: Hiatal Hernia - GENITOURINARY/GYNECOLOGICAL Hx Genitourinary Disorders: Yes Other/Comment: S/P KIDNEY TRANSPLANT. S/P TRANSPLANT REMOVAL - PSYCHIATRIC Hx Psychophysiologic Disorder: No Hx Substance Use: No - SURGICAL HISTORY Hx Surgeries: Yes Hx Coronary Artery Bypass Graft: Yes (S/P AVR) Hx Kidney Transplant: Yes Hx Open Heart Surgery: Yes - ANESTHESIA Hx Anesthesia: Yes Hx Anesthesia Reactions: No Hx Malignant Hyperthermia: No Meds Allergies/Adverse Reactions: Allergies Allergy/AdvReac Type Severity Reaction Status Date / Time No Known Allergies Allergy Verified 09/11/18 15:18 - Medications Medications: Current Medications Albuterol/Ipratropium (Duoneb 3 Mg/0.5 Mg (3 Ml) Ud) 3 ml INH RQID [facility] Last Admin: 09/14/18 16:35 Dose: Not Given Amitriptyline HCl (Elavil) 25 mg PO HS [facility] Last Admin: 09/13/18 22:42 Dose: 25 mg Aspirin (Aspirin Chewable) 81 mg PO TTS [facility] Last Admin: 09/13/18 09:16 Dose: 81 mg Calcium Acetate (Phoslo) 667 mg PO TIDCC [facility] Last Admin: 09/14/18 12:34 Dose: 667 mg Fluticasone/Vilanterol (Breo Ellipta 100-25 Mcg Inh) 1 puff INH RQD [facility] Last Admin: 09/14/18 07:44 Dose: Not Given Guaifenesin (Mucinex La) 600 mg PO BID [facility] Last Admin: 09/14/18 11:04 Dose: 600 mg Heparin Sodium (Porcine) (Heparin) 5,000 units SC Q12 [facility] Last Admin: 09/14/18 10:21 Dose: Not Given Ceftriaxone Sodium 1 gm/ (Sodium Chloride) 100 mls @ 100 mls/hr IVPB DAILY [facility]; Protocol Last Admin: 09/14/18 09:27 Dose: 100 mls/hr Lactulose (Generlac) 200 gm [place] DAILY PRN PRN Reason: Constipation Levothyroxine Sodium (Synthroid) 125 mcg PO DAILY@0630 [facility] Last Admin: 09/14/18 06:21 Dose: 125 mcg Methylprednisolone (Solu-Medrol) 40 mg IVP Q8 [facility] Last Admin: 09/14/18 13:09 Dose: 40 mg Oseltamivir Phosphate (Tamiflu Susp) 30 mg PO DAILY [facility]; Protocol Stop: 09/16/18 10:01 Last Admin: 09/14/18 11:04 Dose: 30 mg Oxycodone/Acetaminophen (Percocet 5/325 Mg Tab) 1 tab PO Q4H PRN PRN Reason: Pain, moderate (4-7) Stop: 09/17/18 12:56 Pantoprazole Sodium (Protonix Ec Tab) 40 mg PO DAILY [facility] Last Admin: 09/14/18 09:18 Dose: Not Given Rosuvastatin Calcium (Crestor) 5 mg PO HS [facility] Last Admin: 09/13/18 22:42 Dose: 5 mg Sevelamer Carbonate (Renvela) 800 mg PO TIDCC [facility] Last Admin: 09/14/18 12:34 Dose: 800 mg Sucralfate (Carafate Tab) 1 gm PO Q6 [facility] Last Admin: 09/14/18 12:34 Dose: 1 gm Physical Exam - Constitutional Appears: No Acute Distress, Cachectic, Chronically Ill - Head Exam Head Exam: ATRAUMATIC, NORMOCEPHALIC - Eye Exam Eye Exam: absent: Scleral icterus - ENT Exam ENT Exam: Mucous Membranes Dry, Normal External Ear Exam - Neck Exam Neck exam: Negative for: Lymphadenopathy - Respiratory Exam Respiratory Exam: Decreased Breath Sounds, Rhonchi - Cardiovascular Exam Cardiovascular Exam: REGULAR RHYTHM, +S1, +S2 - GI/Abdominal Exam GI & Abdominal Exam: Diminished Bowel Sounds, Soft. absent: Tenderness - Rectal Exam Rectal Exam: Deferred - Exam Exam: NORMAL INSPECTION - Extremities Exam Extremities exam: Negative for: pedal edema - Back Exam Back exam: absent: CVA tenderness (L), CVA tenderness (R) - Neurological Exam Neurological exam: Alert, CN II-XII Intact, Oriented x3, Reflexes Normal - Psychiatric Exam Psychiatric exam: Depressed - Skin Skin Exam: Dry Results - Vital Signs Recent Vital Signs: Last Vital Signs Temp 97.5 F L 09/14/18 15:00 Pulse 78 09/14/18 15:00 Resp 18 09/14/18 15:00 BP 117/76 09/14/18 15:45 Pulse Ox 100 09/14/18 15:00 - Labs Result Diagrams: 09/13/18 08:16 09/13/18 08:16 Assessment & Plan (1) COPD exacerbation Status: Acute (2) ESRD (end stage renal disease) on dialysis Status: Acute (3) Hypothyroid Status: Acute (4) Influenza A Status: Acute (5) Anemia Status: Acute (6) CAD (coronary artery disease) Status: Acute (7) CHF exacerbation Status: Acute - Assessment and Plan (Free Text) Assessment: await cultures pulm eval HD in progress Isolation antivirals and antibiotics
[2018-09-14] MEDS: Oxycodone/Acetaminophen 5/325 mg Tab PO PRN (22:52)
[2018-09-15] MEDS: MethylPREDNISolone 40 mg Vial IVP SCH ×3 (06:30→22:23)
[2018-09-15] MEDS: Levothyroxine 125 MCG TAB PO SCH (06:31)
[2018-09-15] MEDS: Albuterol-Ipratrop 3 mg / 0.5 (3 ml) UD INH SCH ×4 (08:01→19:50)
--- NOTE | 2018-09-15 08:54 | CP.PCM.PN ---
Subjective - Date & Time of Evaluation Date of Evaluation: 09/15/18 Time of Evaluation: 08:52 - Subjective Subjective: PT ALERT, +COUGH NO SPUTUM., LESS SOB. ROS; OTHERWISE NEG Objective - Vital Signs/Intake and Output Vital Signs (last 24 hours): Temp Pulse Resp BP Pulse Ox 98.0 F 66 20 94/61 L 94 L 09/15/18 08:19 09/15/18 08:19 09/15/18 08:19 09/15/18 08:19 09/15/18 08:19 - Medications Medications: Current Medications Albuterol/Ipratropium (Duoneb 3 Mg/0.5 Mg (3 Ml) Ud) 3 ml INH RQID [facility] Last Admin: 09/14/18 20:19 Dose: 3 ml Amitriptyline HCl (Elavil) 25 mg PO HS [facility] Last Admin: 09/14/18 22:46 Dose: 25 mg Aspirin (Aspirin Chewable) 81 mg PO TTS [facility] Last Admin: 09/13/18 09:16 Dose: 81 mg Calcium Acetate (Phoslo) 667 mg PO TIDCC [facility] Last Admin: 09/15/18 08:23 Dose: 667 mg Fluticasone/Vilanterol (Breo Ellipta 100-25 Mcg Inh) 1 puff INH RQD [facility] Last Admin: 09/14/18 07:44 Dose: Not Given Guaifenesin (Mucinex La) 600 mg PO BID [facility] Last Admin: 09/14/18 19:34 Dose: 600 mg Heparin Sodium (Porcine) (Heparin) 5,000 units SC Q12 [facility] Last Admin: 09/14/18 22:47 Dose: Not Given Ceftriaxone Sodium 1 gm/ (Sodium Chloride) 100 mls @ 100 mls/hr IVPB DAILY [facility]; Protocol Last Admin: 09/14/18 09:27 Dose: 100 mls/hr Lactulose (Generlac) 200 gm [place] DAILY PRN PRN Reason: Constipation Levothyroxine Sodium (Synthroid) 125 mcg PO DAILY@0630 [facility] Last Admin: 09/15/18 06:31 Dose: 125 mcg Methylprednisolone (Solu-Medrol) 40 mg IVP Q8 [facility] Last Admin: 09/15/18 06:30 Dose: 40 mg Oseltamivir Phosphate (Tamiflu Susp) 30 mg PO DAILY [facility]; Protocol Stop: 09/16/18 10:01 Last Admin: 09/14/18 11:04 Dose: 30 mg Oxycodone/Acetaminophen (Percocet 5/325 Mg Tab) 1 tab PO Q4H PRN PRN Reason: Pain, moderate (4-7) Stop: 09/17/18 12:56 Last Admin: 09/14/18 22:52 Dose: 1 tab Pantoprazole Sodium (Protonix Ec Tab) 40 mg PO DAILY [facility] Last Admin: 09/14/18 09:18 Dose: Not Given Rosuvastatin Calcium (Crestor) 5 mg PO HS [facility] Last Admin: 09/14/18 22:46 Dose: 5 mg Sevelamer Carbonate (Renvela) 800 mg PO TIDCC [facility] Last Admin: 09/15/18 08:23 Dose: 800 mg Sucralfate (Carafate Tab) 1 gm PO Q6 [facility] Last Admin: 09/15/18 06:31 Dose: 1 gm - Labs Labs: 09/13/18 08:16 09/13/18 08:16 - Constitutional Appears: Chronically Ill - Head Exam Head Exam: ATRAUMATIC, NORMOCEPHALIC - Eye Exam Eye Exam: EOMI, Normal appearance - ENT Exam ENT Exam: Mucous Membranes Moist - Neck Exam Neck Exam: Normal Inspection - Respiratory Exam Respiratory Exam: Rhonchi, Wheezes. absent: Accessory Muscle Use - Cardiovascular Exam Cardiovascular Exam: RRR, +S1, +S2 - GI/Abdominal Exam GI & Abdominal Exam: Soft. absent: Tenderness - Rectal Exam Rectal Exam: Deferred - Extremities Exam Extremities Exam: absent: Calf Tenderness, Pedal Edema - Back Exam Back Exam: absent: CVA tenderness (L), CVA tenderness (R) - Neurological Exam Neurological Exam: Alert, Awake, CN II-XII Intact, Oriented x3 - Psychiatric Exam Psychiatric exam: Normal Mood - Skin Skin Exam: absent: Rash Assessment and Plan (1) Hypothyroid Status: Acute (2) COPD exacerbation Status: Acute (3) ESRD (end stage renal disease) on dialysis Status: Acute (4) Influenza A Status: Acute (5) Anemia Status: Acute (6) Chronic respiratory failure with hypoxia Status: Acute (7) Hypertension Status: Acute (8) Pneumonia Status: Acute (9) Failed kidney transplant Status: Chronic - Assessment and Plan (Free Text) Assessment: RESP STATUS LESS DYSPNEIC. LESS BRONCHOSPASM ON IV STEROIDS, CONT NEB BD ADD MUCOMYST. MONITOR O2 SAT. CXR REVIEWED. CONT AB AND TAMILFU PER ID. ON ADVAIR, SINGULAIR. HD PER ID. DISCUSSED WITH STAFF AT LENGTH.
[2018-09-15] MEDS: guaiFENesin 600 mg ER Tab PO SCH ×2 (10:32→18:43)
[2018-09-15] MEDS: Pantoprazole 40 mg EC Tab PO SCH (10:32)
--- NOTE | 2018-09-15 10:46 | CP.PCM.PN ---
Subjective - Date & Time of Evaluation Date of Evaluation: 09/15/18 Time of Evaluation: 10:44 - Subjective Subjective: alert feels better on rx for flu stable HD 09/14 appreciate consults Objective - Vital Signs/Intake and Output Vital Signs (last 24 hours): Temp Pulse Resp BP Pulse Ox 98.0 F 66 20 94/61 L 94 L 09/15/18 08:19 09/15/18 08:19 09/15/18 08:19 09/15/18 08:19 09/15/18 08:19 - Medications Medications: Current Medications Acetylcysteine (Acetylcysteine 20%) 4 ml INH Q6H [facility] Albuterol/Ipratropium (Duoneb 3 Mg/0.5 Mg (3 Ml) Ud) 3 ml INH RQID [facility] Last Admin: 09/14/18 20:19 Dose: 3 ml Amitriptyline HCl (Elavil) 25 mg PO HS [facility] Last Admin: 09/14/18 22:46 Dose: 25 mg Aspirin (Aspirin Chewable) 81 mg PO TTS [facility] Last Admin: 09/15/18 10:33 Dose: 81 mg Calcium Acetate (Phoslo) 667 mg PO TIDCC [facility] Last Admin: 09/15/18 08:23 Dose: 667 mg Fluticasone/Vilanterol (Breo Ellipta 100-25 Mcg Inh) 1 puff INH RQD [facility] Last Admin: 09/14/18 07:44 Dose: Not Given Guaifenesin (Mucinex La) 600 mg PO BID [facility] Last Admin: 09/15/18 10:32 Dose: 600 mg Heparin Sodium (Porcine) (Heparin) 5,000 units SC Q12 [facility] Last Admin: 09/15/18 10:33 Dose: Not Given Ceftriaxone Sodium 1 gm/ (Sodium Chloride) 100 mls @ 100 mls/hr IVPB DAILY [facility]; Protocol Last Admin: 09/15/18 10:31 Dose: 100 mls/hr Lactulose (Generlac) 200 gm [place] DAILY PRN PRN Reason: Constipation Levothyroxine Sodium (Synthroid) 125 mcg PO DAILY@0630 [facility] Last Admin: 09/15/18 06:31 Dose: 125 mcg Methylprednisolone (Solu-Medrol) 40 mg IVP Q8 [facility] Last Admin: 09/15/18 06:30 Dose: 40 mg Montelukast Sodium (Singulair) 10 mg PO HS [facility] Oseltamivir Phosphate (Tamiflu Susp) 30 mg PO DAILY [facility]; Protocol Stop: 09/16/18 10:01 Last Admin: 09/14/18 11:04 Dose: 30 mg Oxycodone/Acetaminophen (Percocet 5/325 Mg Tab) 1 tab PO Q4H PRN PRN Reason: Pain, moderate (4-7) Stop: 09/17/18 12:56 Last Admin: 09/14/18 22:52 Dose: 1 tab Pantoprazole Sodium (Protonix Ec Tab) 40 mg PO DAILY [facility] Last Admin: 09/15/18 10:32 Dose: 40 mg Rosuvastatin Calcium (Crestor) 5 mg PO HS [facility] Last Admin: 09/14/18 22:46 Dose: 5 mg Sevelamer Carbonate (Renvela) 800 mg PO TIDCC [facility] Last Admin: 09/15/18 08:23 Dose: 800 mg Sucralfate (Carafate Tab) 1 gm PO Q6 [facility] Last Admin: 09/15/18 06:31 Dose: 1 gm - Labs Labs: 09/13/18 08:16 09/13/18 08:16 - Constitutional Appears: No Acute Distress, Chronically Ill - Head Exam Head Exam: ATRAUMATIC, NORMAL INSPECTION - Eye Exam Eye Exam: EOMI, Normal appearance - Neck Exam Neck Exam: Normal Inspection. absent: Tenderness - Respiratory Exam Respiratory Exam: Rhonchi, Wheezes - Cardiovascular Exam Cardiovascular Exam: REGULAR RHYTHM, +S1 - GI/Abdominal Exam GI & Abdominal Exam: Soft. absent: Tenderness - Extremities Exam Extremities Exam: Normal Inspection. absent: Tenderness - Neurological Exam Neurological Exam: Awake, CN II-XII Intact Assessment and Plan (1) COPD exacerbation Status: Acute (2) ESRD (end stage renal disease) on dialysis Status: Acute (3) Influenza A Status: Acute (4) CHF exacerbation Status: Acute (5) Failed kidney transplant Status: Chronic - Assessment and Plan (Free Text) Plan: rx as per pulmonary increase UF goal with HD
[2018-09-15] MEDS: Oseltamivir 6 MG/ML PO SCH (10:50)
[2018-09-15] MEDS: Acetylcysteine 20% Inhal Soln (4ml) INH SCH ×3 (11:00→19:50)
[2018-09-15] MEDS: Fluticasone-Vilanterol 100/25mcg Diskus INH SCH (11:01)
--- NOTE | 2018-09-15 12:00 | CP.PCM.PN ---
Subjective - Date & Time of Evaluation Date of Evaluation: 09/15/18 Time of Evaluation: 11:59 - Subjective Subjective: less sob Objective - Vital Signs/Intake and Output Vital Signs (last 24 hours): Temp Pulse Resp BP Pulse Ox 98.0 F 82 20 94/61 L 94 L 09/15/18 08:19 09/15/18 10:00 09/15/18 08:19 09/15/18 08:19 09/15/18 08:19 - Medications Medications: Current Medications Acetylcysteine (Acetylcysteine 20%) 4 ml INH Q6H [facility] Last Admin: 09/15/18 11:00 Dose: Not Given Albuterol/Ipratropium (Duoneb 3 Mg/0.5 Mg (3 Ml) Ud) 3 ml INH RQID [facility] Last Admin: 09/15/18 11:02 Dose: 3 ml Amitriptyline HCl (Elavil) 25 mg PO HS [facility] Last Admin: 09/14/18 22:46 Dose: 25 mg Aspirin (Aspirin Chewable) 81 mg PO TTS [facility] Last Admin: 09/15/18 10:33 Dose: 81 mg Calcium Acetate (Phoslo) 667 mg PO TIDCC [facility] Last Admin: 09/15/18 11:50 Dose: 667 mg Fluticasone/Vilanterol (Breo Ellipta 100-25 Mcg Inh) 1 puff INH RQD [facility] Last Admin: 09/15/18 11:01 Dose: Not Given Guaifenesin (Mucinex La) 600 mg PO BID [facility] Last Admin: 09/15/18 10:32 Dose: 600 mg Heparin Sodium (Porcine) (Heparin) 5,000 units SC Q12 [facility] Last Admin: 09/15/18 10:33 Dose: Not Given Ceftriaxone Sodium 1 gm/ (Sodium Chloride) 100 mls @ 100 mls/hr IVPB DAILY [facility]; Protocol Last Admin: 09/15/18 10:31 Dose: 100 mls/hr Lactulose (Generlac) 200 gm [place] DAILY PRN PRN Reason: Constipation Levothyroxine Sodium (Synthroid) 125 mcg PO DAILY@0630 [facility] Last Admin: 09/15/18 06:31 Dose: 125 mcg Methylprednisolone (Solu-Medrol) 40 mg IVP Q8 [facility] Last Admin: 09/15/18 06:30 Dose: 40 mg Montelukast Sodium (Singulair) 10 mg PO HS [facility] Oseltamivir Phosphate (Tamiflu Susp) 30 mg PO DAILY [facility]; Protocol Stop: 09/16/18 10:01 Last Admin: 09/15/18 10:50 Dose: 30 mg Oxycodone/Acetaminophen (Percocet 5/325 Mg Tab) 1 tab PO Q4H PRN PRN Reason: Pain, moderate (4-7) Stop: 09/17/18 12:56 Last Admin: 09/14/18 22:52 Dose: 1 tab Pantoprazole Sodium (Protonix Ec Tab) 40 mg PO DAILY [facility] Last Admin: 09/15/18 10:32 Dose: 40 mg Rosuvastatin Calcium (Crestor) 5 mg PO HS [facility] Last Admin: 09/14/18 22:46 Dose: 5 mg Sevelamer Carbonate (Renvela) 800 mg PO TIDCC [facility] Last Admin: 09/15/18 11:50 Dose: 800 mg Sucralfate (Carafate Tab) 1 gm PO Q6 [facility] Last Admin: 09/15/18 11:50 Dose: 1 gm - Labs Labs: 09/13/18 08:16 09/13/18 08:16 - Constitutional Appears: Chronically Ill - Head Exam Head Exam: NORMOCEPHALIC - ENT Exam ENT Exam: Normal Exam - Respiratory Exam Respiratory Exam: Rhonchi, Wheezes - Cardiovascular Exam Cardiovascular Exam: REGULAR RHYTHM, Murmur - GI/Abdominal Exam GI & Abdominal Exam: Soft - Extremities Exam Extremities Exam: absent: Pedal Edema - Neurological Exam Neurological Exam: Alert, Oriented x3 Assessment and Plan - Assessment and Plan (Free Text) Plan: copd,flu.id consult noted.cpm.
--- NOTE | 2018-09-15 19:53 | CP.PCM.PN ---
Subjective - Date & Time of Evaluation Date of Evaluation: 09/15/18 Time of Evaluation: 08:00 - Subjective Subjective: 57 year old female presents to ED with complaint of persistent productive cough, congestion, and fever. Patient had a fever of 101 at home. Patient was recently discharged from hospital for similar symptoms and her symptoms have gotten worse since being discharged doing well on empiric IV rx still coughing + influenza cultures pending Found to have INfluenza IV and PO rx started Objective - Vital Signs/Intake and Output Vital Signs (last 24 hours): Temp Pulse Resp BP Pulse Ox 98.3 F 80 20 90/52 L 96 09/15/18 15:44 09/15/18 15:44 09/15/18 15:44 09/15/18 15:44 09/15/18 15:44 - Medications Medications: Current Medications Acetylcysteine (Acetylcysteine 20%) 4 ml INH Q6H [facility] Last Admin: 09/15/18 19:50 Dose: 4 ml Albuterol/Ipratropium (Duoneb 3 Mg/0.5 Mg (3 Ml) Ud) 3 ml INH RQID [facility] Last Admin: 09/15/18 19:50 Dose: 3 ml Amitriptyline HCl (Elavil) 25 mg PO HS [facility] Last Admin: 09/14/18 22:46 Dose: 25 mg Aspirin (Aspirin Chewable) 81 mg PO TTS [facility] Last Admin: 09/15/18 10:33 Dose: 81 mg Calcium Acetate (Phoslo) 667 mg PO TIDCC [facility] Last Admin: 09/15/18 18:00 Dose: 667 mg Fluticasone/Vilanterol (Breo Ellipta 100-25 Mcg Inh) 1 puff INH RQD [facility] Last Admin: 09/15/18 11:01 Dose: Not Given Guaifenesin (Mucinex La) 600 mg PO BID [facility] Last Admin: 09/15/18 18:43 Dose: 600 mg Heparin Sodium (Porcine) (Heparin) 5,000 units SC Q12 [facility] Last Admin: 09/15/18 10:33 Dose: Not Given Ceftriaxone Sodium 1 gm/ (Sodium Chloride) 100 mls @ 100 mls/hr IVPB DAILY [facility]; Protocol Last Admin: 09/15/18 10:31 Dose: 100 mls/hr Lactulose (Generlac) 200 gm [place] DAILY PRN PRN Reason: Constipation Levothyroxine Sodium (Synthroid) 125 mcg PO DAILY@0630 [facility] Last Admin: 09/15/18 06:31 Dose: 125 mcg Methylprednisolone (Solu-Medrol) 40 mg IVP Q8 [facility] Last Admin: 09/15/18 13:25 Dose: 40 mg Montelukast Sodium (Singulair) 10 mg PO HS [facility] Oseltamivir Phosphate (Tamiflu Susp) 30 mg PO DAILY [facility]; Protocol Stop: 09/16/18 10:01 Last Admin: 09/15/18 10:50 Dose: 30 mg Oxycodone/Acetaminophen (Percocet 5/325 Mg Tab) 1 tab PO Q4H PRN PRN Reason: Pain, moderate (4-7) Stop: 09/17/18 12:56 Last Admin: 09/14/18 22:52 Dose: 1 tab Pantoprazole Sodium (Protonix Ec Tab) 40 mg PO DAILY [facility] Last Admin: 09/15/18 10:32 Dose: 40 mg Rosuvastatin Calcium (Crestor) 5 mg PO HS [facility] Last Admin: 09/14/18 22:46 Dose: 5 mg Sevelamer Carbonate (Renvela) 800 mg PO TIDCC [facility] Last Admin: 09/15/18 18:00 Dose: 800 mg Sucralfate (Carafate Tab) 1 gm PO Q6 [facility] Last Admin: 09/15/18 18:44 Dose: 1 gm - Labs Labs: 09/13/18 08:16 09/13/18 08:16 - Constitutional Appears: No Acute Distress, Cachectic, Chronically Ill - Head Exam Head Exam: NORMOCEPHALIC - Eye Exam Eye Exam: absent: Scleral icterus - ENT Exam ENT Exam: Mucous Membranes Dry - Neck Exam Neck Exam: absent: Lymphadenopathy - Respiratory Exam Respiratory Exam: Decreased Breath Sounds, Prolonged Expiratory Phase, Rhonchi - Cardiovascular Exam Cardiovascular Exam: REGULAR RHYTHM, +S1, +S2 - GI/Abdominal Exam GI & Abdominal Exam: Distended, Soft. absent: Tenderness - Rectal Exam Rectal Exam: Deferred - Exam Exam: NORMAL INSPECTION - Extremities Exam Extremities Exam: absent: Pedal Edema - Back Exam Back Exam: absent: CVA tenderness (L), CVA tenderness (R) Assessment and Plan (1) COPD exacerbation Status: Acute (2) ESRD (end stage renal disease) on dialysis Status: Acute (3) Hypothyroid Status: Acute (4) Influenza A Status: Acute (5) Anemia Status: Acute (6) CAD (coronary artery disease) Status: Acute - Assessment and Plan (Free Text) Assessment: cont IV and PO rx
[2018-09-15] MEDS: Oxycodone/Acetaminophen 5/325 mg Tab PO PRN (22:22)
[2018-09-16] MEDS: MethylPREDNISolone 40 mg Vial IVP SCH ×3 (05:45→21:04)
[2018-09-16] MEDS: Levothyroxine 125 MCG TAB PO SCH (05:45)
[2018-09-16] MEDS: Acetylcysteine 20% Inhal Soln (4ml) INH SCH ×3 (08:03→19:46)
[2018-09-16] MEDS: Albuterol-Ipratrop 3 mg / 0.5 (3 ml) UD INH SCH ×4 (08:03→19:47)
[2018-09-16] MEDS: guaiFENesin 600 mg ER Tab PO SCH ×2 (09:04→19:00)
[2018-09-16] MEDS: Pantoprazole 40 mg EC Tab PO SCH (09:04)
[2018-09-16] MEDS: Oseltamivir 6 MG/ML PO SCH (09:10)
[2018-09-16] MEDS: Fluticasone-Vilanterol 100/25mcg Diskus INH SCH (11:32)
--- NOTE | 2018-09-16 12:12 | CP.PCM.PN ---
Subjective - Date & Time of Evaluation Date of Evaluation: 09/16/18 Time of Evaluation: 12:11 - Subjective Subjective: still sob,wheeze Objective - Vital Signs/Intake and Output Vital Signs (last 24 hours): Temp Pulse Resp BP Pulse Ox 98.2 F 76 20 133/83 95 09/16/18 09:00 09/16/18 09:00 09/16/18 09:00 09/16/18 09:00 09/15/18 23:20 - Medications Medications: Current Medications Acetylcysteine (Acetylcysteine 20%) 4 ml INH Q6H [facility] Last Admin: 09/16/18 08:03 Dose: 4 ml Albuterol/Ipratropium (Duoneb 3 Mg/0.5 Mg (3 Ml) Ud) 3 ml INH RQID [facility] Last Admin: 09/16/18 11:33 Dose: 3 ml Amitriptyline HCl (Elavil) 25 mg PO HS [facility] Last Admin: 09/15/18 22:23 Dose: 25 mg Aspirin (Aspirin Chewable) 81 mg PO TTS [facility] Last Admin: 09/15/18 10:33 Dose: 81 mg Calcium Acetate (Phoslo) 667 mg PO TIDCC [facility] Last Admin: 09/16/18 08:15 Dose: 667 mg Fluticasone/Vilanterol (Breo Ellipta 100-25 Mcg Inh) 1 puff INH RQD [facility] Last Admin: 09/16/18 11:32 Dose: Not Given Guaifenesin (Mucinex La) 600 mg PO BID [facility] Last Admin: 09/16/18 09:04 Dose: 600 mg Heparin Sodium (Porcine) (Heparin) 5,000 units SC Q12 [facility] Last Admin: 09/15/18 22:20 Dose: Not Given Ceftriaxone Sodium 1 gm/ (Sodium Chloride) 100 mls @ 100 mls/hr IVPB DAILY [facility]; Protocol Last Admin: 09/16/18 10:42 Dose: 100 mls/hr Lactulose (Generlac) 200 gm [place] DAILY PRN PRN Reason: Constipation Levothyroxine Sodium (Synthroid) 125 mcg PO DAILY@0630 [facility] Last Admin: 09/16/18 05:45 Dose: 125 mcg Methylprednisolone (Solu-Medrol) 40 mg IVP Q8 [facility] Last Admin: 09/16/18 05:45 Dose: 40 mg Montelukast Sodium (Singulair) 10 mg PO HS [facility] Last Admin: 09/15/18 22:25 Dose: 10 mg Oxycodone/Acetaminophen (Percocet 5/325 Mg Tab) 1 tab PO Q4H PRN PRN Reason: Pain, moderate (4-7) Stop: 09/17/18 12:56 Last Admin: 09/15/18 22:22 Dose: 1 tab Pantoprazole Sodium (Protonix Ec Tab) 40 mg PO DAILY [facility] Last Admin: 09/16/18 09:04 Dose: 40 mg Rosuvastatin Calcium (Crestor) 5 mg PO HS [facility] Last Admin: 09/15/18 22:23 Dose: 5 mg Sevelamer Carbonate (Renvela) 800 mg PO TIDCC [facility] Last Admin: 09/16/18 08:15 Dose: 800 mg Sucralfate (Carafate Tab) 1 gm PO Q6 [facility] Last Admin: 09/16/18 05:45 Dose: 1 gm - Labs Labs: 09/13/18 08:16 09/13/18 08:16 - Constitutional Appears: No Acute Distress, Chronically Ill - Respiratory Exam Respiratory Exam: Rhonchi, Wheezes - GI/Abdominal Exam GI & Abdominal Exam: Soft - Neurological Exam Neurological Exam: Alert, Oriented x3 Assessment and Plan - Assessment and Plan (Free Text) Plan: still severe wheeze & ronchi all over.cpm. i will be away.dr oumar squires to cover.
--- NOTE | 2018-09-16 14:31 | CP.PCM.PN ---
Subjective - Date & Time of Evaluation Date of Evaluation: 09/16/18 Time of Evaluation: 14:29 - Subjective Subjective: Seen at dialysis To UF 3500ml still very weak on empiric IV ABs BP stable Objective - Vital Signs/Intake and Output Vital Signs (last 24 hours): Temp Pulse Resp BP Pulse Ox 98 F 107 H 20 150/95 H 95 09/16/18 14:00 09/16/18 14:00 09/16/18 14:00 09/16/18 14:00 09/15/18 23:20 - Medications Medications: Current Medications Acetylcysteine (Acetylcysteine 20%) 4 ml INH Q6H [facility] Last Admin: 09/16/18 08:03 Dose: 4 ml Albuterol/Ipratropium (Duoneb 3 Mg/0.5 Mg (3 Ml) Ud) 3 ml INH RQID [facility] Last Admin: 09/16/18 11:33 Dose: 3 ml Amitriptyline HCl (Elavil) 25 mg PO HS [facility] Last Admin: 09/15/18 22:23 Dose: 25 mg Aspirin (Aspirin Chewable) 81 mg PO TTS [facility] Last Admin: 09/15/18 10:33 Dose: 81 mg Calcium Acetate (Phoslo) 667 mg PO TIDCC [facility] Last Admin: 09/16/18 12:20 Dose: 667 mg Fluticasone/Vilanterol (Breo Ellipta 100-25 Mcg Inh) 1 puff INH RQD [facility] Last Admin: 09/16/18 11:32 Dose: Not Given Guaifenesin (Mucinex La) 600 mg PO BID [facility] Last Admin: 09/16/18 09:04 Dose: 600 mg Heparin Sodium (Porcine) (Heparin) 5,000 units SC Q12 [facility] Last Admin: 09/16/18 10:00 Dose: Not Given Ceftriaxone Sodium 1 gm/ (Sodium Chloride) 100 mls @ 100 mls/hr IVPB DAILY [facility]; Protocol Last Admin: 09/16/18 10:42 Dose: 100 mls/hr Lactulose (Generlac) 200 gm [place] DAILY PRN PRN Reason: Constipation Levothyroxine Sodium (Synthroid) 125 mcg PO DAILY@0630 [facility] Last Admin: 09/16/18 05:45 Dose: 125 mcg Methylprednisolone (Solu-Medrol) 40 mg IVP Q8 [facility] Last Admin: 09/16/18 14:05 Dose: 40 mg Montelukast Sodium (Singulair) 10 mg PO HS [facility] Last Admin: 09/15/18 22:25 Dose: 10 mg Oseltamivir Phosphate (Tamiflu Susp) 30 mg PO DAILY [facility]; Protocol Oxycodone/Acetaminophen (Percocet 5/325 Mg Tab) 1 tab PO Q4H PRN PRN Reason: Pain, moderate (4-7) Stop: 09/17/18 12:56 Last Admin: 09/15/18 22:22 Dose: 1 tab Pantoprazole Sodium (Protonix Ec Tab) 40 mg PO DAILY [facility] Last Admin: 09/16/18 09:04 Dose: 40 mg Rosuvastatin Calcium (Crestor) 5 mg PO HS [facility] Last Admin: 09/15/18 22:23 Dose: 5 mg Sevelamer Carbonate (Renvela) 800 mg PO TIDCC [facility] Last Admin: 09/16/18 12:20 Dose: 800 mg Sucralfate (Carafate Tab) 1 gm PO Q6 [facility] Last Admin: 09/16/18 12:12 Dose: 1 gm - Labs Labs: 09/13/18 08:16 09/13/18 08:16 - Constitutional Appears: No Acute Distress, Chronically Ill - Head Exam Head Exam: ATRAUMATIC, NORMAL INSPECTION - Eye Exam Eye Exam: EOMI, Normal appearance - Neck Exam Neck Exam: Normal Inspection. absent: Tenderness - Respiratory Exam Respiratory Exam: Rhonchi, NORMAL BREATHING PATTERN - GI/Abdominal Exam GI & Abdominal Exam: Soft. absent: Tenderness - Extremities Exam Extremities Exam: Normal Inspection. absent: Tenderness - Neurological Exam Neurological Exam: Awake, CN II-XII Intact - Skin Skin Exam: Dry, Warm Assessment and Plan (1) COPD exacerbation Status: Acute (2) ESRD (end stage renal disease) on dialysis Status: Acute (3) Influenza A Status: Acute (4) CHF exacerbation Status: Acute (5) Failed kidney transplant Status: Chronic - Assessment and Plan (Free Text) Plan: Aggressive Uf with HD IV ABs await full culture reports
--- NOTE | 2018-09-16 14:40 | CP.PCM.PN ---
Subjective - Date & Time of Evaluation Date of Evaluation: 09/16/18 Time of Evaluation: 14:37 - Subjective Subjective: PT ALERT, FEELS TIRED., LESS COUGH. NO SPUTUM., ROS; OTHERWISE NEG. Objective - Vital Signs/Intake and Output Vital Signs (last 24 hours): Temp Pulse Resp BP Pulse Ox 98 F 107 H 20 150/95 H 95 09/16/18 14:00 09/16/18 14:00 09/16/18 14:00 09/16/18 14:00 09/15/18 23:20 - Medications Medications: Current Medications Acetylcysteine (Acetylcysteine 20%) 4 ml INH Q6H [facility] Last Admin: 09/16/18 08:03 Dose: 4 ml Albuterol/Ipratropium (Duoneb 3 Mg/0.5 Mg (3 Ml) Ud) 3 ml INH RQID [facility] Last Admin: 09/16/18 11:33 Dose: 3 ml Amitriptyline HCl (Elavil) 25 mg PO HS [facility] Last Admin: 09/15/18 22:23 Dose: 25 mg Aspirin (Aspirin Chewable) 81 mg PO TTS [facility] Last Admin: 09/15/18 10:33 Dose: 81 mg Calcium Acetate (Phoslo) 667 mg PO TIDCC [facility] Last Admin: 09/16/18 12:20 Dose: 667 mg Fluticasone/Vilanterol (Breo Ellipta 100-25 Mcg Inh) 1 puff INH RQD [facility] Last Admin: 09/16/18 11:32 Dose: Not Given Guaifenesin (Mucinex La) 600 mg PO BID [facility] Last Admin: 09/16/18 09:04 Dose: 600 mg Heparin Sodium (Porcine) (Heparin) 5,000 units SC Q12 [facility] Last Admin: 09/16/18 10:00 Dose: Not Given Ceftriaxone Sodium 1 gm/ (Sodium Chloride) 100 mls @ 100 mls/hr IVPB DAILY [facility]; Protocol Last Admin: 09/16/18 10:42 Dose: 100 mls/hr Lactulose (Generlac) 200 gm [place] DAILY PRN PRN Reason: Constipation Levothyroxine Sodium (Synthroid) 125 mcg PO DAILY@0630 [facility] Last Admin: 09/16/18 05:45 Dose: 125 mcg Methylprednisolone (Solu-Medrol) 40 mg IVP Q8 [facility] Last Admin: 09/16/18 14:05 Dose: 40 mg Montelukast Sodium (Singulair) 10 mg PO HS [facility] Last Admin: 09/15/18 22:25 Dose: 10 mg Oseltamivir Phosphate (Tamiflu Susp) 30 mg PO DAILY [facility]; Protocol Oxycodone/Acetaminophen (Percocet 5/325 Mg Tab) 1 tab PO Q4H PRN PRN Reason: Pain, moderate (4-7) Stop: 09/17/18 12:56 Last Admin: 09/15/18 22:22 Dose: 1 tab Pantoprazole Sodium (Protonix Ec Tab) 40 mg PO DAILY [facility] Last Admin: 09/16/18 09:04 Dose: 40 mg Rosuvastatin Calcium (Crestor) 5 mg PO HS [facility] Last Admin: 09/15/18 22:23 Dose: 5 mg Sevelamer Carbonate (Renvela) 800 mg PO TIDCC [facility] Last Admin: 09/16/18 12:20 Dose: 800 mg Sucralfate (Carafate Tab) 1 gm PO Q6 [facility] Last Admin: 09/16/18 12:12 Dose: 1 gm - Labs Labs: 09/13/18 08:16 09/13/18 08:16 - Constitutional Appears: Chronically Ill - Head Exam Head Exam: ATRAUMATIC, NORMOCEPHALIC - Eye Exam Eye Exam: EOMI, Normal appearance - ENT Exam ENT Exam: Mucous Membranes Moist - Neck Exam Neck Exam: Normal Inspection - Respiratory Exam Respiratory Exam: Decreased Breath Sounds, Rhonchi Additional comments: BETTER AIR MOVEMENT - Cardiovascular Exam Cardiovascular Exam: RRR, +S1, +S2 - GI/Abdominal Exam GI & Abdominal Exam: Soft. absent: Tenderness - Rectal Exam Rectal Exam: Deferred - Extremities Exam Extremities Exam: absent: Calf Tenderness, Pedal Edema - Back Exam Back Exam: absent: CVA tenderness (L), CVA tenderness (R) - Neurological Exam Neurological Exam: Alert, Awake, CN II-XII Intact, Normal Gait, Oriented x3 - Psychiatric Exam Psychiatric exam: Normal Mood - Skin Skin Exam: absent: Rash Assessment and Plan (1) Hypothyroid Status: Acute (2) COPD exacerbation Status: Acute (3) ESRD (end stage renal disease) on dialysis Status: Acute (4) Influenza A Status: Acute (5) Anemia Status: Acute (6) Chronic respiratory failure with hypoxia Status: Acute (7) Hypertension Status: Acute (8) Pneumonia Status: Acute (9) Failed kidney transplant Status: Chronic - Assessment and Plan (Free Text) Assessment: RESP STATUS SLOW IMPROVEMENT. LESS BRONCHOSPASM., TAPER STEROIDS, CONT NEB BD., MONITOR O2 SAT. CXR REVIEWED. CONT AB PER ID, ON TAMIFLU. HD IN PROGRESS. DISCUSSED WITH STAFF AT LENGTH.
--- NOTE | 2018-09-16 19:13 | CP.PCM.PN ---
Subjective - Date & Time of Evaluation Date of Evaluation: 09/16/18 Time of Evaluation: 09:00 - Subjective Subjective: no fever still congested weak NAD Objective - Vital Signs/Intake and Output Vital Signs (last 24 hours): Temp Pulse Resp BP Pulse Ox 97.7 F 108 H 20 108/76 98 09/16/18 17:00 09/16/18 17:00 09/16/18 17:00 09/16/18 17:00 09/16/18 17:00 - Medications Medications: Current Medications Acetylcysteine (Acetylcysteine 20%) 4 ml INH Q6H [facility] Last Admin: 09/16/18 15:30 Dose: Not Given Albuterol/Ipratropium (Duoneb 3 Mg/0.5 Mg (3 Ml) Ud) 3 ml INH RQID [facility] Last Admin: 09/16/18 15:30 Dose: Not Given Amitriptyline HCl (Elavil) 25 mg PO HS [facility] Last Admin: 09/15/18 22:23 Dose: 25 mg Aspirin (Aspirin Chewable) 81 mg PO TTS [facility] Last Admin: 09/15/18 10:33 Dose: 81 mg Calcium Acetate (Phoslo) 667 mg PO TIDCC [facility] Last Admin: 09/16/18 12:20 Dose: 667 mg Fluticasone/Vilanterol (Breo Ellipta 100-25 Mcg Inh) 1 puff INH RQD [facility] Last Admin: 09/16/18 11:32 Dose: Not Given Guaifenesin (Mucinex La) 600 mg PO BID [facility] Last Admin: 09/16/18 09:04 Dose: 600 mg Heparin Sodium (Porcine) (Heparin) 5,000 units SC Q12 [facility] Last Admin: 09/16/18 10:00 Dose: Not Given Ceftriaxone Sodium 1 gm/ (Sodium Chloride) 100 mls @ 100 mls/hr IVPB DAILY [facility]; Protocol Last Admin: 09/16/18 10:42 Dose: 100 mls/hr Lactulose (Generlac) 200 gm [place] DAILY PRN PRN Reason: Constipation Levothyroxine Sodium (Synthroid) 125 mcg PO DAILY@0630 [facility] Last Admin: 09/16/18 05:45 Dose: 125 mcg Methylprednisolone (Solu-Medrol) 30 mg IVP Q8 [facility] Montelukast Sodium (Singulair) 10 mg PO HS [facility] Last Admin: 09/15/18 22:25 Dose: 10 mg Oseltamivir Phosphate (Tamiflu Susp) 30 mg PO DAILY [facility]; Protocol Oxycodone/Acetaminophen (Percocet 5/325 Mg Tab) 1 tab PO Q4H PRN PRN Reason: Pain, moderate (4-7) Stop: 09/17/18 12:56 Last Admin: 09/15/18 22:22 Dose: 1 tab Pantoprazole Sodium (Protonix Ec Tab) 40 mg PO DAILY [facility] Last Admin: 09/16/18 09:04 Dose: 40 mg Rosuvastatin Calcium (Crestor) 5 mg PO [facility] Last Admin: 09/15/18 22:23 Dose: 5 mg Sevelamer Carbonate (Renvela) 800 mg PO TIDCC [facility] Last Admin: 09/16/18 12:20 Dose: 800 mg Sucralfate (Carafate Tab) 1 gm PO Q6 [facility] Last Admin: 09/16/18 12:12 Dose: 1 gm - Labs Labs: 09/13/18 08:16 09/13/18 08:16 - Constitutional Appears: Non-toxic, No Acute Distress, Cachectic, Chronically Ill - Head Exam Head Exam: ATRAUMATIC, NORMAL INSPECTION, NORMOCEPHALIC - Eye Exam Eye Exam: EOMI, Normal appearance, PERRL Pupil Exam: NORMAL ACCOMODATION, PERRL - ENT Exam ENT Exam: Mucous Membranes Moist, Normal Exam - Neck Exam Neck Exam: Full ROM, Normal Inspection. absent: Lymphadenopathy - Respiratory Exam Respiratory Exam: Clear to Ausculation Bilateral, NORMAL BREATHING PATTERN - Cardiovascular Exam Cardiovascular Exam: REGULAR RHYTHM, +S1, +S2. absent: Murmur - GI/Abdominal Exam GI & Abdominal Exam: Soft, Normal Bowel Sounds. absent: Tenderness - Rectal Exam Rectal Exam: Deferred - Exam Exam: NORMAL INSPECTION - Extremities Exam Extremities Exam: Full ROM, Normal Capillary Refill, Normal Inspection. absent: Joint Swelling, Pedal Edema - Back Exam Back Exam: NORMAL INSPECTION - Neurological Exam Neurological Exam: Alert, Awake, CN II-XII Intact, Normal Gait, Oriented x3 - Psychiatric Exam Psychiatric exam: Normal Affect, Normal Mood - Skin Skin Exam: Dry, Intact, Normal Color, Warm Assessment and Plan (1) COPD exacerbation Status: Acute (2) ESRD (end stage renal disease) on dialysis Status: Acute (3) Hypothyroid Status: Acute (4) Influenza A Status: Acute (5) Anemia Status: Acute (6) CAD (coronary artery disease) Status: Acute (7) CHF exacerbation Status: Acute - Assessment and Plan (Free Text) Assessment: await cultures cont iv rx
[2018-09-16] MEDS: Oxycodone/Acetaminophen 5/325 mg Tab PO PRN (21:16)
[2018-09-17] MEDS: Levothyroxine 125 MCG TAB PO SCH (06:38)
[2018-09-17] MEDS: MethylPREDNISolone 40 mg Vial IVP SCH ×3 (06:38→21:18)
[2018-09-17] MEDS: Albuterol-Ipratrop 3 mg / 0.5 (3 ml) UD INH SCH ×4 (07:55→19:25)
--- NOTE | 2018-09-17 10:38 | CP.PCM.PN ---
Subjective - Date & Time of Evaluation Date of Evaluation: 09/17/18 Time of Evaluation: 10:36 - Subjective Subjective: s/p dialysis 3/ afebrile now less dyspneic recent abd US negative Objective - Vital Signs/Intake and Output Vital Signs (last 24 hours): Temp Pulse Resp BP Pulse Ox 98.0 F 82 20 112/71 95 09/17/18 07:10 09/17/18 08:00 09/17/18 07:10 09/17/18 07:10 09/17/18 07:10 - Medications Medications: Current Medications Acetylcysteine (Acetylcysteine 20%) 4 ml INH Q6H [facility] Last Admin: 09/16/18 19:46 Dose: 4 ml Albuterol/Ipratropium (Duoneb 3 Mg/0.5 Mg (3 Ml) Ud) 3 ml INH RQID [facility] Last Admin: 09/16/18 19:47 Dose: 3 ml Amitriptyline HCl (Elavil) 25 mg PO HS [facility] Last Admin: 09/16/18 21:16 Dose: 25 mg Aspirin (Aspirin Chewable) 81 mg PO TTS [facility] Last Admin: 09/15/18 10:33 Dose: 81 mg Calcium Acetate (Phoslo) 667 mg PO TIDCC [facility] Last Admin: 09/17/18 08:13 Dose: 667 mg Fluticasone/Vilanterol (Breo Ellipta 100-25 Mcg Inh) 1 puff INH RQD [facility] Last Admin: 09/16/18 11:32 Dose: Not Given Guaifenesin (Mucinex La) 600 mg PO BID [facility] Last Admin: 09/16/18 19:00 Dose: 600 mg Heparin Sodium (Porcine) (Heparin) 5,000 units SC Q12 [facility] Last Admin: 09/16/18 21:06 Dose: Not Given Lactulose (Generlac) 200 gm [place] DAILY PRN PRN Reason: Constipation Levothyroxine Sodium (Synthroid) 125 mcg PO DAILY@0630 [facility] Last Admin: 09/17/18 06:38 Dose: 125 mcg Methylprednisolone (Solu-Medrol) 30 mg IVP Q8 [facility] Last Admin: 09/17/18 06:38 Dose: 30 mg Montelukast Sodium (Singulair) 10 mg PO HS [facility] Last Admin: 09/16/18 21:06 Dose: 10 mg Oseltamivir Phosphate (Tamiflu Susp) 30 mg PO DAILY [facility]; Protocol Oxycodone/Acetaminophen (Percocet 5/325 Mg Tab) 1 tab PO Q4H PRN PRN Reason: Pain, moderate (4-7) Stop: 09/17/18 12:56 Last Admin: 09/16/18 21:16 Dose: 1 tab Pantoprazole Sodium (Protonix Ec Tab) 40 mg PO DAILY [facility] Last Admin: 09/16/18 09:04 Dose: 40 mg Rosuvastatin Calcium (Crestor) 5 mg PO HS [facility] Last Admin: 09/16/18 21:05 Dose: 5 mg Sevelamer Carbonate (Renvela) 800 mg PO TIDCC [facility] Last Admin: 09/17/18 08:13 Dose: 800 mg Sucralfate (Carafate Tab) 1 gm PO Q6 [facility] Last Admin: 09/17/18 06:38 Dose: 1 gm - Labs Labs: 09/13/18 08:16 09/13/18 08:16 - Constitutional Appears: No Acute Distress, Chronically Ill - Head Exam Head Exam: ATRAUMATIC, NORMAL INSPECTION - Eye Exam Eye Exam: EOMI, Normal appearance - Neck Exam Neck Exam: Normal Inspection. absent: Tenderness - Respiratory Exam Respiratory Exam: Rhonchi, NORMAL BREATHING PATTERN - Cardiovascular Exam Cardiovascular Exam: REGULAR RHYTHM, +S1 - GI/Abdominal Exam GI & Abdominal Exam: Soft. absent: Tenderness - Extremities Exam Extremities Exam: Normal Inspection. absent: Tenderness - Neurological Exam Neurological Exam: Awake, CN II-XII Intact - Skin Skin Exam: Dry, Warm Assessment and Plan (1) COPD exacerbation Status: Acute (2) ESRD (end stage renal disease) on dialysis Status: Acute (3) Influenza A Status: Acute (4) CHF exacerbation Status: Acute (5) Failed kidney transplant Status: Chronic - Assessment and Plan (Free Text) Plan: dialysis MWF Same meds antimicrobials as per ID
[2018-09-17] MEDS: guaiFENesin 600 mg ER Tab PO SCH ×2 (10:51→17:50)
[2018-09-17] MEDS: Pantoprazole 40 mg EC Tab PO SCH (10:51)
[2018-09-17] MEDS: Oseltamivir 6 MG/ML PO SCH (10:52)
[2018-09-17] MEDS: Fluticasone-Vilanterol 100/25mcg Diskus INH SCH (10:54)
[2018-09-17] MEDS: Acetylcysteine 20% Inhal Soln (4ml) INH SCH ×2 (10:59→15:26)
--- NOTE | 2018-09-17 13:52 | CP.PCM.PN ---
Subjective - Date & Time of Evaluation Date of Evaluation: 09/17/18 Time of Evaluation: 13:51 - Subjective Subjective: less sob. Objective - Vital Signs/Intake and Output Vital Signs (last 24 hours): Temp Pulse Resp BP Pulse Ox 98.0 F 82 20 112/71 95 09/17/18 07:10 09/17/18 08:00 09/17/18 07:10 09/17/18 07:10 09/17/18 07:10 - Medications Medications: Current Medications Acetylcysteine (Acetylcysteine 20%) 4 ml INH Q6H [facility] Last Admin: 09/17/18 10:59 Dose: 4 ml Albuterol/Ipratropium (Duoneb 3 Mg/0.5 Mg (3 Ml) Ud) 3 ml INH RQID [facility] Last Admin: 09/17/18 10:59 Dose: 3 ml Amitriptyline HCl (Elavil) 25 mg PO HS [facility] Last Admin: 09/16/18 21:16 Dose: 25 mg Aspirin (Aspirin Chewable) 81 mg PO TTS [facility] Last Admin: 09/17/18 10:52 Dose: 81 mg Calcium Acetate (Phoslo) 667 mg PO TIDCC [facility] Last Admin: 09/17/18 12:47 Dose: 667 mg Fluticasone/Vilanterol (Breo Ellipta 100-25 Mcg Inh) 1 puff INH RQD [facility] Last Admin: 09/17/18 10:54 Dose: Not Given Guaifenesin (Mucinex La) 600 mg PO BID [facility] Last Admin: 09/17/18 10:51 Dose: 600 mg Heparin Sodium (Porcine) (Heparin) 5,000 units SC Q12 [facility] Last Admin: 09/17/18 10:53 Dose: Not Given Lactulose (Generlac) 200 gm [place] DAILY PRN PRN Reason: Constipation Levothyroxine Sodium (Synthroid) 125 mcg PO DAILY@0630 [facility] Last Admin: 09/17/18 06:38 Dose: 125 mcg Methylprednisolone (Solu-Medrol) 30 mg IVP Q8 [facility] Last Admin: 09/17/18 06:38 Dose: 30 mg Montelukast Sodium (Singulair) 10 mg PO HS [facility] Last Admin: 09/16/18 21:06 Dose: 10 mg Oseltamivir Phosphate (Tamiflu Susp) 30 mg PO DAILY [facility]; Protocol Last Admin: 09/17/18 10:52 Dose: 30 mg Pantoprazole Sodium (Protonix Ec Tab) 40 mg PO DAILY [facility] Last Admin: 09/17/18 10:51 Dose: 40 mg Rosuvastatin Calcium (Crestor) 5 mg PO HS [facility] Last Admin: 09/16/18 21:05 Dose: 5 mg Sevelamer Carbonate (Renvela) 800 mg PO TIDCC [facility] Last Admin: 09/17/18 12:46 Dose: 800 mg Sucralfate (Carafate Tab) 1 gm PO Q6 [facility] Last Admin: 09/17/18 12:46 Dose: 1 gm - Labs Labs: 09/13/18 08:16 09/13/18 08:16 - Constitutional Appears: No Acute Distress, Chronically Ill - Head Exam Head Exam: NORMOCEPHALIC - ENT Exam ENT Exam: Normal Exam - Respiratory Exam Respiratory Exam: Rhonchi, Wheezes - Cardiovascular Exam Cardiovascular Exam: REGULAR RHYTHM, Murmur - GI/Abdominal Exam GI & Abdominal Exam: Soft - Extremities Exam Extremities Exam: absent: Pedal Edema - Neurological Exam Neurological Exam: Alert, Oriented x3 Assessment and Plan - Assessment and Plan (Free Text) Plan: copd,flu.htn.ckd.s/p avr & cabg. doing better. i will be away.dr oumar squires to follow.
--- NOTE | 2018-09-17 17:54 | CP.PCM.PN ---
Subjective - Date & Time of Evaluation Date of Evaluation: 09/17/18 Time of Evaluation: 17:52 - Subjective Subjective: PT ALERT, FEELS SL BETTER., STILL SEVERE COUGH, NO SPUTUM., ROS; OTHERWISE NEG. Objective - Vital Signs/Intake and Output Vital Signs (last 24 hours): Temp Pulse Resp BP Pulse Ox 97.8 F 106 H 20 129/70 97 09/17/18 15:56 09/17/18 16:00 09/17/18 15:56 09/17/18 15:56 09/17/18 15:56 - Medications Medications: Current Medications Acetylcysteine (Acetylcysteine 20%) 4 ml INH Q6H [facility] Last Admin: 09/17/18 10:59 Dose: 4 ml Albuterol/Ipratropium (Duoneb 3 Mg/0.5 Mg (3 Ml) Ud) 3 ml INH RQID [facility] Last Admin: 09/17/18 10:59 Dose: 3 ml Amitriptyline HCl (Elavil) 25 mg PO HS [facility] Last Admin: 09/16/18 21:16 Dose: 25 mg Aspirin (Aspirin Chewable) 81 mg PO TTS [facility] Last Admin: 09/17/18 10:52 Dose: 81 mg Calcium Acetate (Phoslo) 667 mg PO TIDCC [facility] Last Admin: 09/17/18 17:50 Dose: 667 mg Fluticasone/Vilanterol (Breo Ellipta 100-25 Mcg Inh) 1 puff INH RQD [facility] Last Admin: 09/17/18 10:54 Dose: Not Given Guaifenesin (Mucinex La) 600 mg PO BID [facility] Last Admin: 09/17/18 17:50 Dose: 600 mg Heparin Sodium (Porcine) (Heparin) 5,000 units SC Q12 [facility] Last Admin: 09/17/18 10:53 Dose: Not Given Lactulose (Generlac) 200 gm [place] DAILY PRN PRN Reason: Constipation Levothyroxine Sodium (Synthroid) 125 mcg PO DAILY@0630 [facility] Last Admin: 09/17/18 06:38 Dose: 125 mcg Methylprednisolone (Solu-Medrol) 30 mg IVP Q8 [facility] Last Admin: 09/17/18 14:09 Dose: 30 mg Montelukast Sodium (Singulair) 10 mg PO HS [facility] Last Admin: 09/16/18 21:06 Dose: 10 mg Oseltamivir Phosphate (Tamiflu Susp) 30 mg PO DAILY [facility]; Protocol Last Admin: 09/17/18 10:52 Dose: 30 mg Pantoprazole Sodium (Protonix Ec Tab) 40 mg PO DAILY [facility] Last Admin: 09/17/18 10:51 Dose: 40 mg Rosuvastatin Calcium (Crestor) 5 mg PO HS [facility] Last Admin: 09/16/18 21:05 Dose: 5 mg Sevelamer Carbonate (Renvela) 800 mg PO TIDCC [facility] Last Admin: 09/17/18 17:50 Dose: 800 mg Sucralfate (Carafate Tab) 1 gm PO Q6 [facility] Last Admin: 09/17/18 17:50 Dose: 1 gm - Labs Labs: 09/13/18 08:16 09/13/18 08:16 - Constitutional Appears: Chronically Ill - Head Exam Head Exam: ATRAUMATIC, NORMOCEPHALIC - Eye Exam Eye Exam: EOMI, Normal appearance - ENT Exam ENT Exam: Mucous Membranes Moist - Respiratory Exam Respiratory Exam: Rhonchi, Wheezes. absent: Accessory Muscle Use, Respiratory Distress - Cardiovascular Exam Cardiovascular Exam: RRR, +S1, +S2 - GI/Abdominal Exam GI & Abdominal Exam: Soft. absent: Tenderness - Rectal Exam Rectal Exam: Deferred - Extremities Exam Extremities Exam: absent: Calf Tenderness, Pedal Edema - Back Exam Back Exam: absent: CVA tenderness (L), CVA tenderness (R) - Neurological Exam Neurological Exam: Alert, Awake, CN II-XII Intact, Oriented x3 - Psychiatric Exam Psychiatric exam: Normal Mood - Skin Skin Exam: absent: Rash Assessment and Plan (1) Hypothyroid Status: Acute (2) COPD exacerbation Status: Acute (3) ESRD (end stage renal disease) on dialysis Status: Acute (4) Influenza A Status: Acute (5) Anemia Status: Acute (6) Chronic respiratory failure with hypoxia Status: Acute (7) Hypertension Status: Acute (8) Pneumonia Status: Acute (9) Failed kidney transplant Status: Chronic - Assessment and Plan (Free Text) Assessment: RESP STATUS SLOW IMPROVEMENT., ON STEROID TAPER., CONT NEB BD WITH MUCOMYST. ADD PHENERGAN WITH CODEINE. MONITOR O2 SAT. CXR REVIEWED. CONT AB PER ID. HD PER RENAL. DISCUSSED WITH STAFF AT LENGTH.
[2018-09-17] MEDS ORDERED: Promethazine/Cod 6.25mg-10mg/5ml Syr UD PO PRN (17:55)
[2018-09-18] MEDS: Levothyroxine 125 MCG TAB PO SCH (06:13)
[2018-09-18] MEDS: MethylPREDNISolone 40 mg Vial IVP SCH ×3 (06:13→21:40)
[2018-09-18] MEDS: Albuterol-Ipratrop 3 mg / 0.5 (3 ml) UD INH SCH ×4 (08:31→20:07)
[2018-09-18] MEDS: Oseltamivir 6 MG/ML PO SCH (10:06)
[2018-09-18] MEDS: guaiFENesin 600 mg ER Tab PO SCH ×2 (10:09→18:03)
[2018-09-18] MEDS: Pantoprazole 40 mg EC Tab PO SCH (10:11)
[2018-09-18] MEDS: Fluticasone-Vilanterol 100/25mcg Diskus INH SCH (12:28)
[2018-09-18] MEDS: Acetylcysteine 20% Inhal Soln (4ml) INH SCH ×3 (12:31→20:07)
--- NOTE | 2018-09-18 13:17 | CP.PCM.PN ---
Subjective - Date & Time of Evaluation Date of Evaluation: 09/18/18 Time of Evaluation: 13:14 - Subjective Subjective: PT ALERT, SL. LESS COUGH NOW. LAST NIGHT WITH ?THROAT DISCOMFORT, NO DYSPHAGIA. ROS; OTHERWISE NEG. Objective - Vital Signs/Intake and Output Vital Signs (last 24 hours): Temp Pulse Resp BP Pulse Ox 98.6 F 88 20 131/68 97 09/18/18 07:10 09/18/18 07:10 09/18/18 07:10 09/18/18 07:10 09/18/18 07:10 - Medications Medications: Current Medications Acetylcysteine (Acetylcysteine 20%) 4 ml INH Q6H [facility] Last Admin: 09/18/18 12:31 Dose: 4 ml Albuterol/Ipratropium (Duoneb 3 Mg/0.5 Mg (3 Ml) Ud) 3 ml INH RQID [facility] Last Admin: 09/18/18 12:30 Dose: 3 ml Amitriptyline HCl (Elavil) 25 mg PO HS [facility] Last Admin: 09/17/18 21:18 Dose: 25 mg Aspirin (Aspirin Chewable) 81 mg PO TTS [facility] Last Admin: 09/17/18 10:52 Dose: 81 mg Calcium Acetate (Phoslo) 667 mg PO TIDCC [facility] Last Admin: 09/18/18 09:00 Dose: 667 mg Fluticasone/Vilanterol (Breo Ellipta 100-25 Mcg Inh) 1 puff INH RQD [facility] Last Admin: 09/18/18 12:28 Dose: Not Given Guaifenesin (Mucinex La) 600 mg PO BID [facility] Last Admin: 09/18/18 10:09 Dose: 600 mg Heparin Sodium (Porcine) (Heparin) 5,000 units SC Q12 [facility] Last Admin: 09/18/18 10:08 Dose: Not Given Lactulose (Generlac) 200 gm [place] DAILY PRN PRN Reason: Constipation Levothyroxine Sodium (Synthroid) 125 mcg PO DAILY@0630 [facility] Last Admin: 09/18/18 06:13 Dose: 125 mcg Methylprednisolone (Solu-Medrol) 30 mg IVP Q8 [facility] Last Admin: 09/18/18 06:13 Dose: 30 mg Montelukast Sodium (Singulair) 10 mg PO HS [facility] Last Admin: 09/17/18 21:18 Dose: 10 mg Oseltamivir Phosphate (Tamiflu Susp) 30 mg PO DAILY [facility]; Protocol Last Admin: 09/18/18 10:06 Dose: 30 mg Pantoprazole Sodium (Protonix Ec Tab) 40 mg PO DAILY [facility] Last Admin: 09/18/18 10:11 Dose: 40 mg Promethazine HCl/Codeine (Phenergan/Codeine Oral Syrup) 5 ml PO Q4 PRN PRN Reason: Cough Rosuvastatin Calcium (Crestor) 5 mg PO HS [facility] Last Admin: 09/17/18 21:18 Dose: 5 mg Sevelamer Carbonate (Renvela) 800 mg PO TIDCC [facility] Last Admin: 09/18/18 09:00 Dose: 800 mg Sucralfate (Carafate Tab) 1 gm PO Q6 [facility] Last Admin: 09/18/18 06:13 Dose: 1 gm - Labs Labs: 09/13/18 08:16 09/13/18 08:16 - Constitutional Appears: Chronically Ill - Head Exam Head Exam: ATRAUMATIC, NORMOCEPHALIC - Eye Exam Eye Exam: EOMI, Normal appearance - ENT Exam ENT Exam: Mucous Membranes Moist, Normal Oropharynx Additional comments: NO ORAL THRUSH - Neck Exam Neck Exam: Normal Inspection - Respiratory Exam Respiratory Exam: Decreased Breath Sounds, Rhonchi - Cardiovascular Exam Cardiovascular Exam: RRR, +S1, +S2 - GI/Abdominal Exam GI & Abdominal Exam: Soft. absent: Tenderness - Rectal Exam Rectal Exam: Deferred - Extremities Exam Extremities Exam: absent: Calf Tenderness, Pedal Edema - Back Exam Back Exam: absent: CVA tenderness (L), CVA tenderness (R) - Neurological Exam Neurological Exam: Alert, Awake, CN II-XII Intact, Oriented x3 - Psychiatric Exam Psychiatric exam: Normal Mood - Skin Skin Exam: absent: Rash Assessment and Plan (1) Hypothyroid Status: Acute (2) COPD exacerbation Status: Acute (3) ESRD (end stage renal disease) on dialysis Status: Acute (4) Influenza A Status: Acute (5) Anemia Status: Acute (6) Chronic respiratory failure with hypoxia Status: Acute (7) Hypertension Status: Acute (8) Pneumonia Status: Acute (9) Failed kidney transplant Status: Chronic - Assessment and Plan (Free Text) Assessment: RESP STATUS SLOW IMPROVEMENT, LESS COUGH NOW ON STEROIDS,. NEB BD., BREO. MONITOR O2 SAT. NO EVID ORAL THRUSH. CONT AB / TAMIFLU PER ID. CXR REVIEWED. FOR HD IN AM. DISCUSSED WITH STAFF AT LENGTH.
--- NOTE | 2018-09-18 15:21 | CP.PCM.PN ---
Subjective - Date & Time of Evaluation Date of Evaluation: 09/18/18 Time of Evaluation: 09:00 - Subjective Subjective: improving less sob Objective - Vital Signs/Intake and Output Vital Signs (last 24 hours): Temp Pulse Resp BP Pulse Ox 98.6 F 88 20 131/68 97 09/18/18 07:10 09/18/18 07:10 09/18/18 07:10 09/18/18 07:10 09/18/18 07:10 - Medications Medications: Current Medications Acetylcysteine (Acetylcysteine 20%) 4 ml INH Q6H [facility] Last Admin: 09/18/18 12:31 Dose: 4 ml Albuterol/Ipratropium (Duoneb 3 Mg/0.5 Mg (3 Ml) Ud) 3 ml INH RQID [facility] Last Admin: 09/18/18 12:30 Dose: 3 ml Amitriptyline HCl (Elavil) 25 mg PO HS [facility] Last Admin: 09/17/18 21:18 Dose: 25 mg Aspirin (Aspirin Chewable) 81 mg PO TTS [facility] Last Admin: 09/17/18 10:52 Dose: 81 mg Calcium Acetate (Phoslo) 667 mg PO TIDCC [facility] Last Admin: 09/18/18 13:00 Dose: 667 mg Fluticasone/Vilanterol (Breo Ellipta 100-25 Mcg Inh) 1 puff INH RQD [facility] Last Admin: 09/18/18 12:28 Dose: Not Given Guaifenesin (Mucinex La) 600 mg PO BID [facility] Last Admin: 09/18/18 10:09 Dose: 600 mg Heparin Sodium (Porcine) (Heparin) 5,000 units SC Q12 [facility] Last Admin: 09/18/18 10:08 Dose: Not Given Lactulose (Generlac) 200 gm [place] DAILY PRN PRN Reason: Constipation Levothyroxine Sodium (Synthroid) 125 mcg PO DAILY@0630 [facility] Last Admin: 09/18/18 06:13 Dose: 125 mcg Methylprednisolone (Solu-Medrol) 30 mg IVP Q8 [facility] Last Admin: 09/18/18 13:48 Dose: 30 mg Montelukast Sodium (Singulair) 10 mg PO HS [facility] Last Admin: 09/17/18 21:18 Dose: 10 mg Oseltamivir Phosphate (Tamiflu Susp) 30 mg PO DAILY [facility]; Protocol Last Admin: 09/18/18 10:06 Dose: 30 mg Pantoprazole Sodium (Protonix Ec Tab) 40 mg PO DAILY [facility] Last Admin: 09/18/18 10:11 Dose: 40 mg Promethazine HCl/Codeine (Phenergan/Codeine Oral Syrup) 5 ml PO Q4 PRN PRN Reason: Cough Rosuvastatin Calcium (Crestor) 5 mg PO HS [facility] Last Admin: 09/17/18 21:18 Dose: 5 mg Sevelamer Carbonate (Renvela) 800 mg PO TIDCC [facility] Last Admin: 09/18/18 13:00 Dose: 800 mg Sucralfate (Carafate Tab) 1 gm PO Q6 [facility] Last Admin: 09/18/18 13:00 Dose: 1 gm - Labs Labs: 09/13/18 08:16 09/13/18 08:16 - Constitutional Appears: No Acute Distress, Cachectic, Chronically Ill - Head Exam Head Exam: ATRAUMATIC, NORMAL INSPECTION, NORMOCEPHALIC - Eye Exam Eye Exam: EOMI, Normal appearance, PERRL Pupil Exam: NORMAL ACCOMODATION, PERRL - ENT Exam ENT Exam: Mucous Membranes Moist, Normal Exam - Neck Exam Neck Exam: Full ROM, Normal Inspection. absent: Lymphadenopathy - Respiratory Exam Respiratory Exam: Clear to Ausculation Bilateral, NORMAL BREATHING PATTERN - Cardiovascular Exam Cardiovascular Exam: REGULAR RHYTHM, +S1, +S2. absent: Murmur - GI/Abdominal Exam GI & Abdominal Exam: Soft, Normal Bowel Sounds. absent: Tenderness - Rectal Exam Rectal Exam: Deferred - Exam Exam: NORMAL INSPECTION Bimanual exam: NORMAL BIMANUAL EXAM - Extremities Exam Extremities Exam: Full ROM, Normal Capillary Refill, Normal Inspection. absent: Joint Swelling, Pedal Edema - Back Exam Back Exam: NORMAL INSPECTION - Neurological Exam Neurological Exam: Alert, Awake, CN II-XII Intact, Normal Gait, Oriented x3 - Psychiatric Exam Psychiatric exam: Normal Affect, Normal Mood - Skin Skin Exam: Dry, Intact, Normal Color, Warm Assessment and Plan (1) COPD exacerbation Status: Acute (2) ESRD (end stage renal disease) on dialysis Status: Acute (3) Hypothyroid Status: Acute (4) Influenza A Status: Acute (5) Anemia Status: Acute (6) CAD (coronary artery disease) Status: Acute (7) CHF exacerbation Status: Acute - Assessment and Plan (Free Text) Assessment: cont iv rx as ordered
[2018-09-19] MEDS: MethylPREDNISolone 40 mg Vial IVP SCH ×2 (06:40→21:39)
[2018-09-19] MEDS: Levothyroxine 125 MCG TAB PO SCH (06:41)
--- NOTE | 2018-09-19 08:32 | CP.PCM.PN ---
Subjective - Date & Time of Evaluation Date of Evaluation: 09/19/18 Time of Evaluation: 08:30 - Subjective Subjective: PT ALERT, STILL +THICK MUCUS. SL LESS COUGH., LESS SOB. ROS ; OTHERWISE NEG. Objective - Vital Signs/Intake and Output Vital Signs (last 24 hours): Temp Pulse Resp BP Pulse Ox 97.4 F L 88 20 146/85 95 09/18/18 23:35 09/19/18 07:54 09/18/18 23:35 09/18/18 23:35 09/18/18 23:35 - Medications Medications: Current Medications Acetylcysteine (Acetylcysteine 20%) 4 ml INH Q6H [facility] Last Admin: 09/18/18 20:07 Dose: 4 ml Albuterol/Ipratropium (Duoneb 3 Mg/0.5 Mg (3 Ml) Ud) 3 ml INH RQID [facility] Last Admin: 09/18/18 20:07 Dose: 3 ml Amitriptyline HCl (Elavil) 25 mg PO HS [facility] Last Admin: 09/18/18 21:40 Dose: 25 mg Aspirin (Aspirin Chewable) 81 mg PO TTS [facility] Last Admin: 09/17/18 10:52 Dose: 81 mg Calcium Acetate (Phoslo) 667 mg PO TIDCC [facility] Last Admin: 09/19/18 08:16 Dose: 667 mg Fluticasone/Vilanterol (Breo Ellipta 100-25 Mcg Inh) 1 puff INH RQD [facility] Last Admin: 09/18/18 12:28 Dose: Not Given Guaifenesin (Mucinex La) 600 mg PO BID [facility] Last Admin: 09/18/18 18:03 Dose: 600 mg Heparin Sodium (Porcine) (Heparin) 5,000 units SC Q12 [facility] Last Admin: 09/18/18 22:17 Dose: Not Given Lactulose (Generlac) 200 gm [place] DAILY PRN PRN Reason: Constipation Levothyroxine Sodium (Synthroid) 125 mcg PO DAILY@0630 [facility] Last Admin: 09/19/18 06:41 Dose: 125 mcg Methylprednisolone (Solu-Medrol) 30 mg IVP Q8 [facility] Last Admin: 09/19/18 06:40 Dose: 30 mg Montelukast Sodium (Singulair) 10 mg PO HS [facility] Last Admin: 09/18/18 21:40 Dose: 10 mg Oseltamivir Phosphate (Tamiflu Susp) 30 mg PO DAILY [facility]; Protocol Last Admin: 09/18/18 10:06 Dose: 30 mg Pantoprazole Sodium (Protonix Ec Tab) 40 mg PO DAILY [facility] Last Admin: 09/18/18 10:11 Dose: 40 mg Promethazine HCl/Codeine (Phenergan/Codeine Oral Syrup) 5 ml PO Q4 PRN PRN Reason: Cough Last Admin: 09/18/18 21:45 Dose: 5 ml Rosuvastatin Calcium (Crestor) 5 mg PO HS [facility] Last Admin: 09/18/18 21:40 Dose: 5 mg Sevelamer Carbonate (Renvela) 800 mg PO TIDCC [facility] Last Admin: 09/19/18 08:16 Dose: 800 mg Sucralfate (Carafate Tab) 1 gm PO Q6 [facility] Last Admin: 09/19/18 05:20 Dose: 1 gm - Labs Labs: 09/13/18 08:16 09/13/18 08:16 - Constitutional Appears: Chronically Ill - Head Exam Head Exam: ATRAUMATIC, NORMOCEPHALIC - Eye Exam Eye Exam: EOMI, Normal appearance - ENT Exam ENT Exam: Mucous Membranes Moist - Neck Exam Neck Exam: Normal Inspection - Respiratory Exam Respiratory Exam: Decreased Breath Sounds, Prolonged Expiratory Phase, Rhonchi. absent: Respiratory Distress - Cardiovascular Exam Cardiovascular Exam: RRR, +S1, +S2 - GI/Abdominal Exam GI & Abdominal Exam: Soft. absent: Tenderness - Rectal Exam Rectal Exam: Deferred - Extremities Exam Extremities Exam: absent: Calf Tenderness, Pedal Edema - Back Exam Back Exam: absent: CVA tenderness (L), CVA tenderness (R) - Neurological Exam Neurological Exam: Alert, Awake, CN II-XII Intact, Normal Gait, Oriented x3 - Psychiatric Exam Psychiatric exam: Normal Mood - Skin Skin Exam: absent: Rash Assessment and Plan (1) Hypothyroid Status: Acute (2) COPD exacerbation Status: Acute (3) ESRD (end stage renal disease) on dialysis Status: Acute (4) Influenza A Status: Acute (5) Anemia Status: Acute (6) Chronic respiratory failure with hypoxia Status: Acute (7) Hypertension Status: Acute (8) Pneumonia Status: Acute (9) Failed kidney transplant Status: Chronic - Assessment and Plan (Free Text) Assessment: RESP STATUS NO SIG CHANGE. CONT STEROIDS, NEB BD WITH MUCOMYST, ADVAIR., MONITOR O2 SAT. CXR REVIEWED. AFEBRILE ON AB PER ID. FOR HD TODAY. DISCUSSED WITH STAFF AT LENGTH.
[2018-09-19] MEDS: Fluticasone-Vilanterol 100/25mcg Diskus INH SCH (09:00)
[2018-09-19] MEDS: Acetylcysteine 20% Inhal Soln (4ml) INH SCH ×3 (09:45→19:28)
[2018-09-19] MEDS: Albuterol-Ipratrop 3 mg / 0.5 (3 ml) UD INH SCH ×4 (09:45→19:29)
--- NOTE | 2018-09-19 10:54 | CP.PCM.PN ---
Subjective - Date & Time of Evaluation Date of Evaluation: 09/19/18 Time of Evaluation: 10:51 - Subjective Subjective: seen on dialysis still c/o dyspnea but appears better mod cough to UF 3300ml labs acceptable Objective - Vital Signs/Intake and Output Vital Signs (last 24 hours): Temp Pulse Resp BP Pulse Ox 98.5 F 57 L 20 143/93 H 94 L 09/19/18 08:53 09/19/18 08:53 09/19/18 08:53 09/19/18 08:53 09/19/18 08:53 - Medications Medications: Current Medications Acetylcysteine (Acetylcysteine 20%) 4 ml INH Q6H [facility] Last Admin: 09/18/18 20:07 Dose: 4 ml Albuterol/Ipratropium (Duoneb 3 Mg/0.5 Mg (3 Ml) Ud) 3 ml INH RQID [facility] Last Admin: 09/18/18 20:07 Dose: 3 ml Amitriptyline HCl (Elavil) 25 mg PO HS [facility] Last Admin: 09/18/18 21:40 Dose: 25 mg Aspirin (Aspirin Chewable) 81 mg PO TTS [facility] Last Admin: 09/17/18 10:52 Dose: 81 mg Calcium Acetate (Phoslo) 667 mg PO TIDCC [facility] Last Admin: 09/19/18 08:16 Dose: 667 mg Fluticasone/Vilanterol (Breo Ellipta 100-25 Mcg Inh) 1 puff INH RQD [facility] Last Admin: 09/18/18 12:28 Dose: Not Given Guaifenesin (Mucinex La) 600 mg PO BID [facility] Last Admin: 09/18/18 18:03 Dose: 600 mg Heparin Sodium (Porcine) (Heparin) 5,000 units SC Q12 [facility] Last Admin: 09/18/18 22:17 Dose: Not Given Lactulose (Generlac) 200 gm ID DAILY PRN PRN Reason: Constipation Levothyroxine Sodium (Synthroid) 125 mcg PO DAILY@0630 [facility] Last Admin: 09/19/18 06:41 Dose: 125 mcg Methylprednisolone (Solu-Medrol) 30 mg IVP Q8 [facility] Last Admin: 09/19/18 06:40 Dose: 30 mg Montelukast Sodium (Singulair) 10 mg PO HS [facility] Last Admin: 09/18/18 21:40 Dose: 10 mg Oseltamivir Phosphate (Tamiflu Susp) 30 mg PO DAILY [facility]; Protocol Last Admin: 09/18/18 10:06 Dose: 30 mg Pantoprazole Sodium (Protonix Ec Tab) 40 mg PO DAILY [facility] Last Admin: 09/18/18 10:11 Dose: 40 mg Promethazine HCl/Codeine (Phenergan/Codeine Oral Syrup) 5 ml PO Q4 PRN PRN Reason: Cough Last Admin: 09/18/18 21:45 Dose: 5 ml Rosuvastatin Calcium (Crestor) 5 mg PO HS [facility] Last Admin: 09/18/18 21:40 Dose: 5 mg Sevelamer Carbonate (Renvela) 800 mg PO TIDCC [facility] Last Admin: 09/19/18 08:16 Dose: 800 mg Sucralfate (Carafate Tab) 1 gm PO Q6 [facility] Last Admin: 09/19/18 05:20 Dose: 1 gm - Labs Labs: 09/13/18 08:16 09/13/18 08:16 - Constitutional Appears: No Acute Distress, Cachectic, Chronically Ill - Head Exam Head Exam: ATRAUMATIC, NORMAL INSPECTION - Eye Exam Eye Exam: EOMI, Normal appearance - Neck Exam Neck Exam: Normal Inspection. absent: Tenderness - Respiratory Exam Respiratory Exam: Clear to Ausculation Bilateral, NORMAL BREATHING PATTERN - Cardiovascular Exam Cardiovascular Exam: REGULAR RHYTHM, +S1 - GI/Abdominal Exam GI & Abdominal Exam: Soft. absent: Tenderness - Extremities Exam Extremities Exam: Normal Inspection. absent: Tenderness - Neurological Exam Neurological Exam: Awake, CN II-XII Intact - Skin Skin Exam: Dry, Warm Assessment and Plan (1) COPD exacerbation Status: Acute (2) ESRD (end stage renal disease) on dialysis Status: Acute (3) Influenza A Status: Acute (4) CHF exacerbation Status: Acute (5) Failed kidney transplant Status: Chronic - Assessment and Plan (Free Text) Plan: same aggressive UF attempts same meds monitor respiratory status ABs as per ICU
[2018-09-19] MEDS: guaiFENesin 600 mg ER Tab PO SCH ×2 (11:46→17:46)
[2018-09-19] MEDS: Pantoprazole 40 mg EC Tab PO SCH (11:47)
--- NOTE | 2018-09-19 12:13 | CP.PCM.PN ---
Subjective - Date & Time of Evaluation Date of Evaluation: 09/19/18 Time of Evaluation: 12:10 - Subjective Subjective: C/O CHRONIC FATIGUE. NO CP. NO PALPITATION. AFEBRILE. COPD. FLU. CRF. TELEMETRY SHOWS S. TACHY 134/MIN. PT STABLE. Objective - Vital Signs/Intake and Output Vital Signs (last 24 hours): Temp Pulse Resp BP Pulse Ox 98.3 F 88 18 135/93 H 97 09/19/18 09:30 09/19/18 09:30 09/19/18 09:30 09/19/18 11:27 09/19/18 09:30 - Medications Medications: Current Medications Acetylcysteine (Acetylcysteine 20%) 4 ml INH Q6H [facility] Last Admin: 09/18/18 20:07 Dose: 4 ml Albuterol/Ipratropium (Duoneb 3 Mg/0.5 Mg (3 Ml) Ud) 3 ml INH RQID [facility] Last Admin: 09/19/18 12:03 Dose: Not Given Amitriptyline HCl (Elavil) 25 mg PO HS [facility] Last Admin: 09/18/18 21:40 Dose: 25 mg Aspirin (Aspirin Chewable) 81 mg PO TTS [facility] Last Admin: 09/17/18 10:52 Dose: 81 mg Calcium Acetate (Phoslo) 667 mg PO TIDCC [facility] Last Admin: 09/19/18 11:47 Dose: Not Given Fluticasone/Vilanterol (Breo Ellipta 100-25 Mcg Inh) 1 puff INH RQD [facility] Last Admin: 09/18/18 12:28 Dose: Not Given Guaifenesin (Mucinex La) 600 mg PO BID [facility] Last Admin: 09/19/18 11:46 Dose: Not Given Heparin Sodium (Porcine) (Heparin) 5,000 units SC Q12 [facility] Last Admin: 09/19/18 11:46 Dose: Not Given Lactulose (Generlac) 200 gm [place] DAILY PRN PRN Reason: Constipation Levothyroxine Sodium (Synthroid) 125 mcg PO DAILY@0630 [facility] Last Admin: 09/19/18 06:41 Dose: 125 mcg Methylprednisolone (Solu-Medrol) 30 mg IVP Q8 [facility] Last Admin: 09/19/18 06:40 Dose: 30 mg Montelukast Sodium (Singulair) 10 mg PO HS [facility] Last Admin: 09/18/18 21:40 Dose: 10 mg Pantoprazole Sodium (Protonix Ec Tab) 40 mg PO DAILY [facility] Last Admin: 09/19/18 11:47 Dose: Not Given Promethazine HCl/Codeine (Phenergan/Codeine Oral Syrup) 5 ml PO Q4 PRN PRN Reason: Cough Last Admin: 09/18/18 21:45 Dose: 5 ml Rosuvastatin Calcium (Crestor) 5 mg PO HS [facility] Last Admin: 09/18/18 21:40 Dose: 5 mg Sevelamer Carbonate (Renvela) 800 mg PO TIDCC [facility] Last Admin: 09/19/18 11:47 Dose: Not Given Sucralfate (Carafate Tab) 1 gm PO Q6 [facility] Last Admin: 09/19/18 11:46 Dose: Not Given - Labs Labs: 09/13/18 08:16 09/13/18 08:16 - Constitutional Appears: No Acute Distress, Chronically Ill - Eye Exam Eye Exam: Normal appearance, PERRL - ENT Exam ENT Exam: Normal Exam - Respiratory Exam Respiratory Exam: Clear to Ausculation Bilateral, NORMAL BREATHING PATTERN - Cardiovascular Exam Cardiovascular Exam: Tachycardia, REGULAR RHYTHM, +S1, +S2 - GI/Abdominal Exam GI & Abdominal Exam: Soft, Normal Bowel Sounds - Extremities Exam Extremities Exam: Full ROM, Normal Capillary Refill, Normal Inspection. absent: Joint Swelling, Pedal Edema Assessment and Plan - Assessment and Plan (Free Text) Assessment: COPD. FLU. CRF. Plan: FOR HD. D/C ISOLATION. CT PRESENT TREATMENT.
[2018-09-20] MEDS: MethylPREDNISolone 40 mg Vial IVP SCH ×3 (06:00→21:24)
[2018-09-20] MEDS: Levothyroxine 125 MCG TAB PO SCH (06:00)
[2018-09-20 06:39] LABS: BASO % 0.1 % (0.0-2.0); HEMOGLOBIN 11.9 g/dL (11.0-16.0); LYMPH # 0.3 K/uL (1.0-4.3); MEAN CELL VOLUME 100.4 fL (81.0-99.0); MEAN CORPUSCULAR HEMOGLOBIN 33.1 pg (27.0-31.0); MEAN CORPUSCULAR HGB CONC 32.9 g/dL (33.0-37.0); MEAN PLATELET VOLUME 7.9 fL (7.2-11.7); MONO # 0.6 K/uL (0.0-0.8); MONO % 5.6 % (0.0-10.0); NEUT # 10.1 K/uL (1.8-7.0); NEUT % 91.3 % (50.0-75.0); PLATELET COUNT 202 K/uL (130-400); RBC 3.59 Mil/uL (3.80-5.20); RED CELL DISTRIBUTION WIDTH 14.9 % (11.5-14.5)
[2018-09-20] MEDS: Acetylcysteine 20% Inhal Soln (4ml) INH SCH ×3 (08:04→20:26)
[2018-09-20] MEDS: Albuterol-Ipratrop 3 mg / 0.5 (3 ml) UD INH SCH ×4 (08:04→20:27)
[2018-09-20 08:17] LABS: ALB/GLOB RATIO 1.4 (1.0-2.1); ALBUMIN 3.8 g/dL (3.5-5.0); CALCIUM 8.8 mg/dl (8.6-10.4)
--- NOTE | 2018-09-20 08:39 | CP.PCM.PN ---
Subjective - Date & Time of Evaluation Date of Evaluation: 09/20/18 Time of Evaluation: 08:37 - Subjective Subjective: PT ALERT, OOB, FEELS BETTER NOW. LESS COUGH. ROS; OTHERWISE NEG Objective - Vital Signs/Intake and Output Vital Signs (last 24 hours): Temp Pulse Resp BP Pulse Ox 97.9 F 83 18 138/79 98 09/20/18 07:00 09/20/18 07:00 09/20/18 07:00 09/20/18 07:00 09/20/18 07:00 - Medications Medications: Current Medications Acetylcysteine (Acetylcysteine 20%) 4 ml INH Q6H [facility] Last Admin: 09/20/18 08:04 Dose: 4 ml Albuterol/Ipratropium (Duoneb 3 Mg/0.5 Mg (3 Ml) Ud) 3 ml INH RQID [facility] Last Admin: 09/20/18 08:04 Dose: 3 ml Amitriptyline HCl (Elavil) 25 mg PO HS [facility] Last Admin: 09/19/18 21:35 Dose: 25 mg Aspirin (Aspirin Chewable) 81 mg PO TTS [facility] Last Admin: 09/17/18 10:52 Dose: 81 mg Calcium Acetate (Phoslo) 667 mg PO TIDCC [facility] Last Admin: 09/19/18 17:45 Dose: 667 mg Fluticasone/Vilanterol (Breo Ellipta 100-25 Mcg Inh) 1 puff INH RQD [facility] Last Admin: 09/19/18 09:00 Dose: Not Given Guaifenesin (Mucinex La) 600 mg PO BID [facility] Last Admin: 09/19/18 17:46 Dose: 600 mg Heparin Sodium (Porcine) (Heparin) 5,000 units SC Q12 [facility] Last Admin: 09/19/18 21:38 Dose: Not Given Lactulose (Generlac) 200 gm SC DAILY PRN PRN Reason: Constipation Levothyroxine Sodium (Synthroid) 125 mcg PO DAILY@0630 [facility] Last Admin: 09/20/18 06:00 Dose: 125 mcg Methylprednisolone (Solu-Medrol) 30 mg IVP Q8 [facility] Last Admin: 09/20/18 06:00 Dose: 30 mg Montelukast Sodium (Singulair) 10 mg PO HS [facility] Last Admin: 09/19/18 21:35 Dose: 10 mg Pantoprazole Sodium (Protonix Ec Tab) 40 mg PO DAILY [facility] Last Admin: 09/19/18 11:47 Dose: Not Given Promethazine HCl/Codeine (Phenergan/Codeine Oral Syrup) 5 ml PO Q4 PRN PRN Reason: Cough Last Admin: 09/18/18 21:45 Dose: 5 ml Rosuvastatin Calcium (Crestor) 5 mg PO HS [facility] Last Admin: 09/19/18 21:35 Dose: 5 mg Sevelamer Carbonate (Renvela) 800 mg PO TIDCC [facility] Last Admin: 09/19/18 17:46 Dose: 800 mg Sucralfate (Carafate Tab) 1 gm PO Q6 [facility] Last Admin: 09/20/18 06:00 Dose: 1 gm - Labs Labs: 09/20/18 06:26 09/20/18 06:26 - Constitutional Appears: Chronically Ill - Head Exam Head Exam: ATRAUMATIC, NORMOCEPHALIC - Eye Exam Eye Exam: EOMI, Normal appearance - ENT Exam ENT Exam: Mucous Membranes Moist - Neck Exam Neck Exam: Normal Inspection - Respiratory Exam Respiratory Exam: Decreased Breath Sounds, Prolonged Expiratory Phase, Rhonchi. absent: Respiratory Distress Additional comments: BETTER AIR MOVEMENT. - Cardiovascular Exam Cardiovascular Exam: RRR, Rubs, +S1, +S2 - GI/Abdominal Exam GI & Abdominal Exam: Soft. absent: Tenderness - Rectal Exam Rectal Exam: Deferred - Extremities Exam Extremities Exam: absent: Calf Tenderness, Pedal Edema - Back Exam Back Exam: absent: CVA tenderness (L), CVA tenderness (R) - Neurological Exam Neurological Exam: Alert, Awake, CN II-XII Intact, Oriented x3 - Psychiatric Exam Psychiatric exam: Normal Mood - Skin Skin Exam: absent: Rash Assessment and Plan (1) Hypothyroid Status: Acute (2) COPD exacerbation Status: Acute (3) ESRD (end stage renal disease) on dialysis Status: Acute (4) Influenza A Status: Acute (5) Anemia Status: Acute (6) Chronic respiratory failure with hypoxia Status: Acute (7) Hypertension Status: Acute (8) Pneumonia Status: Acute (9) Failed kidney transplant Status: Chronic - Assessment and Plan (Free Text) Assessment: RESP STATUS IMPROVING, CONT NEB BD WITH MUCOMYST, ADVAIR., SINGULAIR. ON STEROID TAPER., CXR REVIEWED. MONITOR O2 SAT. AFEBRILE ON AB., S/P TAMIFLU. FOR HD PER RENAL. INCREASE OOB. DISCUSSED WITH STAFF AT LENGTH.
[2018-09-20] MEDS: Pantoprazole 40 mg EC Tab PO SCH (09:41)
[2018-09-20] MEDS: guaiFENesin 600 mg ER Tab PO SCH ×2 (09:41→17:36)
[2018-09-20 09:53] LABS: BANDS 1 % (0-2); LYMPHOCYTE 5 % (20-40); MONOCYTE 8 % (0-10); NEUTROPHIL 86 % (50-75); PLATELET ESTIMATE NORMAL (NORMAL); TOTAL CELLS COUNTED 100
--- NOTE | 2018-09-20 11:09 | CP.PCM.PN ---
Subjective - Date & Time of Evaluation Date of Evaluation: 09/20/18 Time of Evaluation: 11:10 - Subjective Subjective: comfortable in bed much less cough dialysis last PM with no untoward events ROS no chills fever no chest pain,sob cough,no hemoptysis no abd pain,n,v,d anuric no headache dizziness Objective - Vital Signs/Intake and Output Vital Signs (last 24 hours): Temp Pulse Resp BP Pulse Ox 97.9 F 83 18 138/79 98 09/20/18 07:00 09/20/18 07:00 09/20/18 07:00 09/20/18 07:00 09/20/18 07:00 - Medications Medications: Current Medications Acetylcysteine (Acetylcysteine 20%) 4 ml INH Q6H [facility] Last Admin: 09/20/18 08:04 Dose: 4 ml Albuterol/Ipratropium (Duoneb 3 Mg/0.5 Mg (3 Ml) Ud) 3 ml INH RQID [facility] Last Admin: 09/20/18 08:04 Dose: 3 ml Amitriptyline HCl (Elavil) 25 mg PO HS [facility] Last Admin: 09/19/18 21:35 Dose: 25 mg Aspirin (Aspirin Chewable) 81 mg PO TTS [facility] Last Admin: 09/20/18 09:41 Dose: 81 mg Calcium Acetate (Phoslo) 667 mg PO TIDCC [facility] Last Admin: 09/20/18 09:00 Dose: 667 mg Fluticasone/Vilanterol (Breo Ellipta 100-25 Mcg Inh) 1 puff INH RQD [facility] Last Admin: 09/19/18 09:00 Dose: Not Given Guaifenesin (Mucinex La) 600 mg PO BID [facility] Last Admin: 09/20/18 09:41 Dose: 600 mg Heparin Sodium (Porcine) (Heparin) 5,000 units SC Q12 [facility] Last Admin: 09/20/18 09:41 Dose: Not Given Lactulose (Generlac) 200 gm [place] DAILY PRN PRN Reason: Constipation Levothyroxine Sodium (Synthroid) 125 mcg PO DAILY@0630 [facility] Last Admin: 09/20/18 06:00 Dose: 125 mcg Methylprednisolone (Solu-Medrol) 30 mg IVP Q8 [facility] Last Admin: 09/20/18 06:00 Dose: 30 mg Montelukast Sodium (Singulair) 10 mg PO HS [facility] Last Admin: 09/19/18 21:35 Dose: 10 mg Pantoprazole Sodium (Protonix Ec Tab) 40 mg PO DAILY [facility] Last Admin: 09/20/18 09:41 Dose: 40 mg Promethazine HCl/Codeine (Phenergan/Codeine Oral Syrup) 5 ml PO Q4 PRN PRN Reason: Cough Last Admin: 09/18/18 21:45 Dose: 5 ml Rosuvastatin Calcium (Crestor) 5 mg PO HS [facility] Last Admin: 09/19/18 21:35 Dose: 5 mg Sevelamer Carbonate (Renvela) 800 mg PO TIDCC [facility] Last Admin: 09/20/18 09:00 Dose: 800 mg Sucralfate (Carafate Tab) 1 gm PO Q6 [facility] Last Admin: 09/20/18 06:00 Dose: 1 gm - Labs Labs: 09/20/18 06:26 09/20/18 06:26 - Constitutional Appears: No Acute Distress - Eye Exam Eye Exam: Normal appearance - ENT Exam ENT Exam: Mucous Membranes Moist - Respiratory Exam Respiratory Exam: NORMAL BREATHING PATTERN Additional comments: coarse sounds ocasional rhonchi - Cardiovascular Exam Cardiovascular Exam: REGULAR RHYTHM - GI/Abdominal Exam GI & Abdominal Exam: Soft. absent: Distended, Tenderness - Extremities Exam Extremities Exam: absent: Calf Tenderness - Back Exam Back Exam: absent: CVA tenderness (L), CVA tenderness (R) - Neurological Exam Neurological Exam: Alert, Awake - Psychiatric Exam Psychiatric exam: Normal Affect - Skin Skin Exam: Dry, Warm Assessment and Plan (1) COPD exacerbation Status: Acute (2) ESRD (end stage renal disease) on dialysis Status: Acute (3) Influenza A Status: Acute (4) CAD (coronary artery disease) Status: Acute (5) COPD (chronic obstructive pulmonary disease) Assessment & Plan: schedule dialysis with ultrafiltration for 3/6 orders written continue supportive care Status: Acute (6) Hypertension Status: Acute (7) Pulmonary HTN Status: Acute
[2018-09-20] MEDS: Fluticasone-Vilanterol 100/25mcg Diskus INH SCH (11:30)
--- NOTE | 2018-09-20 12:37 | CP.PCM.PN ---
Subjective - Date & Time of Evaluation Date of Evaluation: 09/20/18 Time of Evaluation: 12:36 - Subjective Subjective: CONDITION SAME. FLU. CRF. Objective - Vital Signs/Intake and Output Vital Signs (last 24 hours): Temp Pulse Resp BP Pulse Ox 97.9 F 83 18 138/79 98 09/20/18 07:00 09/20/18 07:00 09/20/18 07:00 09/20/18 07:00 09/20/18 07:00 - Medications Medications: Current Medications Acetylcysteine (Acetylcysteine 20%) 4 ml INH Q6H [facility] Last Admin: 09/20/18 08:04 Dose: 4 ml Albuterol/Ipratropium (Duoneb 3 Mg/0.5 Mg (3 Ml) Ud) 3 ml INH RQID [facility] Last Admin: 09/20/18 11:31 Dose: 3 ml Amitriptyline HCl (Elavil) 25 mg PO HS [facility] Last Admin: 09/19/18 21:35 Dose: 25 mg Aspirin (Aspirin Chewable) 81 mg PO TTS [facility] Last Admin: 09/20/18 09:41 Dose: 81 mg Calcium Acetate (Phoslo) 667 mg PO TIDCC [facility] Last Admin: 09/20/18 12:04 Dose: 667 mg Fluticasone/Vilanterol (Breo Ellipta 100-25 Mcg Inh) 1 puff INH RQD [facility] Last Admin: 09/20/18 11:30 Dose: Not Given Guaifenesin (Mucinex La) 600 mg PO BID [facility] Last Admin: 09/20/18 09:41 Dose: 600 mg Heparin Sodium (Porcine) (Heparin) 5,000 units SC Q12 [facility] Last Admin: 09/20/18 09:41 Dose: Not Given Lactulose (Generlac) 200 gm [place] DAILY PRN PRN Reason: Constipation Levothyroxine Sodium (Synthroid) 125 mcg PO DAILY@0630 [facility] Last Admin: 09/20/18 06:00 Dose: 125 mcg Methylprednisolone (Solu-Medrol) 30 mg IVP Q8 [facility] Last Admin: 09/20/18 06:00 Dose: 30 mg Montelukast Sodium (Singulair) 10 mg PO HS [facility] Last Admin: 09/19/18 21:35 Dose: 10 mg Pantoprazole Sodium (Protonix Ec Tab) 40 mg PO DAILY [facility] Last Admin: 09/20/18 09:41 Dose: 40 mg Promethazine HCl/Codeine (Phenergan/Codeine Oral Syrup) 5 ml PO Q4 PRN PRN Reason: Cough Last Admin: 09/18/18 21:45 Dose: 5 ml Rosuvastatin Calcium (Crestor) 5 mg PO HS [facility] Last Admin: 09/19/18 21:35 Dose: 5 mg Sevelamer Carbonate (Renvela) 800 mg PO TIDCC [facility] Last Admin: 09/20/18 12:04 Dose: 800 mg Sucralfate (Carafate Tab) 1 gm PO Q6 [facility] Last Admin: 09/20/18 12:04 Dose: 1 gm - Labs Labs: 09/20/18 06:26 09/20/18 06:26 - Constitutional Appears: No Acute Distress, Chronically Ill - Eye Exam Eye Exam: Normal appearance, PERRL - ENT Exam ENT Exam: Mucous Membranes Moist - Respiratory Exam Respiratory Exam: Clear to Ausculation Bilateral, NORMAL BREATHING PATTERN - Cardiovascular Exam Cardiovascular Exam: REGULAR RHYTHM, +S1, +S2 - GI/Abdominal Exam GI & Abdominal Exam: Soft, Normal Bowel Sounds - Extremities Exam Extremities Exam: Full ROM, Normal Capillary Refill, Normal Inspection. absent: Joint Swelling, Pedal Edema - Neurological Exam Neurological Exam: Alert, Awake, CN II-XII Intact, Normal Gait, Oriented x3 Assessment and Plan - Assessment and Plan (Free Text) Assessment: STABLE. Plan: CT PRESENT TREATMENT.
[2018-09-21] MEDS: Levothyroxine 125 MCG TAB PO SCH (06:24)
[2018-09-21] MEDS: MethylPREDNISolone 40 mg Vial IVP SCH ×3 (06:25→21:39)
[2018-09-21] MEDS: Acetylcysteine 20% Inhal Soln (4ml) INH SCH ×4 (07:59→19:41)
[2018-09-21] MEDS: Albuterol-Ipratrop 3 mg / 0.5 (3 ml) UD INH SCH ×4 (07:59→19:41)
[2018-09-21] MEDS: Pantoprazole 40 mg EC Tab PO SCH (09:21)
[2018-09-21] MEDS: guaiFENesin 600 mg ER Tab PO SCH ×2 (09:21→18:21)
--- NOTE | 2018-09-21 09:33 | CP.PCM.PN ---
Subjective - Date & Time of Evaluation Date of Evaluation: 09/21/18 Time of Evaluation: 09:30 - Subjective Subjective: PT FEELS TIRED., STILL +COUGH NO SPUTUM. LESS SOB. ROS; OTHERWISE NEG Objective - Vital Signs/Intake and Output Vital Signs (last 24 hours): Temp Pulse Resp BP Pulse Ox 97.6 F 87 18 156/89 H 95 09/21/18 07:00 09/21/18 07:00 09/21/18 07:00 09/21/18 07:00 09/21/18 07:00 Intake and Output: 09/21/18 09/21/18 06:59 18:59 Intake Total 200 Output Total 0 Balance 200 - Medications Medications: Current Medications Acetylcysteine (Acetylcysteine 20%) 4 ml INH QID [facility] Last Admin: 09/21/18 07:59 Dose: 4 ml Albuterol/Ipratropium (Duoneb 3 Mg/0.5 Mg (3 Ml) Ud) 3 ml INH RQID [facility] Last Admin: 09/21/18 07:59 Dose: 3 ml Amitriptyline HCl (Elavil) 25 mg PO HS [facility] Last Admin: 09/20/18 21:23 Dose: 25 mg Aspirin (Aspirin Chewable) 81 mg PO TTS [facility] Last Admin: 09/20/18 09:41 Dose: 81 mg Calcium Acetate (Phoslo) 667 mg PO TIDCC [facility] Last Admin: 09/21/18 08:43 Dose: 667 mg Fluticasone/Vilanterol (Breo Ellipta 100-25 Mcg Inh) 1 puff INH RQD [facility] Last Admin: 09/20/18 11:30 Dose: Not Given Guaifenesin (Mucinex La) 600 mg PO BID [facility] Last Admin: 09/21/18 09:21 Dose: 600 mg Heparin Sodium (Porcine) (Heparin) 5,000 units SC Q12 [facility] Last Admin: 09/21/18 09:26 Dose: Not Given Lactulose (Generlac) 200 gm [place] DAILY PRN PRN Reason: Constipation Levothyroxine Sodium (Synthroid) 125 mcg PO DAILY@0630 [facility] Last Admin: 09/21/18 06:24 Dose: 125 mcg Methylprednisolone (Solu-Medrol) 30 mg IVP Q8 [facility] Last Admin: 09/21/18 06:25 Dose: 30 mg Montelukast Sodium (Singulair) 10 mg PO HS [facility] Last Admin: 09/20/18 21:23 Dose: 10 mg Pantoprazole Sodium (Protonix Ec Tab) 40 mg PO DAILY [facility] Last Admin: 09/21/18 09:21 Dose: 40 mg Promethazine HCl/Codeine (Phenergan/Codeine Oral Syrup) 5 ml PO Q4 PRN PRN Reason: Cough Last Admin: 09/18/18 21:45 Dose: 5 ml Rosuvastatin Calcium (Crestor) 5 mg PO HS [facility] Last Admin: 09/20/18 21:23 Dose: 5 mg Sevelamer Carbonate (Renvela) 800 mg PO TIDCC [facility] Last Admin: 09/21/18 08:43 Dose: 800 mg Sucralfate (Carafate Tab) 1 gm PO Q6 [facility] Last Admin: 09/21/18 06:24 Dose: 1 gm - Labs Labs: 09/20/18 06:26 09/20/18 06:26 - Constitutional Appears: Chronically Ill - Head Exam Head Exam: ATRAUMATIC, NORMOCEPHALIC - Eye Exam Eye Exam: EOMI, Normal appearance - ENT Exam ENT Exam: Mucous Membranes Moist - Respiratory Exam Respiratory Exam: Decreased Breath Sounds, Prolonged Expiratory Phase, Rhonchi - Cardiovascular Exam Cardiovascular Exam: RRR, +S1, +S2 - GI/Abdominal Exam GI & Abdominal Exam: Soft. absent: Tenderness - Rectal Exam Rectal Exam: Deferred - Extremities Exam Extremities Exam: absent: Calf Tenderness, Pedal Edema - Back Exam Back Exam: absent: CVA tenderness (L), CVA tenderness (R) - Neurological Exam Neurological Exam: Alert, Awake, CN II-XII Intact, Oriented x3 - Psychiatric Exam Psychiatric exam: Normal Mood - Skin Skin Exam: absent: Rash Assessment and Plan (1) Hypothyroid Status: Acute (2) COPD exacerbation Status: Acute (3) ESRD (end stage renal disease) on dialysis Status: Acute (4) Influenza A Status: Acute (5) Anemia Status: Acute (6) Chronic respiratory failure with hypoxia Status: Acute (7) Hypertension Status: Acute (8) Pneumonia Status: Acute (9) Failed kidney transplant Status: Chronic - Assessment and Plan (Free Text) Assessment: RESP STATUS NO SIG CHANGE., ON STEROIDS, NEB BD WITH MUCOMYST., MUCINEX, ADD CPT ., ON ADVAIR, SINGULAIR. CXR REVIEWED. CONT AB PER ID. FOR HD TODAY. INCREASE OOB, AMBULATION WITH PORTABLE O2. DISCUSSED WITH STAFF AT LENGTH AND RT.
--- NOTE | 2018-09-21 11:06 | CP.PCM.PN ---
Subjective - Date & Time of Evaluation Date of Evaluation: 09/21/18 Time of Evaluation: 11:04 - Subjective Subjective: condition stable. afebrile. no sob. Objective - Vital Signs/Intake and Output Vital Signs (last 24 hours): Temp Pulse Resp BP Pulse Ox 97.6 F 74 18 152/61 H 95 09/21/18 07:00 09/21/18 09:30 09/21/18 09:30 09/21/18 09:50 09/21/18 07:00 Intake and Output: 09/21/18 09/21/18 06:59 18:59 Intake Total 200 Output Total 0 Balance 200 - Medications Medications: Current Medications Acetylcysteine (Acetylcysteine 20%) 4 ml INH QID [facility] Last Admin: 09/21/18 07:59 Dose: 4 ml Albuterol/Ipratropium (Duoneb 3 Mg/0.5 Mg (3 Ml) Ud) 3 ml INH RQID [facility] Last Admin: 09/21/18 07:59 Dose: 3 ml Amitriptyline HCl (Elavil) 25 mg PO HS [facility] Last Admin: 09/20/18 21:23 Dose: 25 mg Aspirin (Aspirin Chewable) 81 mg PO TTS [facility] Last Admin: 09/20/18 09:41 Dose: 81 mg Calcium Acetate (Phoslo) 667 mg PO TIDCC [facility] Last Admin: 09/21/18 08:43 Dose: 667 mg Fluticasone/Vilanterol (Breo Ellipta 100-25 Mcg Inh) 1 puff INH RQD [facility] Last Admin: 09/20/18 11:30 Dose: Not Given Guaifenesin (Mucinex La) 600 mg PO BID [facility] Last Admin: 09/21/18 09:21 Dose: 600 mg Heparin Sodium (Porcine) (Heparin) 5,000 units SC Q12 [facility] Last Admin: 09/21/18 09:26 Dose: Not Given Lactulose (Generlac) 200 gm [place] DAILY PRN PRN Reason: Constipation Levothyroxine Sodium (Synthroid) 125 mcg PO DAILY@0630 [facility] Last Admin: 09/21/18 06:24 Dose: 125 mcg Methylprednisolone (Solu-Medrol) 30 mg IVP Q8 [facility] Last Admin: 09/21/18 06:25 Dose: 30 mg Montelukast Sodium (Singulair) 10 mg PO HS [facility] Last Admin: 09/20/18 21:23 Dose: 10 mg Pantoprazole Sodium (Protonix Ec Tab) 40 mg PO DAILY [facility] Last Admin: 09/21/18 09:21 Dose: 40 mg Promethazine HCl/Codeine (Phenergan/Codeine Oral Syrup) 5 ml PO Q4 PRN PRN Reason: Cough Last Admin: 09/18/18 21:45 Dose: 5 ml Rosuvastatin Calcium (Crestor) 5 mg PO HS [facility] Last Admin: 09/20/18 21:23 Dose: 5 mg Sevelamer Carbonate (Renvela) 800 mg PO TIDCC [facility] Last Admin: 09/21/18 08:43 Dose: 800 mg Sucralfate (Carafate Tab) 1 gm PO Q6 [facility] Last Admin: 09/21/18 06:24 Dose: 1 gm - Labs Labs: 09/20/18 06:26 09/20/18 06:26 - Constitutional Appears: No Acute Distress, Chronically Ill - Eye Exam Eye Exam: PERRL - ENT Exam ENT Exam: Mucous Membranes Moist - Respiratory Exam Respiratory Exam: Clear to Ausculation Bilateral, NORMAL BREATHING PATTERN - Cardiovascular Exam Cardiovascular Exam: REGULAR RHYTHM, +S1, +S2 - GI/Abdominal Exam GI & Abdominal Exam: Soft, Normal Bowel Sounds - Extremities Exam Extremities Exam: Full ROM, Normal Capillary Refill, Normal Inspection. absent: Joint Swelling, Pedal Edema - Neurological Exam Neurological Exam: Alert, Awake, CN II-XII Intact, Normal Gait, Oriented x3 - Psychiatric Exam Psychiatric exam: Normal Affect, Normal Mood Assessment and Plan - Assessment and Plan (Free Text) Assessment: stable. flu. crf. Plan: ok for d/c home. ct other treatment.
[2018-09-21] MEDS: Fluticasone-Vilanterol 100/25mcg Diskus INH SCH (11:18)
--- NOTE | 2018-09-21 14:00 | CP.PCM.PN ---
Subjective - Date & Time of Evaluation Date of Evaluation: 09/21/18 Time of Evaluation: 13:58 - Subjective Subjective: very dyspneic due for dialysis now will need extra dialysis in AM severe othopnea Objective - Vital Signs/Intake and Output Vital Signs (last 24 hours): Temp Pulse Resp BP Pulse Ox 97.6 F 87 18 156/89 H 95 09/21/18 07:00 09/21/18 09:00 09/21/18 07:00 09/21/18 07:00 09/21/18 07:00 Intake and Output: 09/21/18 09/21/18 06:59 18:59 Intake Total 200 Output Total 0 Balance 200 - Medications Medications: Current Medications Acetylcysteine (Acetylcysteine 20%) 4 ml INH QID [facility] Last Admin: 09/21/18 11:03 Dose: 4 ml Albuterol/Ipratropium (Duoneb 3 Mg/0.5 Mg (3 Ml) Ud) 3 ml INH RQID [facility] Last Admin: 09/21/18 11:03 Dose: 3 ml Amitriptyline HCl (Elavil) 25 mg PO HS [facility] Last Admin: 09/20/18 21:23 Dose: 25 mg Aspirin (Aspirin Chewable) 81 mg PO TTS [facility] Last Admin: 09/20/18 09:41 Dose: 81 mg Calcium Acetate (Phoslo) 667 mg PO TIDCC [facility] Last Admin: 09/21/18 12:12 Dose: 667 mg Fluticasone/Vilanterol (Breo Ellipta 100-25 Mcg Inh) 1 puff INH RQD [facility] Last Admin: 09/20/18 11:30 Dose: Not Given Guaifenesin (Mucinex La) 600 mg PO BID [facility] Last Admin: 09/21/18 09:21 Dose: 600 mg Heparin Sodium (Porcine) (Heparin) 5,000 units SC Q12 [facility] Last Admin: 09/21/18 09:26 Dose: Not Given Lactulose (Generlac) 200 gm [place] DAILY PRN PRN Reason: Constipation Levothyroxine Sodium (Synthroid) 125 mcg PO DAILY@30 [facility] Last Admin: 09/21/18 06:24 Dose: 125 mcg Methylprednisolone (Solu-Medrol) 30 mg IVP Q8 [facility] Last Admin: 09/21/18 06:25 Dose: 30 mg Montelukast Sodium (Singulair) 10 mg PO HS [facility] Last Admin: 09/20/18 21:23 Dose: 10 mg Pantoprazole Sodium (Protonix Ec Tab) 40 mg PO DAILY [facility] Last Admin: 09/21/18 09:21 Dose: 40 mg Promethazine HCl/Codeine (Phenergan/Codeine Oral Syrup) 5 ml PO Q4 PRN PRN Reason: Cough Last Admin: 09/18/18 21:45 Dose: 5 ml Rosuvastatin Calcium (Crestor) 5 mg PO HS [facility] Last Admin: 09/20/18 21:23 Dose: 5 mg Sevelamer Carbonate (Renvela) 800 mg PO TIDCC [facility] Last Admin: 09/21/18 12:13 Dose: 800 mg Sucralfate (Carafate Tab) 1 gm PO Q6 [facility] Last Admin: 09/21/18 12:12 Dose: 1 gm - Labs Labs: 09/20/18 06:26 09/20/18 06:26 - Constitutional Appears: In Acute Distress, Cachectic, Chronically Ill - Head Exam Head Exam: ATRAUMATIC, NORMAL INSPECTION - Eye Exam Eye Exam: EOMI, Normal appearance - Neck Exam Neck Exam: Normal Inspection. absent: Tenderness - Respiratory Exam Respiratory Exam: Rhonchi, Respiratory Distress - Cardiovascular Exam Cardiovascular Exam: REGULAR RHYTHM, +S1 - GI/Abdominal Exam GI & Abdominal Exam: Soft. absent: Tenderness - Extremities Exam Extremities Exam: Normal Inspection. absent: Tenderness - Neurological Exam Neurological Exam: Awake, CN II-XII Intact - Skin Skin Exam: Dry, Warm Assessment and Plan (1) COPD exacerbation Status: Acute (2) ESRD (end stage renal disease) on dialysis Status: Acute (3) Influenza A Status: Acute (4) CHF exacerbation Status: Acute (5) Failed kidney transplant Status: Chronic - Assessment and Plan (Free Text) Plan: dialysis now; aggressive UF repeat dialysis in AM
[2018-09-22] MEDS: Levothyroxine 125 MCG TAB PO SCH (05:39)
[2018-09-22] MEDS: MethylPREDNISolone 40 mg Vial IVP SCH ×3 (05:40→22:52)
[2018-09-22] MEDS: Albuterol-Ipratrop 3 mg / 0.5 (3 ml) UD INH SCH ×4 (07:40→19:39)
--- NOTE | 2018-09-22 09:16 | CP.PCM.PN ---
Subjective - Date & Time of Evaluation Date of Evaluation: 09/22/18 Time of Evaluation: 09:12 - Subjective Subjective: PT ALERT, OOB LESS COUGH. ROS; OTHERWISE NEG Objective - Vital Signs/Intake and Output Vital Signs (last 24 hours): Temp Pulse Resp BP Pulse Ox 97.6 F 90 20 141/85 94 L 09/22/18 08:00 09/22/18 08:00 09/22/18 08:00 09/22/18 08:00 09/22/18 08:00 - Medications Medications: Current Medications Acetylcysteine (Acetylcysteine 20%) 4 ml INH QID [facility] Last Admin: 09/21/18 19:41 Dose: 4 ml Albuterol/Ipratropium (Duoneb 3 Mg/0.5 Mg (3 Ml) Ud) 3 ml INH RQID [facility] Last Admin: 09/22/18 07:40 Dose: 3 ml Amitriptyline HCl (Elavil) 25 mg PO HS [facility] Last Admin: 09/21/18 21:39 Dose: 25 mg Aspirin (Aspirin Chewable) 81 mg PO TTS [facility] Last Admin: 09/20/18 09:41 Dose: 81 mg Calcium Acetate (Phoslo) 667 mg PO TIDCC [facility] Last Admin: 09/22/18 08:14 Dose: 667 mg Fluticasone/Vilanterol (Breo Ellipta 100-25 Mcg Inh) 1 puff INH RQD [facility] Last Admin: 09/20/18 11:30 Dose: Not Given Guaifenesin (Mucinex La) 600 mg PO BID [facility] Last Admin: 09/21/18 18:21 Dose: 600 mg Heparin Sodium (Porcine) (Heparin) 5,000 units SC Q12 [facility] Last Admin: 09/21/18 21:40 Dose: Not Given Lactulose (Generlac) 200 gm [place] DAILY PRN PRN Reason: Constipation Levothyroxine Sodium (Synthroid) 125 mcg PO DAILY@0630 [facility] Last Admin: 09/22/18 05:39 Dose: 125 mcg Methylprednisolone (Solu-Medrol) 30 mg IVP Q8 [facility] Last Admin: 09/22/18 05:40 Dose: 30 mg Montelukast Sodium (Singulair) 10 mg PO HS [facility] Last Admin: 09/21/18 21:39 Dose: 10 mg Pantoprazole Sodium (Protonix Ec Tab) 40 mg PO DAILY [facility] Last Admin: 09/21/18 09:21 Dose: 40 mg Promethazine HCl/Codeine (Phenergan/Codeine Oral Syrup) 5 ml PO Q4 PRN PRN Reason: Cough Last Admin: 09/18/18 21:45 Dose: 5 ml Rosuvastatin Calcium (Crestor) 5 mg PO HS [facility] Last Admin: 09/21/18 21:39 Dose: 5 mg Sevelamer Carbonate (Renvela) 800 mg PO TIDCC [facility] Last Admin: 09/22/18 08:13 Dose: 800 mg Sucralfate (Carafate Tab) 1 gm PO Q6 [facility] Last Admin: 09/22/18 05:39 Dose: 1 gm - Labs Labs: 09/20/18 06:26 09/20/18 06:26 - Constitutional Appears: No Acute Distress, Chronically Ill - Head Exam Head Exam: ATRAUMATIC, NORMOCEPHALIC - Eye Exam Eye Exam: EOMI, Normal appearance - ENT Exam ENT Exam: Mucous Membranes Moist - Neck Exam Neck Exam: Normal Inspection - Respiratory Exam Respiratory Exam: Decreased Breath Sounds. absent: Respiratory Distress Additional comments: DECREASED RHONCHI BILAT. - Cardiovascular Exam Cardiovascular Exam: RRR, +S1, +S2 - GI/Abdominal Exam GI & Abdominal Exam: Soft. absent: Tenderness - Rectal Exam Rectal Exam: Deferred - Extremities Exam Extremities Exam: absent: Calf Tenderness, Pedal Edema - Back Exam Back Exam: absent: CVA tenderness (L), CVA tenderness (R) - Neurological Exam Neurological Exam: Alert, Awake, CN II-XII Intact, Oriented x3 - Psychiatric Exam Psychiatric exam: Normal Mood - Skin Additional comments: RIGHT ABDOM ECCHYMOSIS Assessment and Plan (1) Hypothyroid Status: Acute (2) COPD exacerbation Status: Acute (3) ESRD (end stage renal disease) on dialysis Status: Acute (4) Influenza A Status: Acute (5) Anemia Status: Acute (6) Chronic respiratory failure with hypoxia Status: Acute (7) Hypertension Status: Acute (8) Pneumonia Status: Acute (9) Failed kidney transplant Status: Chronic - Assessment and Plan (Free Text) Assessment: RESP STATUS IMPROVING., CONT NEB BD, STEROID TAPER., MONITOR O2 SAT. CXR REVIEWED. +ABDOM ECCHYMOSIS, DENIES TRAUMA, REFUSED ANY SQ HEPARIN. CHECK CT ABDOMEN. AFEBRILE, AB PER ID. FOR ADDITIONAL HD TODAY. DISCUSSED WITH STAFF AT LENGTH AND RENAL.
[2018-09-22] MEDS: guaiFENesin 600 mg ER Tab PO SCH ×2 (09:23→21:01)
[2018-09-22] MEDS: Pantoprazole 40 mg EC Tab PO SCH (09:24)
--- NOTE | 2018-09-22 10:03 | CP.PCM.PN ---
Subjective - Date & Time of Evaluation Date of Evaluation: 09/22/18 Time of Evaluation: 10:01 - Subjective Subjective: has increased ecchymosis RLQ has not been receiving heparin only on ASA 81 TIW recent US negative less dyspneic overall for extra dialysis today Objective - Vital Signs/Intake and Output Vital Signs (last 24 hours): Temp Pulse Resp BP Pulse Ox 97.6 F 90 20 141/85 94 L 09/22/18 08:00 09/22/18 08:00 09/22/18 08:00 09/22/18 08:00 09/22/18 08:00 - Medications Medications: Current Medications Acetylcysteine (Acetylcysteine 20%) 4 ml INH QID [facility] Last Admin: 09/21/18 19:41 Dose: 4 ml Albuterol/Ipratropium (Duoneb 3 Mg/0.5 Mg (3 Ml) Ud) 3 ml INH RQID [facility] Last Admin: 09/22/18 07:40 Dose: 3 ml Amitriptyline HCl (Elavil) 25 mg PO HS [facility] Last Admin: 09/21/18 21:39 Dose: 25 mg Aspirin (Aspirin Chewable) 81 mg PO TTS [facility] Last Admin: 09/22/18 09:24 Dose: 81 mg Calcium Acetate (Phoslo) 667 mg PO TIDCC [facility] Last Admin: 09/22/18 08:14 Dose: 667 mg Fluticasone/Vilanterol (Breo Ellipta 100-25 Mcg Inh) 1 puff INH RQD [facility] Last Admin: 09/20/18 11:30 Dose: Not Given Guaifenesin (Mucinex La) 600 mg PO BID [facility] Last Admin: 09/22/18 09:23 Dose: 600 mg Heparin Sodium (Porcine) (Heparin) 5,000 units SC Q12 [facility] Last Admin: 09/22/18 09:23 Dose: Not Given Lactulose (Generlac) 200 gm [place] DAILY PRN PRN Reason: Constipation Levothyroxine Sodium (Synthroid) 125 mcg PO DAILY@0630 [facility] Last Admin: 09/22/18 05:39 Dose: 125 mcg Methylprednisolone (Solu-Medrol) 30 mg IVP Q12H [facility] Montelukast Sodium (Singulair) 10 mg PO HS [facility] Last Admin: 09/21/18 21:39 Dose: 10 mg Pantoprazole Sodium (Protonix Ec Tab) 40 mg PO DAILY [facility] Last Admin: 09/22/18 09:24 Dose: 40 mg Promethazine HCl/Codeine (Phenergan/Codeine Oral Syrup) 5 ml PO Q4 PRN PRN Reason: Cough Last Admin: 09/18/18 21:45 Dose: 5 ml Rosuvastatin Calcium (Crestor) 5 mg PO HS [facility] Last Admin: 09/21/18 21:39 Dose: 5 mg Sevelamer Carbonate (Renvela) 800 mg PO TIDCC [facility] Last Admin: 09/22/18 08:13 Dose: 800 mg Sucralfate (Carafate Tab) 1 gm PO Q6 [facility] Last Admin: 09/22/18 05:39 Dose: 1 gm - Labs Labs: 09/20/18 06:26 09/20/18 06:26 - Constitutional Appears: No Acute Distress, Chronically Ill - Head Exam Head Exam: ATRAUMATIC, NORMAL INSPECTION - Eye Exam Eye Exam: EOMI, Normal appearance - Neck Exam Neck Exam: Normal Inspection. absent: Tenderness - Respiratory Exam Respiratory Exam: Clear to Ausculation Bilateral, NORMAL BREATHING PATTERN - Cardiovascular Exam Cardiovascular Exam: REGULAR RHYTHM, +S1, Murmur - GI/Abdominal Exam GI & Abdominal Exam: Soft. absent: Tenderness - Extremities Exam Extremities Exam: Normal Inspection. absent: Tenderness - Neurological Exam Neurological Exam: Awake, CN II-XII Intact - Skin Skin Exam: Dry, Warm Assessment and Plan (1) COPD exacerbation Status: Acute (2) ESRD (end stage renal disease) on dialysis Status: Acute (3) Influenza A Status: Acute (4) CHF exacerbation Status: Acute (5) Failed kidney transplant Status: Chronic - Assessment and Plan (Free Text) Plan: dialysis today and in AM might have to stop ASA CT abdomen/pelvis to evaluate for lesions
[2018-09-22] MEDS: Acetylcysteine 20% Inhal Soln (4ml) INH SCH ×2 (11:16→19:38)
[2018-09-22] MEDS: Fluticasone-Vilanterol 100/25mcg Diskus INH SCH (11:18)
--- NOTE | 2018-09-22 12:40 | CP.PCM.PN ---
Subjective - Date & Time of Evaluation Date of Evaluation: 09/22/18 Time of Evaluation: 12:38 - Subjective Subjective: C/O RT ABD HEMATOMA. PAIN PRESENT. CRF. AFEBRILE. Objective - Vital Signs/Intake and Output Vital Signs (last 24 hours): Temp Pulse Resp BP Pulse Ox 97.6 F 90 20 141/85 94 L 09/22/18 08:00 09/22/18 08:00 09/22/18 08:00 09/22/18 08:00 09/22/18 08:00 - Medications Medications: Current Medications Acetylcysteine (Acetylcysteine 20%) 4 ml INH QID [facility] Last Admin: 09/22/18 11:16 Dose: 4 ml Albuterol/Ipratropium (Duoneb 3 Mg/0.5 Mg (3 Ml) Ud) 3 ml INH RQID [facility] Last Admin: 09/22/18 11:15 Dose: 3 ml Amitriptyline HCl (Elavil) 25 mg PO HS [facility] Last Admin: 09/21/18 21:39 Dose: 25 mg Aspirin (Aspirin Chewable) 81 mg PO TTS [facility] Last Admin: 09/22/18 09:24 Dose: 81 mg Calcium Acetate (Phoslo) 667 mg PO TIDCC [facility] Last Admin: 09/22/18 08:14 Dose: 667 mg Fluticasone/Vilanterol (Breo Ellipta 100-25 Mcg Inh) 1 puff INH RQD [facility] Last Admin: 09/22/18 11:18 Dose: Not Given Guaifenesin (Mucinex La) 600 mg PO BID [facility] Last Admin: 09/22/18 09:23 Dose: 600 mg Lactulose (Generlac) 200 gm UT DAILY PRN PRN Reason: Constipation Levothyroxine Sodium (Synthroid) 125 mcg PO DAILY@0630 [facility] Last Admin: 09/22/18 05:39 Dose: 125 mcg Methylprednisolone (Solu-Medrol) 30 mg IVP Q12H [facility] Last Admin: 09/22/18 10:58 Dose: 30 mg Montelukast Sodium (Singulair) 10 mg PO HS [facility] Last Admin: 09/21/18 21:39 Dose: 10 mg Pantoprazole Sodium (Protonix Ec Tab) 40 mg PO DAILY [facility] Last Admin: 09/22/18 09:24 Dose: 40 mg Promethazine HCl/Codeine (Phenergan/Codeine Oral Syrup) 5 ml PO Q4 PRN PRN Reason: Cough Last Admin: 09/18/18 21:45 Dose: 5 ml Rosuvastatin Calcium (Crestor) 5 mg PO HS [facility] Last Admin: 09/21/18 21:39 Dose: 5 mg Sevelamer Carbonate (Renvela) 800 mg PO TIDCC [facility] Last Admin: 09/22/18 08:13 Dose: 800 mg Sucralfate (Carafate Tab) 1 gm PO Q6 [facility] Last Admin: 09/22/18 05:39 Dose: 1 gm - Labs Labs: 09/20/18 06:26 09/20/18 06:26 - Constitutional Appears: No Acute Distress, Chronically Ill - ENT Exam ENT Exam: Mucous Membranes Moist - Respiratory Exam Respiratory Exam: Clear to Ausculation Bilateral, NORMAL BREATHING PATTERN - Cardiovascular Exam Cardiovascular Exam: REGULAR RHYTHM, +S1, +S2 - GI/Abdominal Exam GI & Abdominal Exam: Soft, Normal Bowel Sounds - Extremities Exam Extremities Exam: Full ROM, Normal Capillary Refill, Normal Inspection. absent: Joint Swelling, Pedal Edema - Neurological Exam Neurological Exam: Alert, Awake, CN II-XII Intact, Normal Gait, Oriented x3 Assessment and Plan - Assessment and Plan (Free Text) Assessment: SAME. Plan: FOR CT ABD. IF WNL , PT MAY BE DISCHARGED.
--- NOTE | 2018-09-22 12:50 | CT ---
Date of service: 2018-09-22 09:44:06 PROCEDURE: CT abdomen and pelvis HISTORY: Abdominal pain. Ecchymosis. COMPARISON: Comparison made with prior CT scan of the abdomen and pelvis 05/26/2018 TECHNIQUE: Contiguous axial images of the abdomen and pelvis performed without oral or intravenous contrast material. Additional 2D sagittal and coronal reformats generated. Radiation dose: Total exam DLP = 209.75 mGy-cm. This CT exam was performed using one or more of the following dose reduction techniques: Automated exposure control, adjustment of the mA and/or kV according to patient size, and/or use of iterative reconstruction technique. FINDINGS: LOWER THORAX: Unremarkable. Heart is enlarged. Trace pericardial effusion and/or minimal pericardial thickening. Mild chronic pleural thickening changes associate with a few scattered calcifications likely dystrophic and postinflammatory in nature. Additionally, there are chronic atelectasis and or scarring changes both lung bases including the lingular and middle lobe regions. LIVER: Un the liver is exhibits normal size measuring just over 13 cm in CC dimension. No obvious hepatic mass collection or calcification. GALLBLADDER AND BILE DUCTS: Cholecystectomy. PANCREAS: Pancreas is somewhat atrophic and fatty replaced. No obvious pancreatic masses collections or calcifications. No significant pancreatic ductal dilatation. SPLEEN: Spleen exhibits normal size and attenuation pattern without mass collection or calcification. ADRENALS: No adrenal lesions are identified. KIDNEYS AND URETERS: Kidneys are severely atrophic. Findings could be secondary to longstanding chronic renal artery stenosis with calcification noted at the origins of both renal arteries. Clinical correlation recommended. BLADDER: The urinary bladder is incompletely distended and therefore difficult to evaluate. REPRODUCTIVE: Uterus and adnexal structures grossly unremarkable as visualized APPENDIX: Appendix is not seen with certainty however no obvious inflammatory changes right lower quadrant of the abdomen. BOWEL: Evaluation of the bowel somewhat limited due to the lack of oral contrast material. Stomach is incompletely distended with thick-walled appearance. Visualized loops of small bowel exhibit normal contour and caliber no evidence of acute mechanical small bowel obstruction. There is a large amount of stool seen throughout the colon particularly the right colon consistent with fecal retention/constipation. Multiple of colonic diverticula are again seen the bulk which are located along the sigmoid colon. No definitive radiographic evidence of acute diverticulitis. PERITONEUM: Unremarkable. No fluid collection. No free air. Redemonstrated is an elliptical shaped soft tissue density with multiple of peripheral and internal calcifications the right aspect of the pelvis which measures approximately 4.2 x 3.3 x 2.1 cm. This extends to the posterior surface anterior abdominal wall right lower quadrant and is of uncertain etiology. Rule out postoperative sequela of since discontinued peritoneal dialysis site or possibly sequela of since thrombosed AV fistula note also made of metallic clips along the anterolateral border of the psoas muscle; rule out prior of AV fistula sequela There are also metallic clips seen in the right mid and lower anterior abdominal wall possibly related to prior hernia repair. Clinical correlation recommended Minimal infiltration changes seen in the seen in the subcutaneous tissues in the mid to lower anterior abdominal wall at the level of the pelvis. LYMPH NODES: Unremarkable. No enlarged lymph nodes. VASCULATURE: Unremarkable. No aortic aneurysm. Moderate aortic atherosclerotic calcification or mural plaque present. BONES: Compression fractures nor retropulsed fragments. There are chronic appearing scattered Schmorl's nodes in the lower thoracic and upper lumbar region. OTHER FINDINGS: None. IMPRESSION: Mild chronic pleural thickening associate with scattered calcifications. There are also bilateral lower lobe chronic atelectatic and or parenchymal scarring changes. Cholecystectomy. Severely atrophic kidneys. Stable appearing nonspecific elliptical shaped partially calcified soft tissue mass density within the right lower quadrant of the abdomen of which contains peripheral and central calcifications. See above discussion for differential diagnostic considerations. Findings consistent with constipation. Diverticulosis without radiographic evidence of acute diverticulitis. See above discussion for additional details
[2018-09-23] MEDS: Levothyroxine 125 MCG TAB PO SCH (06:02)
[2018-09-23] MEDS: Albuterol-Ipratrop 3 mg / 0.5 (3 ml) UD INH SCH ×2 (07:17→11:18)
[2018-09-23] MEDS: Acetylcysteine 20% Inhal Soln (4ml) INH SCH (07:17)
[2018-09-23] MEDS: Fluticasone-Vilanterol 100/25mcg Diskus INH SCH (11:17)
[2018-09-23] MEDS: Pantoprazole 40 mg EC Tab PO SCH (12:46)
[2018-09-23] MEDS: guaiFENesin 600 mg ER Tab PO SCH ×2 (12:48→17:23)
[2018-09-23] MEDS: MethylPREDNISolone 40 mg Vial IVP SCH (12:48)
--- NOTE | 2018-09-23 13:14 | CP.PCM.PN ---
Subjective - Date & Time of Evaluation Date of Evaluation: 09/23/18 Time of Evaluation: 13:12 - Subjective Subjective: PT ALERT, FEELS OK., LESS SOB. ROS:OTHERWISE NEG. Objective - Vital Signs/Intake and Output Vital Signs (last 24 hours): Temp Pulse Resp BP Pulse Ox 97.5 F L 92 H 16 91/57 L 96 09/23/18 11:25 09/23/18 11:25 09/23/18 11:25 09/23/18 11:25 09/23/18 11:25 Intake and Output: 09/23/18 09/23/18 06:59 18:59 Intake Total 200 Balance 200 - Medications Medications: Current Medications Acetylcysteine (Acetylcysteine 20%) 4 ml INH QID [facility] Last Admin: 09/23/18 07:17 Dose: 4 ml Albuterol/Ipratropium (Duoneb 3 Mg/0.5 Mg (3 Ml) Ud) 3 ml INH RQID [facility] Last Admin: 09/23/18 11:18 Dose: Not Given Amitriptyline HCl (Elavil) 25 mg PO HS [facility] Last Admin: 09/22/18 22:52 Dose: 25 mg Aspirin (Aspirin Chewable) 81 mg PO TTS [facility] Last Admin: 09/22/18 09:24 Dose: 81 mg Calcium Acetate (Phoslo) 667 mg PO TIDCC [facility] Last Admin: 09/23/18 12:46 Dose: 667 mg Fluticasone/Vilanterol (Breo Ellipta 100-25 Mcg Inh) 1 puff INH RQD [facility] Last Admin: 09/23/18 11:17 Dose: Not Given Guaifenesin (Mucinex La) 600 mg PO BID [facility] Last Admin: 09/23/18 12:48 Dose: 600 mg Lactulose (Generlac) 200 gm [place] DAILY PRN PRN Reason: Constipation Levothyroxine Sodium (Synthroid) 125 mcg PO DAILY@0630 [facility] Last Admin: 09/23/18 06:02 Dose: 125 mcg Methylprednisolone (Solu-Medrol) 30 mg IVP Q12H [facility] Last Admin: 09/23/18 12:48 Dose: 30 mg Montelukast Sodium (Singulair) 10 mg PO HS [facility] Last Admin: 09/22/18 22:52 Dose: 10 mg Pantoprazole Sodium (Protonix Ec Tab) 40 mg PO DAILY [facility] Last Admin: 09/23/18 12:46 Dose: 40 mg Promethazine HCl/Codeine (Phenergan/Codeine Oral Syrup) 5 ml PO Q4 PRN PRN Reason: Cough Last Admin: 09/18/18 21:45 Dose: 5 ml Rosuvastatin Calcium (Crestor) 5 mg PO HS [facility] Last Admin: 09/22/18 22:52 Dose: 5 mg Sevelamer Carbonate (Renvela) 800 mg PO TIDCC [facility] Last Admin: 09/23/18 12:47 Dose: 800 mg Sucralfate (Carafate Tab) 1 gm PO Q6 [facility] Last Admin: 09/23/18 12:55 Dose: 1 gm - Labs Labs: 09/20/18 06:26 09/20/18 06:26 - Constitutional Appears: No Acute Distress, Chronically Ill - Head Exam Head Exam: ATRAUMATIC, NORMOCEPHALIC - Eye Exam Eye Exam: EOMI, Normal appearance - ENT Exam ENT Exam: Mucous Membranes Moist - Neck Exam Neck Exam: Normal Inspection - Respiratory Exam Respiratory Exam: Rhonchi. absent: Accessory Muscle Use, Respiratory Distress - Cardiovascular Exam Cardiovascular Exam: RRR, +S1, +S2 - GI/Abdominal Exam GI & Abdominal Exam: Soft. absent: Tenderness - Rectal Exam Rectal Exam: Deferred - Extremities Exam Extremities Exam: absent: Calf Tenderness, Pedal Edema - Back Exam Back Exam: absent: CVA tenderness (L), CVA tenderness (R) - Neurological Exam Neurological Exam: Alert, Awake, CN II-XII Intact, Normal Gait, Oriented x3 - Psychiatric Exam Psychiatric exam: Normal Mood - Skin Skin Exam: absent: Rash Assessment and Plan (1) Hypothyroid Status: Acute (2) COPD exacerbation Status: Acute (3) ESRD (end stage renal disease) on dialysis Status: Acute (4) Influenza A Status: Acute (5) Anemia Status: Acute (6) Chronic respiratory failure with hypoxia Status: Acute (7) Hypertension Status: Acute (8) Pneumonia Status: Acute (9) Failed kidney transplant Status: Chronic - Assessment and Plan (Free Text) Assessment: RESP STATUS IMPROVING., ON STEROID TAPER., CONT NEB BD,. ADVAIR., AND SINGULAIR., CXR REVIEWED. CT ABD +MIN INFILT. ABD WALL NOTED. HD TODAY. CONT O2 2L. AB PER ID. DISCUSSED WITH STAFF AND RENAL.
--- NOTE | 2018-09-23 13:26 | CP.PCM.PN ---
Subjective - Date & Time of Evaluation Date of Evaluation: 09/23/18 Time of Evaluation: 13:24 - Subjective Subjective: CONDITION STABLE. AFEBRILE. CT ABD RUQ CALCIFICATIONS. DISCUSSED WITH GARRETT GARIBAY FOR D/C HOME. Objective - Vital Signs/Intake and Output Vital Signs (last 24 hours): Temp Pulse Resp BP Pulse Ox 97.5 F L 92 H 16 91/57 L 96 09/23/18 11:25 09/23/18 11:25 09/23/18 11:25 09/23/18 11:25 09/23/18 11:25 Intake and Output: 09/23/18 09/23/18 06:59 18:59 Intake Total 200 Balance 200 - Medications Medications: Current Medications Acetylcysteine (Acetylcysteine 20%) 4 ml INH QID [facility] Last Admin: 09/23/18 07:17 Dose: 4 ml Albuterol/Ipratropium (Duoneb 3 Mg/0.5 Mg (3 Ml) Ud) 3 ml INH RQID [facility] Last Admin: 09/23/18 11:18 Dose: Not Given Amitriptyline HCl (Elavil) 25 mg PO HS [facility] Last Admin: 09/22/18 22:52 Dose: 25 mg Aspirin (Aspirin Chewable) 81 mg PO TTS [facility] Last Admin: 09/22/18 09:24 Dose: 81 mg Calcium Acetate (Phoslo) 667 mg PO TIDCC [facility] Last Admin: 09/23/18 12:46 Dose: 667 mg Fluticasone/Vilanterol (Breo Ellipta 100-25 Mcg Inh) 1 puff INH RQD [facility] Last Admin: 09/23/18 11:17 Dose: Not Given Guaifenesin (Mucinex La) 600 mg PO BID [facility] Last Admin: 09/23/18 12:48 Dose: 600 mg Lactulose (Generlac) 200 gm [place] DAILY PRN PRN Reason: Constipation Levothyroxine Sodium (Synthroid) 125 mcg PO DAILY@0630 [facility] Last Admin: 09/23/18 06:02 Dose: 125 mcg Methylprednisolone (Solu-Medrol) 30 mg IVP Q12H [facility] Last Admin: 09/23/18 12:48 Dose: 30 mg Montelukast Sodium (Singulair) 10 mg PO HS [facility] Last Admin: 09/22/18 22:52 Dose: 10 mg Pantoprazole Sodium (Protonix Ec Tab) 40 mg PO DAILY [facility] Last Admin: 09/23/18 12:46 Dose: 40 mg Promethazine HCl/Codeine (Phenergan/Codeine Oral Syrup) 5 ml PO Q4 PRN PRN Reason: Cough Last Admin: 09/18/18 21:45 Dose: 5 ml Rosuvastatin Calcium (Crestor) 5 mg PO HS [facility] Last Admin: 09/22/18 22:52 Dose: 5 mg Sevelamer Carbonate (Renvela) 800 mg PO TIDCC [facility] Last Admin: 09/23/18 12:47 Dose: 800 mg Sucralfate (Carafate Tab) 1 gm PO Q6 [facility] Last Admin: 09/23/18 12:55 Dose: 1 gm - Labs Labs: 09/20/18 06:26 09/20/18 06:26 - Constitutional Appears: Chronically Ill - Eye Exam Eye Exam: PERRL - ENT Exam ENT Exam: Mucous Membranes Moist - Respiratory Exam Respiratory Exam: Clear to Ausculation Bilateral, NORMAL BREATHING PATTERN - Cardiovascular Exam Cardiovascular Exam: REGULAR RHYTHM, +S1, +S2 - GI/Abdominal Exam GI & Abdominal Exam: Soft, Normal Bowel Sounds - Extremities Exam Extremities Exam: Full ROM, Normal Capillary Refill, Normal Inspection. absent: Joint Swelling, Pedal Edema - Back Exam Back Exam: NORMAL INSPECTION - Neurological Exam Neurological Exam: Alert, Awake, CN II-XII Intact, Normal Gait, Oriented x3 Assessment and Plan - Assessment and Plan (Free Text) Assessment: STABLE. Plan: D/C HOME.
--- NOTE | 2018-09-23 13:39 | CP.PCM.PN ---
Subjective - Date & Time of Evaluation Date of Evaluation: 09/23/18 Time of Evaluation: 13:36 - Subjective Subjective: s/p extra dialysis now- UF 2000ml s/p CT scan- not diagnostic same dry cough General same hypotension Ecchymosis worse Objective - Vital Signs/Intake and Output Vital Signs (last 24 hours): Temp Pulse Resp BP Pulse Ox 97.5 F L 92 H 16 91/57 L 96 09/23/18 11:25 09/23/18 11:25 09/23/18 11:25 09/23/18 11:25 09/23/18 11:25 Intake and Output: 09/23/18 09/23/18 06:59 18:59 Intake Total 200 Balance 200 - Medications Medications: Current Medications Acetylcysteine (Acetylcysteine 20%) 4 ml INH QID [facility] Last Admin: 09/23/18 07:17 Dose: 4 ml Albuterol/Ipratropium (Duoneb 3 Mg/0.5 Mg (3 Ml) Ud) 3 ml INH RQID [facility] Last Admin: 09/23/18 11:18 Dose: Not Given Amitriptyline HCl (Elavil) 25 mg PO HS [facility] Last Admin: 09/22/18 22:52 Dose: 25 mg Aspirin (Aspirin Chewable) 81 mg PO TTS [facility] Last Admin: 09/22/18 09:24 Dose: 81 mg Calcium Acetate (Phoslo) 667 mg PO TIDCC [facility] Last Admin: 09/23/18 12:46 Dose: 667 mg Fluticasone/Vilanterol (Breo Ellipta 100-25 Mcg Inh) 1 puff INH RQD [facility] Last Admin: 09/23/18 11:17 Dose: Not Given Guaifenesin (Mucinex La) 600 mg PO BID [facility] Last Admin: 09/23/18 12:48 Dose: 600 mg Lactulose (Generlac) 200 gm [place] DAILY PRN PRN Reason: Constipation Levothyroxine Sodium (Synthroid) 125 mcg PO DAILY@0630 [facility] Last Admin: 09/23/18 06:02 Dose: 125 mcg Methylprednisolone (Solu-Medrol) 30 mg IVP Q12H [facility] Last Admin: 09/23/18 12:48 Dose: 30 mg Montelukast Sodium (Singulair) 10 mg PO [facility] Last Admin: 03/07/19 22:52 Dose: 10 mg Pantoprazole Sodium (Protonix Ec Tab) 40 mg PO DAILY [facility] Last Admin: 09/23/18 12:46 Dose: 40 mg Promethazine HCl/Codeine (Phenergan/Codeine Oral Syrup) 5 ml PO Q4 PRN PRN Reason: Cough Last Admin: 09/18/18 21:45 Dose: 5 ml Rosuvastatin Calcium (Crestor) 5 mg PO HS [facility] Last Admin: 09/22/18 22:52 Dose: 5 mg Sevelamer Carbonate (Renvela) 800 mg PO TIDCC [facility] Last Admin: 09/23/18 12:47 Dose: 800 mg Sucralfate (Carafate Tab) 1 gm PO Q6 [facility] Last Admin: 09/23/18 12:55 Dose: 1 gm - Labs Labs: 09/20/18 06:26 09/20/18 06:26 - Constitutional Appears: No Acute Distress, Older Than Stated Age, Chronically Ill - Head Exam Head Exam: ATRAUMATIC, NORMAL INSPECTION - Eye Exam Eye Exam: EOMI, Normal appearance - Neck Exam Neck Exam: Normal Inspection. absent: Tenderness - Respiratory Exam Respiratory Exam: Rhonchi, NORMAL BREATHING PATTERN - Cardiovascular Exam Cardiovascular Exam: REGULAR RHYTHM, +S1 - GI/Abdominal Exam GI & Abdominal Exam: Soft. absent: Tenderness - Extremities Exam Extremities Exam: Normal Inspection. absent: Tenderness - Neurological Exam Neurological Exam: Awake, CN II-XII Intact - Skin Skin Exam: Dry, Rash, Warm Assessment and Plan (1) COPD exacerbation Status: Acute (2) ESRD (end stage renal disease) on dialysis Status: Acute (3) Influenza A Status: Acute (4) CHF exacerbation Status: Acute (5) Failed kidney transplant Status: Chronic - Assessment and Plan (Free Text) Plan: ok for discharge Will arrange for outpt dialysis 09/26 stop ASA due to worsening ecchymosis
[2018-09-23 16:37] VITALS: BP 99/66; PULSE 96; RESP 18; TEMP 98.4; O2SAT 97
--- NOTE | 2018-09-23 17:24 | PCM.HF ---
Heart Failure Core Measure - Heart Failure Ejection Fraction: 40 % or Greater CHEN Inhibitor Prescribed: No Contraindication/Reason for not providing: esrd Beta-Derian Prescribed: None Contraindication/Reason for not providing: asthma Angiotensin II Receptor Derian Prescribed: No Contraindication/Reason for not providing: esrd AnticoagulationTherapy for Atrial Fibrillation/Atrialflutter: No Contraindication/Reason for not providing: no hx of a fib Aldosterone Antagonist Prescribed: No Contraindication/Reason for not providing: esrd Hydralazine Nitrate Prescribed: No Contraindication/Reason for not providing: ef>45 Implantable Cardioverter Defibrillator Therapy: No Contraindication/Reason for not providing: ef>45 Cardiac Resynchronization Therapy Prescribed: No Contraindication/Reason for not providing: ef.[email or web address] - Follow up Will be discharged to: Home Follow Up Date (must be within 7 days from discharge): 09/26/18 Follow Up Time: 13:00
--- NOTE | 2018-09-28 06:58 | DS ---
HOSPITAL COURSE: This is a 57-year-old female who was admitted on 09/11/2018 with history of flu symptoms and rule out influenza. The patient also has history of COPD and CHF. The patient has end-stage renal disease with hypertension and coronary artery disease and bypass surgery. History of pneumonia. The patient is on dialysis. During the hospital course, the patient was treated with antibiotics. Dialysis was continued. The patient improved. The patient was given diuretics. FINAL DIAGNOSES: Influenza, chronic obstructive pulmonary disease, chronic renal failure. The patient was discharged home. Aung Gutiérrez MD
== END 2018-09-23 18:40 | disposition home or self-care (01) | DRG 193 ==
LOC: C.ER 15:05 → C.9E 18:16 → C.6T 19:30
PROVIDERS: ADMIT Internal Medicine Cardiovascular Disease; ATTEND Internal Medicine Cardiovascular Disease
PROC: 5A1D70Z Performance of Urinary Filtration, Intermittent, Less than 6 Hours Per Day (ICD-10-PCS; principal; 2018-09-12)
PROC: 5A1D70Z Performance of Urinary Filtration, Intermittent, Less than 6 Hours Per Day (ICD-10-PCS; 2018-09-14)
PROC: 5A1D70Z Performance of Urinary Filtration, Intermittent, Less than 6 Hours Per Day (ICD-10-PCS; 2018-09-16)
PROC: 5A1D70Z Performance of Urinary Filtration, Intermittent, Less than 6 Hours Per Day (ICD-10-PCS; 2018-09-16)
PROC: 5A1D70Z Performance of Urinary Filtration, Intermittent, Less than 6 Hours Per Day (ICD-10-PCS; 2018-09-19)
PROC: 5A1D70Z Performance of Urinary Filtration, Intermittent, Less than 6 Hours Per Day (ICD-10-PCS; 2018-09-21)
PROC: 5A1D70Z Performance of Urinary Filtration, Intermittent, Less than 6 Hours Per Day (ICD-10-PCS; 2018-09-22)
DX: J10.00 Influenza due to other identified influenza virus with unspecified type of pneumonia (principal); N18.6 End stage renal disease; J44.0 Chronic obstructive pulmonary disease with (acute) lower respiratory infection; J44.1 Chronic obstructive pulmonary disease with (acute) exacerbation; J96.11 Chronic respiratory failure with hypoxia; I13.2 Hypertensive heart and chronic kidney disease with heart failure and with stage 5 chronic kidney disease, or end stage renal disease; T86.12 Kidney transplant failure; I25.10 Atherosclerotic heart disease of native coronary artery without angina pectoris; I27.20 Pulmonary hypertension, unspecified; I50.9 Heart failure, unspecified; Z87.891 Personal history of nicotine dependence; Z95.1 Presence of aortocoronary bypass graft; Z95.2 Presence of prosthetic heart valve; Z99.2 Dependence on renal dialysis; Z99.81 Dependence on supplemental oxygen

== ENCOUNTER 2018-09-30 06:53 | Inpatient (IN) | payer MEDICARE, MEDICAID ==
[2018-09-30 06:53] VITALS: BMI 20.9
[2018-09-30] MEDS ORDERED: Sodium Chloride 0.9% 1,000 ML IV ONE (07:41)
[2018-09-30] MEDS ORDERED: Albuterol 0.083% Inhal Sol (2.5 mg/3 mL) UD IH STA (07:46)
[2018-09-30] MEDS ORDERED: Piperacillin/Tazobact 3.375 gm 100 ML IV STA (07:50)
[2018-09-30] MEDS ORDERED: Albuterol 0.083% Inhal Sol (2.5 mg/3 mL) UD ONE (07:52)
[2018-09-30] MEDS ORDERED: Sodium Chloride 0.9% 1,000 ML ONE (07:52)
[2018-09-30 07:57] LABS: VENOUS BLOOD GAS BASE EXCESS 5.8 mmol/L (0.0-2.0); VENOUS BLOOD GAS PCO2 44 mmHg (40-60); VENOUS BLOOD GAS PO2 46 mm/Hg (30-55); VENOUS BLOOD PH 7.45 (7.32-7.43)
[2018-09-30 08:20] LABS: BASO % 0.3 % (0.0-2.0); EOS # 0.2 K/uL (0.0-0.7); EOS % 2.4 % (0.0-4.0); HEMOGLOBIN 11.8 g/dL (11.0-16.0); LYMPH # 0.7 K/uL (1.0-4.3); LYMPH % 7.7 % (20.0-40.0); MEAN CELL VOLUME 100.4 fL (81.0-99.0); MEAN CORPUSCULAR HEMOGLOBIN 32.9 pg (27.0-31.0); MEAN CORPUSCULAR HGB CONC 32.7 g/dL (33.0-37.0); MEAN PLATELET VOLUME 8.2 fL (7.2-11.7); MONO # 1.2 K/uL (0.0-0.8); MONO % 13.7 % (0.0-10.0); NEUT # 6.8 K/uL (1.8-7.0); NEUT % 75.9 % (50.0-75.0); PLATELET COUNT 170 K/uL (130-400); RED CELL DISTRIBUTION WIDTH 15.2 % (11.5-14.5)
[2018-09-30 08:30] LABS: INR 1.1; PROTHROMBIN TIME 11.7 SECONDS (9.7-12.2)
--- NOTE | 2018-09-30 08:51 | RAD ---
Chest x-ray single frontal view HISTORY: Sepsis. Comparison: 09/01/2018 Findings: Moderate left and small right loculated pleural effusions. Diffuse increased interstitial lung markings. Patchy increased consolidative opacification in mid to lower lung zones bilaterally; left greater than right. Punctate nodular density at the right lung apex. Atherosclerotic calcification at the aortic knob. Cardiomegaly. Status post median sternotomy. Degenerative changes in the spine and shoulders. Left axillary stent in place. Calcification in the right axilla. Impression: Moderate left and small right loculated pleural effusions. Diffuse increased interstitial lung markings. Patchy increased consolidative opacification in the mid to lower lung zones bilaterally; left greater than right. Punctate nodular density at the right lung apex. Atherosclerotic calcification at the aortic knob. Cardiomegaly. Status post median sternotomy. Degenerative changes in the spine and shoulders. Left axillary stent in place. Calcification in the right axilla.
[2018-09-30 08:56] LABS: ALB/GLOB RATIO 1.3 (1.0-2.1); CALCIUM 8.9 mg/dl (8.6-10.4)
[2018-09-30 09:05] LABS: TROPONIN I 0.075 ng/mL (0.00-0.120)
[2018-09-30 09:07] LABS: EOSINOPHIL 2 % (0-4); LYMPHOCYTE 7 % (20-40); MONOCYTE 6 % (0-10); NEUTROPHIL 85 % (50-75); TOTAL CELLS COUNTED 100
[2018-09-30 09:09] LABS: PLATELET ESTIMATE NORMAL (NORMAL)
[2018-09-30 09:10] LABS: ANISOCYTOSIS SLIGHT; HYPOCHROMIC SLIGHT; POLYCHROMIC SLIGHT
[2018-09-30] MEDS ORDERED: MethylPREDNISolone 40 mg Vial IVP STA (09:10)
--- NOTE | 2018-09-30 09:14 | C.PDOC ---
History Of Present Illness 58 yo female w/PMHx of COPD, ESRD on HD was sent from dialysis today where was found to have fever, abnormal vs. Pt admits, was recently diagnosed with flu, admitted to [facility] on 09/12/18. Pt still c/o chest congestion, prod uctive cough with clear sputum. SInce today AM, " felt worse, feverish". Otherwise, pt denies high fever, headache, dizziness, neck pain, CP, SOB, dyspnea, abd. pian, V/D. Appears comfortable, not in any apparent distress. Time Seen by Provider: 09/30/18 07:29 Chief Complaint (Nursing): Fever Past Medical History Vital Signs: Last Vital Signs Temp 98.8 F 09/30/18 08:33 Pulse 92 H 09/30/18 08:33 Resp 25 H 09/30/18 08:33 BP 102/55 L 09/30/18 08:33 Pulse Ox 93 L 09/30/18 08:33 - Medical History PMH: Anemia, CAD (double bypass, replacement valve), CHF, COPD, HTN, Hypercholesterolemia, Hypothyroidism, Pneumonia, End Stage Renal Disease, Chronic Kidney Disease Denies: Sleep Apnea Surgical History: CABG (S/P AVR) - [facility] Procedures (09/11/18) CORONAR ARTERIOGR-2 CATH (02/20/04) HEMODIALYSIS (07/13/13) INCIS W REM OF FORIEGN BODY OR DEV FROM SKIN & SUBCUT TISSUE (12/24/12) LEFT HEART CARDIAC CATH (02/20/04) LT HEART ANGIOCARDIOGRAM (02/20/04) Family History: States: Unknown Family Hx - Social History Hx Tobacco Use: No Hx Alcohol Use: No Hx Substance Use: No - Immunization History Hx Tetanus Toxoid Vaccination: Yes Hx Influenza Vaccination: Yes Hx Pneumococcal Vaccination: Yes Physical Exam - Physical Exam Appears: Well, Non-toxic, No Acute Distress Skin: Normal Color, Warm, Dry Eye(s): bilateral: PERRL Nose: No Flaring, Discharge (B/L nasal congestion with scant discharge) Throat: No Erythema, No Drooling Neck: Supple Cardiovascular: Rhythm Regular, No Murmur, No JVD Respiratory: No Decreased Breath Sounds, No Accessory Muscle Use, No Stridor, No Wheezing Gastrointestinal/Abdominal: Soft, No Tenderness, No Distention, No Guarding Extremity: Normal ROM, No Pedal Edema, Other (LUE Av shunt with good thrill) Neurological/Psych: Oriented x3, Normal Speech ED Course And Treatment - Laboratory Results Result Diagrams: 09/30/18 08:13 09/30/18 08:13 Lab Results: pO2 46 mm/Hg (30-55) 09/30/18 07:54 VBG pH 7.45 (7.32-7.43) H 09/30/18 07:54 VBG pCO2 44 mmHg (40-60) 09/30/18 07:54 VBG HCO3 29.1 mmol/L 09/30/18 07:54 VBG Total CO2 32.0 mmol/L (22-28) H 09/30/18 07:54 VBG O2 Sat (Calc) 85.0 % (40-65) H 09/30/18 07:54 VBG Base Excess 5.8 mmol/L (0.0-2.0) H 09/30/18 07:54 VBG Potassium 4.6 mmol/L (3.6-5.2) 09/30/18 07:54 Sodium 142.0 mmol/l (132-148) 09/30/18 07:54 Chloride 104.0 mmol/L (98-107) 09/30/18 07:54 Glucose 81 mg/dl (65-105) 09/30/18 07:54 Lactate 1.5 mmol/L (0.7-2.1) 09/30/18 07:54 PT 11.7 SECONDS (9.7-12.2) 09/30/18 08:13 INR 1.1 09/30/18 08:13 APTT 28 SECONDS (21-34) 09/30/18 08:13 Troponin I 0.0750 ng/mL (0.00-0.120) 09/30/18 08:13 NT-Pro-B Natriuret Pep 42280 pg/mL (0-900) H 09/30/18 08:13 Total Bilirubin 1.8 mg/dL (0.2-1.3) H 09/30/18 08:13 AST 31 U/L (14-36) 09/30/18 08:13 ALT 29 U/L (9-52) 09/30/18 08:13 Alkaline Phosphatase 109 U/L (38-126) 09/30/18 08:13 Total Protein 7.1 g/dL (6.3-8.3) 09/30/18 08:13 Albumin 4.0 g/dL (3.5-5.0) 09/30/18 08:13 Globulin 3.0 gm/dL (2.2-3.9) 09/30/18 08:13 Albumin/Globulin Ratio 1.3 (1.0-2.1) 09/30/18 08:13 ECG: Interpreted By Me, Viewed By Me ECG Rhythm: Sinus Tachycardia Interpretation Of ECG: Sinus Tachy@110/min, PAC, no acute ST-T changes O2 Sat by Pulse Oximetry: 93 Pulse Ox Interpretation: Abnormal - Radiology CXR: Interpreted by Me, Read By Radiologist CXR Interpretation: Yes: Infiltrates - Other Rad CXR X-Ray: Read By Radiologist Interpretation: reator : jamila nazario. Dictator : Khanh Solis MD. Promotional Marketing Agent : Woodworking Bench Carpenter : Khanh Solis MD. Approver2 : Report Date : 09/30/2018 07:52:29. My Comment : . Chest x-ray single frontal view. HISTORY: Sepsis. Comparison: 09/01/2018. Findings: Moderate left and small right loculated pleural effusions. Diffuse increased interstitial lung markings. Patchy increased consolidative opacification in mid to lower lung zones bilaterally; left greater than right. Punctate nodular density at the right lung apex. Atherosclerotic calcification at the aortic knob. Cardiomegaly. Status post median sternotomy. Degenerative changes in the spine and shoulders. Left axillary stent in place. Calcification in the right axilla. Impression: Moderate left and small right loculated pleural effusions. Diffuse increased interstitial lung markings. Patchy increased consolidative opacification in the mid to lower lung zones bilaterally; left greater than right. Punctate nodular density at the right lung apex. Atherosclerotic calcification at the aortic knob. Cardiomegaly. Status post median sternotomy. Degenerative changes in the spine and shoulders. Left axillary stent in place. Calcification in the right axilla. Progress Note: Based on patient clinical presentation, VS criteria for code sepsis was met. Pt was treated accordingly, abx initiated. Pt remained stable in ED with minimal improvement. Case discussed DR. Spencer and admission arranged to tele. Nephro notified about patient Critical Care Time - Critical Care Note Total Time (in mins): 40 Documented critical care: time excludes all time spent performing seperately billable procedures. Disposition - Disposition Disposition: HOSPITALIZED Disposition Time: 08:20 Condition: FAIR - Clinical Impression Clinical Impression: COPD (chronic obstructive pulmonary disease), ESRD (end stage renal disease) on dialysis, Pneumonia, Sepsis
[2018-09-30] MEDS ORDERED: MethylPREDNISolone 40 mg Vial ONE (09:35)
--- NOTE | 2018-09-30 11:28 | CP.PCM.CON ---
Past Patient History - Past Medical History & Family History Past Medical History?: Yes - Past Social History Smoking Status: Former Smoker - CARDIAC Hx Congestive Heart Failure: Yes Hx Hypercholesterolemia: Yes Hx Hypertension: Yes - PULMONARY Hx Chronic Obstructive Pulmonary Disease (COPD): Yes Hx Pneumonia: Yes Hx Sleep Apnea: No - NEUROLOGICAL Hx Neurological Disorder: No - HEENT Hx HEENT Problems: No - RENAL Hx Chronic Kidney Disease: Yes - ENDOCRINE/METABOLIC Hx Hypothyroidism: Yes - HEMATOLOGICAL/ONCOLOGICAL Hx Anemia: Yes - INTEGUMENTARY Hx Dermatological Problems: No - MUSCULOSKELETAL/RHEUMATOLOGICAL Hx Musculoskeletal Disorders: Yes Hx Back Pain: Yes Hx Falls: Yes (yrs ago) - GASTROINTESTINAL Hx Gastrointestinal Disorders: Yes Other/Comment: Hiatal Hernia - GENITOURINARY/GYNECOLOGICAL Hx Genitourinary Disorders: Yes Other/Comment: S/P KIDNEY TRANSPLANT. S/P TRANSPLANT REMOVAL - PSYCHIATRIC Hx Substance Use: No - SURGICAL HISTORY Hx Coronary Artery Bypass Graft: Yes (S/P AVR) - ANESTHESIA Hx Anesthesia: Yes Hx Anesthesia Reactions: No Hx Malignant Hyperthermia: No Meds Allergies/Adverse Reactions: Allergies Allergy/AdvReac Type Severity Reaction Status Date / Time No Known Allergies Allergy Verified 09/11/18 15:18 - Medications Medications: Current Medications Sodium Chloride (Sodium Chloride 0.9%) 1,000 mls @ 200 mls/hr IV .Q5H ONE Stop: 09/30/18 12:40 Last Admin: 09/30/18 07:55 Dose: 200 mls/hr Results - Vital Signs Recent Vital Signs: Last Vital Signs Temp 98.3 F 09/30/18 11:15 Pulse 107 H 09/30/18 11:15 Resp 20 09/30/18 11:15 BP 120/72 09/30/18 11:15 Pulse Ox 96 09/30/18 11:15 - Labs Result Diagrams: 09/30/18 08:13 09/30/18 08:13 Labs: Laboratory Results - last 24 hr 09/30/18 09/30/18 09/30/18 07:54 08:13 08:13 WBC 9.0 RBC 3.60 L Hgb 11.8 Hct 36.1 MCV 100.4 H MCH 32.9 H MCHC 32.7 L RDW 15.2 H Plt Count 170 MPV 8.2 Neut % (Auto) 75.9 H Lymph % (Auto) 7.7 L [place] % (Auto) 13.7 H Eos % (Auto) 2.4 Baso % (Auto) 0.3 Neut # (Auto) 6.8 Lymph # (Auto) 0.7 L [place] # (Auto) 1.2 H Eos # (Auto) 0.2 Baso # (Auto) 0.0 Neutrophils % (Manual) 85 H Lymphocytes % (Manual) 7 L Monocytes % (Manual) 6 Eosinophils % (Manual) 2 Platelet Estimate Normal Polychromasia Slight Hypochromasia (manual) Slight Anisocytosis (manual) Slight PT 11.7 INR 1.1 APTT 28 pO2 46 VBG pH 7.45 H VBG pCO2 44 VBG HCO3 29.1 VBG Total CO2 32.0 H VBG O2 Sat (Calc) 85.0 H VBG Base Excess 5.8 H VBG Potassium 4.6 Sodium 142.0 Chloride 104.0 Glucose 81 Lactate 1.5 Potassium Carbon Dioxide Anion Gap BUN Creatinine Est GFR ( Amer) Est GFR (Non-Af Amer) Random Glucose Calcium Phosphorus Magnesium Total Bilirubin AST ALT Alkaline Phosphatase Troponin I NT-Pro-B Natriuret Pep Total Protein Albumin Globulin Albumin/Globulin Ratio Venous Blood Potassium 4.6 Influenza Typ A,B (EIA) 09/30/18 09/30/18 08:13 08:16 WBC RBC Hgb Hct MCV MCH MCHC RDW Plt Count MPV Neut % (Auto) Lymph % (Auto) [place] % (Auto) Eos % (Auto) Baso % (Auto) Neut # (Auto) Lymph # (Auto) [place] # (Auto) Eos # (Auto) Baso # (Auto) Neutrophils % (Manual) Lymphocytes % (Manual) Monocytes % (Manual) Eosinophils % (Manual) Platelet Estimate Polychromasia Hypochromasia (manual) Anisocytosis (manual) PT INR APTT pO2 VBG pH VBG pCO2 VBG HCO3 VBG Total CO2 VBG O2 Sat (Calc) VBG Base Excess VBG Potassium Sodium 140 Chloride 100 Glucose Lactate Potassium 4.4 Carbon Dioxide 27 Anion Gap 18 BUN 44 H Creatinine 5.6 H Est GFR ( Amer) 9 Est GFR (Non-Af Amer) 8 Random Glucose 79 D Calcium 8.9 Phosphorus 2.6 Magnesium 2.3 Total Bilirubin 1.8 H AST 31 ALT 29 Alkaline Phosphatase 109 Troponin I 0.0750 NT-Pro-B Natriuret Pep 76842 H Total Protein 7.1 Albumin 4.0 Globulin 3.0 Albumin/Globulin Ratio 1.3 Venous Blood Potassium Influenza Typ A,B (EIA) Negative for flu a/b
[2018-09-30] MEDS ORDERED: Albuterol-Ipratrop 3 mg / 0.5 (3 ml) UD INH STA (12:21)
--- NOTE | 2018-09-30 12:43 | PCM.SEPTIC ---
Sepsis Progress Note - Reassessment Type Date of Evaluation: 09/30/18 Time of Evaluation: 12:45 Reassessment Type: Non-invasive reassessment - Non Invasive Reassessment Were the most recent vital sign reviewed: Yes Vital Sign (Latest): Temp Pulse Resp BP Pulse Ox 97.9 F 90 28 H 110/62 92 L 09/30/18 12:13 09/30/18 12:13 09/30/18 12:13 09/30/18 12:27 09/30/18 12:13 Cardiovascular: Yes: Regular Rate, Rhythm Respiratory: Yes: Accessory Muscle Use, Crackles, Respiratory Distress (PRIMARY [place] TEACHER in progress- BiPAP started) Capillary Refill: Normal (Less than 2 sec) Pulses: Normal Radial Skin: Warm, Dry
--- NOTE | 2018-09-30 12:44 | PCM.RRT ---
VISUAL DISPLAY MANAGER Nurses Assessment - Situation Date: 09/30/18 Time VISUAL DISPLAY MANAGER was called: 12:29 VISUAL DISPLAY MANAGER Responder Arrival Time:: 12:30 VISUAL DISPLAY MANAGER Location:: Med/Surg Room Number: 653A VISUAL DISPLAY MANAGER Reason for Call: Respiratory Distress VISUAL DISPLAY MANAGER Called By: RN - IV IV Inserted during VISUAL DISPLAY MANAGER?: No IV Fluids Initiated During VISUAL DISPLAY MANAGER?: no - Respiratory VISUAL DISPLAY MANAGER Delivery Method: BiPAP @%, Non Rebreather @% Received Nebulizer Treatments: Yes (Duoneb) Was the Patient Ventilated with Bag/Mask 100% O2?: No Secretions Suctioned?: No Was the Patient Intubated?: No Was the Patient Placed on a Ventilator?: No - Medication Medications Administered During VISUAL DISPLAY MANAGER: Duoneb - Diagnostic Test Ordered EKG: No Chest X-Ray: No CT Scan: No - Stat Labs Ordered VISUAL DISPLAY MANAGER Stat Labs Ordered: LACTIC ACID CPR started during VISUAL DISPLAY MANAGER?: No - Vital Signs Vital Signs: BP 114/69 HR 86 T 97.9 spO2 97% on nonrebreather - Dora Coma Scale Coma Scale Eye Opening: Spontaneous Coma Scale Motor: Obeys Commands Movement Coma Scale Verbal: Oriented Coma Scale Total: 15 - Time VISUAL DISPLAY MANAGER Ended Time VISUAL DISPLAY MANAGER Ended: 12:45 - Vital Signs at end of VISUAL DISPLAY MANAGER Vital Signs at end of VISUAL DISPLAY MANAGER: spO2 100% on BiPAP FiO2 40 RR 20 - Recommendations 5) VISUAL DISPLAY MANAGER Level of Care Recommendations: Remain in current setting Notifications: Attending Physician, Consultations (nephrology ([place])) I.Reason for VISUAL DISPLAY MANAGER - A) Acute Change in Patient: (Select all that apply): Acute change in respiratory rate less than 8 or greater than 28 Subjective: VISUAL DISPLAY MANAGER called by nurse for respiratory distress. Patient was just brought up from ED. She was sent in from dialysis center due to fever. She did not receive any of her dialysis session. Patient was given 1 L NS in the ED due to hypotension (89/66). She also received Solu-Medrol 80 mg IV and Albuterol x1. Code sepsis was called. Upon arrival to the floor, PMD, Dr. Spencer, was contacted due to SOB. He gave the patient Lasix 80 IV. Patient was saturating 89% on RA and was placed on nonrebreather. She then saturated at 97% but was still in distress. She was placed on BiPAP and felt better, no longer using accessory muscles or tachypneic. Nephrology was contacted (Dr. Harper), and he will assess patient and place orders for dialysis. Plan - Assessment of Findings&Treatment Plan VISUAL DISPLAY MANAGER called for respiratory distress. Patient missed dialysis session today. She was given fluid in ED because she was hypotensive. Plan: - Stat Duoneb - BiPAP - Notified Nephrology, Dr. Harper, who will order HD today
--- NOTE | 2018-09-30 13:48 | CP.PCM.CON ---
History of Present Illness - History of Present Illness History of Present Illness: 58 yo female w/PMHx of COPD, ESRD on HD was sent from dialysis today where was found to have fever- temp 100.4, hypotension. Pt admits, was recently diagnosed with flu, admitted to [facility] on 09/12/18. Pt still c/o chest congestion, productive cough with clear sputum. SInce today AM, " felt worse, feverish". Otherwise, pt denies high fever, headache, dizziness, neck pain, CP, SOB, dyspnea, abd. pian, V/D. Appears comfortable, not in any apparent distress. Received extra dialysis 09/29, did not have dialysis today CXR with CHF changes Better with bipap placement Past Medical History ESRD Failed kidney transplants x 2 COPD Severe pulmonary HTN Valvular herat disease HTN hypothyroidism PSH: AV fistula 2 kidney transplants transplant nephrectomy valvular surgery Review of Systems - Constitutional Constitutional: Fatigue, Fever, Weakness - EENT Eyes: absent: As Per HPI, Blind Spots, Blurred Vision, Change in Vision, Decreased Night Vision, Diplopia, Discharge, Dry Eye, Exophthalmos, Floaters, Irritation, Itchy Eyes, Loss of Peripheral Vision, Pain, Photophobia, Requires Corrective Lenses, Sees Flashes, Spots in Vision, Tunnel Vision, Other Visual Disturbances, Loss of Vision, Other Ears: absent: As Per HPI, Decreased Hearing, Ear Discharge, Ear Pain, Tinnitus, Abnormal Hearing, Disequilibrium, Dizziness, Other - Cardiovascular Cardiovascular: Dyspnea on Exertion, Orthopnea - Respiratory Respiratory: Cough, Dyspnea on Exertion - Gastrointestinal Gastrointestinal: Nausea - Genitourinary Genitourinary: As Per HPI - Musculoskeletal Musculoskeletal: Muscle Cramps, Muscle Weakness, Myalgias Past Patient History - Past Medical History & Family History Past Medical History?: Yes Past Family History: Reviewed and not pertinent - Past Social History Smoking Status: Former Smoker Chewing Tobacco Use: No Cigar Use: No Alcohol: None Drugs: Denies Home Situation {Lives}: With Family - CARDIAC Hx Congestive Heart Failure: Yes Hx Hypercholesterolemia: Yes Hx Hypertension: Yes - PULMONARY Hx Chronic Obstructive Pulmonary Disease (COPD): Yes Hx Pneumonia: Yes Hx Sleep Apnea: No - NEUROLOGICAL Hx Neurological Disorder: No - HEENT Hx HEENT Problems: No - RENAL Hx Chronic Kidney Disease: Yes - ENDOCRINE/METABOLIC Hx Hypothyroidism: Yes - HEMATOLOGICAL/ONCOLOGICAL Hx Anemia: Yes - INTEGUMENTARY Hx Dermatological Problems: No - MUSCULOSKELETAL/RHEUMATOLOGICAL Hx Musculoskeletal Disorders: Yes Hx Back Pain: Yes Hx Falls: Yes (yrs ago) - GASTROINTESTINAL Hx Gastrointestinal Disorders: Yes Other/Comment: Hiatal Hernia - GENITOURINARY/GYNECOLOGICAL Hx Genitourinary Disorders: Yes Other/Comment: S/P KIDNEY TRANSPLANT. S/P TRANSPLANT REMOVAL - PSYCHIATRIC Hx Substance Use: No - SURGICAL HISTORY Hx Coronary Artery Bypass Graft: Yes (S/P AVR) - ANESTHESIA Hx Anesthesia: Yes Hx Anesthesia Reactions: No Hx Malignant Hyperthermia: No Meds Allergies/Adverse Reactions: Allergies Allergy/AdvReac Type Severity Reaction Status Date / Time No Known Allergies Allergy Verified 09/11/18 15:18 Physical Exam - Constitutional Appears: In Acute Distress, Chronically Ill - Head Exam Head Exam: ATRAUMATIC, NORMAL INSPECTION - Eye Exam Eye Exam: EOMI, Normal appearance - Neck Exam Neck exam: Positive for: Normal Inspection. Negative for: Tenderness - Respiratory Exam Respiratory Exam: Rhonchi, Wheezes, Respiratory Distress - Cardiovascular Exam Cardiovascular Exam: REGULAR RHYTHM, Systolic Murmur - GI/Abdominal Exam GI & Abdominal Exam: Soft. absent: Tenderness - Extremities Exam Extremities exam: Positive for: normal inspection. Negative for: tenderness - Neurological Exam Neurological exam: Alert, CN II-XII Intact - Skin Skin Exam: Dry, Warm Results - Vital Signs Recent Vital Signs: Last Vital Signs Temp 97.8 F 09/30/18 13:37 Pulse 84 09/30/18 13:37 Resp 22 09/30/18 13:37 BP 116/67 09/30/18 13:37 Pulse Ox 100 09/30/18 13:37 - Labs Result Diagrams: 09/30/18 08:13 09/30/18 08:13 Labs: Laboratory Results - last 24 hr 09/30/18 09/30/18 09/30/18 07:54 08:13 08:13 WBC 9.0 RBC 3.60 L Hgb 11.8 Hct 36.1 MCV 100.4 H MCH 32.9 H MCHC 32.7 L RDW 15.2 H Plt Count 170 MPV 8.2 Neut % (Auto) 75.9 H Lymph % (Auto) 7.7 L [place] % (Auto) 13.7 H Eos % (Auto) 2.4 Baso % (Auto) 0.3 Neut # (Auto) 6.8 Lymph # (Auto) 0.7 L [place] # (Auto) 1.2 H Eos # (Auto) 0.2 Baso # (Auto) 0.0 Neutrophils % (Manual) 85 H Lymphocytes % (Manual) 7 L Monocytes % (Manual) 6 Eosinophils % (Manual) 2 Platelet Estimate Normal Polychromasia Slight Hypochromasia (manual) Slight Anisocytosis (manual) Slight PT 11.7 INR 1.1 APTT 28 pO2 46 VBG pH 7.45 H VBG pCO2 44 VBG HCO3 29.1 VBG Total CO2 32.0 H VBG O2 Sat (Calc) 85.0 H VBG Base Excess 5.8 H VBG Potassium 4.6 Sodium 142.0 Chloride 104.0 Glucose 81 Lactate 1.5 Potassium Carbon Dioxide Anion Gap BUN Creatinine Est GFR ( Amer) Est GFR (Non-Af Amer) POC Glucose (mg/dL) Random Glucose Calcium Phosphorus Magnesium Total Bilirubin AST ALT Alkaline Phosphatase Troponin I NT-Pro-B Natriuret Pep Total Protein Albumin Globulin Albumin/Globulin Ratio Venous Blood Potassium 4.6 Influenza Typ A,B (EIA) 09/30/18 09/30/18 09/30/18 08:13 08:16 12:32 WBC RBC Hgb Hct MCV MCH MCHC RDW Plt Count MPV Neut % (Auto) Lymph % (Auto) [place] % (Auto) Eos % (Auto) Baso % (Auto) Neut # (Auto) Lymph # (Auto) [place] # (Auto) Eos # (Auto) Baso # (Auto) Neutrophils % (Manual) Lymphocytes % (Manual) Monocytes % (Manual) Eosinophils % (Manual) Platelet Estimate Polychromasia Hypochromasia (manual) Anisocytosis (manual) PT INR APTT pO2 VBG pH VBG pCO2 VBG HCO3 VBG Total CO2 VBG O2 Sat (Calc) VBG Base Excess VBG Potassium Sodium 140 Chloride 100 Glucose Lactate Potassium 4.4 Carbon Dioxide 27 Anion Gap 18 BUN 44 H Creatinine 5.6 H Est GFR ( Amer) 9 Est GFR (Non-Af Amer) 8 POC Glucose (mg/dL) 209 H Random Glucose 79 D Calcium 8.9 Phosphorus 2.6 Magnesium 2.3 Total Bilirubin 1.8 H AST 31 ALT 29 Alkaline Phosphatase 109 Troponin I 0.0750 NT-Pro-B Natriuret Pep 84701 H Total Protein 7.1 Albumin 4.0 Globulin 3.0 Albumin/Globulin Ratio 1.3 Venous Blood Potassium Influenza Typ A,B (EIA) Negative for flu a/b Assessment & Plan (1) COPD (chronic obstructive pulmonary disease) Status: Acute (2) ESRD (end stage renal disease) on dialysis Status: Acute (3) CAD (coronary artery disease) Status: Acute (4) CHF exacerbation Status: Acute (5) COPD exacerbation Status: Acute (6) Hypothyroid Status: Acute (7) Pulmonary HTN Status: Acute (8) Failed kidney transplant Status: Chronic - Assessment and Plan (Free Text) Plan: immediate dialysis; adequate UF pulmonary treatments ABs as per pulmonary/medicine
--- NOTE | 2018-09-30 14:39 | CP.PCM.CON ---
History of Present Illness - History of Present Illness History of Present Illness: CHART REVIEWED. PT SEEN AND EXAMINED. 58 YO HISP FEMALE WITH A HX COPD, CHRONIC RESP FAILURE, ESRD, S/P FAILED KIDNEY TRANSPLANT X 2, HYPOTH, S/P AVR, ADM WITH INCREASED MOD SOB AT [facility] THIS AM., TRANS TO ER. +FEVER THIS AM. PT D/C HOME LAST WK ON PRED TAPER, S/P PNA, FLU+ TX WITH TAMIFLU. PT DENIES N/V. NO DIARRHEA. Review of Systems - Review of Systems Systems not reviewed;Unavailable: Respiratory Distress All systems: reviewed and no additional remarkable complaints except - Constitutional Constitutional: Fever, Weakness - EENT Eyes: absent: Change in Vision Ears: absent: Dizziness Nose/Mouth/Throat: absent: Nasal Congestion - Cardiovascular Cardiovascular: absent: Chest Pain - Respiratory Respiratory: Dyspnea, Dyspnea on Exertion, Wheezing, Chest Congestion. absent: Change in Mucous Color - Gastrointestinal Gastrointestinal: absent: Diarrhea, Nausea, Vomiting - Genitourinary Genitourinary: absent: Difficulty Urinating - Musculoskeletal Musculoskeletal: Back Pain - Integumentary Integumentary: absent: New Lesions - Neurological Neurological: absent: Confusion, Focal Weakness - Psychiatric Psychiatric: absent: Confusion - Endocrine Endocrine: absent: Excessive Sweating Past Patient History - Past Medical History & Family History Past Medical History?: Yes Past Family History: Reviewed and not pertinent - Past Social History Smoking Status: Former Smoker Chewing Tobacco Use: No Cigar Use: No Alcohol: None Drugs: Denies Home Situation {Lives}: With Family - CARDIAC Hx Congestive Heart Failure: Yes Hx Hypercholesterolemia: Yes Hx Hypertension: Yes - PULMONARY Hx Respiratory Disorders: Yes Hx Chronic Obstructive Pulmonary Disease (COPD): Yes Hx Pneumonia: Yes Hx Sleep Apnea: No - NEUROLOGICAL Hx Neurological Disorder: No - HEENT Hx HEENT Problems: No - RENAL Hx Chronic Kidney Disease: Yes Hx Dialysis: Yes - ENDOCRINE/METABOLIC Hx Hypothyroidism: Yes - HEMATOLOGICAL/ONCOLOGICAL Hx Anemia: Yes - INTEGUMENTARY Hx Dermatological Problems: No - MUSCULOSKELETAL/RHEUMATOLOGICAL Hx Musculoskeletal Disorders: Yes Hx Back Pain: Yes Hx Falls: Yes (yrs ago) - GASTROINTESTINAL Hx Gastrointestinal Disorders: Yes Other/Comment: Hiatal Hernia - GENITOURINARY/GYNECOLOGICAL Hx Genitourinary Disorders: Yes Other/Comment: S/P KIDNEY TRANSPLANT. S/P TRANSPLANT REMOVAL - PSYCHIATRIC Hx Substance Use: No - SURGICAL HISTORY Hx Surgeries: Yes Hx Coronary Artery Bypass Graft: Yes (S/P AVR) Hx Open Heart Surgery: Yes - ANESTHESIA Hx Anesthesia: Yes Hx Anesthesia Reactions: No Hx Malignant Hyperthermia: No Meds Allergies/Adverse Reactions: Allergies Allergy/AdvReac Type Severity Reaction Status Date / Time No Known Allergies Allergy Verified 09/11/18 15:18 - Medications Medications: Current Medications Albuterol Sulfate (Albuterol 0.083% Inhal Yudi (2.5 Mg/3 Ml) Ud) 2.5 mg IH Q4 [facility] Amitriptyline HCl (Elavil) 25 mg PO HS [facility] Aspirin (Aspirin Chewable) 81 mg PO DAILY [facility] Home Med (Calcium Acetate [Calcium Acetate]) 667 mg PO TID [facility] Home Med (Fluticasone/Salmeterol 250/50 [Advair Diskus 250/50]) 1 puff IH Q12 PRN PRN Reason: asthma Insulin Aspart (Novolog) 0 unit SC ACHS [facility]; Protocol Levothyroxine Sodium (Synthroid) 125 mcg PO ONCE [facility] Methylprednisolone (Solu-Medrol) 40 mg IVP Q8 [facility] Montelukast Sodium (Singulair) 10 mg PO HS [facility] Rosuvastatin Calcium (Crestor) 5 mg PO HS [facility] Sevelamer Carbonate (Renvela) 3 mg PO TID [facility] Sucralfate (Carafate Tab) 1 gm PO Q6 [facility] Tramadol HCl (Ultram) 25 mg PO TID PRN PRN Reason: pain Results - Vital Signs Recent Vital Signs: Last Vital Signs Temp 97.3 F L 09/30/18 13:50 Pulse 84 09/30/18 13:50 Resp 16 09/30/18 13:50 BP 97/66 L 09/30/18 13:50 Pulse Ox 100 09/30/18 13:37 - Labs Result Diagrams: 09/30/18 08:13 09/30/18 08:13 Labs: Laboratory Results - last 24 hr 09/30/18 09/30/18 09/30/18 07:54 08:13 08:13 WBC 9.0 RBC 3.60 L Hgb 11.8 Hct 36.1 MCV 100.4 H MCH 32.9 H MCHC 32.7 L RDW 15.2 H Plt Count 170 MPV 8.2 Neut % (Auto) 75.9 H Lymph % (Auto) 7.7 L [place] % (Auto) 13.7 H Eos % (Auto) 2.4 Baso % (Auto) 0.3 Neut # (Auto) 6.8 Lymph # (Auto) 0.7 L [place] # (Auto) 1.2 H Eos # (Auto) 0.2 Baso # (Auto) 0.0 Neutrophils % (Manual) 85 H Lymphocytes % (Manual) 7 L Monocytes % (Manual) 6 Eosinophils % (Manual) 2 Platelet Estimate Normal Polychromasia Slight Hypochromasia (manual) Slight Anisocytosis (manual) Slight PT 11.7 INR 1.1 APTT 28 pO2 46 VBG pH 7.45 H VBG pCO2 44 VBG HCO3 29.1 VBG Total CO2 32.0 H VBG O2 Sat (Calc) 85.0 H VBG Base Excess 5.8 H VBG Potassium 4.6 Sodium 142.0 Chloride 104.0 Glucose 81 Lactate 1.5 Potassium Carbon Dioxide Anion Gap BUN Creatinine Est GFR ( Amer) Est GFR (Non-Af Amer) POC Glucose (mg/dL) Random Glucose Lactic Acid Calcium Phosphorus Magnesium Total Bilirubin AST ALT Alkaline Phosphatase Troponin I NT-Pro-B Natriuret Pep Total Protein Albumin Globulin Albumin/Globulin Ratio Venous Blood Potassium 4.6 Influenza Typ A,B (EIA) 09/30/18 09/30/18 09/30/18 08:13 08:16 12:32 WBC RBC Hgb Hct MCV MCH MCHC RDW Plt Count MPV Neut % (Auto) Lymph % (Auto) [place] % (Auto) Eos % (Auto) Baso % (Auto) Neut # (Auto) Lymph # (Auto) [place] # (Auto) Eos # (Auto) Baso # (Auto) Neutrophils % (Manual) Lymphocytes % (Manual) Monocytes % (Manual) Eosinophils % (Manual) Platelet Estimate Polychromasia Hypochromasia (manual) Anisocytosis (manual) PT INR APTT pO2 VBG pH VBG pCO2 VBG HCO3 VBG Total CO2 VBG O2 Sat (Calc) VBG Base Excess VBG Potassium Sodium 140 Chloride 100 Glucose Lactate Potassium 4.4 Carbon Dioxide 27 Anion Gap 18 BUN 44 H Creatinine 5.6 H Est GFR ( Amer) 9 Est GFR (Non-Af Amer) 8 POC Glucose (mg/dL) 209 H Random Glucose 79 D Lactic Acid Calcium 8.9 Phosphorus 2.6 Magnesium 2.3 Total Bilirubin 1.8 H AST 31 ALT 29 Alkaline Phosphatase 109 Troponin I 0.0750 NT-Pro-B Natriuret Pep 59561 H Total Protein 7.1 Albumin 4.0 Globulin 3.0 Albumin/Globulin Ratio 1.3 Venous Blood Potassium Influenza Typ A,B (EIA) Negative for flu a/b 09/30/18 13:14 WBC RBC Hgb Hct MCV MCH MCHC RDW Plt Count MPV Neut % (Auto) Lymph % (Auto) [place] % (Auto) Eos % (Auto) Baso % (Auto) Neut # (Auto) Lymph # (Auto) [place] # (Auto) Eos # (Auto) Baso # (Auto) Neutrophils % (Manual) Lymphocytes % (Manual) Monocytes % (Manual) Eosinophils % (Manual) Platelet Estimate Polychromasia Hypochromasia (manual) Anisocytosis (manual) PT INR APTT pO2 VBG pH VBG pCO2 VBG HCO3 VBG Total CO2 VBG O2 Sat (Calc) VBG Base Excess VBG Potassium Sodium Chloride Glucose Lactate Potassium Carbon Dioxide Anion Gap BUN Creatinine Est GFR ( Amer) Est GFR (Non-Af Amer) POC Glucose (mg/dL) Random Glucose Lactic Acid 1.4 Calcium Phosphorus Magnesium Total Bilirubin AST ALT Alkaline Phosphatase Troponin I NT-Pro-B Natriuret Pep Total Protein Albumin Globulin Albumin/Globulin Ratio Venous Blood Potassium Influenza Typ A,B (EIA) Assessment & Plan (1) COPD (chronic obstructive pulmonary disease) Status: Acute (2) ESRD (end stage renal disease) on dialysis Status: Acute (3) Pneumonia Status: Acute (4) Sepsis Status: Acute (5) CHF exacerbation Status: Acute (6) Chronic respiratory failure with hypoxia Status: Acute (7) Hypothyroid Status: Acute (8) Acute respiratory failure with hypoxia Status: Chronic (9) Failed kidney transplant Status: Chronic - Assessment and Plan (Free Text) Assessment: 58 YO FEMALE WITH A HX MULT MED PROBS, ADM WITH ACUTE ON CHRONIC RESP FAILURE, +PNA R/O SEPSIS, COPD EXAC. CONT BIPAP SUPPORT, TAPER FIO2 TOLERATED. NEB BD. IV STEROIDS, MONITOR O2 SAT. ID EVAL. ADDITIONAL HD PER RENAL. DVT PROPHYLAXIS. DISCUSSED WITH STAFF AT LENGTH AND RENAL.
[2018-09-30] MEDS: Albuterol 0.083% Inhal Sol (2.5 mg/3 mL) UD IH SCH ×3 (16:00→23:56)
[2018-09-30] MEDS: Levothyroxine 125 MCG TAB PO SCH (17:00)
[2018-09-30] MEDS: (Novolog) Insulin Aspart, Recombinant 100 u/ml 10 ml vial SC SCH ×2 (17:30→22:18)
[2018-09-30] MEDS: Piperacillin/Tazobact 2.25 GM in Sodium Chloride 100 ML IVPB SCH (19:30)
[2018-09-30] MEDS: Tramadol 25 mg PO PRN (20:05)
[2018-09-30] MEDS: MethylPREDNISolone 40 mg Vial IVP SCH (22:00)
--- NOTE | 2018-09-30 22:04 | CP.PCM.HP ---
Present on Admission - Present on Admission Any Indicators Present on Admission: No Past Patient History - Past Medical History & Family History Past Medical History?: Yes Past Family History: Reviewed and not pertinent - Past Social History Smoking Status: Former Smoker Chewing Tobacco Use: No Cigar Use: No Alcohol: None Drugs: Denies Home Situation {Lives}: With Family - CARDIAC Hx Congestive Heart Failure: Yes Hx Hypercholesterolemia: Yes Hx Hypertension: Yes - PULMONARY Hx Chronic Obstructive Pulmonary Disease (COPD): Yes Hx Pneumonia: Yes Hx Sleep Apnea: No - NEUROLOGICAL Hx Neurological Disorder: No - HEENT Hx HEENT Problems: No - RENAL Hx Chronic Kidney Disease: Yes - ENDOCRINE/METABOLIC Hx Hypothyroidism: Yes - HEMATOLOGICAL/ONCOLOGICAL Hx Anemia: Yes - INTEGUMENTARY Hx Dermatological Problems: No - MUSCULOSKELETAL/RHEUMATOLOGICAL Hx Musculoskeletal Disorders: Yes Hx Back Pain: Yes Hx Falls: Yes (yrs ago) - GASTROINTESTINAL Hx Gastrointestinal Disorders: Yes Other/Comment: Hiatal Hernia - GENITOURINARY/GYNECOLOGICAL Hx Genitourinary Disorders: Yes Other/Comment: S/P KIDNEY TRANSPLANT. S/P TRANSPLANT REMOVAL - PSYCHIATRIC Hx Substance Use: No - SURGICAL HISTORY Hx Coronary Artery Bypass Graft: Yes (S/P AVR) - ANESTHESIA Hx Anesthesia: Yes Hx Anesthesia Reactions: No Hx Malignant Hyperthermia: No Meds Allergies/Adverse Reactions: Allergies Allergy/AdvReac Type Severity Reaction Status Date / Time No Known Allergies Allergy Verified 09/11/18 15:18 Results - Vital Signs Recent Vital Signs: Last Vital Signs Temp 97.6 F 09/30/18 20:08 Pulse 98 H 09/30/18 20:08 Resp 20 09/30/18 20:08 BP 94/56 L 09/30/18 20:08 Pulse Ox 96 09/30/18 21:58 - Labs Result Diagrams: 09/30/18 08:13 09/30/18 08:13 Labs: Laboratory Results - last 24 hr 09/30/18 09/30/18 09/30/18 07:54 08:13 08:13 WBC 9.0 RBC 3.60 L Hgb 11.8 Hct 36.1 MCV 100.4 H MCH 32.9 H MCHC 32.7 L RDW 15.2 H Plt Count 170 MPV 8.2 Neut % (Auto) 75.9 H Lymph % (Auto) 7.7 L [place] % (Auto) 13.7 H Eos % (Auto) 2.4 Baso % (Auto) 0.3 Neut # (Auto) 6.8 Lymph # (Auto) 0.7 L [place] # (Auto) 1.2 H Eos # (Auto) 0.2 Baso # (Auto) 0.0 Neutrophils % (Manual) 85 H Lymphocytes % (Manual) 7 L Monocytes % (Manual) 6 Eosinophils % (Manual) 2 Platelet Estimate Normal Polychromasia Slight Hypochromasia (manual) Slight Anisocytosis (manual) Slight PT 11.7 INR 1.1 APTT 28 pO2 46 VBG pH 7.45 H VBG pCO2 44 VBG HCO3 29.1 VBG Total CO2 32.0 H VBG O2 Sat (Calc) 85.0 H VBG Base Excess 5.8 H VBG Potassium 4.6 Sodium 142.0 Chloride 104.0 Glucose 81 Lactate 1.5 Potassium Carbon Dioxide Anion Gap BUN Creatinine Est GFR ( Amer) Est GFR (Non-Af Amer) POC Glucose (mg/dL) Random Glucose Lactic Acid Calcium Phosphorus Magnesium Total Bilirubin AST ALT Alkaline Phosphatase Troponin I NT-Pro-B Natriuret Pep Total Protein Albumin Globulin Albumin/Globulin Ratio Venous Blood Potassium 4.6 Hep Bs Antigen Influenza Typ A,B (EIA) 09/30/18 09/30/18 09/30/18 08:13 08:16 12:32 WBC RBC Hgb Hct MCV MCH MCHC RDW Plt Count MPV Neut % (Auto) Lymph % (Auto) [place] % (Auto) Eos % (Auto) Baso % (Auto) Neut # (Auto) Lymph # (Auto) [place] # (Auto) Eos # (Auto) Baso # (Auto) Neutrophils % (Manual) Lymphocytes % (Manual) Monocytes % (Manual) Eosinophils % (Manual) Platelet Estimate Polychromasia Hypochromasia (manual) Anisocytosis (manual) PT INR APTT pO2 VBG pH VBG pCO2 VBG HCO3 VBG Total CO2 VBG O2 Sat (Calc) VBG Base Excess VBG Potassium Sodium 140 Chloride 100 Glucose Lactate Potassium 4.4 Carbon Dioxide 27 Anion Gap 18 BUN 44 H Creatinine 5.6 H Est GFR ( Amer) 9 Est GFR (Non-Af Amer) 8 POC Glucose (mg/dL) 209 H Random Glucose 79 D Lactic Acid Calcium 8.9 Phosphorus 2.6 Magnesium 2.3 Total Bilirubin 1.8 H AST 31 ALT 29 Alkaline Phosphatase 109 Troponin I 0.0750 NT-Pro-B Natriuret Pep 65069 H Total Protein 7.1 Albumin 4.0 Globulin 3.0 Albumin/Globulin Ratio 1.3 Venous Blood Potassium Hep Bs Antigen Influenza Typ A,B (EIA) Negative for flu a/b 09/30/18 09/30/18 09/30/18 13:14 17:26 17:52 WBC RBC Hgb Hct MCV MCH MCHC RDW Plt Count MPV Neut % (Auto) Lymph % (Auto) [place] % (Auto) Eos % (Auto) Baso % (Auto) Neut # (Auto) Lymph # (Auto) [place] # (Auto) Eos # (Auto) Baso # (Auto) Neutrophils % (Manual) Lymphocytes % (Manual) Monocytes % (Manual) Eosinophils % (Manual) Platelet Estimate Polychromasia Hypochromasia (manual) Anisocytosis (manual) PT INR APTT pO2 VBG pH VBG pCO2 VBG HCO3 VBG Total CO2 VBG O2 Sat (Calc) VBG Base Excess VBG Potassium Sodium Chloride Glucose Lactate Potassium Carbon Dioxide Anion Gap BUN Creatinine Est GFR ( Amer) Est GFR (Non-Af Amer) POC Glucose (mg/dL) 136 H Random Glucose Lactic Acid 1.4 Calcium Phosphorus Magnesium Total Bilirubin AST ALT Alkaline Phosphatase Troponin I NT-Pro-B Natriuret Pep Total Protein Albumin Globulin Albumin/Globulin Ratio Venous Blood Potassium Hep Bs Antigen Negative Influenza Typ A,B (EIA)
[2018-10-01] MEDS: Piperacillin/Tazobact 2.25 GM in Sodium Chloride 100 ML IVPB SCH ×3 (01:35→17:40)
[2018-10-01] MEDS: Albuterol 0.083% Inhal Sol (2.5 mg/3 mL) UD IH SCH ×5 (03:28→20:05)
--- NOTE | 2018-10-01 04:11 | HP ---
CHIEF COMPLAINT: Shortness of breath. HISTORY OF PRESENT ILLNESS: This is a 58-year-old female with history of COPD and she was recently discharged from [facility] after she was treated for almost two weeks with cough, congestion, shortness of breath and the COPD exacerbation. The patient never got better after discharge. She continued to have cough, congestion, shortness of breath and she became dyspneic and dyspnea backward despite her medication at home and discharge medication and she decided to come to emergency room and she was hospitalized. She has cough. She has thick white sputum production, chills, rigors, chest congestion, chest pain upon coughing, deep inspiration, she gets cough with chest pain and the sputum is dirty yellowish color. She denies any history of abdominal pain, nausea, vomiting, diarrhea. She has the orthopnea and paroxysmal nocturnal dyspnea. She has been compliant with her hemodialysis; however, at times, she drinks excessive water. The patient has history of coronary artery disease, status post CABG 7 years ago. At that time, she was a heavy smoker and diabetic and she quit smoking. For seven years, she has been followed up by Cardiology with no new chest pain. She also has dyspnea on exertion. She has fever, chills, rigors. She denies any hip pain. She has tingling and numbness in the feet. She denies any history of vertigo. She denies any history of trauma or loss of consciousness. She denies any sneezing, itchy eyes, itchy nose. She is under distress with hypotension. ALLERGIES: UNKNOWN ALLERGIES. CURRENT MEDICATIONS: Ventolin HFA, DuoNeb, tramadol, simvastatin, Nexium, Levoxyl, lactulose, calcium acetate, aspirin, Anoro Ellipta, Advair, prednisone, Carafate, Renvela, Crestor, Singulair, Elavil. SOCIAL HISTORY: Ex-smoker, non-ETOH user. PAST MEDICAL HISTORY: Coronary artery disease, status post CABG seven years ago, hypertension, hyperlipidemia. She denies diabetes and COPD and she is on multiple medication. FAMILY HISTORY: Negative for premature coronary artery disease. PHYSICAL EXAMINATION: GENERAL: A middle-aged female, in [id number] respiratory distress. Eventually, when she came in, she was hypoxic. VITAL SIGNS: Blood pressure 97/66, pulse 80, respiratory rate 20, temperature 97.6. SKIN: Senile turgor. No bruises. No purpura. Pale looking. HEENT: Atraumatic and normocephalic. Negative pallor. Negative jaundice. Extraocular movements are intact. NECK: Supple. Positive JVD. Negative thyromegaly. Negative carotid bruits. CHEST WALL: Bilateral symmetrical expansion. No deformity. No masses. No nipple discharge. LUNGS: Bilateral basal crepitation. The patient just finished her dialysis and I examined the patient. No rhonchi. CARDIOVASCULAR SYSTEM: PMI not localized. S1 and S2 regular. No heave, no thrill. ABDOMEN: Soft, nontender. Bowel sounds are positive. EXTREMITIES: No clubbing, cyanosis or edema. CENTRAL NERVOUS SYSTEM: Awake, alert, oriented x3. Cranial nerves II through XII are normal. Power 5/5 x4. Plantars are downgoing. ASSESSMENT: 1. Acute exacerbation of chronic obstructive pulmonary disease. The patient is not in remission with her breathing difficulty. 2. Rule out congestive heart failure. The patient is in fluid overload and high proBNP. 3. Chronic kidney disease, on hemodialysis. 4. Hypertension. Right now, she is hypotensive. PLAN: Admit, oxygen, nebulizer treatment, Accu-Cheks sliding scale, Solu-Medrol. Detailed orders written. Seen and examined. Jordan Spencer MD
[2018-10-01] MEDS: Levothyroxine 125 MCG TAB PO SCH (05:53)
[2018-10-01] MEDS: MethylPREDNISolone 40 mg Vial IVP SCH ×3 (05:53→21:09)
[2018-10-01] MEDS: (Novolog) Insulin Aspart, Recombinant 100 u/ml 10 ml vial SC SCH ×4 (07:30→21:09)
[2018-10-01] MEDS ORDERED: Fluticasone-Vilanterol 100/25mcg Diskus INH SCH (08:00)
--- NOTE | 2018-10-01 09:02 | CP.PCM.PN ---
Subjective - Date & Time of Evaluation Date of Evaluation: 10/01/18 Time of Evaluation: 09:00 - Subjective Subjective: afebrile bp stable and low comfortable in bed less sob dialysis removed over 2 kg last PM ate entire breakfast ROS no chills fever no chest pain cough productive of yellow sputum no abd pain,n,v,d anuric Objective - Vital Signs/Intake and Output Vital Signs (last 24 hours): Temp Pulse Resp BP Pulse Ox 97.8 F 107 H 20 99/61 L 96 10/01/18 07:00 10/01/18 08:26 10/01/18 07:00 10/01/18 07:00 10/01/18 07:00 - Medications Medications: Current Medications Albuterol Sulfate (Albuterol 0.083% Inhal Yudi (2.5 Mg/3 Ml) Ud) 2.5 mg IH RQ4 [facility] Last Admin: 10/01/18 07:56 Dose: 2.5 mg Amitriptyline HCl (Elavil) 25 mg PO HS [facility] Last Admin: 09/30/18 22:00 Dose: 25 mg Aspirin (Aspirin Chewable) 81 mg PO DAILY [facility] Calcium Acetate (Phoslo) 667 mg PO TID [facility] Last Admin: 09/30/18 18:01 Dose: 667 mg Fluticasone/Vilanterol (Breo Ellipta 100-25 Mcg Inh) 1 puff INH RQ24 [facility] Piperacillin Sod/Tazobactam (Sod 2.25 gm/ Sodium Chloride) 100 mls @ 200 mls/hr IVPB Q8H [facility]; Protocol Last Admin: 10/01/18 01:35 Dose: 200 mls/hr Insulin Aspart (Novolog) 0 unit SC ACHS [facility]; Protocol Last Admin: 09/30/18 22:18 Dose: Not Given Levothyroxine Sodium (Synthroid) 125 mcg PO 0630 [facility] Last Admin: 10/01/18 05:53 Dose: 125 mcg Methylprednisolone (Solu-Medrol) 40 mg IVP Q8 [facility] Last Admin: 10/01/18 05:53 Dose: 40 mg Montelukast Sodium (Singulair) 10 mg PO HS [facility] Last Admin: 09/30/18 22:00 Dose: 10 mg Rosuvastatin Calcium (Crestor) 5 mg PO [facility] Last Admin: 09/30/18 22:00 Dose: 5 mg Sevelamer Carbonate (Renvela) 2,400 mg PO TID [facility] Last Admin: 09/30/18 18:01 Dose: 2,400 mg Sucralfate (Carafate Tab) 1 gm PO Q6 [facility] Last Admin: 10/01/18 05:52 Dose: 1 gm Tramadol HCl (Ultram) 25 mg PO TID PRN PRN Reason: pain Last Admin: 09/30/18 20:05 Dose: 25 mg - Labs Labs: 09/30/18 08:13 09/30/18 08:13 PT 11.7 SECONDS (9.7-12.2) 09/30/18 08:13 INR 1.1 09/30/18 08:13 APTT 28 SECONDS (21-34) 09/30/18 08:13 - Constitutional Appears: No Acute Distress - ENT Exam ENT Exam: Mucous Membranes Moist - Respiratory Exam Respiratory Exam: NORMAL BREATHING PATTERN Additional comments: prolonged insp and exp wheezes coaorse sounds - Cardiovascular Exam Cardiovascular Exam: REGULAR RHYTHM - GI/Abdominal Exam GI & Abdominal Exam: Soft. absent: Distended, Tenderness - Extremities Exam Extremities Exam: absent: Calf Tenderness, Pedal Edema - Back Exam Back Exam: absent: CVA tenderness (L), CVA tenderness (R) - Psychiatric Exam Psychiatric exam: Normal Mood - Skin Skin Exam: Dry, Warm Assessment and Plan (1) ESRD (end stage renal disease) on dialysis Status: Acute (2) CAD (coronary artery disease) Status: Acute (3) CHF exacerbation Status: Acute (4) Pleural effusion Status: Acute - Assessment and Plan (Free Text) Plan: continue supportive care next vdialysis 10/03
[2018-10-01] MEDS: Tramadol 25 mg PO PRN ×2 (11:04→21:07)
--- NOTE | 2018-10-01 14:06 | CP.PCM.PN ---
Subjective - Date & Time of Evaluation Date of Evaluation: 10/01/18 Time of Evaluation: 14:03 - Subjective Subjective: PT ALERT, FEELS BETTER. +COUGH, NO SPUTUM., ROS; OTHERWISE NEG. Objective - Vital Signs/Intake and Output Vital Signs (last 24 hours): Temp Pulse Resp BP Pulse Ox 97.8 F 107 H 20 99/61 L 96 10/01/18 07:00 10/01/18 08:26 10/01/18 07:00 10/01/18 07:00 10/01/18 07:00 - Medications Medications: Current Medications Albuterol Sulfate (Albuterol 0.083% Inhal Yudi (2.5 Mg/3 Ml) Ud) 2.5 mg IH RQ4 [facility] Last Admin: 10/01/18 11:37 Dose: 2.5 mg Amitriptyline HCl (Elavil) 25 mg PO [facility] Last Admin: 09/30/18 22:00 Dose: 25 mg Aspirin (Aspirin Chewable) 81 mg PO DAILY [facility] Last Admin: 10/01/18 10:40 Dose: 81 mg Calcium Acetate (Phoslo) 667 mg PO TID [facility] Last Admin: 10/01/18 10:40 Dose: 667 mg Fluticasone/Vilanterol (Breo Ellipta 100-25 Mcg Inh) 1 puff INH RQ24 [facility] Piperacillin Sod/Tazobactam (Sod 2.25 gm/ Sodium Chloride) 100 mls @ 200 mls/hr IVPB Q8H [facility]; Protocol Last Admin: 10/01/18 10:42 Dose: 200 mls/hr Insulin Aspart (Novolog) 0 unit SC ACHS [facility]; Protocol Last Admin: 10/01/18 11:50 Dose: Not Given Levothyroxine Sodium (Synthroid) 125 mcg PO 0630 [facility] Last Admin: 10/01/18 05:53 Dose: 125 mcg Methylprednisolone (Solu-Medrol) 40 mg IVP Q8 [facility] Last Admin: 10/01/18 13:45 Dose: 40 mg Montelukast Sodium (Singulair) 10 mg PO [facility] Last Admin: 09/30/18 22:00 Dose: 10 mg Rosuvastatin Calcium (Crestor) 5 mg PO [facility] Last Admin: 09/30/18 22:00 Dose: 5 mg Sevelamer Carbonate (Renvela) 2,400 mg PO TID [facility] Last Admin: 10/01/18 13:46 Dose: 2,400 mg Sucralfate (Carafate Tab) 1 gm PO Q6 [facility] Last Admin: 10/01/18 12:02 Dose: 1 gm Tramadol HCl (Ultram) 25 mg PO TID PRN PRN Reason: pain Last Admin: 10/01/18 11:04 Dose: 25 mg - Labs Labs: 09/30/18 08:13 09/30/18 08:13 PT 11.7 SECONDS (9.7-12.2) 09/30/18 08:13 INR 1.1 09/30/18 08:13 APTT 28 SECONDS (21-34) 09/30/18 08:13 - Constitutional Appears: No Acute Distress, Chronically Ill - Head Exam Head Exam: ATRAUMATIC, NORMOCEPHALIC - Eye Exam Eye Exam: EOMI, Normal appearance - ENT Exam ENT Exam: Mucous Membranes Moist - Respiratory Exam Respiratory Exam: Decreased Breath Sounds, Prolonged Expiratory Phase, Rhonchi. absent: Accessory Muscle Use, Wheezes, Respiratory Distress - Cardiovascular Exam Cardiovascular Exam: RRR, +S1, +S2 - GI/Abdominal Exam GI & Abdominal Exam: Soft. absent: Tenderness - Rectal Exam Rectal Exam: Deferred - Extremities Exam Extremities Exam: absent: Calf Tenderness, Pedal Edema - Back Exam Back Exam: absent: CVA tenderness (L), CVA tenderness (R) - Neurological Exam Neurological Exam: Alert, Awake, CN II-XII Intact, Oriented x3 - Psychiatric Exam Psychiatric exam: Normal Mood - Skin Skin Exam: absent: Rash Assessment and Plan (1) COPD (chronic obstructive pulmonary disease) Status: Acute (2) ESRD (end stage renal disease) on dialysis Status: Acute (3) Pneumonia Status: Acute (4) Sepsis Status: Acute (5) CHF exacerbation Status: Acute (6) Chronic respiratory failure with hypoxia Status: Acute (7) Hypothyroid Status: Acute (8) Acute respiratory failure with hypoxia Status: Chronic (9) Failed kidney transplant Status: Chronic - Assessment and Plan (Free Text) Assessment: RESP STATUS MUCH IMPROVED, ON O2 3L NOW., CONT NEB BD., CONT SINGULAIR. TAPER STEROIDS. MONITOR O2 SAT. CXR REVIEWED. S/P HD YESTERDAY., OFF BIPAP. AFEBRILE ON AB. PROG GUARDED. DISCUSSED WITH STAFF AT LENGTH AND RENAL.
--- NOTE | 2018-10-01 21:31 | CP.PCM.PN ---
Subjective - Date & Time of Evaluation Date of Evaluation: 10/01/18 Time of Evaluation: 09:00 - Subjective Subjective: dictated Objective - Vital Signs/Intake and Output Vital Signs (last 24 hours): Temp Pulse Resp BP Pulse Ox 98.6 F 92 H 20 106/72 94 L 10/01/18 15:00 10/01/18 18:00 10/01/18 15:00 10/01/18 15:00 10/01/18 15:00 - Medications Medications: Current Medications Albuterol Sulfate (Albuterol 0.083% Inhal Yudi (2.5 Mg/3 Ml) Ud) 2.5 mg IH RQ4 [facility] Last Admin: 10/01/18 20:05 Dose: Not Given Amitriptyline HCl (Elavil) 25 mg PO HS [facility] Last Admin: 10/01/18 21:08 Dose: 25 mg Aspirin (Aspirin Chewable) 81 mg PO DAILY [facility] Last Admin: 10/01/18 10:40 Dose: 81 mg Calcium Acetate (Phoslo) 667 mg PO TID [facility] Last Admin: 10/01/18 17:40 Dose: 667 mg Fluticasone/Vilanterol (Breo Ellipta 100-25 Mcg Inh) 1 puff INH RQ24 [facility] Piperacillin Sod/Tazobactam (Sod 2.25 gm/ Sodium Chloride) 100 mls @ 200 mls/hr IVPB Q8H [facility]; Protocol Last Admin: 10/01/18 17:40 Dose: 200 mls/hr Insulin Aspart (Novolog) 0 unit SC ACHS [facility]; Protocol Last Admin: 10/01/18 21:09 Dose: Not Given Levothyroxine Sodium (Synthroid) 125 mcg PO 0630 [facility] Last Admin: 10/01/18 05:53 Dose: 125 mcg Methylprednisolone (Solu-Medrol) 30 mg IVP Q8 [facility] Last Admin: 10/01/18 21:09 Dose: 30 mg Montelukast Sodium (Singulair) 10 mg PO HS [facility] Last Admin: 10/01/18 21:08 Dose: 10 mg Rosuvastatin Calcium (Crestor) 5 mg PO HS [facility] Last Admin: 10/01/18 21:09 Dose: 5 mg Sevelamer Carbonate (Renvela) 2,400 mg PO TID [facility] Last Admin: 10/01/18 17:40 Dose: 2,400 mg Sucralfate (Carafate Tab) 1 gm PO Q6 [facility] Last Admin: 10/01/18 17:40 Dose: 1 gm Tramadol HCl (Ultram) 25 mg PO TID PRN PRN Reason: pain Last Admin: 10/01/18 21:07 Dose: 25 mg - Labs Labs: 09/30/18 08:13 09/30/18 08:13 PT 11.7 SECONDS (9.7-12.2) 09/30/18 08:13 INR 1.1 09/30/18 08:13 APTT 28 SECONDS (21-34) 09/30/18 08:13
[2018-10-02] MEDS: Albuterol 0.083% Inhal Sol (2.5 mg/3 mL) UD IH SCH ×4 (00:53→12:44)
--- NOTE | 2018-10-02 01:57 | PN ---
DATE: 10/01/2018 SUBJECTIVE: The patient is less short of breath, less cough, less wheezing. No nausea or vomiting. No fever. Blood pressure is stable. PHYSICAL EXAMINATION: VITAL SIGNS: Blood pressure 106/72, pulse 95, respiratory rate 20, and temperature 98.6. LUNGS: Bilateral scattered rales and rhonchi. Decreased air entry. CARDIOVASCULAR SYSTEM: S1 and S2 plus S3 positive. ABDOMEN: Soft and nontender. Bowel sounds are positive. ASSESSMENT: 1. Exacerbation of chronic obstructive pulmonary disease. 2. Chronic kidney disease, on hemodialysis. 3. Hypertension. 4. Coronary artery disease. PLAN: Taper steroids. Continue current medications. Monitor the patient. Jordan Spencer MD
[2018-10-02] MEDS: Piperacillin/Tazobact 2.25 GM in Sodium Chloride 100 ML IVPB SCH ×3 (02:34→18:00)
[2018-10-02] MEDS: Levothyroxine 125 MCG TAB PO SCH (06:17)
[2018-10-02] MEDS: MethylPREDNISolone 40 mg Vial IVP SCH ×3 (06:18→21:23)
[2018-10-02] MEDS: (Novolog) Insulin Aspart, Recombinant 100 u/ml 10 ml vial SC SCH ×4 (08:44→23:39)
[2018-10-02] MEDS: Tramadol 25 mg PO PRN ×2 (10:31→17:57)
--- NOTE | 2018-10-02 13:30 | CP.PCM.PN ---
Subjective - Date & Time of Evaluation Date of Evaluation: 10/02/18 Time of Evaluation: 13:27 - Subjective Subjective: PT ALERT, +COUGH NO SPUTUM, LESS SOB. ROS; OTHERWISE NEG. Objective - Vital Signs/Intake and Output Vital Signs (last 24 hours): Temp Pulse Resp BP Pulse Ox 97.9 F 69 18 126/78 97 10/02/18 07:00 10/02/18 07:00 10/02/18 07:00 10/02/18 07:00 10/02/18 07:00 Intake and Output: 10/02/18 10/02/18 06:59 18:59 Intake Total 50 50 Balance 50 50 - Medications Medications: Current Medications Albuterol Sulfate (Albuterol 0.083% Inhal Yudi (2.5 Mg/3 Ml) Ud) 2.5 mg IH RQ4 [facility] Last Admin: 10/02/18 12:44 Dose: 2.5 mg Amitriptyline HCl (Elavil) 25 mg PO HS [facility] Last Admin: 10/01/18 21:08 Dose: 25 mg Aspirin (Aspirin Chewable) 81 mg PO DAILY [facility] Last Admin: 10/02/18 09:03 Dose: 81 mg Calcium Acetate (Phoslo) 667 mg PO TID [facility] Last Admin: 10/02/18 13:01 Dose: 667 mg Fluticasone/Vilanterol (Breo Ellipta 100-25 Mcg Inh) 1 puff INH RQ24 [facility] Piperacillin Sod/Tazobactam (Sod 2.25 gm/ Sodium Chloride) 100 mls @ 200 mls/hr IVPB Q8H [facility]; Protocol Last Admin: 10/02/18 10:25 Dose: 200 mls/hr Insulin Aspart (Novolog) 0 unit SC ACHS [facility]; Protocol Last Admin: 10/02/18 11:25 Dose: Not Given Levothyroxine Sodium (Synthroid) 125 mcg PO 0630 [facility] Last Admin: 10/02/18 06:17 Dose: 125 mcg Methylprednisolone (Solu-Medrol) 30 mg IVP Q8 [facility] Last Admin: 10/02/18 13:01 Dose: 30 mg Montelukast Sodium (Singulair) 10 mg PO HS [facility] Last Admin: 10/01/18 21:08 Dose: 10 mg Rosuvastatin Calcium (Crestor) 5 mg PO HS [facility] Last Admin: 10/01/18 21:09 Dose: 5 mg Sevelamer Carbonate (Renvela) 2,400 mg PO TID [facility] Last Admin: 10/02/18 13:01 Dose: 2,400 mg Sucralfate (Carafate Tab) 1 gm PO Q6 [facility] Last Admin: 10/02/18 12:27 Dose: 1 gm Tramadol HCl (Ultram) 25 mg PO TID PRN PRN Reason: pain Last Admin: 10/02/18 10:31 Dose: 25 mg - Labs Labs: 09/30/18 08:13 09/30/18 08:13 PT 11.7 SECONDS (9.7-12.2) 09/30/18 08:13 INR 1.1 09/30/18 08:13 APTT 28 SECONDS (21-34) 09/30/18 08:13 - Constitutional Appears: No Acute Distress, Chronically Ill - Head Exam Head Exam: ATRAUMATIC, NORMOCEPHALIC - Eye Exam Eye Exam: EOMI, Normal appearance - ENT Exam ENT Exam: Mucous Membranes Moist - Respiratory Exam Respiratory Exam: Decreased Breath Sounds, Prolonged Expiratory Phase, Rhonchi. absent: Accessory Muscle Use, Wheezes, Respiratory Distress - Cardiovascular Exam Cardiovascular Exam: RRR, +S1, +S2 - GI/Abdominal Exam GI & Abdominal Exam: Soft. absent: Tenderness - Rectal Exam Rectal Exam: Deferred - Extremities Exam Extremities Exam: absent: Calf Tenderness, Pedal Edema - Back Exam Back Exam: absent: CVA tenderness (L), CVA tenderness (R) - Neurological Exam Neurological Exam: Alert, Awake, CN II-XII Intact, Normal Gait, Oriented x3 - Psychiatric Exam Psychiatric exam: Normal Mood - Skin Skin Exam: absent: Rash Assessment and Plan (1) COPD (chronic obstructive pulmonary disease) Status: Acute (2) ESRD (end stage renal disease) on dialysis Status: Acute (3) Pneumonia Status: Acute (4) Sepsis Status: Acute (5) CHF exacerbation Status: Acute (6) Chronic respiratory failure with hypoxia Status: Acute (7) Hypothyroid Status: Acute (8) Acute respiratory failure with hypoxia Status: Chronic (9) Failed kidney transplant Status: Chronic - Assessment and Plan (Free Text) Assessment: RESP STATUS NO SIG CHANGE., CONT NEB BD, ADD MUCOMSYT. ON STEROID TAPER, CONT SINGULAIR, ADVAIR. CXR REVIEWED. AFEBRILE ON AB. FOR HD IN AM. DISCUSSED WITH STAFF AT LENGTH.
[2018-10-02] MEDS: Albuterol-Ipratrop 3 mg / 0.5 (3 ml) UD INH SCH (19:58)
[2018-10-02] MEDS: Acetylcysteine 20% Inhal Soln (4ml) INH SCH (19:59)
--- NOTE | 2018-10-02 23:20 | CP.PCM.PN ---
Subjective - Date & Time of Evaluation Date of Evaluation: 10/02/18 Time of Evaluation: 18:20 - Subjective Subjective: dictated Objective - Vital Signs/Intake and Output Vital Signs (last 24 hours): Temp Pulse Resp BP Pulse Ox 97.8 F 89 18 122/74 94 L 10/02/18 15:00 10/02/18 16:00 10/02/18 15:00 10/02/18 15:00 10/02/18 15:00 Intake and Output: 10/02/18 10/03/18 18:59 06:59 Intake Total 100 Balance 100 - Medications Medications: Current Medications Acetylcysteine (Acetylcysteine 20%) 4 ml INH RQ6 [facility] Last Admin: 10/02/18 19:59 Dose: 4 ml Albuterol/Ipratropium (Duoneb 3 Mg/0.5 Mg (3 Ml) Ud) 3 ml INH RQ6 [facility] Last Admin: 10/02/18 19:58 Dose: 3 ml Amitriptyline HCl (Elavil) 25 mg PO HS [facility] Last Admin: 10/02/18 21:23 Dose: 25 mg Aspirin (Aspirin Chewable) 81 mg PO DAILY [facility] Last Admin: 10/02/18 09:03 Dose: 81 mg Calcium Acetate (Phoslo) 667 mg PO TID [facility] Last Admin: 10/02/18 17:59 Dose: 667 mg Fluticasone/Vilanterol (Breo Ellipta 100-25 Mcg Inh) 1 puff INH RQ24 [facility] Piperacillin Sod/Tazobactam (Sod 2.25 gm/ Sodium Chloride) 100 mls @ 200 mls/hr IVPB Q8H [facility]; Protocol Last Admin: 10/02/18 18:00 Dose: 200 mls/hr Insulin Aspart (Novolog) 0 unit SC ACHS [facility]; Protocol Last Admin: 10/02/18 16:30 Dose: Not Given Levothyroxine Sodium (Synthroid) 125 mcg PO 0630 [facility] Last Admin: 10/02/18 06:17 Dose: 125 mcg Methylprednisolone (Solu-Medrol) 30 mg IVP Q8 [facility] Last Admin: 10/02/18 21:23 Dose: 30 mg Montelukast Sodium (Singulair) 10 mg PO HS [facility] Last Admin: 10/01/18 21:08 Dose: 10 mg Rosuvastatin Calcium (Crestor) 5 mg PO HS [facility] Last Admin: 10/02/18 21:25 Dose: 5 mg Sevelamer Carbonate (Renvela) 2,400 mg PO TID [facility] Last Admin: 10/02/18 17:59 Dose: 2,400 mg Sucralfate (Carafate Tab) 1 gm PO Q6 [facility] Last Admin: 10/02/18 17:59 Dose: 1 gm Tramadol HCl (Ultram) 25 mg PO TID PRN PRN Reason: pain Last Admin: 10/02/18 17:57 Dose: 25 mg - Labs Labs: 09/30/18 08:13 09/30/18 08:13 PT 11.7 SECONDS (9.7-12.2) 09/30/18 08:13 INR 1.1 09/30/18 08:13 APTT 28 SECONDS (21-34) 09/30/18 08:13
[2018-10-03] MEDS: Acetylcysteine 20% Inhal Soln (4ml) INH SCH ×4 (01:40→20:11)
[2018-10-03] MEDS: Albuterol-Ipratrop 3 mg / 0.5 (3 ml) UD INH SCH ×4 (01:40→20:11)
[2018-10-03] MEDS: Piperacillin/Tazobact 2.25 GM in Sodium Chloride 100 ML IVPB SCH ×2 (02:22→17:44)
--- NOTE | 2018-10-03 02:41 | PN ---
DATE: 10/02/2018 SUBJECTIVE: Less short of breath, less cough, less wheezing, feels better. She is for hemodialysis in the a.m. No nausea or vomiting. Steroids are being tapered down. PHYSICAL EXAMINATION: VITAL SIGNS: Blood pressure 122/74, pulse 89, respiratory rate 18, temperature 97.8. LUNGS: Decreased air entry. Positive rhonchi. CARDIOVASCULAR SYSTEM: S1 and S2 regular. ABDOMEN: Soft, nontender. Bowel sounds are positive. CENTRAL NERVOUS SYSTEM: Awake, alert, and oriented x3. ASSESSMENT: 1. Exacerbation of chronic obstructive pulmonary disease. 2. Chronic kidney disease, on hemodialysis. 3. Coronary artery disease. 4. Hypertension. PLAN: Medical management. Taper steroids and possible discharge. Jordan Spencer MD
[2018-10-03] MEDS: MethylPREDNISolone 40 mg Vial IVP SCH ×3 (05:48→22:23)
[2018-10-03] MEDS: Levothyroxine 125 MCG TAB PO SCH (05:48)
--- NOTE | 2018-10-03 09:09 | CP.PCM.PN ---
Subjective - Date & Time of Evaluation Date of Evaluation: 10/03/18 Time of Evaluation: 09:07 - Subjective Subjective: PT FEELS SL BETTER., LESS SOB., +COUGH, +BACK PAIN. ROS; OTHERWISE NEG. Objective - Vital Signs/Intake and Output Vital Signs (last 24 hours): Temp Pulse Resp BP Pulse Ox 97.7 F 80 18 129/90 96 10/03/18 07:00 10/03/18 07:00 10/03/18 07:00 10/03/18 07:00 10/03/18 07:00 Intake and Output: 10/03/18 10/03/18 06:59 18:59 Intake Total 100 Balance 100 - Medications Medications: Current Medications Acetylcysteine (Acetylcysteine 20%) 4 ml INH RQ6 [facility] Last Admin: 10/03/18 01:40 Dose: Not Given Albuterol/Ipratropium (Duoneb 3 Mg/0.5 Mg (3 Ml) Ud) 3 ml INH RQ6 [facility] Last Admin: 10/03/18 01:40 Dose: 3 ml Amitriptyline HCl (Elavil) 25 mg PO HS [facility] Last Admin: 10/02/18 21:23 Dose: 25 mg Aspirin (Aspirin Chewable) 81 mg PO DAILY [facility] Last Admin: 10/02/18 09:03 Dose: 81 mg Calcium Acetate (Phoslo) 667 mg PO TID [facility] Last Admin: 10/02/18 17:59 Dose: 667 mg Fluticasone/Vilanterol (Breo Ellipta 100-25 Mcg Inh) 1 puff INH RQ24 [facility] Piperacillin Sod/Tazobactam (Sod 2.25 gm/ Sodium Chloride) 100 mls @ 200 mls/hr IVPB Q8H [facility]; Protocol Last Admin: 10/03/18 02:22 Dose: 200 mls/hr Insulin Aspart (Novolog) 0 unit SC ACHS [facility]; Protocol Last Admin: 10/02/18 23:39 Dose: Not Given Levothyroxine Sodium (Synthroid) 125 mcg PO 0630 [facility] Last Admin: 10/03/18 05:48 Dose: 125 mcg Methylprednisolone (Solu-Medrol) 30 mg IVP Q8 [facility] Last Admin: 10/03/18 05:48 Dose: 30 mg Montelukast Sodium (Singulair) 10 mg PO HS [facility] Last Admin: 10/02/18 23:39 Dose: 10 mg Rosuvastatin Calcium (Crestor) 5 mg PO HS [facility] Last Admin: 10/02/18 21:25 Dose: 5 mg Sevelamer Carbonate (Renvela) 2,400 mg PO TID [facility] Last Admin: 10/02/18 17:59 Dose: 2,400 mg Sucralfate (Carafate Tab) 1 gm PO Q6 [facility] Last Admin: 10/03/18 05:48 Dose: 1 gm Tramadol HCl (Ultram) 25 mg PO TID PRN PRN Reason: pain Last Admin: 10/02/18 17:57 Dose: 25 mg - Labs Labs: 09/30/18 08:13 09/30/18 08:13 PT 11.7 SECONDS (9.7-12.2) 09/30/18 08:13 INR 1.1 09/30/18 08:13 APTT 28 SECONDS (21-34) 09/30/18 08:13 - Constitutional Appears: Cachectic, Chronically Ill - Head Exam Head Exam: ATRAUMATIC, NORMOCEPHALIC - Eye Exam Eye Exam: EOMI, Normal appearance - ENT Exam ENT Exam: Mucous Membranes Moist - Neck Exam Neck Exam: Normal Inspection - Respiratory Exam Respiratory Exam: Decreased Breath Sounds, Prolonged Expiratory Phase, Rhonchi Additional comments: BETTER AIR MOVEMENT., - Cardiovascular Exam Cardiovascular Exam: RRR, +S1, +S2 - GI/Abdominal Exam GI & Abdominal Exam: Soft. absent: Tenderness - Rectal Exam Rectal Exam: Deferred - Extremities Exam Extremities Exam: absent: Calf Tenderness, Pedal Edema - Back Exam Back Exam: absent: CVA tenderness (L), CVA tenderness (R) - Neurological Exam Neurological Exam: Alert, Awake, CN II-XII Intact, Normal Gait, Oriented x3 - Psychiatric Exam Psychiatric exam: Normal Mood - Skin Skin Exam: absent: Rash Assessment and Plan (1) COPD (chronic obstructive pulmonary disease) Status: Acute (2) ESRD (end stage renal disease) on dialysis Status: Acute (3) Pneumonia Status: Acute (4) Sepsis Status: Acute (5) CHF exacerbation Status: Acute (6) Chronic respiratory failure with hypoxia Status: Acute (7) Hypothyroid Status: Acute (8) Acute respiratory failure with hypoxia Status: Chronic (9) Failed kidney transplant Status: Chronic - Assessment and Plan (Free Text) Assessment: RESP STATUS SLOWLY IMPROVING, LESS BRONCHOSPASM., TOLERATING STEROID TAPER. CONT NEB BD WITH MUCOMYST, BREO. SINGULAIR. CXR REVIEWED., AFEBRILE ON AB. HD IN PROGRESS. FOR MRI. DISCUSSED WITH STAFF AT LENGTH.
--- NOTE | 2018-10-03 10:59 | CP.PCM.PN ---
Subjective - Date & Time of Evaluation Date of Evaluation: 10/03/18 Time of Evaluation: 10:56 - Subjective Subjective: seen at dialysis; tolerating UF goal 3300ml feels better no dyspnea, CPs afebrile; no n, v, chills same cough- less though Objective - Vital Signs/Intake and Output Vital Signs (last 24 hours): Temp Pulse Resp BP Pulse Ox 97.3 F L 86 20 112/78 96 10/03/18 09:10 10/03/18 09:10 10/03/18 09:10 10/03/18 10:15 10/03/18 07:00 Intake and Output: 10/03/18 10/03/18 06:59 18:59 Intake Total 100 Balance 100 - Medications Medications: Current Medications Acetylcysteine (Acetylcysteine 20%) 4 ml INH RQ6 [facility] Last Admin: 10/03/18 01:40 Dose: Not Given Albuterol/Ipratropium (Duoneb 3 Mg/0.5 Mg (3 Ml) Ud) 3 ml INH RQ6 [facility] Last Admin: 10/03/18 01:40 Dose: 3 ml Amitriptyline HCl (Elavil) 25 mg PO HS [facility] Last Admin: 10/02/18 21:23 Dose: 25 mg Aspirin (Aspirin Chewable) 81 mg PO DAILY [facility] Last Admin: 10/02/18 09:03 Dose: 81 mg Calcium Acetate (Phoslo) 667 mg PO TID [facility] Last Admin: 10/02/18 17:59 Dose: 667 mg Fluticasone/Vilanterol (Breo Ellipta 100-25 Mcg Inh) 1 puff INH RQ24 [facility] Piperacillin Sod/Tazobactam (Sod 2.25 gm/ Sodium Chloride) 100 mls @ 200 mls/hr IVPB Q8H [facility]; Protocol Last Admin: 10/03/18 02:22 Dose: 200 mls/hr Insulin Aspart (Novolog) 0 unit SC ACHS [facility]; Protocol Last Admin: 10/02/18 23:39 Dose: Not Given Levothyroxine Sodium (Synthroid) 125 mcg PO 0630 [facility] Last Admin: 10/03/18 05:48 Dose: 125 mcg Methylprednisolone (Solu-Medrol) 30 mg IVP Q8 [facility] Last Admin: 10/03/18 05:48 Dose: 30 mg Montelukast Sodium (Singulair) 10 mg PO HS [facility] Last Admin: 10/02/18 23:39 Dose: 10 mg Rosuvastatin Calcium (Crestor) 5 mg PO HS [facility] Last Admin: 10/02/18 21:25 Dose: 5 mg Sevelamer Carbonate (Renvela) 2,400 mg PO TID [facility] Last Admin: 10/02/18 17:59 Dose: 2,400 mg Sucralfate (Carafate Tab) 1 gm PO Q6 [facility] Last Admin: 10/03/18 05:48 Dose: 1 gm Tramadol HCl (Ultram) 25 mg PO TID PRN PRN Reason: pain Last Admin: 10/02/18 17:57 Dose: 25 mg - Labs Labs: 09/30/18 08:13 09/30/18 08:13 PT 11.7 SECONDS (9.7-12.2) 09/30/18 08:13 INR 1.1 09/30/18 08:13 APTT 28 SECONDS (21-34) 09/30/18 08:13 - Constitutional Appears: No Acute Distress, Chronically Ill - Head Exam Head Exam: ATRAUMATIC, NORMAL INSPECTION - Eye Exam Eye Exam: EOMI, Normal appearance - Neck Exam Neck Exam: Normal Inspection. absent: Tenderness - Respiratory Exam Respiratory Exam: Rhonchi, NORMAL BREATHING PATTERN - Cardiovascular Exam Cardiovascular Exam: REGULAR RHYTHM, +S1 - GI/Abdominal Exam GI & Abdominal Exam: Soft. absent: Tenderness - Extremities Exam Extremities Exam: Normal Inspection. absent: Tenderness - Neurological Exam Neurological Exam: Awake, CN II-XII Intact - Skin Skin Exam: Dry, Warm Assessment and Plan (1) COPD (chronic obstructive pulmonary disease) Status: Acute (2) ESRD (end stage renal disease) on dialysis Status: Acute (3) CAD (coronary artery disease) Status: Acute (4) CHF exacerbation Status: Acute (5) COPD exacerbation Status: Acute (6) Hypothyroid Status: Acute (7) Pulmonary HTN Status: Acute (8) Failed kidney transplant Status: Chronic - Assessment and Plan (Free Text) Plan: same aggressive UF pulmonary meds; IV ABs follow up respiratory status- per pulmonary
[2018-10-03] MEDS: (Novolog) Insulin Aspart, Recombinant 100 u/ml 10 ml vial SC SCH (13:44)
[2018-10-03] MEDS: Tramadol 25 mg PO PRN ×2 (13:46→22:27)
--- NOTE | 2018-10-03 21:14 | CP.PCM.PN ---
Subjective - Date & Time of Evaluation Date of Evaluation: 10/03/18 Time of Evaluation: 08:20 - Subjective Subjective: dictated Objective - Vital Signs/Intake and Output Vital Signs (last 24 hours): Temp Pulse Resp BP Pulse Ox 94 F L 92 H 20 94/51 L 95 10/03/18 15:00 10/03/18 15:00 10/03/18 15:00 10/03/18 15:00 10/03/18 15:00 - Medications Medications: Current Medications Acetylcysteine (Acetylcysteine 20%) 4 ml INH RQ6 [facility] Last Admin: 10/03/18 20:11 Dose: 4 ml Albuterol/Ipratropium (Duoneb 3 Mg/0.5 Mg (3 Ml) Ud) 3 ml INH RQ6 [facility] Last Admin: 10/03/18 20:11 Dose: 3 ml Amitriptyline HCl (Elavil) 25 mg PO HS [facility] Last Admin: 10/02/18 21:23 Dose: 25 mg Aspirin (Aspirin Chewable) 81 mg PO DAILY [facility] Last Admin: 10/03/18 13:41 Dose: 81 mg Calcium Acetate (Phoslo) 667 mg PO TID [facility] Last Admin: 10/03/18 17:44 Dose: 667 mg Fluticasone/Vilanterol (Breo Ellipta 100-25 Mcg Inh) 1 puff INH RQ24 [facility] Piperacillin Sod/Tazobactam (Sod 2.25 gm/ Sodium Chloride) 100 mls @ 200 mls/hr IVPB Q8H [facility]; Protocol Last Admin: 10/03/18 17:44 Dose: 200 mls/hr Levothyroxine Sodium (Synthroid) 125 mcg PO 0630 [facility] Last Admin: 10/03/18 05:48 Dose: 125 mcg Methylprednisolone (Solu-Medrol) 30 mg IVP Q8 [facility] Last Admin: 10/03/18 13:42 Dose: 30 mg Montelukast Sodium (Singulair) 10 mg PO HS [facility] Last Admin: 10/02/18 23:39 Dose: 10 mg Rosuvastatin Calcium (Crestor) 5 mg PO HS [facility] Last Admin: 10/02/18 21:25 Dose: 5 mg Sevelamer Carbonate (Renvela) 2,400 mg PO TID [facility] Last Admin: 10/03/18 17:44 Dose: 2,400 mg Sucralfate (Carafate Tab) 1 gm PO Q6 [facility] Last Admin: 10/03/18 17:44 Dose: 1 gm Tramadol HCl (Ultram) 25 mg PO TID PRN PRN Reason: pain Last Admin: 10/03/18 13:46 Dose: 25 mg - Labs Labs: 09/30/18 08:13 09/30/18 08:13 PT 11.7 SECONDS (9.7-12.2) 09/30/18 08:13 INR 1.1 09/30/18 08:13 APTT 28 SECONDS (21-34) 09/30/18 08:13
--- NOTE | 2018-10-04 00:25 | PN ---
DATE: 10/03/2018 SUBJECTIVE: The patient is less short of breath, less cough, less wheezing. Her steroids are being tapered down. No nausea or vomiting. No chest pain. PHYSICAL EXAMINATION: VITAL SIGNS: Blood pressure 94/51, pulse 92, respiratory rate 20, and temperature 97.4. LUNGS: Bilateral rales and rhonchi. Decreased compared to before. CARDIOVASCULAR SYSTEM: S1 and S2 plus S3 positive. ABDOMEN: Soft and nontender. Bowel sounds are positive. ASSESSMENT: 1. Acute exacerbation of chronic obstructive pulmonary disease, the patient is improving. Her Solu-Medrol is being tapered. She is on expectorant, DuoNeb. 2. Coronary artery disease status post coronary artery bypass graft seven years ago. 3. Ruled out acute diabetes. The patient's blood sugars that are elevated are mostly due to steroids. The patient denied any diabetes. 4. Hemodialysis. PLAN: Continue current medication. Hemodialysis. Monitor patient. Jordan Spencer MD
[2018-10-04] MEDS: Piperacillin/Tazobact 2.25 GM in Sodium Chloride 100 ML IVPB SCH ×2 (01:40→10:35)
[2018-10-04] MEDS: Albuterol-Ipratrop 3 mg / 0.5 (3 ml) UD INH SCH ×2 (01:50→09:21)
[2018-10-04] MEDS: Acetylcysteine 20% Inhal Soln (4ml) INH SCH ×2 (01:50→09:22)
[2018-10-04] MEDS: MethylPREDNISolone 40 mg Vial IVP SCH (05:15)
[2018-10-04] MEDS: Levothyroxine 125 MCG TAB PO SCH (05:29)
[2018-10-04 07:59] VITALS: BP 117/68; RESP 18; TEMP 98; O2SAT 100
--- NOTE | 2018-10-04 08:15 | CP.PCM.PN ---
Subjective - Date & Time of Evaluation Date of Evaluation: 10/04/18 Time of Evaluation: 08:13 - Subjective Subjective: PT ALERT, +COUGH NO SPUTUM., LESS SOB. ROS OTHERWISE NEG Objective - Vital Signs/Intake and Output Vital Signs (last 24 hours): Temp Pulse Resp BP Pulse Ox 98.0 F 90 18 117/68 100 10/04/18 07:00 10/04/18 07:00 10/04/18 07:00 10/04/18 07:00 10/04/18 07:00 Intake and Output: 10/04/18 10/04/18 06:59 18:59 Intake Total 150 Balance 150 - Medications Medications: Current Medications Acetylcysteine (Acetylcysteine 20%) 4 ml INH RQ6 [facility] Last Admin: 10/04/18 01:50 Dose: 4 ml Albuterol/Ipratropium (Duoneb 3 Mg/0.5 Mg (3 Ml) Ud) 3 ml INH RQ6 [facility] Last Admin: 10/04/18 01:50 Dose: 3 ml Amitriptyline HCl (Elavil) 25 mg PO [facility] Last Admin: 10/02/18 21:23 Dose: 25 mg Aspirin (Aspirin Chewable) 81 mg PO DAILY [facility] Last Admin: 10/03/18 13:41 Dose: 81 mg Calcium Acetate (Phoslo) 667 mg PO TID [facility] Last Admin: 10/03/18 17:44 Dose: 667 mg Fluticasone/Vilanterol (Breo Ellipta 100-25 Mcg Inh) 1 puff INH RQ24 [facility] Piperacillin Sod/Tazobactam (Sod 2.25 gm/ Sodium Chloride) 100 mls @ 200 mls/hr IVPB Q8H [facility]; Protocol Last Admin: 10/04/18 01:40 Dose: 200 mls/hr Levothyroxine Sodium (Synthroid) 125 mcg PO 0630 [facility] Last Admin: 10/04/18 05:29 Dose: 125 mcg Methylprednisolone (Solu-Medrol) 30 mg IVP Q8 [facility] Last Admin: 10/04/18 05:15 Dose: 30 mg Montelukast Sodium (Singulair) 10 mg PO HS [facility] Last Admin: 10/03/18 22:24 Dose: 10 mg Rosuvastatin Calcium (Crestor) 5 mg PO [facility] Last Admin: 10/03/18 22:24 Dose: 5 mg Sevelamer Carbonate (Renvela) 2,400 mg PO TID [facility] Last Admin: 10/03/18 17:44 Dose: 2,400 mg Sucralfate (Carafate Tab) 1 gm PO Q6 [facility] Last Admin: 10/04/18 05:10 Dose: 1 gm Tramadol HCl (Ultram) 25 mg PO TID PRN PRN Reason: pain Last Admin: 10/03/18 22:27 Dose: 25 mg - Labs Labs: 09/30/18 08:13 09/30/18 08:13 PT 11.7 SECONDS (9.7-12.2) 09/30/18 08:13 INR 1.1 09/30/18 08:13 APTT 28 SECONDS (21-34) 09/30/18 08:13 - Constitutional Appears: No Acute Distress, Chronically Ill - Head Exam Head Exam: ATRAUMATIC, NORMOCEPHALIC - Eye Exam Eye Exam: EOMI, Normal appearance - ENT Exam ENT Exam: Mucous Membranes Moist - Neck Exam Neck Exam: Normal Inspection - Respiratory Exam Respiratory Exam: Decreased Breath Sounds, Prolonged Expiratory Phase, Rhonchi. absent: Accessory Muscle Use - Cardiovascular Exam Cardiovascular Exam: RRR, +S1, +S2 - GI/Abdominal Exam GI & Abdominal Exam: Soft. absent: Tenderness - Rectal Exam Rectal Exam: Deferred - Extremities Exam Extremities Exam: absent: Calf Tenderness, Pedal Edema - Back Exam Back Exam: absent: CVA tenderness (L), CVA tenderness (R), rash noted - Neurological Exam Neurological Exam: Alert, Awake, CN II-XII Intact, Normal Gait, Oriented x3 - Psychiatric Exam Psychiatric exam: Normal Mood - Skin Skin Exam: absent: Rash Assessment and Plan (1) COPD (chronic obstructive pulmonary disease) Status: Acute (2) ESRD (end stage renal disease) on dialysis Status: Acute (3) Pneumonia Status: Acute (4) Sepsis Status: Acute (5) CHF exacerbation Status: Acute (6) Chronic respiratory failure with hypoxia Status: Acute (7) Hypothyroid Status: Acute (8) Acute respiratory failure with hypoxia Status: Chronic (9) Failed kidney transplant Status: Chronic - Assessment and Plan (Free Text) Assessment: RESP STATUS NO SIG CHANGE., CONT NEB BD WITH MUCOMYST., CONT BREO AND SINGULAIR., STEROIDS. MONITOR O2 SAT. TOLERATING 2L NC. AFEBRILE ON AB. CXR R EVIEWED. FOR HD IN AM., INCREASE OOB. DISCUSSED WITH STAFF AT LENGTH.
--- NOTE | 2018-10-04 09:49 | CP.PCM.PN ---
Subjective - Date & Time of Evaluation Date of Evaluation: 10/04/18 Time of Evaluation: 09:45 - Subjective Subjective: afebrile bp stable no new chems continues to cough posterior thoracic pain persists ROS no chills fever no chest pain no abd pain n,v,d anuric Objective - Vital Signs/Intake and Output Vital Signs (last 24 hours): Temp Pulse Resp BP Pulse Ox 98.0 F 90 18 117/68 100 10/04/18 07:00 10/04/18 07:00 10/04/18 07:00 10/04/18 07:00 10/04/18 07:00 Intake and Output: 10/04/18 10/04/18 06:59 18:59 Intake Total 150 Balance 150 - Medications Medications: Current Medications Acetylcysteine (Acetylcysteine 20%) 4 ml INH RQ6 [facility] Last Admin: 10/04/18 09:22 Dose: 4 ml Albuterol/Ipratropium (Duoneb 3 Mg/0.5 Mg (3 Ml) Ud) 3 ml INH RQ6 [facility] Last Admin: 10/04/18 09:21 Dose: 3 ml Amitriptyline HCl (Elavil) 25 mg PO HS [facility] Last Admin: 10/02/18 21:23 Dose: 25 mg Aspirin (Aspirin Chewable) 81 mg PO DAILY [facility] Last Admin: 10/03/18 13:41 Dose: 81 mg Calcium Acetate (Phoslo) 667 mg PO TID [facility] Last Admin: 10/03/18 17:44 Dose: 667 mg Fluticasone/Vilanterol (Breo Ellipta 100-25 Mcg Inh) 1 puff INH RQ24 [facility] Piperacillin Sod/Tazobactam (Sod 2.25 gm/ Sodium Chloride) 100 mls @ 200 mls/hr IVPB Q8H [facility]; Protocol Last Admin: 10/04/18 01:40 Dose: 200 mls/hr Levothyroxine Sodium (Synthroid) 125 mcg PO 0630 [facility] Last Admin: 10/04/18 05:29 Dose: 125 mcg Methylprednisolone (Solu-Medrol) 30 mg IVP Q8 [facility] Last Admin: 10/04/18 05:15 Dose: 30 mg Montelukast Sodium (Singulair) 10 mg PO HS [facility] Last Admin: 10/03/18 22:24 Dose: 10 mg Rosuvastatin Calcium (Crestor) 5 mg PO HS [facility] Last Admin: 10/03/18 22:24 Dose: 5 mg Sevelamer Carbonate (Renvela) 2,400 mg PO TID [facility] Last Admin: 10/03/18 17:44 Dose: 2,400 mg Sucralfate (Carafate Tab) 1 gm PO Q6 [facility] Last Admin: 10/04/18 05:10 Dose: 1 gm Tramadol HCl (Ultram) 25 mg PO TID PRN PRN Reason: pain Last Admin: 10/03/18 22:27 Dose: 25 mg - Labs Labs: 09/30/18 08:13 09/30/18 08:13 PT 11.7 SECONDS (9.7-12.2) 09/30/18 08:13 INR 1.1 09/30/18 08:13 APTT 28 SECONDS (21-34) 09/30/18 08:13 Assessment and Plan (1) ESRD (end stage renal disease) on dialysis Status: Acute (2) CAD (coronary artery disease) Status: Acute (3) CHF exacerbation Status: Acute (4) Pleural effusion Status: Acute - Assessment and Plan (Free Text) Plan: dialysis scheduled for 10/05 contniue to ultrafiltrate fllow pulm recommendations await evaluation back pain
[2018-10-04] MEDS: Tramadol 25 mg PO PRN (10:32)
[2018-10-04 11:21] VITALS: PULSE 91
--- NOTE | 2018-10-04 11:44 | CP.PCM.PN ---
Subjective - Date & Time of Evaluation Date of Evaluation: 10/04/18 Time of Evaluation: 11:00 - Subjective Subjective: patient seen today, sob improved , cough still present , denies any chest hernandez, dizziness vss- stable, a febrile spo2 100 % on NC Objective - Vital Signs/Intake and Output Vital Signs (last 24 hours): Temp Pulse Resp BP Pulse Ox 98.0 F 91 H 18 117/68 100 10/04/18 07:00 10/04/18 07:30 10/04/18 07:00 10/04/18 07:00 10/04/18 07:00 Intake and Output: 10/04/18 10/04/18 06:59 18:59 Intake Total 150 Balance 150 - Medications Medications: Current Medications Acetylcysteine (Acetylcysteine 20%) 4 ml INH RQ6 [facility] Last Admin: 10/04/18 09:22 Dose: 4 ml Albuterol/Ipratropium (Duoneb 3 Mg/0.5 Mg (3 Ml) Ud) 3 ml INH RQ6 [facility] Last Admin: 10/04/18 09:21 Dose: 3 ml Amitriptyline HCl (Elavil) 25 mg PO HS [facility] Last Admin: 10/02/18 21:23 Dose: 25 mg Aspirin (Aspirin Chewable) 81 mg PO DAILY [facility] Last Admin: 10/04/18 10:34 Dose: 81 mg Calcium Acetate (Phoslo) 667 mg PO TID [facility] Last Admin: 10/04/18 10:33 Dose: 667 mg Fluticasone/Vilanterol (Breo Ellipta 100-25 Mcg Inh) 1 puff INH RQ24 [facility] Piperacillin Sod/Tazobactam (Sod 2.25 gm/ Sodium Chloride) 100 mls @ 200 mls/hr IVPB Q8H [facility]; Protocol Last Admin: 10/04/18 10:35 Dose: 200 mls/hr Levothyroxine Sodium (Synthroid) 125 mcg PO 0630 [facility] Last Admin: 10/04/18 05:29 Dose: 125 mcg Methylprednisolone (Solu-Medrol) 30 mg IVP Q8 [facility] Last Admin: 10/04/18 05:15 Dose: 30 mg Montelukast Sodium (Singulair) 10 mg PO HS [facility] Last Admin: 10/03/18 22:24 Dose: 10 mg Rosuvastatin Calcium (Crestor) 5 mg PO HS [facility] Last Admin: 10/03/18 22:24 Dose: 5 mg Sevelamer Carbonate (Renvela) 2,400 mg PO TID [facility] Last Admin: 10/04/18 10:34 Dose: 2,400 mg Sucralfate (Carafate Tab) 1 gm PO Q6 [facility] Last Admin: 10/04/18 05:10 Dose: 1 gm Tramadol HCl (Ultram) 25 mg PO TID PRN PRN Reason: pain Last Admin: 10/04/18 10:32 Dose: 25 mg - Labs Labs: 09/30/18 08:13 09/30/18 08:13 PT 11.7 SECONDS (9.7-12.2) 09/30/18 08:13 INR 1.1 09/30/18 08:13 APTT 28 SECONDS (21-34) 09/30/18 08:13 Assessment and Plan - Assessment and Plan (Free Text) Assessment: A/P
--- NOTE | 2018-10-05 00:12 | CP.PCM.DIS ---
Provider - Provider Date of Admission: 09/30/18 08:20 Attending physician: Jordan Spencer MD Consults: 09/30/18 08:22 Physician Consult Routine Comment: Consulting Provider: Dre Harper Consulting Physician: Dre Harper Reason for Consult: ESRD on HD 09/30/18 14:31 Pulmonology Consult Routine Comment: Consulting Provider: Zully Joe Consulting Physician: Zully Joe Reason for Consult: [place] Time Spent in preparation of Discharge (in minutes): 30 Hospital Course - Lab Results Lab Results: Micro Results 09/30/18 07:00 Blood Blood Culture - Preliminary NO GROWTH AFTER 4 DAYS 09/30/18 08:20 Blood Blood Culture - Preliminary NO GROWTH AFTER 4 DAYS 10/01/18 06:54 Sputum Gram Stain - Final 10/01/18 06:54 Sputum Sputum Culture - Final NORMAL ORAL LEVI Most Recent Lab Values WBC 9.0 K/uL (4.8-10.8) 09/30/18 08:13 RBC 3.60 Mil/uL (3.80-5.20) L 09/30/18 08:13 Hgb 11.8 g/dL (11.0-16.0) 09/30/18 08:13 Hct 36.1 % (34.0-47.0) 09/30/18 08:13 MCV 100.4 fL (81.0-99.0) H 09/30/18 08:13 MCH 32.9 pg (27.0-31.0) H 09/30/18 08:13 MCHC 32.7 g/dL (33.0-37.0) L 09/30/18 08:13 RDW 15.2 % (11.5-14.5) H 09/30/18 08:13 Plt Count 170 K/uL (130-400) 09/30/18 08:13 MPV 8.2 fL (7.2-11.7) 09/30/18 08:13 Neut % (Auto) 75.9 % (50.0-75.0) H 09/30/18 08:13 Lymph % (Auto) 7.7 % (20.0-40.0) L 09/30/18 08:13 Kimball % (Auto) 13.7 % (0.0-10.0) H 09/30/18 08:13 Eos % (Auto) 2.4 % (0.0-4.0) 09/30/18 08:13 Baso % (Auto) 0.3 % (0.0-2.0) 09/30/18 08:13 Neut # (Auto) 6.8 K/uL (1.8-7.0) 09/30/18 08:13 Lymph # (Auto) 0.7 K/uL (1.0-4.3) L 09/30/18 08:13 Kimball # (Auto) 1.2 K/uL (0.0-0.8) H 09/30/18 08:13 Eos # (Auto) 0.2 K/uL (0.0-0.7) 09/30/18 08:13 Baso # (Auto) 0.0 K/uL (0.0-0.2) 09/30/18 08:13 Neutrophils % (Manual) 85 % (50-75) H 09/30/18 08:13 Lymphocytes % (Manual) 7 % (20-40) L 09/30/18 08:13 Monocytes % (Manual) 6 % (0-10) 09/30/18 08:13 Eosinophils % (Manual) 2 % (0-4) 09/30/18 08:13 Platelet Estimate Normal (NORMAL) 09/30/18 08:13 Polychromasia Slight 09/30/18 08:13 Hypochromasia (manual) Slight 09/30/18 08:13 Anisocytosis (manual) Slight 09/30/18 08:13 PT 11.7 SECONDS (9.7-12.2) 09/30/18 08:13 INR 1.1 09/30/18 08:13 APTT 28 SECONDS (21-34) 09/30/18 08:13 pO2 46 mm/Hg (30-55) 09/30/18 07:54 VBG pH 7.45 (7.32-7.43) H 09/30/18 07:54 VBG pCO2 44 mmHg (40-60) 09/30/18 07:54 VBG HCO3 29.1 mmol/L 09/30/18 07:54 VBG Total CO2 32.0 mmol/L (22-28) H 09/30/18 07:54 VBG O2 Sat (Calc) 85.0 % (40-65) H 09/30/18 07:54 VBG Base Excess 5.8 mmol/L (0.0-2.0) H 09/30/18 07:54 VBG Potassium 4.6 mmol/L (3.6-5.2) 09/30/18 07:54 Sodium 142.0 mmol/l (132-148) 09/30/18 07:54 Chloride 104.0 mmol/L (98-107) 09/30/18 07:54 Glucose 81 mg/dl (65-105) 09/30/18 07:54 Lactate 1.5 mmol/L (0.7-2.1) 09/30/18 07:54 Sodium 140 mmol/L (132-148) 09/30/18 08:13 Potassium 4.4 mmol/L (3.6-5.2) 09/30/18 08:13 Chloride 100 mmol/L (98-107) 09/30/18 08:13 Carbon Dioxide 27 mmol/L (22-30) 09/30/18 08:13 Anion Gap 18 (10-20) 09/30/18 08:13 BUN 44 mg/dL (7-17) H 09/30/18 08:13 Creatinine 5.6 mg/dL (0.7-1.2) H 09/30/18 08:13 Est GFR ( Amer) 9 09/30/18 08:13 Est GFR (Non-Af Amer) 8 09/30/18 08:13 POC Glucose (mg/dL) 136 mg/dL (65-110) H 09/30/18 17:26 Random Glucose 79 mg/dL (65-105) D 09/30/18 08:13 Lactic Acid 1.4 mmol/L (0.7-2.1) 09/30/18 13:14 Calcium 8.9 mg/dl (8.6-10.4) 09/30/18 08:13 Phosphorus 2.6 mg/dL (2.5-4.5) 09/30/18 08:13 Magnesium 2.3 mg/dL (1.6-2.3) 09/30/18 08:13 Total Bilirubin 1.8 mg/dL (0.2-1.3) H 09/30/18 08:13 AST 31 U/L (14-36) 09/30/18 08:13 ALT 29 U/L (9-52) 09/30/18 08:13 Alkaline Phosphatase 109 U/L (38-126) 09/30/18 08:13 Troponin I 0.0750 ng/mL (0.00-0.120) 09/30/18 08:13 NT-Pro-B Natriuret Pep 50687 pg/mL (0-900) H 09/30/18 08:13 Total Protein 7.1 g/dL (6.3-8.3) 09/30/18 08:13 Albumin 4.0 g/dL (3.5-5.0) 09/30/18 08:13 Globulin 3.0 gm/dL (2.2-3.9) 09/30/18 08:13 Albumin/Globulin Ratio 1.3 (1.0-2.1) 09/30/18 08:13 Venous Blood Potassium 4.6 mmol/L (3.6-5.2) 09/30/18 07:54 Hep Bs Antigen Negative (NEGATIVE) 09/30/18 17:52 Influenza Typ A,B (EIA) Negative for flu a/b (NEGATIVE) 09/30/18 08:16 Discharge Exam - Head Exam Head Exam: ATRAUMATIC, NORMOCEPHALIC Discharge Plan - Discharge Medications Prescriptions: predniSONE [predniSONE Tab] 30 mg PO DAILY #18 tab guaiFENesin [Robitussin] 200 mg PO Q6 PRN #240 udc PRN Reason: Cough And Congestion - Follow Up Plan Condition: FAIR Disposition: HOME/ ROUTINE Instructions: Heart Failure, Adult (DC), Pneumonia, Adult (DC), Exacerbation of COPD (DC), Fever, Adult (DC), Guaifenesin, Prednisone, End Stage Kidney Disease (DC) Additional Instructions: Please follow up with Dr. Lyn office in 1 week Please continue medication as per med rec. Please do MRI out patient for back pain ( Please discuss with Dr. Lyn) Referrals: Brian Lyn MD [Staff Provider] -
--- NOTE | 2018-10-05 15:32 | DS ---
DISCHARGE DIAGNOSES: 1. Exacerbation of chronic obstructive pulmonary disease. 2. Tracheobronchitis. 3. Chronic kidney disease, on hemodialysis. 4. Hypertension. HOSPITAL COURSE: This is a 58-year-old female with history of coronary artery bypass grafting seven years ago, hypertension, hyperlipidemia, chronic kidney disease on hemodialysis three times a week, came in because of cough, congestion, shortness of breath. The patient has history of COPD, ex-smoker. She has dyspnea, excess cough, white sputum production, chills, rigors, body aches. The patient was admitted to the floor, placed on telemetry, cardiac enzymes x3 were negative. She was given oxygen nebulizer, Solu-Medrol, guaifenesin, Accu-Chek sliding scale. The patient's breathing started improving. She felt better. She is less short of breath, less cough, less wheezing. She is for discharge. The patient needs to be compliant with medication and the patient needs to follow up with her PMD, Dr. Lyn, after discharge for continuity of care and for prevention of readmission and hospitalization. Jordan Spencer MD
--- NOTE | 2018-10-09 20:55 | CARD ---
APPROVED REPORT Date of service: 09/30/2018 EKG Measurement Heart [id number] <Conclusion> Sinus tachycardia with premature atrial complexes Otherwise normal ECG
== END 2018-10-04 13:13 | disposition home or self-care (01) | DRG 190 ==
LOC: C.ER 06:53 → C.9E 08:20 → C.6T 11:38
PROVIDERS: ADMIT Internal Medicine; ATTEND Internal Medicine
PROC: 5A1D70Z Performance of Urinary Filtration, Intermittent, Less than 6 Hours Per Day (ICD-10-PCS; principal; 2018-09-30)
PROC: 5A1D70Z Performance of Urinary Filtration, Intermittent, Less than 6 Hours Per Day (ICD-10-PCS; 2018-10-03)
DX: J44.1 Chronic obstructive pulmonary disease with (acute) exacerbation (principal); J96.21 Acute and chronic respiratory failure with hypoxia; N18.6 End stage renal disease; J18.9 Pneumonia, unspecified organism; I13.2 Hypertensive heart and chronic kidney disease with heart failure and with stage 5 chronic kidney disease, or end stage renal disease; T86.12 Kidney transplant failure; J44.0 Chronic obstructive pulmonary disease with (acute) lower respiratory infection; I25.10 Atherosclerotic heart disease of native coronary artery without angina pectoris; E78.5 Hyperlipidemia, unspecified; E11.22 Type 2 diabetes mellitus with diabetic chronic kidney disease; E03.9 Hypothyroidism, unspecified; I27.20 Pulmonary hypertension, unspecified; I50.9 Heart failure, unspecified; J40 Bronchitis, not specified as acute or chronic; Z87.891 Personal history of nicotine dependence; Z95.1 Presence of aortocoronary bypass graft; Z95.2 Presence of prosthetic heart valve; Z99.2 Dependence on renal dialysis

== ENCOUNTER 2018-11-29 18:39 | Inpatient (IN) | payer MEDICARE, MEDICAID ==
[2018-11-29 18:39] VITALS: BMI 20.9
--- NOTE | 2018-11-29 19:02 | C.PDOC ---
History Of Present Illness 58 year old female with PMHx of COPD presents to the ED sent by PMD for abnormal EKG. Patient was found to be tachycardic in PMD's office. Denies any physical complaints. Time Seen by Provider: 11/29/18 18:50 Chief Complaint (Nursing): Palpitations History Per: Patient History/Exam Limitations: no limitations Onset/Duration Of Symptoms: Hrs Current Symptoms Are (Timing): Still Present Reports Recently: Treated By A Physician Past Medical History Reviewed: Historical Data, Nursing Documentation, Vital Signs Vital Signs: Last Vital Signs Temp Pulse 135 H 11/29/18 18:46 Resp 20 11/29/18 18:46 BP 138/86 11/29/18 18:46 Pulse Ox 85 L 11/29/18 18:46 Primary Care Provider: Brtitani Heaton - Medical History PMH: Anemia, CAD (double bypass, replacement valve), CHF, COPD, HTN, Hypercholesterolemia, Hypothyroidism, Pneumonia, End Stage Renal Disease, Chronic Kidney Disease Denies: Sleep Apnea Surgical History: CABG (S/P AVR) - [facility] Procedures (09/30/18) CORONAR ARTERIOGR-2 CATH (02/20/04) HEMODIALYSIS (07/13/13) INCIS W REM OF FORIEGN BODY OR DEV FROM SKIN & SUBCUT TISSUE (12/24/12) LEFT HEART CARDIAC CATH (02/20/04) LT HEART ANGIOCARDIOGRAM (02/20/04) Family History: States: No Known Family Hx - Social History Hx Tobacco Use: No Hx Alcohol Use: No Hx Substance Use: No - Immunization History Hx Tetanus Toxoid Vaccination: Yes Hx Influenza Vaccination: Yes Hx Pneumococcal Vaccination: Yes Review Of Systems Except As Marked, All Systems Reviewed And Found Negative. Constitutional: Negative for: Fever, Chills Cardiovascular: Negative for: Chest Pain, Palpitations, Light Headedness Respiratory: Negative for: Cough, Shortness of Breath Gastrointestinal: Negative for: Nausea, Vomiting, Abdominal Pain, Diarrhea, Constipation Genitourinary: Negative for: Hematuria Musculoskeletal: Negative for: Back Pain Neurological: Negative for: Dizziness Physical Exam - Physical Exam Appears: Non-toxic, No Acute Distress Skin: Warm, Dry, No Rash Head: Tenderness Eye(s): bilateral: Normal Inspection, PERRL, EOMI Neck: Supple Chest: Symmetrical Cardiovascular: Rhythm Regular, No Murmur, Other (tachycardic ) Respiratory: Normal Breath Sounds, No Rales, No Rhonchi, No Wheezing Gastrointestinal/Abdominal: Soft, No Tenderness Neurological/Psych: Oriented x3, Normal Speech Gait: Steady ED Course And Treatment - Laboratory Results Result Diagrams: 11/29/18 19:06 11/29/18 19:06 O2 Sat by Pulse Oximetry: 85 (RA) - Radiology CXR: Interpreted by Me, Viewed By Me CXR Interpretation: Yes: Other (Increased interstitial markings. Left pleural effusion. No changes from prior. ) - CT Scan/US CT Other Rad Studies (CT/US): Read By Radiologist, Radiology Report Reviewed CT/US Interpretation: EXAM: CTA Chest with Intravenous Contrast for Pulmonary Embolism. CLINICAL HISTORY: TACHYCARDIA/R/O PE/DIALYSIS PATIENT. TECHNIQUE: Axial CTA images of the chest with intravenous contrast using a pulmonary embolism protocol. Reconstructed images were created and reviewed. 0.00 mGy-cm. CONTRAST: With; 100MLS VISI 320 was administered without incident. COMPARISON: None provided. FINDINGS: PULMONARY ARTERIES. No evidence of central or segmental pulmonary embolism is seen. AORTA. There is no evidence for aneurysm or dissection of the thoracic aorta. LUNGS. Pneumonic consolidation is seen in the postero-lateral left lower lobe. PLEURAL SPACES. No evidence of pneumothorax. Small bibasilar pleural effusions are present. HEART/VASCULAR. There is mild cardiomegaly. No pericardial effusion. There is noted to have been previous cardiac surgery. A prosthetic cardiac valve is noted. There is increased transverse diameter of the main pulmonary artery noted measuring 4.3 cm. This likely indicates underlying pulmonary arterial hy pertension. LYMPH NODES. No lymphadenopathy is evident. BONES. No focal osseous abnormality or acute fracture. UPPER ABDOMEN. Images of the upper abdomen demonstrate prior cholecystectomy. The kidneys are markedly atrophic bilaterally compatible with renal insufficiency. The patient is a known hemodialysis patient. IMPRESSION: 1. No identification of PE. 2. Pneumonic consolidation in the posterolateral left lower lobe. 3. Small bibasilar pleural effusions are present. 4. Mild cardiomegaly. 5. Evidence of previous cardiac surgery. A prosthetic cardiac valve is present. 6. Increased transverse diameter of the main pulmonary artery. This finding may indicate underlying pulmonary arterial hypertension. 7. Status post cholecystectomy. 8. Marked bilateral renal atrophy compatible with renal insufficiency. The patient is a known hemodialysis patient. . Electronically signed on November 29, 2018 10:48:54 PM EDT by: Jonathan Rivas M.D., M.B.A., Certified By ABR. Rolfe hip Trained MRI and CT Specialist Medical Decision Making Medical Decision Making: tachycardia. ?aflutter 2:1, atrial aachycardia- sent by cardiology pt otherwise asymptotic Plan - EKG - Bloodwork - CXR - Cardizem 15mg IVp - UA noted k, case dsicussed with dr hastings plan to hd in am, kayexalate given, insulin dextrose given. updated dr gee accepts to his service. hr decreased s/p cardizem. ct shows no pe, (+)pneumonic consoldiation. dr gee updated. Disposition - Disposition Disposition: HOSPITALIZED Disposition Time: 23:00 Condition: FAIR - Clinical Impression Clinical Impression: Atrial arrhythmia, ESRD (end stage renal disease) on dialysis - Scribe Statement The provider has reviewed the documentation as recorded by the Scribe Marilyn Selby All medical record entries made by the Scribe were at my direction and personally dictated by me. I have reviewed the chart and agree that the record accurately reflects my personal performance of the history, physical exam, medical decision making, and the department course for this patient. I have also personally directed, reviewed, and agree with the discharge instructions and disposition.
[2018-11-29 19:10] LABS: BASO % 0.6 % (0.0-2.0); EOS % 0.4 % (0.0-4.0); HEMOGLOBIN 13.3 g/dL (11.0-16.0); LYMPH # 0.5 K/uL (1.0-4.3); LYMPH % 7.6 % (20.0-40.0); MEAN CELL VOLUME 102.3 fL (81.0-99.0); MEAN CORPUSCULAR HEMOGLOBIN 33.9 pg (27.0-31.0); MEAN CORPUSCULAR HGB CONC 33.1 g/dL (33.0-37.0); MEAN PLATELET VOLUME 7.1 fL (7.2-11.7); MONO # 0.2 K/uL (0.0-0.8); MONO % 3.5 % (0.0-10.0); NEUT # 5.2 K/uL (1.8-7.0); NEUT % 87.9 % (50.0-75.0); NRBC % 0.1 % (0.0-2.0); PLATELET COUNT 170 K/uL (130-400); RBC 3.94 Mil/uL (3.80-5.20); RED CELL DISTRIBUTION WIDTH 18.5 % (11.5-14.5); WHITE BLOOD COUNT 5.9 K/uL (4.8-10.8)
[2018-11-29 19:19] LABS: INR 1.1; PARTIAL THROMBOPLASTIN TIME 32.3 SECONDS (21-34); PROTHROMBIN TIME 12.1 SECONDS (9.7-12.2)
[2018-11-29 19:31] LABS: ALB/GLOB RATIO 1.5 (1.0-2.1); ALBUMIN 4.4 g/dL (3.5-5.0); CALCIUM 9.4 mg/dl (8.6-10.4)
[2018-11-29 19:35] LABS: TROPONIN I 0.014 ng/mL (0.00-0.120)
[2018-11-29] MEDS ORDERED: Dextrose 50% SYRINGE Inj (50 ml) IV STA (19:36)
[2018-11-29] MEDS ORDERED: (Novolin R) Insulin Human Regular 100 units/ml vial IVP STA (19:36)
[2018-11-29] MEDS ORDERED: Heparin25000 units/250ml 1/2NS 25,000 UNITS/250 ML BAG IV ONE (19:39)
[2018-11-29] MEDS ORDERED: Calcium Gluconate 4.65 mEq/10 ml Inj IVP ONE (19:42)
[2018-11-29] MEDS ORDERED: (Novolin R) Insulin Human Regular 100 units/ml vial ONE (19:49)
[2018-11-29] MEDS ORDERED: Dextrose 50% SYRINGE Inj (50 ml) ONE (19:50)
[2018-11-29] MEDS ORDERED: Calcium Gluconate 4.65 mEq/10 ml Inj ONE (20:12)
[2018-11-29 21:11] LABS: ANISOCYTOSIS SLIGHT; EOSINOPHIL 1 % (0-4); LYMPHOCYTE 2 % (20-40); MONOCYTE 4 % (0-10); NEUTROPHIL 93 % (50-75); TOTAL CELLS COUNTED 100
[2018-11-29] MEDS ORDERED: Iodixanol 320 MG/ML 100 ML BOTTLE IV ONE (21:21)
[2018-11-29 21:23] LABS: PLATELET ESTIMATE NORMAL (NORMAL)
[2018-11-29] MEDS ORDERED: Piperacillin/Tazobact 3.375 gm 100 ML IVPB STA (22:54)
[2018-11-29] MEDS ORDERED: Piperacillin/Tazobact 3.375 gm 100 ML IVPB ONE (23:05)
[2018-11-29] MEDS ORDERED: Vancomycin 1 GM 1 GM/250 ML BAG IVPB ONE (23:05)
[2018-11-30] MEDS ORDERED: Heparin25000 units/250ml 1/2NS 25,000 UNITS/250 ML BAG IV ONE (03:15)
--- NOTE | 2018-11-30 06:03 | HP ---
HISTORY OF PRESENT ILLNESS: This is a 58-year-old female, was brought in from the office with SVT. Appears to be junctional tachycardia. Heart rate was 136. Given the history of previous CABG, history of recurrent diastolic heart failure, moderate MR, she was recommended to get admitted. She has been admitted in the past on multiple occasions for exacerbation of COPD. She has a chronic kidney disease, under the care of Dr. Oliveros and she is on dialysis. 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 PERSONAL HISTORY: Does not smoke, does not drink. ALLERGIES: DENIED. PAST MEDICAL HISTORY: Admitted on multiple occasions for exacerbation of COPD. In 2007, she had an aortic valve replacement and also had a EDWARDS to LAD. A repeat cardiac catheterization done in 2009 had shown patent EDWARDS and normal prosthetic valve. She also has a mild prosthetic hypertension. History of renal transplant, failed; currently on hemodialysis. MEDICATIONS AT HOME: Include calcium acetate, multivitamins, Renvela, Synthroid, Nexium. FAMILY HISTORY: Negative. SOCIAL HISTORY: Does not smoke, does not drink. Lives with her sister. REVIEW OF SYSTEMS: GENERAL: Generalized weakness, although lately she has been feeling better. No fever, no chills, chronic cough, no hemoptysis. EYES: No visual disturbances. EARS: No hearing loss. PULMONARY: Chronic cough, shortness of breath and wheeze at times, under the care of Dr. Joe. CARDIOPULMONARY: Sleeping on the sofa. Occasional edema. Able to walk 1-2 blocks. History of hypertension. GI: Negative for hematemesis or melena. NEUROLOGIC: No history of TIAs or CVAs. MUSCULOSKELETAL: History of osteoarthritis involving the knees. Also has back pain. : On hemodialysis. PSYCH: History of mild depression. EXTREMITIES: Arthritis and edema. PHYSICAL EXAMINATION: GENERAL: Shows a middle-aged female, who is chronically sick looking, but in no acute distress. VITAL SIGNS: She is about 5 feet and weighs 111 pounds. Blood pressure was 102/70, heart rate of 136, respiratory rate of 24, afebrile. HEENT: Head is normocephalic. Eyes: No pallor. No icterus. NECK: Supple. Engorged external jugular veins. PULMONARY: Clear to auscultation bilaterally. HEART: PMI is normal. S1, S2, is markedly tachycardic. Grade 2-3/6 systolic ejection murmur in the aortic area. No gallops. ABDOMEN: Soft, nontender. EXTREMITIES: No cyanosis, clubbing or edema. Distal pulses are intact. NEUROLOGIC: Awake, alert, oriented x3. SKIN: Scars of previous CABG, renal transplant, shunt in the left arm, and thyroid surgery in the neck. LABORATORY DATA: EKG had shown junctional tachycardia. After giving Cardizem in the ER, heart rate had slowed down, potassium is more than 6. ASSESSMENT: This is a 58-year-old female with history of multiple medical problems including coronary artery disease, previous coronary artery bypass graft with left internal mammary artery to left anterior descending, bioprosthetic aortic valve, mild pulmonary hypertension, severe chronic obstructive pulmonary disease and hyperkalemia, has presented with supraventricular tachycardia. PLAN: Plan at this point is to treat the SVT with Cardizem, add beta margarito small dose, metoprolol 25 mg p.o. twice a day, and correct potassium. Care of plan was explained to the patient. Brian Lyn MD
[2018-11-30] MEDS ORDERED: Lactulose 10 gm/15 ml (Rectal Use) PR PRN (08:15)
[2018-11-30] MEDS ORDERED: Albuterol 0.083% Inhal Sol (2.5 mg/3 mL) UD IH PRN (08:15)
--- NOTE | 2018-11-30 09:39 | CT ---
CT chest pulmonary angiogram HISTORY: Tachycardia. COMPARISON: None available. TECHNIQUE: CT chest pulmonary angiogram was performed utilizing multiple contiguous axial images with the use of intravenous contrast. Subsequently, sagittal and coronal reformatted images were obtained. In addition, sagittal and coronal MIPS reformatted images were obtained. This CT exam was performed using one or more of the following dose reduction techniques: Automated exposure control, adjustment of the mA and/or kV according to patient size, and/or use of iterative reconstruction technique. Findings: Prominence of the main pulmonary artery which may represent pulmonary arterial hypertension. Clinical correlation. No evidence of acute pulmonary embolism. No evidence of acute aortic dissection. Atherosclerotic calcification and plaque the aorta. Status post median sternotomy. Prior valve replacement. Coronary calcifications. Mild cardiomegaly. Calcifications noted within the bilateral breast. Correlation with mammogram would be helpful. No significant axillary adenopathy. Heterogeneity of the thyroid which is suboptimally visualized. Shotty mediastinal lymph nodes including a 1 centimeter precarinal lymph node as well as a 1.6 centimeter right paratracheal lymph node. No significant pericardial effusion. Pleural thickening bilaterally. Nodular and cirrhotic contour of the liver. Prior cholecystectomy. Postsurgical prominence of the common bile duct. Atrophic kidneys. Degenerative changes in the spine. Right lung: Emphysematous changes. Dense consolidative opacification at the posterior aspect of the right lower lobe which may represent infiltrate and or atelectasis. Some associated calcifications at the posterior pleura. 5 millimeter pulmonary nodule within the right lower lobe on series 4, image 82. 2 millimeter calcified nodule within the right lower lobe on series 4, image 79. Mild nodular consolidation within the anterior aspect of the right upper lobe on series 4, image 57 measuring up to 8 millimeters. Additional linear consolidative changes within the anterior aspect of the right upper lobe inferiorly on series 4, image 62. Scattered areas of nodular consolidation within the anterior aspect of the right middle lobe. Left lung: Dense consolidative opacification within the left lower lobe concerning for atelectasis and or infiltrate. Emphysematous changes. Additional linear consolidative changes within the mid to inferior left upper lobe. Trachea thru central airways are patent. Impression: 1. No evidence of acute pulmonary embolism. 2. Scattered areas of consolidation which may represent atelectasis and or infiltrate as described above in both lungs. Post treatment interval follow-up would be helpful to exclude underlying lesion. 3. 5 millimeter pulmonary nodule within the right lower lobe as described above. Three - 6 month interval follow-up study would be helpful if clinically indicated. 4. Some pleural based calcification posteriorly at the lung bases. Clinical correlation. Trace bilateral pleural effusions. 5. Emphysematous changes in the lung maria. 6. Prominence of the main pulmonary artery which may represent pulmonary arterial hypertension. Clinical correlation. 7. Prominent mediastinal lymph nodes including a right paratracheal lymph node measuring up to 1.5 centimeters as described above. 8. Prior cholecystectomy. A preliminary report was generated at 10:48 p.m. on 11/29/[address] Jonathan Rivas from [employer].
[2018-11-30] MEDS ORDERED: [UNRECOGNIZED DRUG - OTHER] INH SCH ×2 (10:00→10:45)
--- NOTE | 2018-11-30 10:26 | CP.PCM.CON ---
History of Present Illness - History of Present Illness History of Present Illness: CHART REVIEWED. PT SEEN AND EXAMINED. 58 YO HISP FEMALE WITH A HX COPD, CHRNIC RESP FAILURE ON HOME O2 2L, CHF, S/P CABG AND AVR, ESRD ON HD, S/P KIDNEY TRANSPLANT X 2, AND REMOVAL, HYPOTH, ANEMIA, ADM WITH TACHYCARDIA ~140 NOTED AT [employer]. PT DENIES PALPITATIONS, NO CP. NO SOB. NO COUGH., ON PO PRED TAPER 10 MG QOD NOW. ON HOME NEB PRN AND ANORO. NO FEVER. S/P MULT RECENT ADM WITH EXAC COPD AND PNA WITH ACUTE ON CHRONIC RESP FAILURE, S/P REHAB X 5 DAYS, LAST D/C 6 WKS AGO. Review of Systems - Review of Systems All systems: reviewed and no additional remarkable complaints except - Constitutional Constitutional: absent: Fever, Malaise - EENT Eyes: absent: Change in Vision Ears: absent: Tinnitus Nose/Mouth/Throat: absent: Nasal Congestion - Cardiovascular Cardiovascular: absent: Chest Pain, Palpitations - Respiratory Respiratory: Dyspnea on Exertion. absent: Cough, Hemoptysis, Wheezing, Excessive Mucous Production, Change in Mucous Color - Gastrointestinal Gastrointestinal: absent: Nausea, Vomiting - Genitourinary Genitourinary: absent: Dysuria - Musculoskeletal Musculoskeletal: Arthralgias - Integumentary Integumentary: absent: Rash - Neurological Neurological: absent: Confusion, Focal Weakness - Psychiatric Psychiatric: absent: Anxiety - Endocrine Endocrine: absent: Change in Body Appearance - Hematologic/Lymphatic Hematologic: absent: Lymphadenopathy Past Patient History - Past Medical History & Family History Past Medical History?: Yes Past Family History: Reviewed and not pertinent - Past Social History Smoking Status: Former Smoker Alcohol: None Drugs: Denies - CARDIAC Hx Congestive Heart Failure: Yes Hx Hypercholesterolemia: Yes Hx Hypertension: Yes - PULMONARY Hx Respiratory Disorders: Yes Hx Chronic Obstructive Pulmonary Disease (COPD): Yes Hx Pneumonia: Yes Hx Pulmonary Edema: Yes Hx Sleep Apnea: No - NEUROLOGICAL Hx Neurological Disorder: No - HEENT Hx HEENT Problems: No - RENAL Hx Chronic Kidney Disease: Yes Hx Dialysis: Yes - ENDOCRINE/METABOLIC Hx Hypothyroidism: Yes - HEMATOLOGICAL/ONCOLOGICAL Hx Anemia: Yes - INTEGUMENTARY Hx Dermatological Problems: No - MUSCULOSKELETAL/RHEUMATOLOGICAL Hx Falls: No - GASTROINTESTINAL Hx Gastrointestinal Disorders: Yes Other/Comment: Hiatal Hernia - GENITOURINARY/GYNECOLOGICAL Hx Genitourinary Disorders: Yes Other/Comment: S/P KIDNEY TRANSPLANT. S/P TRANSPLANT REMOVAL - PSYCHIATRIC Hx Psychophysiologic Disorder: No Hx Substance Use: No - SURGICAL HISTORY Hx Surgeries: Yes Hx Coronary Artery Bypass Graft: Yes (S/P AVR) Hx Kidney Transplant: Yes Hx Open Heart Surgery: Yes - ANESTHESIA Hx Anesthesia: Yes Hx Anesthesia Reactions: No Hx Malignant Hyperthermia: No Meds Allergies/Adverse Reactions: Allergies Allergy/AdvReac Type Severity Reaction Status Date / Time No Known Allergies Allergy Verified 11/29/18 18:49 - Medications Medications: Current Medications Albuterol Sulfate (Albuterol 0.083% Inhal Yudi (2.5 Mg/3 Ml) Ud) 2.5 mg IH Q4 PRN PRN Reason: Shortness of Breath Aspirin (Aspirin Chewable) 81 mg PO DAILY [facility] Calcium Acetate (Phoslo) 667 mg PO TIDCC [facility] Docusate Sodium (Colace) 100 mg PO BID [facility] Home Med (Patient's Own Inhaler) 1 puff INH Q24H [facility] Heparin Sodium/Sodium Chloride (Heparin 56091 Units/250ml 1/2 Normal Saline) 25,000 units in 250 mls @ 4.776 mls/hr IV .Q24H [facility]; Protocol Stop: 12/01/18 03:14 Last Admin: 11/30/18 03:16 Dose: 9 units/kg/hr, 4.776 mls/hr Lactulose (Enulose) 20 gm PO HS PRN PRN Reason: Constipation Levothyroxine Sodium (Synthroid) 125 mcg PO DAILY@0630 [facility] Montelukast Sodium (Singulair) 10 mg PO HS [facility] Rosuvastatin Calcium (Crestor) 5 mg PO HS [facility] Tramadol HCl (Ultram) 25 mg PO Q8H [facility] Physical Exam - Constitutional Appears: No Acute Distress, Chronically Ill - Head Exam Head Exam: ATRAUMATIC, NORMOCEPHALIC - Eye Exam Eye Exam: EOMI, Normal appearance - ENT Exam ENT Exam: Mucous Membranes Moist - Neck Exam Neck exam: Positive for: Normal Inspection - Respiratory Exam Respiratory Exam: Decreased Breath Sounds. absent: Accessory Muscle Use, Rhonchi, Wheezes, Respiratory Distress - Cardiovascular Exam Cardiovascular Exam: Tachycardia, +S1, +S2 - GI/Abdominal Exam GI & Abdominal Exam: Soft. absent: Tenderness - Rectal Exam Rectal Exam: Deferred - Extremities Exam Extremities exam: Negative for: calf tenderness, pedal edema - Back Exam Back exam: absent: CVA tenderness (L), CVA tenderness (R) - Neurological Exam Neurological exam: Alert, CN II-XII Intact, Oriented x3 - Psychiatric Exam Psychiatric exam: Normal Mood Results - Vital Signs Recent Vital Signs: Last Vital Signs Temp 98.5 F 11/30/18 08:37 Pulse 101 H 11/30/18 08:37 Resp 20 11/30/18 08:37 BP 138/87 11/30/18 08:37 Pulse Ox 95 11/30/18 08:37 - Labs Result Diagrams: 11/29/18 19:06 11/29/18 19:06 Labs: Laboratory Results - last 24 hr 11/29/18 11/29/18 11/29/18 19:06 19:06 19:06 WBC 5.9 RBC 3.94 Hgb 13.3 Hct 40.3 MCV 102.3 H MCH 33.9 H MCHC 33.1 RDW 18.5 H Plt Count 170 MPV 7.1 L Neut % (Auto) 87.9 H Lymph % (Auto) 7.6 L [place] % (Auto) 3.5 Eos % (Auto) 0.4 Baso % (Auto) 0.6 Neut # (Auto) 5.2 Lymph # (Auto) 0.5 L [place] # (Auto) 0.2 Eos # (Auto) 0.0 Baso # (Auto) 0.0 Neutrophils % (Manual) 93 H Lymphocytes % (Manual) 2 L Monocytes % (Manual) 4 Eosinophils % (Manual) 1 Platelet Estimate Normal Anisocytosis (manual) Slight PT 12.1 INR 1.1 APTT 32.3 Sodium 142 Potassium 6.4 H* D Chloride 96 L Carbon Dioxide 27 Anion Gap 24 H BUN 67 H Creatinine 10.0 H* D Est GFR ( Amer) 5 Est GFR (Non-Af Amer) 4 Random Glucose 176 H D Calcium 9.4 Total Bilirubin 0.6 AST 17 ALT 16 Alkaline Phosphatase 103 Troponin I 0.0140 NT-Pro-B Natriuret Pep 00202 H Total Protein 7.4 Albumin 4.4 Globulin 3.0 Albumin/Globulin Ratio 1.5 11/30/18 11/30/18 01:30 09:36 WBC RBC Hgb Hct MCV MCH MCHC RDW Plt Count MPV Neut % (Auto) Lymph % (Auto) [place] % (Auto) Eos % (Auto) Baso % (Auto) Neut # (Auto) Lymph # (Auto) [place] # (Auto) Eos # (Auto) Baso # (Auto) Neutrophils % (Manual) Lymphocytes % (Manual) Monocytes % (Manual) Eosinophils % (Manual) Platelet Estimate Anisocytosis (manual) PT INR APTT 161.3 H* D 48.4 H D Sodium Potassium Chloride Carbon Dioxide Anion Gap BUN Creatinine Est GFR ( Amer) Est GFR (Non-Af Amer) Random Glucose Calcium Total Bilirubin AST ALT Alkaline Phosphatase Troponin I NT-Pro-B Natriuret Pep Total Protein Albumin Globulin Albumin/Globulin Ratio Assessment & Plan (1) SVT (supraventricular tachycardia) Status: Acute (2) ESRD (end stage renal disease) on dialysis Status: Acute (3) COPD exacerbation Status: Acute (4) Chronic respiratory failure with hypoxia Status: Acute (5) Dependence on renal dialysis Status: Acute (6) Hypothyroid Status: Acute (7) Pneumonia Status: Acute (8) Failed kidney transplant Status: Chronic - Assessment and Plan (Free Text) Assessment: 58 YO FEMALE WITH A HX MULT MED PROBS ADM WITH NEW ONSET SVT, RESPONDED TO IV CARDIZEM. ON IV HEPARIN, MONITOR COAGS. HD PER RENAL. MONITOR O2 SAT. TOLERATING O2 AT 2L. RESUME ANORO, PO PRED TAPER. CT CHEST REVIEWED, NEG PE., TO COMPARE WITH PREVIOUS ?LLL INFILT. S/P MULT AB COURSES. CARDIO W/U IN PROGRESS. PROG GUARDED. DISCUSSED WITH STAFF AT LENGTH.
[2018-11-30] MEDS: Tramadol 25 mg PO SCH ×2 (10:32→17:24)
--- NOTE | 2018-11-30 12:05 | CARD ---
APPROVED REPORT Date of service: 11/29/2018 EKG Measurement Heart [id number] AR 130P [id number] <Conclusion> Sinus tachycardia Abnormal QRS-T angle, consider primary T wave abnormality Abnormal ECG
--- NOTE | 2018-11-30 12:28 | RAD ---
Date of service: 11/29/2018 PROCEDURE: CHEST RADIOGRAPH, 1 VIEW HISTORY: chest pain COMPARISON: 09/30/2018. Single-view chest. 11/29/2018. CT thorax FINDINGS: LUNGS: Lower lobe infiltrates progressive compared to the prior chest x-ray. PLEURA: Increasing bilateral pleural effusions. CARDIOVASCULAR: Atherosclerotic calcifications identified primarily aortic arch. Persistent cardiomegaly. OSSEOUS STRUCTURES: No significant abnormalities. VISUALIZED UPPER ABDOMEN: Normal. OTHER FINDINGS: None. IMPRESSION: Progressive infiltrates and effusions.
--- NOTE | 2018-11-30 12:28 | CP.PCM.PN ---
Subjective - Date & Time of Evaluation Date of Evaluation: 11/30/18 Time of Evaluation: 12:26 - Subjective Subjective: better,k was 6.4.extra dyalysis.now in nsr. Objective - Vital Signs/Intake and Output Vital Signs (last 24 hours): Temp Pulse Resp BP Pulse Ox 97.7 F 104 H 20 132/78 98 11/30/18 09:05 11/30/18 11:44 11/30/18 10:32 11/30/18 12:05 11/30/18 09:05 - Medications Medications: Current Medications Albuterol Sulfate (Albuterol 0.083% Inhal Yudi (2.5 Mg/3 Ml) Ud) 2.5 mg IH Q4 PRN PRN Reason: Shortness of Breath Aspirin (Aspirin Chewable) 81 mg PO SuTuThSa@1000 [facility] Calcium Acetate (Phoslo) 667 mg PO TIDCC [facility] Last Admin: 11/30/18 12:22 Dose: Not Given Docusate Sodium (Colace) 100 mg PO BID [facility] Last Admin: 11/30/18 10:32 Dose: Not Given Heparin Sodium (Porcine) (Heparin) 5,000 units SC Q12 [facility] Home Med (Patient's Own Inhaler) 1 puff INH Q24H [facility] Lactulose (Enulose) 20 gm PO HS PRN PRN Reason: Constipation Levothyroxine Sodium (Synthroid) 125 mcg PO DAILY@0630 [facility] Montelukast Sodium (Singulair) 10 mg PO HS [facility] Rosuvastatin Calcium (Crestor) 5 mg PO HS [facility] Tramadol HCl (Ultram) 25 mg PO Q8H [facility] Last Admin: 11/30/18 10:32 Dose: Not Given - Labs Labs: 11/29/18 19:06 11/29/18 19:06 PT 12.1 SECONDS (9.7-12.2) 11/29/18 19:06 INR 1.1 11/29/18 19:06 APTT 48.4 SECONDS (21-34) H D 11/30/18 09:36 - Constitutional Appears: No Acute Distress, Chronically Ill - Head Exam Head Exam: NORMOCEPHALIC - Neck Exam Neck Exam: Normal Inspection - Respiratory Exam Respiratory Exam: Clear to Ausculation Bilateral - Cardiovascular Exam Cardiovascular Exam: REGULAR RHYTHM - GI/Abdominal Exam GI & Abdominal Exam: Soft - Extremities Exam Extremities Exam: absent: Pedal Edema - Neurological Exam Neurological Exam: Alert, Oriented x3 Assessment and Plan - Assessment and Plan (Free Text) Plan: svt,junctional reverted back to sinus after correctnion of k.may need small dose of toprol.
--- NOTE | 2018-11-30 14:28 | CP.PCM.CON ---
History of Present Illness - History of Present Illness History of Present Illness: 58 YO HISP FEMALE WITH A HX COPD, CHRNIC RESP FAILURE ON HOME O2 2L, CHF due to pulm htn, S/P CABG AND AVR, ESRD ON HD, S/P KIDNEY TRANSPLANT X 2- both with chronic rejection, AND REMOVAL of both kidneys, HYPOTH, ANEMIA, ADM WITH TAC HYCARDIA ~140 NOTED AT [employer] OFFICE. PT DENIES PALPITATIONS, NO CP. NO SOB. NO COUGH., ON PO PRED TAPER 10 MG QOD NOW. ON HOME NEB PRN AND ANORO. NO FEVER. S/P MULT RECENT ADM WITH EXAC COPD AND PNA WITH ACUTE ON CHRONIC RESP FAILURE, S/P REHAB X 5 DAYS, LAST D/C 6 WKS AGO. Paroxysmal Afib dx, hyperkalemia on admission. Received HD today; UF 3000ml Still above EDW Now back in NSR Review of Systems - Constitutional Constitutional: Fatigue, Weakness - EENT Eyes: absent: As Per HPI, Blind Spots, Blurred Vision, Change in Vision, Decreased Night Vision, Diplopia, Discharge, Dry Eye, Exophthalmos, Floaters, Irritation, Itchy Eyes, Loss of Peripheral Vision, Pain, Photophobia, Requires Corrective Lenses, Sees Flashes, Spots in Vision, Tunnel Vision, Other Visual Disturbances, Loss of Vision, Other Ears: absent: As Per HPI, Decreased Hearing, Ear Discharge, Ear Pain, Tinnitus, Abnormal Hearing, Disequilibrium, Dizziness, Other Nose/Mouth/Throat: absent: As Per HPI, Epistaxis, Nasal Congestion, Nasal Discharge, Nasal Obstruction, Nasal Trauma, Nose Pain, Post Nasal Drip, Sinus Pain, Sinus Pressure, Bleeding Gums, Change in Voice, Dental Pain, Dry Mouth, Dysphagia, Halitosis, Hoarsness, Lip Swelling, Mouth Lesions, Mouth Pain, Odynophagia, Sore Throat, Throat Swelling, Tongue Swelling, Facial Pain, Neck Pain, Neck Mass, Other - Cardiovascular Cardiovascular: Dyspnea on Exertion, Irregular Heart Rhythm, Paroxysmal Nocturnal Dyspnea - Respiratory Respiratory: Cough, Dyspnea on Exertion - Gastrointestinal Gastrointestinal: Nausea - Genitourinary Genitourinary: As Per HPI - Musculoskeletal Musculoskeletal: Muscle Weakness, Myalgias - Neurological Neurological: Weakness Past Patient History - Past Medical History & Family History Past Medical History?: Yes Past Family History: Reviewed and not pertinent - Past Social History Smoking Status: Former Smoker Alcohol: None Drugs: Denies Home Situation {Lives}: With Family - CARDIAC Hx Congestive Heart Failure: Yes Hx Hypercholesterolemia: Yes Hx Hypertension: Yes - PULMONARY Hx Respiratory Disorders: Yes Hx Chronic Obstructive Pulmonary Disease (COPD): Yes Hx Pneumonia: Yes Hx Pulmonary Edema: Yes Hx Sleep Apnea: No - NEUROLOGICAL Hx Neurological Disorder: No - HEENT Hx HEENT Problems: No - RENAL Hx Chronic Kidney Disease: Yes Hx Dialysis: Yes - ENDOCRINE/METABOLIC Hx Hypothyroidism: Yes - HEMATOLOGICAL/ONCOLOGICAL Hx Anemia: Yes - INTEGUMENTARY Hx Dermatological Problems: No - MUSCULOSKELETAL/RHEUMATOLOGICAL Hx Falls: No - GASTROINTESTINAL Hx Gastrointestinal Disorders: Yes Other/Comment: Hiatal Hernia - GENITOURINARY/GYNECOLOGICAL Hx Genitourinary Disorders: Yes Other/Comment: S/P KIDNEY TRANSPLANT. S/P TRANSPLANT REMOVAL - PSYCHIATRIC Hx Psychophysiologic Disorder: No Hx Substance Use: No - SURGICAL HISTORY Hx Surgeries: Yes Hx Coronary Artery Bypass Graft: Yes (S/P AVR) Hx Kidney Transplant: Yes Hx Open Heart Surgery: Yes - ANESTHESIA Hx Anesthesia: Yes Hx Anesthesia Reactions: No Hx Malignant Hyperthermia: No Meds Allergies/Adverse Reactions: Allergies Allergy/AdvReac Type Severity Reaction Status Date / Time No Known Allergies Allergy Verified 11/29/18 18:49 - Medications Medications: Current Medications Albuterol Sulfate (Albuterol 0.083% Inhal Yudi (2.5 Mg/3 Ml) Ud) 2.5 mg IH Q4 PRN PRN Reason: Shortness of Breath Aspirin (Aspirin Chewable) 81 mg PO SuTuThSa@1000 [facility] Calcium Acetate (Phoslo) 667 mg PO TIDCC [facility] Last Admin: 11/30/18 12:22 Dose: Not Given Docusate Sodium (Colace) 100 mg PO BID [facility] Last Admin: 11/30/18 10:32 Dose: Not Given Heparin Sodium (Porcine) (Heparin) 5,000 units SC Q12 [facility] Home Med (Patient's Own Inhaler) 1 puff INH Q24H [facility] Lactulose (Enulose) 20 gm PO HS PRN PRN Reason: Constipation Levothyroxine Sodium (Synthroid) 125 mcg PO DAILY@0630 [facility] Montelukast Sodium (Singulair) 10 mg PO HS [facility] Rosuvastatin Calcium (Crestor) 5 mg PO HS [facility] Tramadol HCl (Ultram) 25 mg PO Q8H [facility] Last Admin: 11/30/18 10:32 Dose: Not Given Physical Exam - Constitutional Appears: Non-toxic, Chronically Ill - Head Exam Head Exam: ATRAUMATIC, NORMAL INSPECTION - Eye Exam Eye Exam: EOMI, Normal appearance - Neck Exam Neck exam: Positive for: Normal Inspection. Negative for: Tenderness - Respiratory Exam Respiratory Exam: Rhonchi, NORMAL BREATHING PATTERN - Cardiovascular Exam Cardiovascular Exam: REGULAR RHYTHM, +S1 - GI/Abdominal Exam GI & Abdominal Exam: Soft. absent: Tenderness - Extremities Exam Extremities exam: Positive for: normal inspection. Negative for: pedal edema - Neurological Exam Neurological exam: Alert, CN II-XII Intact - Skin Skin Exam: Dry, Warm Results - Vital Signs Recent Vital Signs: Last Vital Signs Temp 97.7 F 11/30/18 09:05 Pulse 104 H 11/30/18 11:44 Resp 20 11/30/18 10:32 BP 132/78 11/30/18 12:05 Pulse Ox 98 11/30/18 09:05 - Labs Result Diagrams: 11/29/18 19:06 11/29/18 19:06 Labs: Laboratory Results - last 24 hr 11/29/18 11/29/18 11/29/18 19:06 19:06 19:06 WBC 5.9 RBC 3.94 Hgb 13.3 Hct 40.3 MCV 102.3 H MCH 33.9 H MCHC 33.1 RDW 18.5 H Plt Count 170 MPV 7.1 L Neut % (Auto) 87.9 H Lymph % (Auto) 7.6 L [place] % (Auto) 3.5 Eos % (Auto) 0.4 Baso % (Auto) 0.6 Neut # (Auto) 5.2 Lymph # (Auto) 0.5 L [place] # (Auto) 0.2 Eos # (Auto) 0.0 Baso # (Auto) 0.0 Neutrophils % (Manual) 93 H Lymphocytes % (Manual) 2 L Monocytes % (Manual) 4 Eosinophils % (Manual) 1 Platelet Estimate Normal Anisocytosis (manual) Slight PT 12.1 INR 1.1 APTT 32.3 Sodium 142 Potassium 6.4 H* D Chloride 96 L Carbon Dioxide 27 Anion Gap 24 H BUN 67 H Creatinine 10.0 H* D Est GFR ( Amer) 5 Est GFR (Non-Af Amer) 4 Random Glucose 176 H D Calcium 9.4 Total Bilirubin 0.6 AST 17 ALT 16 Alkaline Phosphatase 103 Troponin I 0.0140 NT-Pro-B Natriuret Pep 02726 H Total Protein 7.4 Albumin 4.4 Globulin 3.0 Albumin/Globulin Ratio 1.5 11/30/18 11/30/18 01:30 09:36 WBC RBC Hgb Hct MCV MCH MCHC RDW Plt Count MPV Neut % (Auto) Lymph % (Auto) [place] % (Auto) Eos % (Auto) Baso % (Auto) Neut # (Auto) Lymph # (Auto) [place] # (Auto) Eos # (Auto) Baso # (Auto) Neutrophils % (Manual) Lymphocytes % (Manual) Monocytes % (Manual) Eosinophils % (Manual) Platelet Estimate Anisocytosis (manual) PT INR APTT 161.3 H* D 48.4 H D Sodium Potassium Chloride Carbon Dioxide Anion Gap BUN Creatinine Est GFR ( Amer) Est GFR (Non-Af Amer) Random Glucose Calcium Total Bilirubin AST ALT Alkaline Phosphatase Troponin I NT-Pro-B Natriuret Pep Total Protein Albumin Globulin Albumin/Globulin Ratio Assessment & Plan (1) ESRD (end stage renal disease) Status: Acute (2) Failed kidney transplant Status: Acute (3) Hyperkalemia Status: Acute (4) SVT (supraventricular tachycardia) Status: Acute (5) CAD (coronary artery disease) Status: Acute (6) CHF exacerbation Status: Acute (7) Pulmonary HTN Status: Acute - Assessment and Plan (Free Text) Plan: Immediate dialysis just done Adequate UF needed Repeat dialysis in AM for CHF
[2018-12-01] MEDS: Tramadol 25 mg PO SCH ×2 (00:44→09:26)
[2018-12-01] MEDS ORDERED: Levothyroxine 125 MCG TAB PO SCH (06:30)
[2018-12-01] MEDS ORDERED: Fluticasone-Vilanterol 100/25mcg Diskus INH SCH (08:00)
--- NOTE | 2018-12-01 10:16 | CP.PCM.PN ---
Subjective - Date & Time of Evaluation Date of Evaluation: 12/01/18 Time of Evaluation: 10:13 - Subjective Subjective: still claims to be SOB gained much weight- possibly from steroids afebrile otherwise better will reschedule extra HD today in NSR now Objective - Vital Signs/Intake and Output Vital Signs (last 24 hours): Temp Pulse Resp BP Pulse Ox 98.7 F 104 H 20 138/87 97 12/01/18 08:25 12/01/18 08:25 12/01/18 08:25 12/01/18 08:25 12/01/18 08:25 - Medications Medications: Current Medications Albuterol Sulfate (Albuterol 0.083% Inhal Yudi (2.5 Mg/3 Ml) Ud) 2.5 mg IH Q4 PRN PRN Reason: Shortness of Breath Aspirin (Aspirin Chewable) 81 mg PO SuTuThSa@1000 [facility] Last Admin: 12/01/18 10:04 Dose: Not Given Calcium Acetate (Phoslo) 667 mg PO TIDCC [facility] Last Admin: 12/01/18 09:00 Dose: 667 mg Docusate Sodium (Colace) 100 mg PO BID [facility] Last Admin: 12/01/18 09:23 Dose: 100 mg Heparin Sodium (Porcine) (Heparin) 5,000 units SC Q12 [facility] Last Admin: 12/01/18 10:04 Dose: Not Given Home Med (Patient's Own Inhaler) 1 puff INH Q24H [facility] Lactulose (Enulose) 20 gm PO HS PRN PRN Reason: Constipation Levothyroxine Sodium (Synthroid) 125 mcg PO DAILY@0630 [facility] Last Admin: 12/01/18 07:30 Dose: 125 mcg Montelukast Sodium (Singulair) 10 mg PO HS [facility] Last Admin: 11/30/18 21:32 Dose: 10 mg Rosuvastatin Calcium (Crestor) 5 mg PO HS [facility] Last Admin: 11/30/18 21:33 Dose: 5 mg Tramadol HCl (Ultram) 25 mg PO Q8H [facility] Last Admin: 12/01/18 09:26 Dose: Not Given - Labs Labs: 11/29/18 19:06 11/29/18 19:06 PT 12.1 SECONDS (9.7-12.2) 11/29/18 19:06 INR 1.1 11/29/18 19:06 APTT 48.4 SECONDS (21-34) H D 11/30/18 09:36 - Constitutional Appears: No Acute Distress, Chronically Ill - Head Exam Head Exam: ATRAUMATIC, NORMAL INSPECTION - Eye Exam Eye Exam: EOMI, Normal appearance - Neck Exam Neck Exam: Normal Inspection. absent: Tenderness - Respiratory Exam Respiratory Exam: Clear to Ausculation Bilateral, NORMAL BREATHING PATTERN - Cardiovascular Exam Cardiovascular Exam: REGULAR RHYTHM, +S1 - GI/Abdominal Exam GI & Abdominal Exam: Soft. absent: Tenderness - Extremities Exam Extremities Exam: Normal Inspection. absent: Tenderness - Neurological Exam Neurological Exam: Awake, CN II-XII Intact - Skin Skin Exam: Dry, Warm Assessment and Plan (1) ESRD (end stage renal disease) Status: Acute (2) Failed kidney transplant Status: Acute (3) Hyperkalemia Status: Acute (4) SVT (supraventricular tachycardia) Status: Acute (5) CAD (coronary artery disease) Status: Acute (6) CHF exacerbation Status: Acute (7) Pulmonary HTN Status: Acute - Assessment and Plan (Free Text) Plan: dialysis with extra UF today COPD rx monitor rhythm as per cardio
[2018-12-01 10:18] VITALS: TEMP 98
[2018-12-01 10:19] VITALS: O2SAT 98
[2018-12-01 10:45] LABS: BASO % 0.7 % (0.0-2.0); EOS # 0.2 K/uL (0.0-0.7); EOS % 4.2 % (0.0-4.0); HEMOGLOBIN 12.4 g/dL (11.0-16.0); LYMPH # 0.7 K/uL (1.0-4.3); LYMPH % 12.3 % (20.0-40.0); MEAN CELL VOLUME 102.3 fL (81.0-99.0); MEAN CORPUSCULAR HEMOGLOBIN 34.7 pg (27.0-31.0); MEAN CORPUSCULAR HGB CONC 33.9 g/dL (33.0-37.0); MEAN PLATELET VOLUME 7.5 fL (7.2-11.7); MONO # 0.8 K/uL (0.0-0.8); MONO % 13.7 % (0.0-10.0); NEUT % 69.1 % (50.0-75.0); RBC 3.56 Mil/uL (3.80-5.20); RED CELL DISTRIBUTION WIDTH 17.9 % (11.5-14.5); WHITE BLOOD COUNT 5.7 K/uL (4.8-10.8)
--- NOTE | 2018-12-01 11:00 | CP.PCM.PN ---
Subjective - Date & Time of Evaluation Date of Evaluation: 12/01/18 Time of Evaluation: 10:58 - Subjective Subjective: PT ALERT, NO COUGH. NO PALPITATIONS. ROS; OTHERWISE NEG Objective - Vital Signs/Intake and Output Vital Signs (last 24 hours): Temp Pulse Resp BP Pulse Ox 98 F 89 18 127/84 98 12/01/18 10:00 12/01/18 10:00 12/01/18 10:00 12/01/18 10:30 12/01/18 10:00 - Medications Medications: Current Medications Albuterol Sulfate (Albuterol 0.083% Inhal Yudi (2.5 Mg/3 Ml) Ud) 2.5 mg IH Q4 PRN PRN Reason: Shortness of Breath Aspirin (Aspirin Chewable) 81 mg PO SuTuThSa@1000 [facility] Last Admin: 12/01/18 10:04 Dose: Not Given Calcium Acetate (Phoslo) 667 mg PO TIDCC [facility] Last Admin: 12/01/18 09:00 Dose: 667 mg Docusate Sodium (Colace) 100 mg PO BID [facility] Last Admin: 12/01/18 09:23 Dose: 100 mg Heparin Sodium (Porcine) (Heparin) 5,000 units SC Q12 [facility] Last Admin: 12/01/18 10:04 Dose: Not Given Home Med (Patient's Own Inhaler) 1 puff INH Q24H [facility] Lactulose (Enulose) 20 gm PO HS PRN PRN Reason: Constipation Levothyroxine Sodium (Synthroid) 125 mcg PO DAILY@0630 [facility] Last Admin: 12/01/18 07:30 Dose: 125 mcg Montelukast Sodium (Singulair) [address] [facility] Last Admin: 11/30/18 21:32 Dose: 10 mg Rosuvastatin Calcium (Crestor) [address] [facility] Last Admin: 11/30/18 21:33 Dose: 5 mg Tramadol HCl (Ultram) 25 mg PO Q8H [facility] Last Admin: 12/01/18 09:26 Dose: Not Given - Labs Labs: 12/01/18 10:37 11/29/18 19:06 PT 12.1 SECONDS (9.7-12.2) 11/29/18 19:06 INR 1.1 11/29/18 19:06 APTT 48.4 SECONDS (21-34) H D 11/30/18 09:36 - Constitutional Appears: No Acute Distress, Chronically Ill - Head Exam Head Exam: ATRAUMATIC, NORMOCEPHALIC - Eye Exam Eye Exam: EOMI, Normal appearance - ENT Exam ENT Exam: Mucous Membranes Moist - Neck Exam Neck Exam: Normal Inspection - Respiratory Exam Respiratory Exam: Decreased Breath Sounds, Rhonchi. absent: Respiratory Distress - Cardiovascular Exam Cardiovascular Exam: RRR, +S1, +S2 - GI/Abdominal Exam GI & Abdominal Exam: Soft. absent: Tenderness - Rectal Exam Rectal Exam: Deferred - Extremities Exam Extremities Exam: absent: Calf Tenderness, Pedal Edema - Back Exam Back Exam: absent: CVA tenderness (L), CVA tenderness (R) - Neurological Exam Neurological Exam: Alert, Awake, CN II-XII Intact, Oriented x3 - Psychiatric Exam Psychiatric exam: Normal Mood - Skin Skin Exam: absent: Rash Assessment and Plan (1) SVT (supraventricular tachycardia) Status: Acute (2) ESRD (end stage renal disease) on dialysis Status: Acute (3) COPD exacerbation Status: Acute (4) Chronic respiratory failure with hypoxia Status: Acute (5) Dependence on renal dialysis Status: Acute (6) Hypothyroid Status: Acute (7) Pneumonia Status: Acute (8) Failed kidney transplant Status: Chronic - Assessment and Plan (Free Text) Assessment: RESP STATUS COMFORTABLE AT REST. CONVERTED NSR YESTERDAY. CONT PULM TOILET., MONITOR O2 SAT. ON LOW DOSE PRED TAPER/. CXR REVIEWED. HD IN PROGRESS. PROG GUARDED. DISCUSSED WITH STAFF AT LENGTH AND RENAL.
[2018-12-01 11:02] LABS: ALB/GLOB RATIO 1.5 (1.0-2.1); ALBUMIN 3.9 g/dL (3.5-5.0); CALCIUM 8.6 mg/dl (8.6-10.4)
[2018-12-01 12:12] VITALS: PULSE 99
[2018-12-01 13:16] VITALS: BP 102/86; RESP 16
--- NOTE | 2018-12-02 05:17 | DS ---
HISTORY OF PRESENT ILLNESS AND HOSPITAL COURSE: A 58-year-old female with history of previous aortic valve replacement; previous CABG; chronic kidney disease, on dialysis; renal transplant failure, was brought in with SVT which appeared to be junctional tachycardia. Potassium was 6.5. The patient was admitted to the telemetry floor, was dialyzed x2 and potassium was corrected. The patient was reverted back to sinus rhythm without any medication. Currently, she is not on any beta margarito. At this point, she is stable to be discharged and to follow up as an outpatient. She is not on any antihypertensive medications. Her blood pressure is running systolic 95-100 and we rolled over the beta blockers. Lipid and chem-7 will be opted as an outpatient. FINAL DIAGNOSES: Supraventricular tachycardia, status post aortic valve replacement, history of coronary artery bypass grafting, chronic kidney disease, severe chronic obstructive pulmonary disease. Brian Lyn MD
== END 2018-12-01 14:52 | disposition home or self-care (01) | DRG 308 ==
LOC: C.ER 18:39 → C.9E 20:22 → C.6T 21:13
PROVIDERS: ADMIT Internal Medicine Cardiovascular Disease; ATTEND Internal Medicine Cardiovascular Disease
PROC: 5A1D70Z Performance of Urinary Filtration, Intermittent, Less than 6 Hours Per Day (ICD-10-PCS; principal; 2018-11-30)
PROC: 5A1D70Z Performance of Urinary Filtration, Intermittent, Less than 6 Hours Per Day (ICD-10-PCS; 2018-12-01)
DX: I47.1 Supraventricular tachycardia (principal); N18.6 End stage renal disease; J18.9 Pneumonia, unspecified organism; I13.2 Hypertensive heart and chronic kidney disease with heart failure and with stage 5 chronic kidney disease, or end stage renal disease; J44.1 Chronic obstructive pulmonary disease with (acute) exacerbation; Z94.0 Kidney transplant status; J44.0 Chronic obstructive pulmonary disease with (acute) lower respiratory infection; E87.5 Hyperkalemia; J96.11 Chronic respiratory failure with hypoxia; T86.12 Kidney transplant failure; I48.0 Paroxysmal atrial fibrillation; I50.9 Heart failure, unspecified; I48.92 Unspecified atrial flutter; I25.10 Atherosclerotic heart disease of native coronary artery without angina pectoris; E03.9 Hypothyroidism, unspecified; D64.9 Anemia, unspecified; K44.9 Diaphragmatic hernia without obstruction or gangrene; I27.20 Pulmonary hypertension, unspecified; E78.00 Pure hypercholesterolemia, unspecified; Z87.01 Personal history of pneumonia (recurrent); Z87.891 Personal history of nicotine dependence; Z95.1 Presence of aortocoronary bypass graft; Z95.2 Presence of prosthetic heart valve; Z99.2 Dependence on renal dialysis; Z99.81 Dependence on supplemental oxygen; Y83.0 Surgical operation with transplant of whole organ as the cause of abnormal reaction of the patient, or of later complication, without mention of misadventure at the time of the procedure